=== PATIENT | female | born 1990 | race Caucasian/White ===

== ENCOUNTER 2016-10-05 17:23 | Emergency (ER) | payer SELFPAY ==
[2016-10-05 17:28] VITALS: BP 122/73
--- NOTE | 2016-10-05 17:43 | ER Document Report ---
ED Medical Screen (RME) - General Chief Complaint: Pelvic Pain Stated Complaint: ABDOMINAL PAIN TRAVEL OUTSIDE OF THE [place] IN LAST 30 DAYS: No - HPI Notes: 10/05/16 17:42 Lower pelvic pain pain with sex ongoing for 2 weeks - Related Data Allergies/Adverse Reactions: No Known Allergies Allergy (Verified 10/05/16 17:39) Past Medical History - Social History Chew tobacco use (# tins/day): No Frequency of alcohol use: None Drug Abuse: None - Past Medical History Cardiac Medical History: Denies: Hx Heart Attack, Hx Hypertension Pulmonary Medical History: Denies: Hx Asthma, Hx Bronchitis, Hx COPD, Hx Pneumonia Neurological Medical History: Denies: Hx Cerebrovascular Accident, Hx Seizures Renal/ Medical History: Reports: Hx Pelvic Inflammatory Disease. Denies: Hx Peritoneal Dialysis Musculoskeltal Medical History: Denies Hx Arthritis Skin Medical History: Reports Hx MRSA - back Psychiatric Medical History: Reports: Hx Anxiety, Hx Bipolar Disorder, Hx Depression Past Surgical History: Reports: Hx Oral Surgery, Hx Orthopedic Surgery - left ankle - Immunizations Immunizations up to date: Yes Hx Diphtheria, Pertussis, Tetanus Vaccination: Yes Review of Systems - Review of Systems Gastrointestinal: Other - Pelvic pain Physical Exam - Vital signs Vitals: Temp Pulse Resp BP Pulse Ox 98.5 F 98 15 122/73 100 10/05/16 17:25 10/05/16 17:25 10/05/16 17:25 10/05/16 17:25 10/05/16 17:25 - Cardiovascular Rhythm: Regular Heart sounds: Normal auscultation Course - Re-evaluation Re-evalutation: 10/05/16 17:43 I have greeted and performed a rapid initial assessment of this patient. A comprehensive ED assessment and evaluation of the patient, analysis of test results and completion of the medical decision making process will be conducted by additional ED providers. - Vital Signs Vital signs: Temp Pulse Resp BP Pulse Ox 98.5 F 98 15 122/73 100 10/05/16 17:25 10/05/16 17:25 10/05/16 17:25 10/05/16 17:25 10/05/16 17:25
--- NOTE | 2016-10-05 18:08 | ER Document Report ---
ED GI/ - General Chief Complaint: Pelvic Pain Stated Complaint: ABDOMINAL PAIN Time Seen by Provider: 10/05/16 18:02 Mode of Arrival: Ambulatory Information source: Patient Notes: Patient presents complaining of lower pelvic pain with intercourse for the past 2 weeks. Patient denies any fever, nausea, vomiting, or diarrhea. Patient denies any urinary symptoms or vaginal bleeding. TRAVEL OUTSIDE OF THE [place] IN LAST 30 DAYS: No - HPI Patient complains to provider of: Pelvic pain, Vaginal pain. No: Vaginal bleeding, Vaginal discharge, Vomiting Onset: Other - 2 weeks with intercourse Timing/Duration: Waxing and waning Quality of pain: Sharp Pain Level: 4 Location: Pelvis Vaginal bleeding (Compared to normal period): None Sexual history: Active Associated symptoms: denies: Diarrhea, Dysuria, Fever, Loss of appetite, Nausea , Urinary hesitancy, Urinary frequency, Urinary retention, Urinary urgency, Vaginal discharge, Vomiting Exacerbated by: Other - Sexual intercourse Relieved by: Denies Similar symptoms previously: No Recently seen / treated by doctor: No - Related Data Allergies/Adverse Reactions: No Known Allergies Allergy (Verified 10/05/16 17:39) Past Medical History - General Information source: Patient Last Menstrual Period: 09/14/2016 - Social History Smoking Status: Current Every Day Smoker Chew tobacco use (# tins/day): No Frequency of alcohol use: None Drug Abuse: None Occupation: none Lives with: Spouse/Significant other Family History: Reviewed & Not Pertinent, Other - she does not know - Past Medical History Cardiac Medical History: Denies: Hx Heart Attack, Hx Hypertension Pulmonary Medical History: Denies: Hx Asthma, Hx Bronchitis, Hx COPD, Hx Pneumonia Neurological Medical History: Denies: Hx Cerebrovascular Accident, Hx Seizures Renal/ Medical History: Reports: Hx Pelvic Inflammatory Disease. Denies: Hx Peritoneal Dialysis Musculoskeltal Medical History: Denies Hx Arthritis Skin Medical History: Reports Hx MRSA - back Psychiatric Medical History: Reports: Hx Anxiety, Hx Bipolar Disorder, Hx Depression Past Surgical History: Reports: Hx Oral Surgery, Hx Orthopedic Surgery - left ankle - Immunizations Immunizations up to date: Yes Hx Diphtheria, Pertussis, Tetanus Vaccination: Yes Review of Systems - Review of Systems Constitutional: No symptoms reported. denies: Fever, Recent illness EENT: No symptoms reported Cardiovascular: No symptoms reported Respiratory: No symptoms reported. denies: Cough, Short of breath Gastrointestinal: Abdominal pain - Lower pelvic pain. denies: Diarrhea, Nausea , Vomiting, Poor appetite Genitourinary: No symptoms reported. denies: Dysuria, Flank pain Female Genitourinary: Painful intercourse. denies: , Heavy/abnormal periods, Vaginal discharge, Vaginal bleeding Musculoskeletal: No symptoms reported. denies: Back pain Skin: No symptoms reported Hematologic/Lymphatic: No symptoms reported Neurological/Psychological: No symptoms reported Physical Exam - Vital signs Vitals: Temp Pulse Resp BP Pulse Ox 98.5 F 98 15 122/73 100 10/05/16 17:25 10/05/16 17:25 10/05/16 17:25 10/05/16 17:25 10/05/16 17:25 - General General appearance: Appears well, Alert In distress: None - HEENT Head: Normocephalic, Atraumatic Eyes: Normal Nasal: Normal Mouth/Lips: Normal Mucous membranes: Normal Neck: Normal, Supple. No: Lymphadenopathy - Respiratory Respiratory status: No respiratory distress Chest status: Nontender Breath sounds: Normal. No: Rhonchi, Stridor, Wheezing Chest palpation: Normal - Cardiovascular Rhythm: Regular Heart sounds: S1 appreciated, S2 appreciated Murmur: No - Abdominal Inspection: Normal Distension: No distension Bowel sounds: Normal Tenderness: Tender, Guarding - Lower pelvic tenderness Organomegaly: No organomegaly - Genitourinary External exam: Normal Speculum exam: Cervix closed, Vaginal discharge Bimanuel exam: Cervical motion tender. No: Adnexal mass - Back Back: Normal, Nontender. No: CVA tenderness - Extremities General upper extremity: Normal inspection, Normal ROM General lower extremity: Normal inspection, Normal ROM - Neurological Neuro grossly intact: Yes Cognition: Normal Henning Coma Scale Eye Opening: Spontaneous Krystle Coma Scale Verbal: Oriented Henning Coma Scale Motor: Obeys Commands Henning Coma Scale Total: 15 - Psychological Associated symptoms: Normal affect, Normal mood - Skin Skin Temperature: Warm Skin Moisture: Dry Skin Color: Normal Course - Re-evaluation Re-evalutation: 10/05/16 Patient continues with suprapubic tenderness with repeat abdominal examination. Abdomen soft, no guarding. No McBurney tenderness. Patient nontoxic in appearance.Patient presents with abdominal pain without signs of peritonitis or other life-threatening or serious etiology. Patient appears stable for discharge and has been instructed to return immediately if the symptoms worsen in any way for repeat evaluation. - Vital Signs Vital signs: Temp Pulse Resp BP Pulse Ox 98.5 F 98 15 122/73 100 10/05/16 17:25 10/05/16 17:25 10/05/16 17:25 10/05/16 17:25 10/05/16 17:25 - Laboratory Result Diagrams: 10/05/16 17:52 10/05/16 17:52 Laboratory results interpreted by me: 10/05/16 10/05/16 10/05/16 17:52 17:52 17:52 WBC 12.4 H Carbon Dioxide 31 H Urine Blood SMALL H Urine Urobilinogen 2.0 H Ur Leukocyte Esterase MODERATE H Urine Ascorbic Acid 40 H Chlamydia DNA (PCR) 10/05/16 18:30 WBC Carbon Dioxide Urine Blood Urine Urobilinogen Ur Leukocyte Esterase Urine Ascorbic Acid Chlamydia DNA (PCR) DETECTED H Labs- Entire Visit 10/05/16 10/05/16 10/05/16 17:52 17:52 17:52 WBC 12.4 H RBC 4.03 Hgb 12.7 Hct 37.4 MCV 93 MCH 31.4 MCHC 33.9 RDW 12.6 Plt Count 428 Seg Neutrophils % 56.6 Lymphocytes % 33.0 Monocytes % 8.1 Eosinophils % 1.8 Basophils % 0.5 Absolute Neutrophils 7.0 Absolute Lymphocytes 4.1 Absolute Monocytes 1.0 Absolute Eosinophils 0.2 Absolute Basophils 0.1 Sodium 140.9 Potassium 4.3 Chloride 99 Carbon Dioxide 31 H Anion Gap 11 BUN 12 Creatinine 0.84 Est GFR ( Amer) > 60 Est GFR (Non-Af Amer) > 60 Glucose 83 Calcium 9.8 Total Bilirubin 0.4 Direct Bilirubin 0.4 Indirect Bilirubin Not Reportable Neonat Total Bilirubin Not Reportable AST 20 ALT 24 Alkaline Phosphatase 80 Total Protein 8.1 Albumin 4.4 Lipase 82.0 Serum HCG, Qual Urine Color YELLOW Urine Appearance CLOUDY Urine pH 6.0 Ur Specific H[place] 1.026 Urine Protein NEGATIVE Urine Glucose (UA) NEGATIVE Urine Ketones NEGATIVE Urine Blood SMALL H Urine Nitrite NEGATIVE Urine Bilirubin NEGATIVE Urine Urobilinogen 2.0 H Ur Leukocyte Esterase MODERATE H Urine WBC (Auto) 83 Urine RBC (Auto) 26 Urine Bacteria (Auto) TRACE Squamous Epi Cells Auto 23 Urine Mucus (Auto) OCC Urine Ascorbic Acid 40 H Epi Cells (Wet Prep) Bacteria (Wet Prep) Trichomonas (Wet Prep) Vaginal WBC Vaginal RBC Vaginal Yeast 10/05/16 10/05/16 17:52 18:30 WBC RBC Hgb Hct MCV MCH MCHC RDW Plt Count Seg Neutrophils % Lymphocytes % Monocytes % Eosinophils % Basophils % Absolute Neutrophils Absolute Lymphocytes Absolute Monocytes Absolute Eosinophils Absolute Basophils Sodium Potassium Chloride Carbon Dioxide Anion Gap BUN Creatinine Est GFR ( Amer) Est GFR (Non-Af Amer) Glucose Calcium Total Bilirubin Direct Bilirubin Indirect Bilirubin Neonat Total Bilirubin AST ALT Alkaline Phosphatase Total Protein Albumin Lipase Serum HCG, Qual NEGATIVE Urine Color Urine Appearance Urine pH Ur Specific H[place] Urine Protein Urine Glucose (UA) Urine Ketones Urine Blood Urine Nitrite Urine Bilirubin Urine Urobilinogen Ur Leukocyte Esterase Urine WBC (Auto) Urine RBC (Auto) Urine Bacteria (Auto) Squamous Epi Cells Auto Urine Mucus (Auto) Urine Ascorbic Acid Epi Cells (Wet Prep) 3+ EPITHELIALS SEEN Bacteria (Wet Prep) 4+ BACTERIA SEEN Trichomonas (Wet Prep) NO TRICHOMONAS SEEN Vaginal WBC 3+ WBCS SEEN Vaginal RBC RARE RBCS SEEN Vaginal Yeast NO YEAST SEEN 10/05/16 20:58 Discharge - Discharge Clinical Impression: PID (acute pelvic inflammatory disease) UTI (urinary tract infection) Qualifiers: Urinary tract infection type: site unspecified Hematuria presence: with hematuria Qualified Code(s): N39.0 - Urinary tract infection, site not specified Condition: Stable Disposition: HOME, SELF-CARE Instructions: Urinary Anesthetic Agent ([facility]), Urinary Tract Infection ([facility]), Doxycycline ([facility]), Pelvic Inflammatory Disease ([facility]), Pelvic Pain ([facility]), Rocephin ([facility]) Additional Instructions: Return immediately for any new or worsening symptoms Followup with your primary care provider, call tomorrow to make a followup appointment Cultures are pending, we will call if you need any different treatment Prescriptions: Doxycycline Hyclate 100 mg PO BID #28 capsule Metronidazole [Flagyl 500 mg Tablet] 500 mg PO BID #28 tablet Naproxen [Naprosyn 250 Nmg Tablet] 1 tab PO BID #14 tablet Phenazopyridine HCl [Pyridium 200 mg Tablet] 200 mg PO TID #15 tablet Referrals: [facility] [Provider Group] - Follow up as needed [facility] [Provider Group] - Follow up tomorrow
[2016-10-05 18:41] LABS: ABSOLUTE BASOPHILS # (AUTO) 0.1 10^3/uL (0.0-0.2); ABSOLUTE EOSINOPHILS # (AUTO) 0.2 10^3/uL (0.0-0.6); ABSOLUTE LYMPHOCYTES (AUTO) 4.1 10^3/uL (0.5-4.7); BASOPHILS % (AUTO) 0.5 % (0-2); EOSINOPHILS % (AUTO) 1.8 % (0-6); HEMATOCRIT 37.4 % (36.0-47.0); HEMOGLOBIN 12.7 g/dL (12.0-15.5); HGB HCT DIFFERENCE 0.7; MEAN CORPUSCULAR HEMOGLOBIN 31.4 pg (27.0-33.4); MEAN CORPUSCULAR HGB CONC 33.9 g/dL (32.0-36.0); MEAN CORPUSCULAR VOLUME 93 fl (80-97); MONOCYTES % (AUTO) 8.1 % (3-13); RED BLOOD COUNT 4.03 10^6/uL (3.72-5.28); RED CELL DISTRIBUTION WIDTH 12.6 % (11.5-14.0); SEGMENTED NEUTROPHILS % (AUTO) 56.6 % (42-78); WHITE BLOOD COUNT 12.4 10^3/uL (4.0-10.5)
[2016-10-05 18:42] LABS: APPEARANCE,URINE CLOUDY; BILIRUBIN,URINE NEGATIVE (NEGATIVE); GLUCOSE, URINE NEGATIVE (NEGATIVE); KETONES,URINE NEGATIVE (NEGATIVE); LEUKOCYTE ESTERASE,URINE MODERATE (NEGATIVE); NITRITE,URINE NEGATIVE (NEGATIVE); PROTEIN,URINE NEGATIVE (NEGATIVE); URINE SPECIFIC GRAVITY 1.026
[2016-10-05] MEDS ORDERED: HYDROCODONE/ACETAMINOPHEN 5-325 MG TABLET PO ONE (18:55)
[2016-10-05 18:58] LABS: ALANINE AMINOTRANSFERASE 24 U/L (9-52); ALBUMIN 4.4 g/dL (3.5-5.0); ALKALINE PHOSPHATASE 80 U/L (38-126); ANION GAP 11 (5-19); ASPARTATE AMINO TRANSFERASE 20 U/L (14-36); BILIRUBIN,DIRECT 0.4 mg/dL (0.0-0.4); BILIRUBIN,TOTAL 0.4 mg/dL (0.2-1.3); BLOOD UREA NITROGEN 12 mg/dL (7-20); CALCIUM 9.8 mg/dL (8.4-10.2); CARBON DIOXIDE 31 mmol/L (22-30); CHLORIDE 99 mmol/L (98-107); CREATININE RESULT 0.84 mg/dL (0.52-1.25); GLUCOSE 83 mg/dL (75-110); POTASSIUM 4.3 mmol/L (3.6-5.0); SODIUM 140.9 mmol/L (137-145); TOTAL PROTEIN 8.1 g/dL (6.3-8.2)
[2016-10-05] MEDS ORDERED: CEFTRIAXONE INJ 1000 MG VIAL IM ONE (19:12)
[2016-10-05] MEDS ORDERED: LIDOCAINE 1% INJ-PF (10 MG/ML) 30 ML SDV INJ ONE (19:12)
[2016-10-05] MEDS ORDERED: DOXYCYCLINE HYCLATE 100 MG TABLET PO ONE (19:28)
[2016-10-05] MEDS ORDERED: METRONIDAZOLE 500 MG TABLET PO ONE (19:29)
[2016-10-05] MEDS ORDERED: HYDROCODONE/ACETAMINOPHEN 5-325 MG 6 TAB/DSPK PO PRN (19:35)
[2016-10-05 20:49] LABS: CHLAM PCR DETECTED (NOT DETECT)
== END 2016-10-05 20:23 | disposition home or self-care (01) ==
LOC: ER 17:23
DX: N73.9 Female pelvic inflammatory disease, unspecified (principal); F17.200 Nicotine dependence, unspecified, uncomplicated; Z86.14 Personal history of Methicillin resistant Staphylococcus aureus infection; N39.0 Urinary tract infection, site not specified; R31.9 Hematuria, unspecified; N94.10 Unspecified dyspareunia; R10.2 Pelvic and perineal pain
CPT/HCPCS: 99284; 96372; 36415; 87086; 87210; 83690; 84703; 85025; 80053; 81001; 87491; 87591; J3490; J0696

== ENCOUNTER 2016-12-17 10:56 | Emergency (ER) | payer SELFPAY ==
[2016-12-17 11:00] VITALS: BP 112/72
--- NOTE | 2016-12-17 11:22 | ER Document Report ---
HPI - HPI Patient complains to provider of: dental pain Pain Level: 5 Context: 26 yo female c/o pain to left upper tooth x 1 day. Associated Symptoms: None Exacerbated by: Food Relieved by: Denies - ROS Systems Reviewed and Negative: Yes All other systems reviewed and negative - CARDIOVASCULAR Cardiovascular: DENIES: Chest pain - REPRODUCTIVE Reproductive: REPORTS: : - DERM Skin Color: Normal Past Medical History - General Information source: Patient - Social History Smoking Status: Current Every Day Smoker Chew tobacco use (# tins/day): No Frequency of alcohol use: None Drug Abuse: None Lives with: Family Family History: Reviewed & Not Pertinent, Other - she does not know - Medical History Medical History: Negative - Past Medical History Cardiac Medical History: Denies: Hx Heart Attack, Hx Hypertension Pulmonary Medical History: Denies: Hx Asthma, Hx Bronchitis, Hx COPD, Hx Pneumonia Neurological Medical History: Denies: Hx Cerebrovascular Accident, Hx Seizures Renal/ Medical History: Reports: Hx Pelvic Inflammatory Disease. Denies: Hx Peritoneal Dialysis Musculoskeltal Medical History: Denies Hx Arthritis Skin Medical History: Reports Hx MRSA - back Psychiatric Medical History: Reports: Hx Anxiety, Hx Bipolar Disorder, Hx Depression Past Surgical History: Reports: Hx Oral Surgery, Hx Orthopedic Surgery - left ankle - Immunizations Immunizations up to date: Yes Hx Diphtheria, Pertussis, Tetanus Vaccination: Yes Vertical Provider Document - CONSTITUTIONAL Agree With Documented VS: Yes Exam Limitations: No Limitations General Appearance: WD/WN, No Apparent Distress - INFECTION CONTROL TRAVEL OUTSIDE OF THE [place] IN LAST 30 DAYS: No - HEENT HEENT: Atraumatic, PERRLA Mouth Diagram: 1 - pain - NECK Neck: Normal Inspection, Supple - RESPIRATORY Respiratory: Breath Sounds Normal, No Respiratory Distress O2 Sat by Pulse Oximetry: 100 - CARDIOVASCULAR Cardiovascular: Regular Rate, Regular Rhythm - MUSCULOSKELETAL/EXTREMETIES Musculoskeletal/Extremeties: MAEW, FROM - NEURO Level of Consciousness: Awake, Alert - DERM Integumentary: Warm, Dry Course - Vital Signs Vital signs: Temp Pulse Resp BP Pulse Ox 97.9 F 95 20 112/72 100 12/17/16 10:59 12/17/16 10:59 12/17/16 10:59 12/17/16 10:59 12/17/16 10:59 Discharge - Discharge Clinical Impression: Pain, dental Condition: Stable Disposition: HOME, SELF-CARE Instructions: Penicillin V K ([facility]), Toothache ([facility]), [facility], Ultram ([facility]) Prescriptions: Penicillin V Potassium [Penicillin Vk 500 mg Tablet] 500 mg PO BID #20 tablet Tramadol HCl [Ultram 50 mg Tablet] 50 mg PO ASDIR PRN #20 tablet PRN Reason:
== END 2016-12-17 11:31 | disposition home or self-care (01) ==
LOC: ER 10:56
DX: O99.619 Diseases of the digestive system complicating pregnancy, unspecified trimester (principal); K08.89 Other specified disorders of teeth and supporting structures; O99.330 Smoking (tobacco) complicating pregnancy, unspecified trimester; Z3A.00 Weeks of gestation of pregnancy not specified
CPT/HCPCS: 99282

== ENCOUNTER 2019-04-26 09:49 | Inpatient (IN) | payer SELFPAY ==
[2019-04-26] MEDS ORDERED: NORMAL SALINE 1000 ML 1,000 ML IV ONE (10:27)
--- NOTE | 2019-04-26 10:30 | ER Document Report ---
ED Medical Screen (RME) - General Chief Complaint: Breathing Difficulty Stated Complaint: TROUBLE BREATHING Time Seen by Provider: 04/26/19 10:22 TRAVEL OUTSIDE OF THE [place] 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 Patient states that she is not currently withdrawing anymore. She has had a cough and sneeze that began 2 days ago she does have pain in her posterior bilateral lungs when she coughs and sneezes. Patient states that she does have some chest pain associated as well. Denies any prolonged immobilization, distance travel, recent surgery/trauma, personal cancer history, hormone use, or previous DVT/PE. Denies VOGT, fever, neck pain, URI, n/v/d, Abd pain, dysuria, back pain, or rash. I have treated and performed a rapid initial assessment of this patient. A comprehensive ED assessment and evaluation of the patient, analysis of test results and completion of medical decision making process will be conducted by additional ED providers. PHYSICAL EXAMINATION: GENERAL: Well-appearing, well-nourished and in no acute distress. A&Ox4. Answers questions appropriately. LUNGS: Breath sounds clear to auscultation bilaterally and equal. No wheezes rales or rhonchi. HEART: Regular rate and rhythm without murmurs, rubs, gallops. Tachycardic. Extremities: No cyanosis, clubbing, or edema b/l. Stephanie negative bilaterally. No lower extremity asymmetry. NEUROLOGICAL: Normal speech, normal gait. PSYCH: Normal mood, normal affect. - Related Data Allergies/Adverse Reactions: No Known Allergies Allergy (Verified 04/26/19 10:23) Past Medical History - Past Medical History Cardiac Medical History: Denies: Hx Heart Attack, Hx Hypertension Pulmonary Medical History: Denies: Hx Asthma, Hx Bronchitis, Hx COPD, Hx Pneumonia Neurological Medical History: Denies: Hx Cerebrovascular Accident, Hx Seizures Renal/ Medical History: Reports: Hx Pelvic Inflammatory Disease. Denies: Hx Peritoneal Dialysis Musculoskeltal Medical History: Denies Hx Arthritis Skin Medical History: Reports Hx MRSA - back Psychiatric Medical History: Reports: Hx Anxiety, Hx Bipolar Disorder, Hx Depression Past Surgical History: Reports: Hx Oral Surgery, Hx Orthopedic Surgery - left ankle - Immunizations Immunizations up to date: Yes Hx Diphtheria, Pertussis, Tetanus Vaccination: Yes Physical Exam - Vital signs Vitals: Temp Pulse Resp BP Pulse Ox 98.1 F 128 H 20 96/58 L 100 04/26/19 10:09 04/26/19 10:09 04/26/19 10:09 04/26/19 10:09 04/26/19 10:09 Course - Vital Signs Vital signs: Temp Pulse Resp BP Pulse Ox 98.1 F 128 H 20 96/58 L 100 04/26/19 10:09 04/26/19 10:09 04/26/19 10:09 04/26/19 10:09 04/26/19 10:09
[2019-04-26 11:22] LABS: ABSOLUTE LYMPHOCYTES (AUTO) 1.1 10^3/uL (0.5-4.7); ABSOLUTE MONOCYTES (AUTO) 0.3 10^3/uL (0.1-1.4); ABSOLUTE NEUT (AUTO) 7.5 10^3/uL (1.7-8.2); BASOPHILS % (AUTO) 0.4 % (0-2); EOSINOPHILS % (AUTO) 0.2 % (0-6); HEMATOCRIT 35.4 % (36.0-47.0); LYMPHOCYTES % (AUTO) 11.9 % (13-45); MEAN CORPUSCULAR HEMOGLOBIN 30.2 pg (27.0-33.4); MEAN CORPUSCULAR HGB CONC 33.8 g/dL (32.0-36.0); MEAN CORPUSCULAR VOLUME 89 fl (80-97); MONOCYTES % (AUTO) 3.4 % (3-13); PLATELET COUNT 218 10^3/uL (150-450); RED BLOOD COUNT 3.97 10^6/uL (3.72-5.28); RED CELL DISTRIBUTION WIDTH 13.5 % (11.5-14.0); SEGMENTED NEUTROPHILS % (AUTO) 84.1 % (42-78); TOTAL CELLS COUNTED % (AUTO) 100 %; WHITE BLOOD COUNT 8.9 10^3/uL (4.0-10.5)
[2019-04-26 11:23] LABS: APPEARANCE,URINE SLIGHTLY-CLOUDY; BILIRUBIN,URINE NEGATIVE (NEGATIVE); COLOR,URINE YELLOW; GLUCOSE, URINE NEGATIVE (NEGATIVE); KETONES,URINE NEGATIVE (NEGATIVE); PROTEIN,URINE 100 mg/dL (NEGATIVE)
[2019-04-26 11:35] LABS: ALBUMIN 3.6 g/dL (3.5-5.0); ALKALINE PHOSPHATASE 161 U/L (38-126); ANION GAP 13 (5-19); ASPARTATE AMINO TRANSFERASE 45 U/L (14-36); BILIRUBIN,DIRECT 0.2 mg/dL (0.0-0.4); BILIRUBIN,TOTAL 0.5 mg/dL (0.2-1.3); BLOOD UREA NITROGEN 13 mg/dL (7-20); CALCIUM 9.3 mg/dL (8.4-10.2); CARBON DIOXIDE 25 mmol/L (22-30); CHLORIDE 103 mmol/L (98-107); GLUCOSE 95 mg/dL (75-110); POTASSIUM 3.7 mmol/L (3.6-5.0); TOTAL PROTEIN 7.7 g/dL (6.3-8.2)
--- NOTE | 2019-04-26 12:27 | RADIOLOGY REPORT (SQ) ---
EXAM DESCRIPTION: CHEST 2 VIEWS COMPLETED DATE/TIME: 04/26/2019 12:08 pm REASON FOR STUDY: sob, cp COMPARISON: 01/09/2014 EXAM PARAMETERS: NUMBER OF VIEWS: two views TECHNIQUE: Digital Frontal and Lateral radiographic views of the chest acquired. RADIATION DOSE: NA LIMITATIONS: none FINDINGS: LUNGS AND PLEURA: There is patchy infiltrate in the right base consistent with pneumonia. Lung cain are otherwise clear. MEDIASTINUM AND HILAR STRUCTURES: No masses or contour abnormalities. HEART AND VASCULAR STRUCTURES: Heart normal size. No evidence for failure. BONES: No acute findings. HARDWARE: None in the chest. OTHER: No other significant finding. IMPRESSION: Patchy right basilar infiltrate consistent with pneumonia. Lung cain are otherwise cl ear. TECHNICAL DOCUMENTATION: JOB ID: [id number] [employer]- All Rights Reserved Reading location - IP/workstation name: [email or web address]
[2019-04-26] MEDS ORDERED: RINGERS SOLUTION,LACTATED 1,000 ML IV ONE ×2 (13:43→15:16)
[2019-04-26] MEDS ORDERED: LEVOFLOXACIN 750 MG/D5W RTU 750 MG/150 ML RTUPB IV ONE (13:44)
[2019-04-26] MEDS ORDERED: ACETAMINOPHEN 325 MG TABLET PO ONE (13:46)
--- NOTE | 2019-04-26 13:49 | ER Document Report ---
ED Respiratory Problem - General Chief Complaint: Abdominal Pain Stated Complaint: TROUBLE BREATHING Time Seen by Provider: 04/26/19 10:22 Notes: Patient is a 28-year-old female who presents the emergency department with a chief complaint of bilateral lower lung pain. Patient states that she is generally not felt well for the past 2 weeks. Patient has a history of heroin use and patient just got out of detox 5 days ago. Patient states about 2 weeks ago she took heroin and her boyfriend found her passed out at that time and she was possibly aspirating at that time. Patient took 1200 mg of ibuprofen this morning and did not have any relief of her pain. TRAVEL OUTSIDE OF THE [place] IN LAST 30 DAYS: No - Related Data Allergies/Adverse Reactions: toradol Allergy (Uncoded 04/26/19 10:34) Past Medical History - Social History Smoking Status: Never Smoker Chew tobacco use (# tins/day): No Frequency of alcohol use: Rare Drug Abuse: None Family History: Reviewed & Not Pertinent, Other - she does not know Patient has suicidal ideation: No Patient has homicidal ideation: No - Past Medical History Cardiac Medical History: Denies: Hx Heart Attack, Hx Hypertension Pulmonary Medical History: Denies: Hx Asthma, Hx Bronchitis, Hx COPD, Hx Pneumonia Neurological Medical History: Denies: Hx Cerebrovascular Accident, Hx Seizures Renal/ Medical History: Reports: Hx Pelvic Inflammatory Disease. Denies: Hx Peritoneal Dialysis Musculoskeletal Medical History: Denies Hx Arthritis Skin Medical History: Reports Hx MRSA - back Psychiatric Medical History: Reports: Hx Anxiety, Hx Bipolar Disorder, Hx Depression Past Surgical History: Reports: Hx Oral Surgery, Hx Orthopedic Surgery - left ankle - Immunizations Immunizations up to date: Yes Hx Diphtheria, Pertussis, Tetanus Vaccination: Yes Review of Systems - Review of Systems Notes: REVIEW OF SYSTEMS: CONSTITUTIONAL : Denies recent illness. Denies recent unintentional weight loss. Denies fever, chills, or sweats. EENT: Denies eye, ear, throat, or mouth pain, discharge, or symptoms. Denies nasal or sinus congestion. CARDIOVASCULAR: Denies chest pain. RESPIRATORY: See HPI. GASTROINTESTINAL: Denies nausea, vomiting, and diarrhea. Denies abdominal pain. Denies constipation. GENITOURINARY: Denies difficulty urinating, burning, blood in urine, urgency or frequency. MUSCULOSKELETAL: Denies neck and back pain. Denies joint pain or swelling. SKIN: Denies rash, itchiness, or lesions HEMATOLOGIC : Denies easy bruising or bleeding. LYMPHATIC: Denies swollen, painful, enlarged glands. NEUROLOGICAL: Denies no numbness or tingling denies weakness. Denies headache. Denies altered mental status. Denies alteration in speech. PSYCHIATRIC: Denies stress, anxiety, alteration in sleep patterns, or depression. All other systems reviewed and negative. Physical Exam - Vital signs Vitals: Temp Pulse Resp BP Pulse Ox 98.1 F 128 H 20 96/58 L 100 04/26/19 10:09 04/26/19 10:09 04/26/19 10:09 04/26/19 10:04/26/19 10:09 - Notes Notes: PHYSICAL EXAMINATION: GENERAL: Appears well, healthy, well-nourished, no acute distress. HEAD: Normocephalic, atraumatic. EYES: PERRL, conjunctiva normal, all extraocular movements intact, sclera nonicteric ENT: Moist mucous membranes. NECK: Supple, no noticeable swelling, redness, rash. Normal range of motion. LUNGS: Diminished breath sounds in the bases. CARDIOVASCULAR: S1-S2, regular rate, regular rhythm. Radial pulses 2+, normal. ABDOMEN: Normoactive bowel sounds. Soft, nontender, no guarding, no rebound tenderness, and no masses palpated. EXTREMITIES: Normal strength and range of motion, no pitting or edema. No cyanosis. NEUROLOGICAL: Moves all extremities upon command. Strength 5/5 in all extremities. PSYCH: Normal mood, normal affect. SKIN: Warm, dry. No rash, lesions, ulcerations noted. Normal skin turgor. Course - Re-evaluation Re-evalutation: 04/26/19 13:50 Patient hematology does not show a leukocytosis, but the patient's lactic acid is 2.5. Chemistries are unremarkable. Patient is still tachycardic and we will continue to fluid resuscitate her. Chest x-ray shows pneumonia. She be started on Levaquin. 04/26/19 16:19 Patient has received 3L of IV fluids and is still tachycardic. I spoke to Dr. Dick and he is not convinced based off of the chest x-ray that the patient has pneumonia. He states that he will assess the patient to determine whether or not the patient needs to be admitted to the hospital. Based off the patient's presentation and her breath sounds, I have strongly suggested the patient be admitted. Her history is indicative of possible aspiration pneumonia, as she took heroin about 2 weeks ago and according to her boyfriend she was "passed out and drooling." 04/26/19 17:47 Dr. Dick assessed the patient. He does not think the patient needs a CT of the chest. Patient will be admitted under observation to the telemetry floor. - Vital Signs Vital signs: Temp Pulse Resp BP Pulse Ox 98.1 F 99 25 H 100/62 96 04/27/19 08:00 04/27/19 08:00 04/27/19 08:00 04/27/19 08:00 04/27/19 08:00 - Laboratory Result Diagrams: 04/27/19 05:19 04/27/19 05:19 Laboratory results interpreted by me: 04/26/19 04/26/19 04/26/19 10:50 10:50 10:50 Hct 35.4 L Lymph % (Auto) 11.9 L Seg Neutrophils % 84.1 H Lactic Acid (Sepsis) AST 45 H Alkaline Phosphatase 161 H Urine Protein 100 H Urine Blood LARGE H Urine Urobilinogen 2.0 H Leukocyte Esterase Rfl SMALL H 04/26/19 13:59 Hct Lymph % (Auto) Seg Neutrophils % Lactic Acid (Sepsis) 2.5 H AST Alkaline Phosphatase Urine Protein Urine Blood Urine Urobilinogen Leukocyte Esterase Rfl - EKG Interpretation by Me Additional EKG results interpreted by me: 04/26/19 17:49 Sinus tachycardia. Rate 122. IN 132; QRS 90; QT 320; QTc 456. No ST elevations or depressions noted. Discharge - Discharge Clinical Impression: Pneumonia Qualifiers: Pneumonia type: due to unspecified organism Laterality: unspecified laterality Lung location: unspecified part of lung Qualified Code(s): J18.9 - Pneumonia, unspecified organism Condition: Stable Disposition: ADMITTED OBSERVATION Admitting Provider: Kapil (Hospitalist) Unit Admitted: Telemetry
--- NOTE | 2019-04-26 14:31 | EKG REPORT ---
SEVERITY:- OTHERWISE NORMAL ECG - SINUS TACHYCARDIA : Confirmed by: Mónica Corona MD 26-Apr-2019 14:30:58
--- NOTE | 2019-04-26 17:53 | PDOC H&P ---
History of Present Illness Patient complains of: Upper back pain and sweats History of Present Illness: ELVIN BALLESTEROS is a 28 year old female with a history of IV heroin abuse who presents to the hospital with complaints of upper back pain for the past 2 weeks. Patient states the pain is worse with inhalation and often makes her feel like she can take deep breaths. Denies any trauma to the area. Denies noticing any awkward sleeping positions at onset of pain. Has very mild cough occasionally without production of sputum. Denies fever and chills at home but endorses sweats. States that she has been self detoxing from prior when use for the past week. Denies palpitations. Denies using other illicit drugs such as cocaine or methamphetamines. ER requesting admission by hospitalist service for possible pneumonia and tachycardia. Past Medical History Cardiac Medical History: Denies: Myocardial Infarction, Hypertension Pulmonary Medical History: Denies: Asthma, Bronchitis, Chronic Obstructive Pulmonary Disease (COPD), Pneumonia Neurological Medical History: Denies: Seizures Musculoskeltal Medical History: Denies: Arthritis Past Surgical History Past Surgical History: Reports: Orthopedic Surgery - left ankle, Other - Incision and drainage of lower back abscess Social History Information Source: Patient Smoking Status: Never Smoker Electronic Cigarette use?: No Hx Recreational Drug Use: Yes Drugs: Heroin - Advance Directive Resuscitation Status: Full Code Family History Family History: None, Other - she does not know Parental Family History Reviewed: Yes Children Family History Reviewed: Yes Sibling(s) Family History Reviewed.: Yes Medication/Allergy Home Medications: Oxycodone HCl 1 tab PO Q4HP PRN 01/09/14 Ciprofloxacin HCl [Cipro 500 mg Tablet] 500 mg PO BID #10 tablet 09/20/14 Doxycycline Hyclate 100 mg PO BID #20 capsule 09/20/14 Hydrocodone/Acetaminophen [Vicodin 5-300 mg Tablet] 1 tab PO Q4HP PRN #15 tab 09/20/14 Penicillin V Potassium [Penicillin Vk 500 mg Tablet] 500 mg PO QID #28 tablet 10/31/14 Tramadol HCl [Ultram] 50 mg PO Q6HP PRN #14 tablet 10/31/14 Clindamycin HCl [Cleocin 150 Mg Capsule] 150 mg PO QID #28 capsule 05/08/15 Ibuprofen [Motrin 800 Mg Tablet] 800 mg PO TID PRN #30 tablet 05/08/15 Fluconazole [Diflucan] 150 mg PO ONCE PRN #1 tablet 12/02/15 Oxycodone HCl/Acetaminophen [Percocet 5-325 mg Tablet] 1 tab PO ASDIR PRN #15 tablet 12/02/15 Penicillin V Potassium [Penicillin Vk 500 mg Tablet] 500 mg PO BID #20 tablet 12/02/15 Oxycodone HCl/Acetaminophen [Percocet 5-325 mg Tablet] 1 - 2 tab PO ASDIR PRN #15 tablet 02/22/16 Sulfamethoxazole/Trimethoprim [Bactrim Ds Tablet] 1 each PO BID #20 tablet 02/22/16 Doxycycline Hyclate 100 mg PO BID #28 capsule 10/05/16 Metronidazole [Flagyl 500 mg Tablet] 500 mg PO BID #28 tablet 10/05/16 Naproxen [Naprosyn 250 Nmg Tablet] 1 tab PO BID #14 tablet 10/05/16 Phenazopyridine HCl [Pyridium 200 mg Tablet] 200 mg PO TID #15 tablet 10/05/16 Penicillin V Potassium [Penicillin Vk 500 mg Tablet] 500 mg PO BID #20 tablet 12/17/16 Tramadol HCl [Ultram 50 mg Tablet] 50 mg PO ASDIR PRN #20 tablet 12/17/16 Allergies/Adverse Reactions: toradol Allergy (Uncoded 04/26/19 10:34) Review of Systems Constitutional: PRESENT: night sweats. ABSENT: chills, fever(s) Eyes: ABSENT: visual disturbances Ears: ABSENT: hearing changes Nose, Mouth, and Throat: ABSENT: headache(s) Cardiovascular: ABSENT: chest pain, palpitations Respiratory: ABSENT: dyspnea Gastrointestinal: PRESENT: nausea. ABSENT: abdominal pain, diarrhea Genitourinary: ABSENT: dysuria Integumentary: PRESENT: diaphoresis Neurological: ABSENT: confusion, dizziness Psychiatric: PRESENT: anxiety Endocrine: ABSENT: polyuria Physical Exam Vital Signs: Temp Pulse Resp BP Pulse Ox 98.7 F 128 H 33 H 102/59 L 100 04/26/19 16:20 04/26/19 10:09 04/26/19 16:00 04/26/19 15:00 04/26/19 16:00 Intake & Output 04/25/19 04/26/19 04/27/19 06:59 06:59 06:59 Intake Total 1999 Balance 1999 Weight 56.1 kg General appearance: PRESENT: no acute distress, cooperative Eye exam: PRESENT: EOMI Neck exam: ABSENT: JVD Respiratory exam: PRESENT: chest wall tenderness - In left upper back bilateral ly, clear to auscultation chelo, symmetrical, unlabored. ABSENT: tachypnea, wheezes Cardiovascular exam: PRESENT: +S1, +S2, tachycardia. ABSENT: irregular rhythm, systolic murmur GI/Abdominal exam: PRESENT: normal bowel sounds, soft. ABSENT: distended, firm, guarding, rebound, rigid, tenderness Neurological exam: PRESENT: alert, awake, oriented to person, oriented to place, oriented to time, oriented to situation Skin exam: PRESENT: other - Sweaty clammy skin Results Laboratory Results: 04/26/19 10:50 04/26/19 10:50 04/26/19 04/26/19 04/26/19 10:50 10:50 10:50 WBC 8.9 RBC 3.97 Hgb 12.0 Hct 35.4 L MCV 89 MCH 30.2 MCHC 33.8 RDW 13.5 Plt Count 218 Seg Neutrophils % 84.1 H Sodium 141.2 Potassium 3.7 Chloride 103 Carbon Dioxide 25 Anion Gap 13 BUN 13 Creatinine 0.60 Est GFR ( Amer) > 60 Glucose 95 Calcium 9.3 Total Bilirubin 0.5 AST 45 H Alkaline Phosphatase 161 H Total Protein 7.7 Albumin 3.6 Urine Color YELLOW Urine Appearance SLIGHTLY-CLOUDY Urine pH 6.0 Ur Specific [place]le 1.020 Urine Protein 100 H Urine Glucose (UA) NEGATIVE Urine Ketones NEGATIVE Urine Blood LARGE H Urine RBC (Auto) 117 04/26/19 10:50 Troponin I < 0.012 Impressions: Chest X-Ray 04/26/19 10:26 IMPRESSION: Patchy right basilar infiltrate consistent with pneumonia. Lung cain are otherwise clear. Assessment and Plan - Diagnosis (1) Heroin withdrawal Is this a current diagnosis for this admission?: Yes Plan: -I believe most what patient is experiencing is secondary to heroin withdrawal. Though mild, it would explain her sweaty clammy skin, tachycardia and mild anxiety. -Ativan as needed severe anxiety -P.o. clonidine as needed -IV hydration -We will monitor (2) Abnormal chest x-ray Is this a current diagnosis for this admission?: Yes Plan: -Chest x-ray performed to evaluate upper back/pleuritic pain. -Chest x-ray read as patchy opacity in the right. ER concerned for pneumonia. However, upon reviewing the image myself I do not see any distinct right-sided pneumonia 2 days a mild haziness in the right lung. -Truly doubt his diagnosis of pneumonia as patient has no leukocytosis, endorses only very minimal occasional cough. Hold off on any further antibiotics pending CT. -I will f/u the CT chest without contrast to evaluate for any true pneumonia. (3) Upper back pain Is this a current diagnosis for this admission?: Yes Plan: Seems to be musculoskeletal rather than just simply somatic pain Lidocaine patch (4) Sinus tachycardia Is this a current diagnosis for this admission?: Yes Plan: Patient has been having significant tachycardia persisting in the 120s to 130s. Mild improvement after IV fluids. I believe this may be a component of having mild active heroin withdrawal and potentially partly from pain. I do not believe there is any clear source of infection at this time. Do not believe patient has sepsis. I will continue cardiac monitoring as of now in which response to therapy. (5) Lactic acidosis Is this a current diagnosis for this admission?: Yes Plan: Patient had mild lactic acidosis. Will repeat level status post 3 L of fluids. - Time Time Spent with patient: 35 or more minutes
[2019-04-26 17:59] LABS: URINE AMPHETAMINES SCREEN NEGATIVE; URINE BARBITURATES SCREEN NEGATIVE; URINE BENZODIAZEPINES SCREEN NEGATIVE; URINE METHADONE SCREEN NEGATIVE; URINE PHENCYCLIDINE SCREEN NEGATIVE
[2019-04-26 18:06] LABS: URINE COCAINE SCREEN UNCONFIRMED POSITIVE; URINE MARIJUANA (THC) SCREEN UNCONFIRMED POSITIVE
[2019-04-26] MEDS ORDERED: MAG HYDROX/AL HYDROX/SIMETH SUSP 30 ML UDCUP PO PRN (18:19)
[2019-04-26] MEDS ORDERED: ONDANSETRON HCL INJ/PF 4 MG/2 ML SDV IV PRN (18:19)
--- NOTE | 2019-04-26 19:00 | RADIOLOGY REPORT (SQ) ---
EXAM DESCRIPTION: CT CHEST WITHOUT COMPLETED DATE/TIME: 04/26/2019 6:36 pm REASON FOR STUDY: further eval pneumonia COMPARISON: Chest x-ray 04/26/2019 TECHNIQUE: CT scan performed of the chest without intravenous contrast. Images reviewed with lung, soft tissue and bone windows. Reconstructed coronal and sagittal MPR images reviewed. All images st ored on PACS. All CT scanners at this facility use dose modulation, iterative reconstruction, and/or weight based d osing when appropriate to reduce radiation dose to as low as reasonably achievable (ALARA). [facility]: Dose Right [facility]: CareDose [facility]: Dose Right [facility]: Teradose 4D [facility]: [employer] RADIATION DOSE: CT Rad equipment meets quality standard of care and radiation dose reduction techniq ues were employed. CTDIvol: 4.8 mGy. DLP: 168 mGy-cm. mGy. LIMITATIONS: No technical limitations. FINDINGS: LUNGS AND PLEURA: There are areas of opacification the right lower lobe and in the right m iddle lobe anteriorly. There is a small air ring-like area of opacification in the left lower lobe p osteriorly. A 2nd small area of opacification is seen in the left lower lobe adjacent to the fissure anteriorly on image 35. Small peripheral ring-like areas of opacification are seen in the right upp er lobe on image 27 and in the right upper lobe on image 15. Small peripheral opacification the righ t upper lobe on image 23 and small peripheral areas of opacification in the left upper lobe on images 24 and 26. HILAR AND MEDIASTINAL STRUCTURES: No identified masses or abnormal nodes. No obvious aneurysm. HEART AND VASCULAR STRUCTURES: No aneurysm. No pericardial effusion. UPPER ABDOMEN: No significant findings. Limited exam. THYROID AND OTHER SOFT TISSUES: No masses. No adenopathy. BONES: No significant finding. HARDWARE: None in the chest. OTHER: No other significant findings. IMPRESSION: Bilateral pulmonary lesions as described. Most prominent are in the right lower lobe. 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 Another possibility is septic emboli. TECHNICAL DOCUMENTATION: JOB ID: [id number] Quality ID # [id number]: Final reports with documentation of one or more dose reduction techniques (e.g., Au tomated exposure control, adjustment of the mA and/or kV according to patient size, use of iterative reconstruction technique) 2010 [employer]- All Rights Reserved Reading location - IP/workstation name: [email or web address]
[2019-04-26] MEDS: ACETAMINOPHEN 325 MG TABLET PO PRN (20:55)
[2019-04-26] MEDS: NORMAL SALINE 1000 ML 1,000 ML IV PRN (21:22)
[2019-04-26] MEDS ORDERED: INFLUENZA QUAD (6MOS+) 2019-20 VAC 0.5 ML SYR IM ONE (21:34)
[2019-04-26] MEDS: LORAZEPAM 1 MG TABLET PO PRN (21:36)
[2019-04-26] MEDS ORDERED: DILTIAZEM HCL 60 MG TABLET PO ONE (22:30)
[2019-04-27] MEDS: NORMAL SALINE 1000 ML 1,000 ML IV PRN ×3 (01:17→04:35)
[2019-04-27] MEDS: ACETAMINOPHEN 325 MG TABLET PO PRN ×4 (01:22→23:05)
[2019-04-27] MEDS: DILTIAZEM HCL 30 MG TABLET PO SCH ×3 (05:05→21:28)
[2019-04-27 05:42] LABS: HEMATOCRIT 26.2 % (36.0-47.0); MEAN CORPUSCULAR HEMOGLOBIN 30.8 pg (27.0-33.4); MEAN CORPUSCULAR VOLUME 88 fl (80-97); PLATELET COUNT 135 10^3/uL (150-450); RED BLOOD COUNT 2.98 10^6/uL (3.72-5.28); RED CELL DISTRIBUTION WIDTH 13.4 % (11.5-14.0); WHITE BLOOD COUNT 7.3 10^3/uL (4.0-10.5)
[2019-04-27 05:44] LABS: HEMOGLOBIN 9.2 g/dL (12.0-15.5)
[2019-04-27 05:57] LABS: ANION GAP 6 (5-19); BLOOD UREA NITROGEN 7 mg/dL (7-20); CALCIUM 7.9 mg/dL (8.4-10.2); CARBON DIOXIDE 23 mmol/L (22-30); CHLORIDE 111 mmol/L (98-107); GLUCOSE 106 mg/dL (75-110); POTASSIUM 3.2 mmol/L (3.6-5.0)
[2019-04-27] MEDS ORDERED: VANCOMYCIN HCL 0 MG in DEXTROSE 5%-WATER 250 ML IV NR (09:30)
[2019-04-27] MEDS: ENOXAPARIN SODIUM INJ 40 MG/0.4 ML DISP.SYRIN SUBCUT SCH (09:44)
[2019-04-27] MEDS ORDERED: VANCOMYCIN HCL INJ 1000 MG VIAL IV SCH (10:00)
[2019-04-27] MEDS: LIDOCAINE 5% (700 MG) TRANSDERMAL ADH..PATCH TP SCH (10:18)
--- NOTE | 2019-04-27 11:44 | EKG REPORT ---
SEVERITY:- BORDERLINE ECG - SINUS RHYTHM BORDERLINE T ABNORMALITIES, ANTERIOR LEADS : Confirmed by: Mónica Corona MD 27-Apr-2019 11:44:15
[2019-04-27] MEDS ORDERED: DEXTROSE 40% GEL 15 GM TUBE PO PRN ×2 (12:16)
[2019-04-27] MEDS ORDERED: GLUCAGON,HUMAN RECOMB 1 MG INJ SUBCUT PRN (12:16)
[2019-04-27] MEDS ORDERED: DEXTROSE 50%-WATER 25 GM/50 ML DISP.SYRIN IV PRN ×2 (12:16)
[2019-04-27] MEDS: VANCOMYCIN HCL 750 MG in DEXTROSE 5%-WATER 250 ML IV SCH ×2 (12:30→18:29)
--- NOTE | 2019-04-27 12:41 | PDOC PROGRESS REPORT ---
Subjective Progress Note for:: 04/27/19 Subjective:: Patient feels better today. Heart rate went into the 140s sinus tachycardia yesterday. He was given some fluids and diltiazem to help control heart rate. Today patient denies any palpitations and states to have upper back pain has improved significantly. Patient denies any fevers and says that she is with tenderness. Has some pain at the sole of feet. Denies any skin lesions or any erythema. Reason For Visit: PERSISTENT SEVERE SINUS TACHYCARDIA, ?PNA Physical Exam Vital Signs: Temp Pulse Resp BP Pulse Ox 98.1 F 99 25 H 100/62 96 04/27/19 08:00 04/27/19 08:00 04/27/19 08:00 04/27/19 08:00 04/27/19 08:00 Intake & Output 04/26/19 04/27/19 04/28/19 06:59 06:59 06:59 Intake Total 6016 Balance 6016 Weight 44.6 kg General appearance: PRESENT: no acute distress, cooperative Neck exam: ABSENT: JVD Respiratory exam: PRESENT: clear to auscultation chelo, unlabored. ABSENT: rhonchi, tachypnea, wheezes Cardiovascular exam: PRESENT: RRR, +S1, +S2. ABSENT: diastolic murmur, irregular rhythm, systolic murmur, tachycardia GI/Abdominal exam: PRESENT: normal bowel sounds, soft. ABSENT: rebound, rigid, tenderness Neurological exam: PRESENT: alert, awake, oriented to person, oriented to place, oriented to time, oriented to situation Skin exam: PRESENT: other - No Janeway lesions or Ostlund nodes in the palms or feet. ABSENT: petechiae, rash Results Laboratory Results: 04/27/19 05:19 04/27/19 05:19 04/26/19 04/27/19 04/27/19 18:05 05:19 05:19 WBC 7.3 RBC 2.98 L Hgb 9.2 L D Hct 26.2 L MCV 88 MCH 30.8 MCHC 35.0 RDW 13.4 Plt Count 135 L Sodium 139.5 Potassium 3.2 L Chloride 111 H Carbon Dioxide 23 Anion Gap 6 BUN 7 Creatinine 0.42 L Est GFR ( Amer) > 60 Glucose 106 Lactic Acid 2.2 H Calcium 7.9 L 04/26/19 10:50 Troponin I < 0.012 Impressions: Chest X-Ray 04/26/19 10:26 IMPRESSION: Patchy right basilar infiltrate consistent with pneumonia. Lung cain are otherwise clear. Chest CT 04/26/19 17:46 IMPRESSION: Bilateral pulmonary lesions as described. Most prominent are in the right lower lobe. 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 Another possibility is septic emboli. Assessment and Plan - Diagnosis (1) Staphylococcus aureus bacteremia Is this a current diagnosis for this admission?: Yes Plan: -One set of blood cultures growing staph aureus -Given patient's history of IV drug abuse with findings on CT scan that are con cerning for septic emboli and microabscesses, I have a high suspicion of infective endocarditis as I do not see any other clear source for the bacteremia. -Started on vancomycin and will de-escalate following full speciation of microbes and sensitivities -SYD scheduled for tomorrow -Repeat blood cultures tomorrow morning (2) Septic pulmonary embolism Qualifiers: Chronicity: acute Acute cor pulmonale presence: without acute cor pulmonale Qualified Code(s): I26.90 - Septic pulmonary embolism without acute cor pulmonale Is this a current diagnosis for this admission?: Yes Plan: -Given abnormal chest x-ray without clear evidence of pneumonia, I checked CT scan of the chest. -I have reviewed the CT scan of the chest image and it shows what appears to be bilateral patchy infiltrates concerning for septic emboli and some areas that appear to be microabscesses. -Antibiotics as detailed under problem #1. (3) Heroin withdrawal Is this a current diagnosis for this admission?: Yes Plan: -Patient appears better today with less sweats. -Continue IV hydration and Ativan as needed for severe anxiety. (4) Upper back pain Is this a current diagnosis for this admission?: Yes Plan: Improved with lidocaine patch possible. Explanation for this pain include musculoskeletal versus pleuritic chest pain from what may be septic emboli. (5) Sinus tachycardia Is this a current diagnosis for this admission?: Yes Plan: IV fluids. May be secondary to infection and partially from withdrawal. Started on diltiazem overnight. Will likely discontinue tomorrow based of heart rate. (6) Lactic acidosis Is this a current diagnosis for this admission?: Yes Plan: Repeat lactate - Time Time Spent with patient: 15-24 minutes
[2019-04-27] MEDS: POTASSIUM CHLORIDE 10 MEQ TABLET.ER PO SCH ×2 (18:23→23:03)
[2019-04-27] MEDS: LORAZEPAM 1 MG TABLET PO PRN (23:06)
[2019-04-28] MEDS: VANCOMYCIN HCL 750 MG in DEXTROSE 5%-WATER 250 ML IV SCH ×2 (01:30→09:14)
[2019-04-28] MEDS: NORMAL SALINE 1000 ML 1,000 ML IV PRN ×2 (01:30→22:12)
[2019-04-28] MEDS ORDERED: QUETIAPINE FUMARATE 25 MG TABLET PO ONE (02:00)
[2019-04-28] MEDS: DILTIAZEM HCL 30 MG TABLET PO SCH ×2 (05:06→17:25)
[2019-04-28 07:22] LABS: INTERNATIONAL RATION (INR) 0.99; PROTHROMBIN TIME 13.1 SEC (11.4-15.4)
[2019-04-28 07:23] LABS: PARTIAL THROMBOPLASTIN TIME 37.7 SEC (23.5-35.8)
[2019-04-28] MEDS ORDERED: ONDANSETRON HCL INJ/PF 4 MG/2 ML SDV ONE (07:31)
[2019-04-28] MEDS ORDERED: DIPHENHYDRAMINE HCL 50 MG/ML VIAL ONE (07:31)
[2019-04-28] MEDS ORDERED: LIDOCAINE 2% JELLY 5 ML TUBE ONE (07:31)
[2019-04-28] MEDS ORDERED: EPINEPHRINE INJ 1 MG/10 ML DISP.SYRIN ONE (07:32)
[2019-04-28] MEDS ORDERED: GLUCAGON,HUMAN RECOMB 1 MG INJ ONE (07:32)
[2019-04-28] MEDS ORDERED: FLUMAZENIL INJ 0.5 MG/5 ML VIAL ONE (07:32)
[2019-04-28] MEDS ORDERED: NALOXONE HCL INJ/PF 0.4 MG/1 ML SDV ONE (07:32)
[2019-04-28] MEDS ORDERED: FENTANYL CITRATE INJ/PF 100 MCG/2 ML AMPUL ONE (07:32)
[2019-04-28] MEDS: MIDAZOLAM 2 MG/2 ML INJ ONE ×2 (08:05→08:08)
--- NOTE | 2019-04-28 08:35 | XCELERA REPORT ---
Study ID: [id number] Transesophageal Echocardiogram Report Name: ELVIN BALLESTEROS Age: 28 yrs Gender: Female : 1990 Patient Status: Inpatient Patient Location: [address] [place], [place] [address] Study Date: 04/28/2019 08:22 AM History: Infective endocarditis Height: 63 in Weight: 98 lb BSA: 1.4 m2 Reason For Study: S. Aureus bacteremia. Unknown source. IVDA Ordering Physician: JANELL BOYLE Performed By: Judie Graham Interpretation Summary Left ventricular systolic function is normal. Ejection Fraction = >55%. The right ventricle is normal in size and function. There is trace mitral regurgitation. There is a large oblong vegetation (2.2 cm X 2.2 cm)on the tricuspid valve. There is mild to moderate tricuspid regurgitation. There is no pericardial effusion. Procedure A complete two-dimensional transesophageal echocardiogram was performed (2D, spectral and color flow Doppler). Informed consent for Transesophageal Echocardiogram, and use of a contrast agent as needed, was obtained prior to the procedure. An intravenous line was placed. A topical anesthetic agent was used for oropharangeal anesthesia. A bite block was inserted. The patient was brought to the Endoscopy in a fasting state. IV conscious sedation was administered using Midazolam 3 mg and Fentanyl 50 mcg IV. The patient's vital signs, including blood pressure, heart rate, pulse oximetry and cardiac rhythm were monitored thoughout the procedure. A multifrequency, mutliplane transesophageal echocardiographic endoscope was inserted and manipulated in the standard fashion to achieve multiplane views. The transesophageal probe was passed without difficulty. The usual views were obtained; basal, mid- esophageal, transgastric and aortic views. The patient tolerated the procedure well without evidence of orophangeal or esophageal trauma. Subsequent to all the images being obtained the probe was removed with out trauma. Left Ventricle The left ventricle is grossly normal size. There is no thrombus. There is normal left ventricular wall thickness. Left ventricular systolic function is normal. Ejection Fraction = >55%. The left ventricular wall motion is normal. Right Ventricle The right ventricle is normal in size and function. Atria The atrial septum is aneurysmal. There is no Doppler evidence for an atrial septal defect. The left atrial size is normal. No left atrial mass or thrombus visualized. Right atrial size is normal. Mitral Valve The mitral valve is normal in structure and function. There is no vegetation seen on the mitral valve. There is no mitral valve stenosis. There is trace mitral regurgitation. Tricuspid Valve The tricuspid valve is not well visualized. Large vegetation obscures visualization of the valve. There is a large vegetation or mass on the tricuspid valve. 2.2 cm x 2.2 cm. There is no tricuspid stenosis. There is mild to moderate tricuspid regurgitation. Aortic Valve The aortic valve is normal in structure and function. The aortic valve is trileaflet. The aortic valve opens well. No hemodynamically significant valvular aortic stenosis. No aortic regurgitation is present. Pulmonic Valve The pulmonic valve is not well visualized. Arteries The aortic root is normal size. Pericardium There is no pericardial effusion. : JANELL BOYLE Anil
--- NOTE | 2019-04-28 08:40 | PDOC CONSULTATION ---
Consultation Consult Date: 04/28/19 Provider Consulted: SAI THOMASON History of Present Illness Admission Date/PCP: 04/27/19 13:30 Patient complains of: Pain back right side of chest History of Present Illness: ELVIN BALLESTEROS is a 28 year old female With no significant prior medical history who has been abusing intravenous heroin. Her last use of this drug was approximately 3 weeks ago. She has been admitted to the hospital with symptoms suggestive of heroin withdrawal and also pain and discomfort in the right chest. Imaging studies including CT scan suggest septic emboli. She has been tachycardic. Transesophageal echocardiogram has been requested to exclude endocarditis. Past Medical History Cardiac Medical History: Denies: Myocardial Infarction, Hypertension Pulmonary Medical History: Denies: Asthma, Bronchitis, Chronic Obstructive Pulmonary Disease (COPD), Pneumonia Neurological Medical History: Denies: Seizures Musculoskeltal Medical History: Denies: Arthritis Psychiatric Medical History: Reports: Bipolar Disorder, Depression Past Surgical History Past Surgical History: Reports: Orthopedic Surgery - left ankle, Other - Incision and drainage of lower back abscess Social History Smoking Status: Never Smoker Electronic Cigarette use?: No Frequency of Alcohol Use: None Hx Recreational Drug Use: Yes Drugs: Heroin - Advance Directive Resuscitation Status: Full Code Family History Family History: Reviewed & Not Pertinent, Other - she does not know Parental Family History Reviewed: No Children Family History Reviewed: No Sibling(s) Family History Reviewed.: No Medication/Allergy Home Medications: No Home Medications 04/26/19 Allergies/Adverse Reactions: toradol Allergy (Uncoded 04/26/19 10:34) Review of Systems Eyes: PRESENT: as per HPI Nose, Mouth, and Throat: PRESENT: as per HPI Respiratory: PRESENT: as per HPI Gastrointestinal: PRESENT: as per HPI Physical Exam Vital Signs: Temp Pulse Resp BP Pulse Ox 99.6 F 127 H 27 H 101/88 H 98 04/28/19 00:15 04/28/19 08:30 04/28/19 08:30 04/28/19 08:30 04/28/19 08:30 Intake & Output 04/27/19 04/28/19 04/29/19 06:59 06:59 06:59 Intake Total 6016 3006 200 Balance 6016 3006 200 Weight 44.6 kg 46.6 kg General appearance: PRESENT: no acute distress, cooperative Head exam: PRESENT: atraumatic, normocephalic Eye exam: PRESENT: EOMI Mouth exam: PRESENT: moist Respiratory exam: PRESENT: unlabored Cardiovascular exam: PRESENT: tachycardia Musculoskeletal exam: PRESENT: normal inspection Neurological exam: PRESENT: alert, awake, oriented to person, oriented to place, oriented to time Results Laboratory Results: 04/27/19 05:19 04/27/19 05:19 04/28/19 06:52 Lactic Acid 1.0 04/26/19 17:13 Blood Blood Culture (PCR) - Final Staphylococcus Aureus 04/26/19 10:50 Troponin I < 0.012 Impressions: Chest X-Ray 04/26/19 10:26 IMPRESSION: Patchy right basilar infiltrate consistent with pneumonia. Lung cain are otherwise clear. Chest CT 04/26/19 17:46 IMPRESSION: Bilateral pulmonary lesions as described. Most prominent are in the right lower lobe. 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 Another possibility is septic emboli. Assessment & Plan - Diagnosis (1) Staphylococcus aureus bacteremia Is this a current diagnosis for this admission?: Yes Plan: IV drug abuse Staphylococcus aureus bacteremia Risks and benefits of transesophageal echocardiogram were discussed with the patient. Transesophageal echocardiogram was performed under moderate sedation. - Notes Notes: Transesophageal echocardiogram performed in the moderate sedation 1 normal LV systolic function Normal RV function Large vegetation involving the tricuspid annulus. The vegetation is oblong and measures at least 2.2 x 2.2 cm. There is mild to moderate tricuspid regurgitation The mitral, and aortic valves appear to be free from vegetation. The pulmonic valve was not adequately visualized however. There is no pericardial effusion.
[2019-04-28] MEDS: LORAZEPAM 1 MG TABLET PO PRN ×3 (09:07→21:25)
[2019-04-28] MEDS: ACETAMINOPHEN 325 MG TABLET PO PRN (09:07)
[2019-04-28] MEDS: ENOXAPARIN SODIUM INJ 40 MG/0.4 ML DISP.SYRIN SUBCUT SCH (09:14)
[2019-04-28] MEDS: LIDOCAINE 5% (700 MG) TRANSDERMAL ADH..PATCH TP SCH (09:22)
[2019-04-28 10:51] LABS: HEMATOCRIT 29.5 % (36.0-47.0); HEMOGLOBIN 10.1 g/dL (12.0-15.5); MEAN CORPUSCULAR HEMOGLOBIN 30.1 pg (27.0-33.4); MEAN CORPUSCULAR HGB CONC 34.1 g/dL (32.0-36.0); MEAN CORPUSCULAR VOLUME 88 fl (80-97); PLATELET COUNT 156 10^3/uL (150-450); RED BLOOD COUNT 3.34 10^6/uL (3.72-5.28); RED CELL DISTRIBUTION WIDTH 13.9 % (11.5-14.0); WHITE BLOOD COUNT 12.2 10^3/uL (4.0-10.5)
[2019-04-28 11:16] LABS: ANION GAP 8 (5-19); BLOOD UREA NITROGEN 10 mg/dL (7-20); CALCIUM 8.1 mg/dL (8.4-10.2); CARBON DIOXIDE 22 mmol/L (22-30); CHLORIDE 107 mmol/L (98-107); GLUCOSE 111 mg/dL (75-110); POTASSIUM 4.8 mmol/L (3.6-5.0)
[2019-04-28 11:17] LABS: VANCOMYCIN,TROUGH 12.2 ug/mL (5.0-20.0)
[2019-04-28] MEDS ORDERED: IBUPROFEN 600 MG TABLET PO PRN (11:31)
[2019-04-28] MEDS ORDERED: NORMAL SALINE 500 ML IV PRN (12:31)
[2019-04-28] MEDS ORDERED: ONDANSETRON HCL INJ/PF 4 MG/2 ML SDV IV PRN (13:30)
--- NOTE | 2019-04-28 16:41 | RADIOLOGY REPORT (SQ) ---
EXAM DESCRIPTION: PICC INSERTION; FLUORO/CV PLACEMENT; U/S GUIDE FOR VASCULAR ACCESS COMPLETED DATE/TIME: 04/28/2019 4:26 pm REASON FOR STUDY: Needs vascular access; PICC LINE IV ABX; PICC LINE- IV ABX COMPARISON: Two-view chest 04/26/2019 FLUOROSCOPY TIME: 43 seconds 1 fluoroscopic C-arm and 1 ultrasound images saved to PACS. TECHNIQUE: Fluoroscopic and ultrasound guided PICC placement. LIMITATIONS: None. PROCEDURE: After written consent and assessment were obtained, the patient was brought into the fluo roscopy room and placed supine on the table. Ultrasound evaluation of potential access sites were per formed. After successfully identifying a patent left basilic vein, the left arm was prepped and drape d in a sterile fashion along with the ultrasound probe. The entry site was anesthetized with 1% lidoc andres. A 21 gauge 7 cm needle was advanced through the skin and into the basilic vein under live ultra sound guidance. An ultrasound image was saved to PACS confirming access site. A .018 guide wire was then inserted through the needle and into the venous system. The needle was then removed and an 11 b lade scalpel was used to make a 1cm skin incision. A 5 fr peel-away sheath was advanced over the wir e and into the venous system. A measurement was then made using the existing wire and live fluoroscop ic guidance. The wire was then removed and trimmed. The PICC was advanced through the peel-away sheat h and into the venous system. The peel-away sheath was removed and the catheter was adhered to the pa tients arm with a stat lock. The catheter was then aspirated and flushed and a sterile bandage was pl aced over the access site. A fluoroscopic spot image was saved to PACS confirming the catheter tip w ithin the superior vena cava. IMPRESSION: SUCCESSFUL PLACEMENT OF A 5 FR DUAL LUMEN 34 CM PICC IN THE LEFT BASILIC VEIN. COMMENT: Patient medication list reviewed: Yes- Quality ID# [id number]:Eligible professional attests to doc umenting in the medical record they obtained, updated, or reviewed the patient's current medications. . Quality ID 145: Final reports for procedures using fluoroscopy that document radiation exposure tarah stef, or exposure time and number of fluorographic images (if radiation exposure indices are not avail able) Quality ID #[id number]: The patient was prepped and draped using maximum sterile barrier technique including cap, mask, sterile gown, sterile gloves, a large sterile sheet, hand hygiene, and 2% Chlorhexidine fo r cutaneous antisepsis. When ultrasound is used, sterile ultrasound techniques are followed requiring sterile gel and sterile probes. TECHNICAL DOCUMENTATION: JOB ID: [id number] [employer]- All Rights Reserved rev-10/09 Reading location - IP/workstation name: [email or web address]
[2019-04-28] MEDS ORDERED: NORMAL SALINE 10 ML SDV (AFTER EACH USE) IV PRN (17:00)
[2019-04-28] MEDS ORDERED: KETOROLAC TROMETHAMINE INJ/PF 30 MG/1 ML SDV IV PRN (17:19)
[2019-04-28] MEDS ORDERED: NORMAL SALINE 1000 ML 1,000 ML IV ONE (17:20)
--- NOTE | 2019-04-28 17:40 | PDOC PROGRESS REPORT ---
Subjective Progress Note for:: 04/28/19 Subjective:: Patient still complains of back pain and pleuritic pain. Apparently patient had made comments earlier today while downstairs getting a procedure that if she does not get something for pain, she will asked somebody to bring in something for her. Patient has pain medication orders to be used as needed but may be looking for something stronger like narcotics. Reason For Visit: + BLOOD CULTURES Physical Exam Vital Signs: Temp Pulse Resp BP Pulse Ox 97.5 F 114 H 17 100/52 L 100 04/28/19 12:00 04/28/19 12:00 04/28/19 12:00 04/28/19 12:00 04/28/19 12:00 Intake & Output 04/27/19 04/28/19 04/29/19 06:59 06:59 06:59 Intake Total 6016 3006 1396 Balance 6016 3006 1396 Weight 44.6 kg 46.6 kg General appearance: PRESENT: no acute distress, cooperative Neck exam: ABSENT: JVD Respiratory exam: PRESENT: clear to auscultation chelo, symmetrical, unlabored. ABSENT: tachypnea, wheezes Cardiovascular exam: PRESENT: +S1, +S2, tachycardia. ABSENT: irregular rhythm GI/Abdominal exam: PRESENT: normal bowel sounds, soft. ABSENT: rebound, rigid, tenderness Neurological exam: PRESENT: alert, awake, oriented to person, oriented to place, oriented to time, oriented to situation Results Laboratory Results: 04/28/19 09:50 04/28/19 09:50 04/28/19 04/28/19 04/28/19 06:52 09:50 09:50 WBC 12.2 H RBC 3.34 L Hgb 10.1 L Hct 29.5 L MCV 88 MCH 30.1 MCHC 34.1 RDW 13.9 Plt Count 156 Sodium Potassium Chloride Carbon Dioxide Anion Gap BUN Creatinine Cancelled Est GFR ( Amer) Cancelled Est GFR (Non-Af Amer) Cancelled Glucose Lactic Acid 1.0 Calcium 04/28/19 09:50 WBC RBC Hgb Hct MCV MCH MCHC RDW Plt Count Sodium 136.6 L Potassium 4.8 Chloride 107 Carbon Dioxide 22 Anion Gap 8 BUN 10 Creatinine 0.44 L Est GFR ( Amer) > 60 Est GFR (Non-Af Amer) Glucose 111 H Lactic Acid Calcium 8.1 L 04/26/19 18:05 Sputum Gram Stain - Final 04/26/19 18:05 Sputum Sputum Culture - Final Group C Beta Streptococcus Normal Laura 04/26/19 17:13 Blood Blood Culture (PCR) - Final Staphylococcus Aureus 04/26/19 13:59 Blood Blood Culture (PCR) - Final Staphylococcus Aureus 04/26/19 10:50 Troponin I < 0.012 Impressions: Chest X-Ray 04/26/19 10:26 IMPRESSION: Patchy right basilar infiltrate consistent with pneumonia. Lung cain are otherwise clear. Chest CT 04/26/19 17:46 IMPRESSION: Bilateral pulmonary lesions as described. Most prominent are in the right lower lobe. 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 Another possibility is septic emboli. Guidance Fluoroscopy 04/28/19 00:00 IMPRESSION: SUCCESSFUL PLACEMENT OF A 5 FR DUAL LUMEN 34 CM PICC IN THE LEFT BASILIC VEIN. Interventional Vascular Procedure 04/28/19 00:00 IMPRESSION: SUCCESSFUL PLACEMENT OF A 5 FR DUAL LUMEN 34 CM PICC IN THE LEFT BASILIC VEIN. PICC Line Insertion 04/28/19 00:00 IMPRESSION: SUCCESSFUL PLACEMENT OF A 5 FR DUAL LUMEN 34 CM PICC IN THE LEFT BASILIC VEIN. Assessment and Plan - Diagnosis (1) Acute infective endocarditis Qualifiers: Infective endocarditis organism: bacterial Qualified Code(s): I33.0 - Acute and subacute infective endocarditis Is this a current diagnosis for this admission?: Yes Plan: SYD 04/28/2019 shows large 2.2 cm vegetation on tricuspid valve with mild to moderate tricuspid regurgitation. Normal LV systolic function. Given this in combination with staph aureus bacteremia, IVDA and septic emboli w/ microabscesses, it is clear the patient has infective endocarditis I will change antibiotics from vancomycin to nafcillin given lack of MSSA Follow-up repeat blood cultures PICC line placed as patient does not have good vascular access peripherally secondary to heroine use Pain control with Tylenol and Motrin with tramadol for breakthrough pain Maintain on telemetry I will discuss with CT surgery at [facility] tomorrow given that vegetation is over 2 cm large. (2) Staphylococcus aureus bacteremia Is this a current diagnosis for this admission?: Yes Plan: Plan as per problem #1 Nafcillin IV Follow-up repeat blood cultures (3) Septic pulmonary embolism Qualifiers: Chronicity: acute Acute cor pulmonale presence: without acute cor pulmonale Qualified Code(s): I26.90 - Septic pulmonary embolism without acute cor pulmonale Is this a current diagnosis for this admission?: Yes Plan: -I have reviewed the CT scan of the chest image and it shows what appears to be bilateral patchy infiltrates concerning for septic emboli and some areas that appear to be microabscesses. -Antibiotics as detailed under problem #1 and pain control (4) Heroin withdrawal Is this a current diagnosis for this admission?: Yes Plan: -Mild -Continue IV hydration and Ativan as needed for severe anxiety. (5) Upper back pain Is this a current diagnosis for this admission?: Yes Plan: Improved with lidocaine patch possible. Explanation for this pain include musculoskeletal versus pleuritic chest pain from septic emboli. (6) Sinus tachycardia Is this a current diagnosis for this admission?: Yes Plan: Secondary to endocarditis. Aggressive IV fluid hydration. Continue on diltiazem for now but will discontinue if improvement in heart rate. (7) Lactic acidosis Is this a current diagnosis for this admission?: Yes Plan: Resolved - Time Time Spent with patient: 15-24 minutes
[2019-04-28] MEDS ORDERED: NAFCILLIN SODIUM INJ 2 GM VIAL IV SCH (18:00)
[2019-04-28] MEDS ORDERED: VANCOMYCIN HCL 1,000 MG in DEXTROSE 5%-WATER 250 ML IV SCH (18:00)
[2019-04-28] MEDS: TRAMADOL HCL 50 MG TABLET PO PRN (18:25)
[2019-04-28] MEDS: NAFCILLIN SODIUM 2 GM in DEXTROSE 5%-WATER 100 ML IV SCH (21:18)
[2019-04-28] MEDS: NORMAL SALINE 10 ML SDV (SCHEDULED) IV SCH (21:18)
[2019-04-28] MEDS: QUETIAPINE FUMARATE 25 MG TABLET PO SCH (21:18)
[2019-04-28] MEDS: PHARMACY COMMUNICATION ORDER MC SCH (21:19)
[2019-04-28] MEDS: IBUPROFEN 800 MG TABLET PO PRN (21:25)
[2019-04-29] MEDS: NAFCILLIN SODIUM 2 GM in DEXTROSE 5%-WATER 100 ML IV SCH ×6 (01:15→21:39)
[2019-04-29] MEDS: DILTIAZEM HCL 30 MG TABLET PO SCH ×2 (01:17→10:15)
[2019-04-29] MEDS: TRAMADOL HCL 50 MG TABLET PO PRN ×2 (02:25→16:03)
[2019-04-29] MEDS: IBUPROFEN 800 MG TABLET PO PRN ×2 (05:53→20:13)
[2019-04-29 06:47] LABS: ABSOLUTE LYMPHOCYTES (AUTO) 1.9 10^3/uL (0.5-4.7); ABSOLUTE MONOCYTES (AUTO) 0.9 10^3/uL (0.1-1.4); ABSOLUTE NEUT (AUTO) 7.3 10^3/uL (1.7-8.2); BASOPHILS % (AUTO) 0.3 % (0-2); EOSINOPHILS % (AUTO) 0.2 % (0-6); HEMATOCRIT 26.7 % (36.0-47.0); MEAN CORPUSCULAR HEMOGLOBIN 30.1 pg (27.0-33.4); MEAN CORPUSCULAR HGB CONC 33.9 g/dL (32.0-36.0); MEAN CORPUSCULAR VOLUME 89 fl (80-97); MONOCYTES % (AUTO) 8.5 % (3-13); PLATELET COUNT 134 10^3/uL (150-450); RED CELL DISTRIBUTION WIDTH 13.8 % (11.5-14.0); TOTAL CELLS COUNTED % (AUTO) 100 %; WHITE BLOOD COUNT 10.2 10^3/uL (4.0-10.5)
[2019-04-29 07:17] LABS: ANION GAP 8 (5-19); BLOOD UREA NITROGEN 10 mg/dL (7-20); CALCIUM 8.4 mg/dL (8.4-10.2); CARBON DIOXIDE 26 mmol/L (22-30); CHLORIDE 105 mmol/L (98-107); GLUCOSE 102 mg/dL (75-110); POTASSIUM 4.1 mmol/L (3.6-5.0)
[2019-04-29] MEDS ORDERED: NORMAL SALINE 1000 ML 1,000 ML IV ONE ×3 (08:30→18:30)
[2019-04-29] MEDS: LIDOCAINE 5% (700 MG) TRANSDERMAL ADH..PATCH TP SCH (10:16)
[2019-04-29] MEDS: ENOXAPARIN SODIUM INJ 40 MG/0.4 ML DISP.SYRIN SUBCUT SCH (10:16)
[2019-04-29] MEDS: NORMAL SALINE 10 ML SDV (SCHEDULED) IV SCH ×2 (10:17→21:41)
[2019-04-29] MEDS: NORMAL SALINE 1000 ML 1,000 ML IV PRN ×3 (12:30→23:30)
--- NOTE | 2019-04-29 14:34 | PDOC TRANSFER SUMMARY ---
General Admission Date/PCP: 04/27/19 13:30 Admission Date: 04/26/19 Transfer Date: 04/29/19 Accepting Facility: [facility] Accepting Physician: Dr. Fozia Falcon Resuscitation Status: Full Code - Transfer Diagnosis (1) Acute infective endocarditis Is this a current diagnosis for this admission?: Yes (2) Staphylococcus aureus bacteremia Is this a current diagnosis for this admission?: Yes (3) Septic pulmonary embolism Is this a current diagnosis for this admission?: Yes (4) Heroin withdrawal Is this a current diagnosis for this admission?: Yes (5) Upper back pain Is this a current diagnosis for this admission?: Yes (6) Sinus tachycardia Is this a current diagnosis for this admission?: Yes (7) Lactic acidosis Is this a current diagnosis for this admission?: Yes - Transfer Medications Home Medications: No Home Medications 04/26/19 Transfer Medications: Current Medications Acetaminophen (Tylenol 325 Mg Tablet) 975 mg PO Q4HP PRN PRN Reason: FOR PAIN Stop: 05/26/19 18:18 Last Admin: 04/28/19 09:07 Dose: 975 mg Documented by: Al Hydrox/Mg Hydrox/Simethicone (Maalox Plus Susp 30 Udcup) 15 ml PO Q6HP PRN PRN Reason: HEARTBURN Stop: 05/26/19 18:18 Dextrose (Dextrose Inj 50% Syringe (25 Gm/50 Ml)) 12.5 gm IV PRN PRN; Protocol PRN Reason: FOR BG 50-69 IN ALERT PATIENT Stop: 05/27/19 12:15 Dextrose (Dextrose Inj 50% Syringe (25 Gm/50 Ml)) 25 gm IV PRN PRN; Protocol PRN Reason: See Label Comments Stop: 05/27/19 12:15 Enoxaparin Sodium (Lovenox Inj 40 Mg/0.4 Ml Disp.Syrin) 40 mg SUBCUT DAILY PATRICIA Stop: 05/27/19 09:59 Last Admin: 04/29/19 10:16 Dose: 40 mg Documented by: Glucagon (Glucagen Inj 1 Mg Vial) 1 mg SUBCUT PRN PRN; Protocol PRN Reason: Evaluate for BG < 70 Stop: 05/27/19 12:15 Glucose (Glutose 40% Gel 15 Gm Tube) 15 gm PO PRN PRN; Protocol PRN Reason: For BG 50-69 in Alert Patient Stop: 05/27/19 12:15 Glucose (Glutose 40% Gel 15 Gm Tube) 30 gm PO PRN PRN; Protocol PRN Reason: FOR BG < 50 IN ALERT PATIENT Stop: 05/27/19 12:15 Heparin Sodium (Porcine) (Heparin Flush 10 Unit/Ml 5 Ml Disp.Syrg) 30 unit IV Q12 PATRICIA Stop: 05/28/19 21:59 Last Admin: 04/29/19 10:15 Dose: 30 unit Documented by: Heparin Sodium (Porcine) (Heparin Flush 10 Unit/Ml 5 Ml Disp.Syrg) 30 unit IV .AFTER EACH USE PRN Stop: 05/28/19 16:59 Sodium Chloride (Nacl 0.9% 1000 Ml Iv Soln) 1,000 mls @ 120 mls/hr IV CONTINUOUS PRN PRN Reason: THIS MED IS NOT "PRN" Stop: 05/26/19 18:18 Last Admin: 04/29/19 12:30 Dose: 120 mls/hr Documented by: Sodium Chloride (Nacl 0.9% 500 Ml Iv Soln) 500 mls @ 0 mls/hr IV CONTINUOUS PRN PRN Reason: THIS MED IS NOT "PRN" Nafcillin Sodium 2 gm/ (Dextrose) 100 mls @ 200 mls/hr IV Q4 PATRICIA Stop: 05/05/19 21:59 Last Admin: 04/29/19 12:29 Dose: 200 mls/hr Documented by: Ibuprofen (Motrin 800 Mg Tablet) 800 mg PO Q6HP PRN PRN Reason: FOR PAIN Stop: 05/28/19 17:50 Last Admin: 04/29/19 05:53 Dose: 800 mg Documented by: Lidocaine (Lidoderm 5% (700 Mg) Transdermal Patch) 2 patch TP DAILY [facility] Stop: 05/27/19 09:59 Last Admin: 04/29/19 10:16 Dose: 2 patch Documented by: Lorazepam (Ativan 1 Mg Tablet) 1 mg PO Q6HP PRN PRN Reason: ANXIETY/AGITATION Stop: 05/03/19 18:25 Last Admin: 04/28/19 21:25 Dose: 1 mg Documented by: Ondansetron HCl (Zofran Inj/Pf 4 Mg/2 Ml Sdv) 4 mg IV Q8HP PRN PRN Reason: FOR NAUSEA/VOMITING Stop: 01/02/20 18:18 Pantoprazole Sodium (Protonix [address] Tablet) 40 mg PO Q6AM [facility] Stop: 05/30/19 05:59 Pharmacy Profile Note (Medication Communication Order) 1 each MC QHS [facility] Stop: 05/28/19 21:59 Last Admin: 04/28/19 21:19 Dose: Not Given Documented by: Quetiapine Fumarate (Seroquel 25 Mg Tablet) 25 mg PO QHS [facility] Stop: 05/28/19 21:59 Last Admin: 04/28/19 21:18 Dose: 25 mg Documented by: Sodium Chloride (Saline Flush 2.5 Ml Monoject Prefil Syrin) 2.5 ml IV Q8 [facility] Stop: 05/26/19 21:59 Last Admin: 04/29/19 05:50 Dose: Not Given Documented by: Sodium Chloride (Nacl 0.9% Inj/Pf 10 Ml Sdv) 10 ml IV Q12 [facility] Stop: 05/28/19 21:59 Last Admin: 04/29/19 10:17 Dose: 10 ml Documented by: Sodium Chloride (Nacl 0.9% Inj/Pf 10 Ml Sdv) 10 ml IV .AFTER EACH USE PRN Stop: 05/28/19 16:59 Tramadol HCl (Ultram 50 Mg Tablet) 50 mg PO Q8HP PRN PRN Reason: FOR BREAKTHROUGH PAIN Stop: 05/05/19 17:52 Last Admin: 04/29/19 02:25 Dose: 50 mg Documented by: - Allergies Allergies/Adverse Reactions: ketorolac Allergy (Unknown, Verified 04/28/19 12:59) - Diet/Activity Discharge Diet: Regular Discharge Activity: Activity As Tolerated Hospital Course Hospital Course: History of Present Illness on admission Patient complains of: Upper back pain and sweats History of Present Illness: ELVIN BALLESTEROS is a 28 year old female with a history of IV heroin abuse who presents to the hospital with complaints of upper back pain for the past 2 weeks. Patient states the pain is worse with inhalation and often makes her feel like she can take deep breaths. Denies any trauma to the area. Denies noticing any awkward sleeping positions at onset of pain. Has very mild cough occasionally without production of sputum. Denies fever and chills at home but endorses significant sweats. States that she has been self detoxing from prior heroin use and had not used for the past week. Denies palpitations. Denies using other illicit drugs such as cocaine or methamphetamines. ER requesting admission by hospitalist service for possible pneumonia and tachycardia. Hospital Course Decision to admit was made based on the fact that patient had profound sinus tachycardia in the 140s to 150s and diaphoresis. Patient had no leukocytosis. Chest x-ray showed a very small patchy infiltrate in the right lung. She was given antibiotics and blood cultures were obtained. 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 I reviewed CT scan which showed what appears to be microabscesses one in the left and one in the right lung as well as some other evidence of septic emboli. Blood cultures resulted immediately with staph aureus in all 4 bottles. Patient was continued on vancomycin while receiving IV fluids to help control her sinus tachycardia. Lactic acid normalized. Patient was seen by superintendent container terminal for SYD and underwent a SYD which showed a 2.2cm X 2.2cm vegetation on her tricuspid valve with mild to moderate tricuspid regurgitation. No other valve involvement was seen. Blood culture sensitivities revealed MSSA and patient was transitioned from vancomycin to nafcillin. Repeat blood cultures were obtained. Given the size of patient's lesion, decision was made to transfer patient where patient can be evaluated by cardiothoracic surgery as well. Physical Exam Vital Signs: Temp Pulse Resp BP Pulse Ox 97.9 F 121 H 14 117/69 100 04/29/19 11:51 04/29/19 11:51 04/29/19 11:51 04/29/19 11:51 04/29/19 11:51 Intake & Output 04/28/19 04/29/19 04/30/19 06:59 06:59 06:59 Intake Total 3006 5216 275 Balance 3006 5216 275 Weight 46.6 kg 46.6 kg General appearance: PRESENT: no acute distress, cooperative Neck exam: ABSENT: JVD Respiratory exam: PRESENT: chest wall tenderness - -Tenderness and upper back bilaterally, clear to auscultation chelo, symmetrical, unlabored. ABSENT: tachypnea, wheezes Cardiovascular exam: PRESENT: +S1, +S2, tachycardia. ABSENT: diastolic murmur, irregular rhythm, systolic murmur GI/Abdominal exam: PRESENT: normal bowel sounds, soft. ABSENT: firm, guarding, rebound, rigid, tenderness Extremities exam: ABSENT: calf tenderness, pedal edema Musculoskeletal exam: PRESENT: ambulatory Neurological exam: PRESENT: alert, awake, oriented to person, oriented to place, oriented to time, oriented to situation Skin exam: PRESENT: other - No lesions in palm or plantar surfaces Results Laboratory Results: 04/29/19 06:15 04/29/19 06:15 04/29/19 04/29/19 06:15 06:15 WBC 10.2 RBC 3.00 L Hgb 9.0 L Hct 26.7 L MCV 89 MCH 30.1 MCHC 33.9 RDW 13.8 Plt Count 134 L Seg Neutrophils % 72.0 Sodium 139.3 Potassium 4.1 Chloride 105 Carbon Dioxide 26 Anion Gap 8 BUN 10 Creatinine 0.58 Est GFR ( Amer) > 60 Glucose 102 Calcium 8.4 04/28/19 06:26 Blood Blood Culture (PCR) - Final Staphylococcus Aureus 04/28/19 06:52 Blood Blood Culture (PCR) - Final Staphylococcus Aureus 04/26/19 17:13 Blood Blood Culture (PCR) - Final Staphylococcus Aureus 04/26/19 17:13 Blood Blood Culture - Final Staphylococcus Aureus 04/26/19 13:59 Blood Blood Culture (PCR) - Final Staphylococcus Aureus 04/26/19 13:59 Blood Blood Culture - Final Staphylococcus Aureus 04/26/19 18:05 Sputum Gram Stain - Final 04/26/19 18:05 Sputum Sputum Culture - Final Group C Beta Streptococcus Normal Laura 04/26/19 10:50 Troponin I < 0.012 Impressions: Chest X-Ray 04/26/19 10:26 IMPRESSION: Patchy right basilar infiltrate consistent with pneumonia. Lung cain are otherwise clear. Chest CT 04/26/19 17:46 IMPRESSION: Bilateral pulmonary lesions as described. Most prominent are in the right lower lobe. 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 Another possibility is septic emboli. Guidance Fluoroscopy 04/28/19 00:00 IMPRESSION: SUCCESSFUL PLACEMENT OF A 5 FR DUAL LUMEN 34 CM PICC IN THE LEFT BASILIC VEIN. Interventional Vascular Procedure 04/28/19 00:00 IMPRESSION: SUCCESSFUL PLACEMENT OF A 5 FR DUAL LUMEN 34 CM PICC IN THE LEFT BASILIC VEIN. PICC Line Insertion 04/28/19 00:00 IMPRESSION: SUCCESSFUL PLACEMENT OF A 5 FR DUAL LUMEN 34 CM PICC IN THE LEFT BASILIC VEIN. Plan Discharge Plan: (1) Acute infective endocarditis Qualifiers: Infective endocarditis organism: bacterial Qualified Code(s): I33.0 - Acute and subacute infective endocarditis Is this a current diagnosis for this admission?: Yes Plan: SYD showed large 2.2 cm vegetation on tricuspid valve with mild to moderate tricuspid regurgitation. Normal LV systolic function. Given this in combination with staph aureus bacteremia, IVDA and septic emboli w/microabscesses, it is clear the patient has infective endocarditis. Continue nafcillin 2 g every 4 hours given MSSA. She will ultimately need 6 weeks of IV antibiotics from the point when blood cultures become negative. Repeat blood cultures resulted to be positive in both sets today for MSSA PICC line placed as patient does not have good vascular access secondary to heroine use --> unfortunately repeat blood culture later became positive and as such, PICC line will need to be removed at some point and new access placed. Pain control with Tylenol and Motrin with tramadol for breakthrough pain. Started on prophylactic Protonix. Maintain on telemetry Will need evaluation by CT surgery, cardiology and infectious disease and repeat chest imaging at some to evaluate for worsening/ongoing septic embolism. (2) Staphylococcus aureus bacteremia Is this a current diagnosis for this admission?: Yes Plan: Plan as per problem #1 Nafcillin IV (3) Septic pulmonary embolism Qualifiers: Chronicity: acute Acute cor pulmonale presence: without acute cor pulmonale Qualified Code(s): I26.90 - Septic pulmonary embolism without acute cor pulmonale Is this a current diagnosis for this admission?: Yes Plan: -I have reviewed the CT chest scan myself and I can clearly visualize what appears to be bilateral patchy infiltrates concerning for septic emboli and some areas that appear to be microabscesses. -Antibiotics as detailed under problem #1 and pain control (4) Heroin withdrawal Is this a current diagnosis for this admission?: Yes Plan: -Quite mild at this point -Continue IV hydration and Ativan as needed for severe anxiety. (5) Upper back pain Is this a current diagnosis for this admission?: Yes Plan: Improved with lidocaine patch. Possible explanation for this pain include musculoskeletal cause versus pleuritic chest pain from septic emboli. (6) Sinus tachycardia Is this a current diagnosis for this admission?: Yes Plan: Patient's heart rate has been persisting in the 110s to 120 but always sinus tachycardia. Occasionally shoots up into 140s to 150s but responds to IV fluid boluses back into 110s-120s. Often times, patient does not notice palpitations. Likely more secondary to infective endocarditis with large tricuspid vegetation and septic pulmonary emboli Aggressive IV fluid hydration. (7) Lactic acidosis Is this a current diagnosis for this admission?: Yes Plan: Resolved Time Spent: Greater than 30 Minutes
[2019-04-29] MEDS: ACETAMINOPHEN 325 MG TABLET PO PRN (18:56)
[2019-04-29] MEDS: LORAZEPAM 1 MG TABLET PO PRN (18:58)
[2019-04-29] MEDS: METOPROLOL TARTRATE PF/INJ 5 MG/5 ML SDV IV PRN (20:13)
[2019-04-29] MEDS: QUETIAPINE FUMARATE 25 MG TABLET PO SCH (21:40)
[2019-04-29] MEDS: PHARMACY COMMUNICATION ORDER MC SCH (21:40)
[2019-04-30] MEDS: LORAZEPAM 1 MG TABLET PO PRN ×2 (01:48→07:42)
[2019-04-30] MEDS: NAFCILLIN SODIUM 2 GM in DEXTROSE 5%-WATER 100 ML IV SCH ×3 (01:48→09:15)
[2019-04-30] MEDS ORDERED: PANTOPRAZOLE SODIUM 40 MG TABLET.DR PO SCH (06:00)
[2019-04-30] MEDS ORDERED: PANTOPRAZOLE SODIUM 20 MG TABLET.DR PO SCH (06:00)
[2019-04-30 06:33] LABS: ABSOLUTE EOSINOPHILS # (AUTO) 0.2 10^3/uL (0.0-0.6); ABSOLUTE LYMPHOCYTES (AUTO) 2.8 10^3/uL (0.5-4.7); ABSOLUTE MONOCYTES (AUTO) 0.9 10^3/uL (0.1-1.4); ABSOLUTE NEUT (AUTO) 6.5 10^3/uL (1.7-8.2); BASOPHILS % (AUTO) 0.4 % (0-2); EOSINOPHILS % (AUTO) 1.5 % (0-6); HEMATOCRIT 24.6 % (36.0-47.0); HEMOGLOBIN 8.4 g/dL (12.0-15.5); LYMPHOCYTES % (AUTO) 26.9 % (13-45); MEAN CORPUSCULAR HGB CONC 33.9 g/dL (32.0-36.0); MEAN CORPUSCULAR VOLUME 88 fl (80-97); PLATELET COUNT 136 10^3/uL (150-450); RED BLOOD COUNT 2.79 10^6/uL (3.72-5.28); RED CELL DISTRIBUTION WIDTH 13.5 % (11.5-14.0); SEGMENTED NEUTROPHILS % (AUTO) 62.2 % (42-78); TOTAL CELLS COUNTED % (AUTO) 100 %; WHITE BLOOD COUNT 10.4 10^3/uL (4.0-10.5)
[2019-04-30 06:54] LABS: ANION GAP 6 (5-19); BLOOD UREA NITROGEN 9 mg/dL (7-20); CARBON DIOXIDE 28 mmol/L (22-30); CHLORIDE 104 mmol/L (98-107); GLUCOSE 103 mg/dL (75-110); POTASSIUM 3.9 mmol/L (3.6-5.0)
[2019-04-30] MEDS: METOPROLOL TARTRATE PF/INJ 5 MG/5 ML SDV IV PRN (07:17)
[2019-04-30] MEDS: TRAMADOL HCL 50 MG TABLET PO PRN (07:20)
[2019-04-30] MEDS: ACETAMINOPHEN 325 MG TABLET PO PRN (07:21)
[2019-04-30] MEDS ORDERED: NORMAL SALINE 1000 ML 1,000 ML IV PRN (08:29)
[2019-04-30] MEDS ORDERED: ACETAMINOPHEN 1,000 MG/100 ML RTUPB IV ONE (08:30)
[2019-04-30 08:47] VITALS: BP 125/46
--- NOTE | 2019-04-30 08:58 | Progress Note ---
Provider Note Provider Note: On the morning of 04/30/2019, rapid response was called as patient had attempted to sit up and passed out while in bed. Patient fell back in her bed and as such no significant head impact was witnessed. On arrival at the scene, patient was back awake. Temperature was 105F and a heart rate had gone back into the 140s to 150 sinus tachycardia. We gave IV Tylenol and some Motrin, and placed ice packs. Temperature slowly went down but still elevated. At the time patient stated that she wanted to get up and urinate. Dewitt catheter was placed instead and patient diuresed about 600 cc immediately. With ice packs on patient started to feel a lot better but still remains tachycardic in the 130s. Of note on admission, patient's heart rate was in the 140s to 150s and responded to boluses went back into the 110s to 120s but has been spiking up back into the 140s throughout most of patient's stay in the hospital. Heart rate has been fluid responsive and has diuresed effectively throughout stay. Patient is feeling better at this time. However I have concern about recurrence of fever after being afebrile for the past 2 days and persistence of bacteremia based off yesterday's blood cultures results. In light of recurrent syncopal episode, I also have serious concern about worsening septic pulmonary embolism. Of note, patient has not needed oxygen supplementation throughout stay in the hospital but SPO2 was more in the high 90s on admission and now persisting in the mid 90s. A/P 1. Acute infective endocarditis 2. Probable worsening of septic pulmonary embolism 3. Syncope 4. High fever 5. Severe sepsis Maintain on IV nafcillin. Monitor I's and O's strictly. Antipyretics given. I have called [facility] and escalated patient's level of care to ICU. I have spoken to the CICU attending Dr. Brenda Ponce who has accepted the patient onto her service and states that there is a bed available. I requested the patient to be airlifted from [facility] to [facility]. >30 mins of Critical care time spent.
[2019-04-30] MEDS: ENOXAPARIN SODIUM INJ 40 MG/0.4 ML DISP.SYRIN SUBCUT SCH (09:15)
[2019-04-30] MEDS: LIDOCAINE 5% (700 MG) TRANSDERMAL ADH..PATCH TP SCH (09:15)
[2019-04-30] MEDS: NORMAL SALINE 1000 ML 1,000 ML IV PRN (09:15)
[2019-04-30] MEDS: NORMAL SALINE 10 ML SDV (SCHEDULED) IV SCH (09:22)
== END 2019-04-30 09:50 | disposition short-term general hospital (02) | DRG 288 ==
LOC: ER 09:49 → EH 17:54 → 4S 20:45 → OBSVTOIN 04-27 13:30
PROVIDERS: ADMIT Internal Medicine; ATTEND Internal Medicine
PROC: 02HV33Z Insertion of Infusion Device into Superior Vena Cava, Percutaneous Approach (ICD-10-PCS; 2019-04-28)
PROC: B24BZZ4 Ultrasonography of Heart with Aorta, Transesophageal (ICD-10-PCS; principal; 2019-04-28 07:30)
DX: I33.0 Acute and subacute infective endocarditis (principal); I26.90 Septic pulmonary embolism without acute cor pulmonale; E87.2 Acidosis; F19.930 Other psychoactive substance use, unspecified with withdrawal, uncomplicated; R91.8 Other nonspecific abnormal finding of lung field; M54.9 Dorsalgia, unspecified; R00.0 Tachycardia, unspecified; B95.61 Methicillin susceptible Staphylococcus aureus infection as the cause of diseases classified elsewhere; I36.1 Nonrheumatic tricuspid (valve) insufficiency; R55 Syncope and collapse; Z88.6 Allergy status to analgesic agent; Z86.14 Personal history of Methicillin resistant Staphylococcus aureus infection; F41.9 Anxiety disorder, unspecified; F31.9 Bipolar disorder, unspecified
CPT/HCPCS: 36415; 36569; 71046; 71250; 76937; 77001; 80048; 80053; 80202; 80307; 81001; 81025; 83605; 83880; 84484; 85025; 85027; 85610; 85730; 87040; 87070; 87077; 87150; 87186; 87205; 93005; 93010; 93312; 93325; 96361; 96365; 96366; 99285; G0378; J0131; J0171; J1200; J1610; J1642; J1650; J1956; J2250; J2310; J2405; J3010; J3370; J3490; J7030; J7060; J7120; S0032

== ENCOUNTER 2019-05-16 17:40 | Inpatient (IN) | payer SELFPAY ==
--- NOTE | 2019-05-16 18:28 | PDOC H&P ---
History of Present Illness Admission Date/PCP: 05/16/19 17:40 Patient complains of: SOB, completion of IV antibiotics History of Present Illness: ELVIN BALLESTEROS is a 28 year old female with a PMH of IV heroin use, history of cocaine and marijuana use and chronic smoker who was initially admitted earlier this month at [facility] due to increasing shortness of breath. 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 She was also diagnosed with septic pulmonary embolism. She was subsequently transferred to [facility] and for surgical intervention of her tricuspid endocarditis. Patient was transferred back to [facility] after appropriate management advised in. Discussed case with vitamin cardiology. Patient eventually underwent tricuspid valve repair and PFO closure. She was continued on continuous nafcillin infusion. She clinically improved well and returned to her baseline. She was weaned off supplemental oxygen. Upon encounter, patient appears comfortable. She denies any acute complaints. Denies chest pain, shortness of breath or back pain. Noted recommendations from [facility] team to complete Nafcillin infusion for 6 weeks with last day of infusion on 06/16/2020. Past Medical History Cardiac Medical History: Denies: Myocardial Infarction, Hypertension Pulmonary Medical History: Denies: Asthma, Bronchitis, Chronic Obstructive Pulmonary Disease (COPD), Pneumonia Neurological Medical History: Denies: Seizures Musculoskeltal Medical History: Denies: Arthritis Psychiatric Medical History: Reports: Bipolar Disorder, Depression Hematology: Reports: Anemia Past Surgical History Past Surgical History: Reports: Orthopedic Surgery - left ankle, Other - Incision and drainage of lower back abscess Social History Smoking Status: Former Smoker Frequency of Alcohol Use: None Hx Recreational Drug Use: Yes Drugs: Heroin Family History Family History: Reviewed & Not Pertinent, Other - she does not know Parental Family History Reviewed: Yes - no premature CAD Children Family History Reviewed: No Sibling(s) Family History Reviewed.: No Medication/Allergy Home Medications: No Home Medications 04/26/19 Allergies/Adverse Reactions: ketorolac Allergy (Unknown, Verified 04/28/19 12:59) Review of Systems All systems: reviewed and no additional remarkable complaints except as stated - as mentioned in HPI Physical Exam General appearance: PRESENT: no acute distress, well-developed, well-nourished Head exam: PRESENT: atraumatic, normocephalic Eye exam: PRESENT: conjunctiva pink, EOMI, PERRLA. ABSENT: scleral icterus Ear exam: PRESENT: normal external ear exam Mouth exam: PRESENT: moist, tongue midline Neck exam: ABSENT: carotid bruit, JVD, lymphadenopathy, thyromegaly Respiratory exam: PRESENT: clear to auscultation chelo. ABSENT: rales, rhonchi, wheezes Cardiovascular exam: ABSENT: rubs Pulses: PRESENT: normal dorsalis pedis pul GI/Abdominal exam: PRESENT: normal bowel sounds, soft. ABSENT: distended, guarding, mass, organolmegaly, rebound, tenderness Rectal exam: PRESENT: deferred Neurological exam: PRESENT: alert, awake, oriented to person, oriented to place, oriented to time, oriented to situation, CN II-XII grossly intact. ABSENT: motor sensory deficit Assessment and Plan - Diagnosis (1) Infective endocarditis Qualifiers: Infective endocarditis organism: bacterial Chronicity: acute Qualified Code(s): I33.0 - Acute and subacute infective endocarditis Is this a current diagnosis for this admission?: Yes Plan: S/P tricuspid valve repair and PFO closure. Continue Nafcillin, last day on 06/16/2020. (2) MSSA bacteremia Is this a current diagnosis for this admission?: Yes Plan: Blood cultures cleared at [facility]. (3) Septic pulmonary embolism Is this a current diagnosis for this admission?: Yes Plan: Secondary to tricuspid IE. Now on room air. (4) Polysubstance abuse Is this a current diagnosis for this admission?: Yes Plan: Counseled in length. - Time Time Spent with patient: 25-34 minutes
[2019-05-16 18:56] LABS: ALBUMIN 4.6 g/dL (3.5-5.0); ALKALINE PHOSPHATASE 97 U/L (38-126); ANION GAP 15 (5-19); ASPARTATE AMINO TRANSFERASE 21 U/L (14-36); BILIRUBIN,DIRECT 0.7 mg/dL (0.0-0.4); BILIRUBIN,TOTAL 0.8 mg/dL (0.2-1.3); BLOOD UREA NITROGEN 21 mg/dL (7-20); CALCIUM 10.3 mg/dL (8.4-10.2); CARBON DIOXIDE 29 mmol/L (22-30); CHLORIDE 98 mmol/L (98-107); GLUCOSE 75 mg/dL (75-110); POTASSIUM 4.4 mmol/L (3.6-5.0); TOTAL PROTEIN 8.9 g/dL (6.3-8.2)
[2019-05-16 19:20] LABS: ABSOLUTE BASOPHILS # (AUTO) 0.1 10^3/uL (0.0-0.2); ABSOLUTE EOSINOPHILS # (AUTO) 0.2 10^3/uL (0.0-0.6); ABSOLUTE LYMPHOCYTES (AUTO) 3.9 10^3/uL (0.5-4.7); ABSOLUTE NEUT (AUTO) 8.9 10^3/uL (1.7-8.2); BASOPHILS % (AUTO) 0.6 % (0-2); EOSINOPHILS % (AUTO) 1.1 % (0-6); HEMATOCRIT 30.4 % (36.0-47.0); HEMOGLOBIN 10.1 g/dL (12.0-15.5); LYMPHOCYTES % (AUTO) 27.5 % (13-45); MEAN CORPUSCULAR HEMOGLOBIN 30.4 pg (27.0-33.4); MEAN CORPUSCULAR HGB CONC 33.1 g/dL (32.0-36.0); MONOCYTES % (AUTO) 7.2 % (3-13); RED BLOOD COUNT 3.31 10^6/uL (3.72-5.28); RED CELL DISTRIBUTION WIDTH 15.9 % (11.5-14.0); SEGMENTED NEUTROPHILS % (AUTO) 63.6 % (42-78); TOTAL CELLS COUNTED % (AUTO) 100 %
[2019-05-16 19:41] LABS: MEAN CORPUSCULAR VOLUME 92 fl (80-97)
[2019-05-16] MEDS: NAFCILLIN SODIUM IV SCH ×2 (20:16)
[2019-05-16] MEDS: WATER IV SCH ×2 (20:16)
[2019-05-16] MEDS: DEXTROSE 5% IV SCH ×2 (20:16)
[2019-05-16] MEDS: ACETAMINOPHEN 325 MG TABLET PO PRN (21:45)
[2019-05-16] MEDS: QUETIAPINE FUMARATE 25 MG TABLET PO SCH (21:46)
[2019-05-16] MEDS: HEPARIN SOD (PORCINE) 5,000 UNIT/ML 1 ML VIAL SUBCUT SCH (21:46)
[2019-05-17] MEDS: HEPARIN SOD (PORCINE) 5,000 UNIT/ML 1 ML VIAL SUBCUT SCH ×3 (05:47→21:17)
[2019-05-17] MEDS: ACETAMINOPHEN 325 MG TABLET PO PRN (05:47)
[2019-05-17] MEDS: GABAPENTIN 300 MG CAPSULE PO SCH ×3 (10:01→17:05)
[2019-05-17] MEDS: FERROUS SULFATE 325 MG TABLET PO SCH ×2 (10:01→17:05)
[2019-05-17] MEDS: OXYCODONE HCL IR 5 MG TABLET PO PRN (10:01)
--- NOTE | 2019-05-17 10:54 | PDOC PROGRESS REPORT ---
Subjective Progress Note for:: 05/17/19 Subjective:: ELVIN BALLESTEROS is a 28 year old female with a PMH of IV heroin use, history of cocaine and marijuana use and chronic smoker who was initially admitted earlier this month at [facility] due to increasing shortness of breath. 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 She was also diagnosed with septic pulmonary embolism. She was subsequently transferred to [facility] and for surgical intervention of her tricuspid endocarditis. Patient was transferred back to [facility] after appropriate management advised in. Discussed case with vitamin cardiology. Patient eventually underwent tricuspid valve repair and PFO closure. She was continued on continuous nafcillin infusion. She clinically improved well and returned to her baseline. She was weaned off supplemental oxygen. Upon encounter, patient appears comfortable. She denies any acute complaints. Denies chest pain, shortness of breath or back pain. Noted recommendations from [facility] team to complete Nafcillin infusion for 6 weeks with last day of infusion on 06/16/2020. 05/17/2019. No acute events overnight. Patient comfortably sitting in bed in no apparent distress, complaining of mild anxiety, otherwise denies any fever, chills, nausea, vomiting, diarrhea, constipation or any urinary symptoms. Reason For Visit: TRICUSPID INFECTIVE ENDOCARDITIS Physical Exam Vital Signs: Temp Pulse Resp BP Pulse Ox 97.5 F 122 H 16 127/75 H 100 05/17/19 07:32 05/17/19 07:32 05/17/19 07:32 05/17/19 07:32 05/17/19 07:32 Intake & Output 05/16/19 05/17/19 05/18/19 06:59 06:59 06:59 Weight 51.6 kg General appearance: PRESENT: no acute distress, well-developed, well-nourished Head exam: PRESENT: atraumatic, normocephalic Respiratory exam: PRESENT: clear to auscultation chelo. ABSENT: rales, rhonchi, wheezes Cardiovascular exam: PRESENT: RRR, other - Post tricuspid valve repair surgical wound. Wound is clean, mildly tender. No erythema or discharge.. ABSENT: diastolic murmur, rubs, systolic murmur GI/Abdominal exam: PRESENT: normal bowel sounds, soft. ABSENT: distended, guarding, mass, organolmegaly, rebound, tenderness Neurological exam: PRESENT: alert, awake, oriented to person, oriented to place, oriented to time, oriented to situation, CN II-XII grossly intact. ABSENT: motor sensory deficit Results Laboratory Results: 05/16/19 18:27 05/16/19 18:27 05/16/19 05/16/19 18:27 18:27 WBC 14.0 H RBC 3.31 L Hgb 10.1 L Hct 30.4 L MCV 92 D MCH 30.4 MCHC 33.1 RDW 15.9 H Plt Count 1057 H* Seg Neutrophils % 63.6 Sodium 142.1 Potassium 4.4 Chloride 98 Carbon Dioxide 29 Anion Gap 15 BUN 21 H Creatinine 0.74 Est GFR ( Amer) > 60 Glucose 75 Calcium 10.3 H Total Bilirubin 0.8 AST 21 Alkaline Phosphatase 97 Total Protein 8.9 H Albumin 4.6 Assessment and Plan - Diagnosis (1) Infective endocarditis Qualifiers: Infective endocarditis organism: bacterial Chronicity: acute Qualified Co de(s): I33.0 - Acute and subacute infective endocarditis Is this a current diagnosis for this admission?: Yes Plan: S/P tricuspid valve repair and PFO closure. Continue Nafcillin, last day on 06/16/2020. (2) MSSA bacteremia Is this a current diagnosis for this admission?: Yes Plan: Blood cultures cleared at [facility]. 05/16/2019. Repeat blood cultures. No growth so far. (3) Polysubstance abuse Is this a current diagnosis for this admission?: Yes Plan: Counseled on abstinence. Monitor for withdrawals. (4) Septic pulmonary embolism Is this a current diagnosis for this admission?: Yes Plan: Secondary to tricuspid IE. Now on room air.
[2019-05-17] MEDS: NAFCILLIN SODIUM IV SCH ×2 (20:51)
[2019-05-17] MEDS: DEXTROSE 5% IV SCH ×2 (20:51)
[2019-05-17] MEDS: WATER IV SCH ×2 (20:51)
[2019-05-17] MEDS: QUETIAPINE FUMARATE 25 MG TABLET PO SCH (21:17)
[2019-05-18] MEDS: OXYCODONE HCL IR 5 MG TABLET PO PRN ×2 (03:38→17:09)
[2019-05-18] MEDS: HEPARIN SOD (PORCINE) 5,000 UNIT/ML 1 ML VIAL SUBCUT SCH ×3 (05:36→22:22)
[2019-05-18 06:59] LABS: ABSOLUTE BASOPHILS # (AUTO) 0.1 10^3/uL (0.0-0.2); ABSOLUTE EOSINOPHILS # (AUTO) 0.2 10^3/uL (0.0-0.6); ABSOLUTE LYMPHOCYTES (AUTO) 2.9 10^3/uL (0.5-4.7); ABSOLUTE MONOCYTES (AUTO) 0.8 10^3/uL (0.1-1.4); ABSOLUTE NEUT (AUTO) 6.9 10^3/uL (1.7-8.2); BASOPHILS % (AUTO) 0.9 % (0-2); EOSINOPHILS % (AUTO) 1.4 % (0-6); HEMATOCRIT 27.4 % (36.0-47.0); LYMPHOCYTES % (AUTO) 26.6 % (13-45); MEAN CORPUSCULAR HEMOGLOBIN 30.4 pg (27.0-33.4); MEAN CORPUSCULAR HGB CONC 32.9 g/dL (32.0-36.0); MEAN CORPUSCULAR VOLUME 93 fl (80-97); MONOCYTES % (AUTO) 7.5 % (3-13); PLATELET COUNT 791 10^3/uL (150-450); RED BLOOD COUNT 2.96 10^6/uL (3.72-5.28); RED CELL DISTRIBUTION WIDTH 17.3 % (11.5-14.0); SEGMENTED NEUTROPHILS % (AUTO) 63.6 % (42-78); TOTAL CELLS COUNTED % (AUTO) 100 %; WHITE BLOOD COUNT 10.9 10^3/uL (4.0-10.5)
[2019-05-18 07:15] LABS: ANION GAP 9 (5-19); BLOOD UREA NITROGEN 16 mg/dL (7-20); CALCIUM 9.6 mg/dL (8.4-10.2); CARBON DIOXIDE 28 mmol/L (22-30); CHLORIDE 105 mmol/L (98-107); GLUCOSE 90 mg/dL (75-110); POTASSIUM 4.6 mmol/L (3.6-5.0)
[2019-05-18] MEDS ORDERED: HYDRALAZINE HCL INJ/PF 20 MG/1 ML SDV IV PRN (08:00)
[2019-05-18] MEDS: ASCORBIC ACID 500 MG TABLET PO SCH (08:45)
[2019-05-18] MEDS: FERROUS SULFATE 325 MG TABLET PO SCH ×2 (09:13→17:09)
[2019-05-18] MEDS: GABAPENTIN 300 MG CAPSULE PO SCH ×3 (09:13→17:09)
[2019-05-18 10:20] LABS: PLATELET COUNT 1057 10^3/uL (150-450)
--- NOTE | 2019-05-18 10:57 | PDOC PROGRESS REPORT ---
Subjective Progress Note for:: 05/18/19 Subjective:: ELVIN BALLESTEROS is a 28 year old female with a PMH of IV heroin use, history of cocaine and marijuana use and chronic smoker who was initially admitted earlier this month at [facility] due to increasing shortness of breath. 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 She was also diagnosed with septic pulmonary embolism. She was subsequently transferred to [facility] and for surgical intervention of her tricuspid endocarditis. Patient was transferred back to [facility] after appropriate management advised in. Discussed case with vitamin cardiology. Patient eventually underwent tricuspid valve repair and PFO closure. She was continued on continuous nafcillin infusion. She clinically improved well and returned to her baseline. She was weaned off supplemental oxygen. Upon encounter, patient appears comfortable. She denies any acute complaints. Denies chest pain, shortness of breath or back pain. Noted recommendations from [facility] team to complete Nafcillin infusion for 6 weeks with last day of infusion on 06/16/2020. 05/17/2019. No acute events overnight. Patient comfortably sitting in bed in no apparent distress, complaining of mild anxiety, otherwise denies any fever, chills, nausea, vomiting, diarrhea, constipation or any urinary symptoms. 05/18/2019. No acute events overnight. Comfortably resting in bed. Denies any fever, chills, nausea, vomiting, diarrhea, constipation or any urinary symptoms. Ambulatory, p.o. tolerant, having normal bowel and bladder movements. Reason For Visit: TRICUSPID INFECTIVE ENDOCARDITIS Physical Exam Vital Signs: Temp Pulse Resp BP Pulse Ox 98.2 F 102 H 20 101/65 100 05/18/19 07:45 05/18/19 07:45 05/18/19 07:45 05/18/19 07:45 05/18/19 07:45 Intake & Output 05/17/19 05/18/19 05/19/19 06:59 06:59 06:59 Intake Total 1820 Output Total 1450 Balance 370 Weight 51.6 kg 50.9 kg General appearance: PRESENT: no acute distress, well-developed, well-nourished Head exam: PRESENT: atraumatic, normocephalic Respiratory exam: PRESENT: clear to auscultation chelo. ABSENT: rales, rhonchi, wheezes Cardiovascular exam: PRESENT: RRR. ABSENT: diastolic murmur, rubs, systolic murmur GI/Abdominal exam: PRESENT: normal bowel sounds, soft. ABSENT: distended, guarding, mass, organolmegaly, rebound, tenderness Neurological exam: PRESENT: alert, awake, oriented to person, oriented to place, oriented to time, oriented to situation, CN II-XII grossly intact. ABSENT: motor sensory deficit Results Laboratory Results: 05/18/19 06:30 05/18/19 06:30 05/16/19 05/18/19 05/18/19 18:27 06:30 06:30 WBC 10.9 H RBC 2.96 L Hgb 9.0 L Hct 27.4 L MCV 93 MCH 30.4 MCHC 32.9 RDW 17.3 H Plt Count 1057 H* 791 H Seg Neutrophils % 63.6 Sodium 142.0 Potassium 4.6 Chloride 105 Carbon Dioxide 28 Anion Gap 9 BUN 16 Creatinine 0.49 L Est GFR ( Amer) > 60 Glucose 90 Calcium 9.6 Assessment and Plan - Diagnosis (1) Infective endocarditis Qualifiers: Infective endocarditis organism: bacterial Chronicity: acute Qualified Code(s): I33.0 - Acute and subacute infective endocarditis Is this a current diagnosis for this admission?: Yes Plan: S/P tricuspid valve repair and PFO closure. Continue Nafcillin, last day on 06/16/2020. (2) MSSA bacteremia Is this a current diagnosis for this admission?: Yes Plan: Blood cultures cleared at [facility]. 05/16/2019. Repeat blood cultures. No growth so far. (3) Polysubstance abuse Is this a current diagnosis for this admission?: Yes Plan: Counseled on abstinence. Monitor for withdrawals. (4) Septic pulmonary embolism Qualifiers: Chronicity: unspecified Is this a current diagnosis for this admission?: Yes Plan: Secondary to tricuspid IE. Now on room air.
[2019-05-18] MEDS: WATER IV SCH ×2 (17:09)
[2019-05-18] MEDS: NAFCILLIN SODIUM IV SCH ×2 (17:09)
[2019-05-18] MEDS: DEXTROSE 5% IV SCH ×2 (17:09)
[2019-05-18] MEDS: DOCUSATE SODIUM 100 MG CAPSULE PO PRN (17:11)
[2019-05-18] MEDS: METOPROLOL TARTRATE PF/INJ 5 MG/5 ML SDV IV PRN (20:52)
[2019-05-18] MEDS: QUETIAPINE FUMARATE 25 MG TABLET PO SCH (22:21)
[2019-05-19] MEDS: HEPARIN SOD (PORCINE) 5,000 UNIT/ML 1 ML VIAL SUBCUT SCH ×3 (06:40→21:08)
[2019-05-19] MEDS: OXYCODONE HCL IR 5 MG TABLET PO PRN (07:57)
[2019-05-19] MEDS: ASCORBIC ACID 500 MG TABLET PO SCH (07:58)
--- NOTE | 2019-05-19 09:13 | PDOC PROGRESS REPORT ---
Subjective Progress Note for:: 05/19/19 Subjective:: ELVIN BALLESTEROS is a 28 year old female with a PMH of IV heroin use, history of cocaine and marijuana use and chronic smoker who was initially admitted earlier this month at [facility] due to increasing shortness of breath. 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 She was also diagnosed with septic pulmonary embolism. She was subsequently transferred to [facility] and for surgical intervention of her tricuspid endocarditis. Patient was transferred back to [facility] after appropriate management advised in. Discussed case with vitamin cardiology. Patient eventually underwent tricuspid valve repair and PFO closure. She was continued on continuous nafcillin infusion. She clinically improved well and returned to her baseline. She was weaned off supplemental oxygen. Upon encounter, patient appears comfortable. She denies any acute complaints. Denies chest pain, shortness of breath or back pain. Noted recommendations from [facility] team to complete Nafcillin infusion for 6 weeks with last day of infusion on 06/16/2020. 05/17/2019. No acute events overnight. Patient comfortably sitting in bed in no apparent distress, complaining of mild anxiety, otherwise denies any fever, chills, nausea, vomiting, diarrhea, constipation or any urinary symptoms. 05/18/2019. No acute events overnight. Comfortably resting in bed. Denies any fever, chills, nausea, vomiting, diarrhea, constipation or any urinary symptoms. Ambulatory, p.o. tolerant, having normal bowel and bladder movements. 05/19/2019. No acute events overnight. Patient comfortably resting in bed in apparent distress. Complaining of mild anxiety otherwise denies any fever, chills, nausea, vomiting, diarrhea, constipation or any urinary symptoms. P.o. tolerant, ambulatory, having normal bowel and bladder movements. Reason For Visit: TRICUSPID INFECTIVE ENDOCARDITIS Physical Exam Vital Signs: Temp Pulse Resp BP Pulse Ox 98.2 F 116 H 16 107/62 99 05/19/19 07:42 05/19/19 07:42 05/19/19 07:42 05/19/19 07:42 05/19/19 07:42 Intake & Output 05/18/19 05/19/19 05/20/19 06:59 06:59 06:59 Intake Total 1820 1679 Output Total 1450 600 Balance 370 1079 Weight 50.9 kg 50.5 kg General appearance: PRESENT: no acute distress, well-developed, well-nourished Respiratory exam: PRESENT: clear to auscultation chelo. ABSENT: rales, rhonchi, wheezes Cardiovascular exam: PRESENT: RRR, other - Surgical scar over the sternum. Wound looks clean. No tenderness erythema or discharge.. ABSENT: diastolic murmur, rubs, systolic murmur GI/Abdominal exam: PRESENT: normal bowel sounds, soft. ABSENT: distended, guarding, mass, organolmegaly, rebound, tenderness Neurological exam: PRESENT: alert, awake, oriented to person, oriented to place, oriented to time, oriented to situation, CN II-XII grossly intact. ABSENT: motor sensory deficit Results Laboratory Results: 05/18/19 06:30 05/18/19 06:30 05/16/19 18:27 Plt Count 1057 H* Assessment and Plan - Diagnosis (1) Infective endocarditis Qualifiers: Infective endocarditis organism: bacterial Chronicity: acute Qualified Code(s): I33.0 - Acute and subacute infective endocarditis Is this a current diagnosis for this admission?: Yes Plan: S/P tricuspid valve repair and PFO closure. Continue Nafcillin, last day on 06/16/2020. (2) MSSA bacteremia Is this a current diagnosis for this admission?: Yes Plan: Blood cultures cleared at [facility]. 05/16/2019. Repeat blood cultures. No growth so far. (3) Polysubstance abuse Is this a current diagnosis for this admission?: Yes Plan: Counseled on abstinence. Monitor for withdrawals. (4) Septic pulmonary embolism Qualifiers: Chronicity: unspecified Is this a current diagnosis for this admission?: Yes Plan: Secondary to tricuspid IE. Now on room air.
[2019-05-19] MEDS: FERROUS SULFATE 325 MG TABLET PO SCH ×2 (09:37→17:53)
[2019-05-19] MEDS: METOPROLOL TARTRATE 25 MG TABLET PO SCH ×2 (09:37→21:10)
[2019-05-19] MEDS: GABAPENTIN 300 MG CAPSULE PO SCH ×3 (09:38→17:53)
[2019-05-19 11:14] LABS: PATH REVIEW PATHOLOGIST REVIEWED
[2019-05-19] MEDS: WATER IV SCH ×2 (17:53)
[2019-05-19] MEDS: NAFCILLIN SODIUM IV SCH ×2 (17:53)
[2019-05-19] MEDS: DEXTROSE 5% IV SCH ×2 (17:53)
[2019-05-19] MEDS: QUETIAPINE FUMARATE 25 MG TABLET PO SCH (21:08)
[2019-05-20] MEDS: HEPARIN SOD (PORCINE) 5,000 UNIT/ML 1 ML VIAL SUBCUT SCH ×3 (06:51→21:48)
[2019-05-20] MEDS: OXYCODONE HCL IR 5 MG TABLET PO PRN (06:51)
--- NOTE | 2019-05-20 10:12 | PDOC PROGRESS REPORT ---
Subjective Progress Note for:: 05/20/19 Subjective:: ELVIN BALLESTEROS is a 28 year old female with a PMH of IV heroin use, history of cocaine and marijuana use and chronic smoker who was initially admitted earlier this month at [facility] due to increasing shortness of breath. 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 She was also diagnosed with septic pulmonary embolism. She was subsequently transferred to [facility] and for surgical intervention of her tricuspid endocarditis. Patient was transferred back to [facility] after appropriate management advised in. Discussed case with vitamin cardiology. Patient eventually underwent tricuspid valve repair and PFO closure. She was continued on continuous nafcillin infusion. She clinically improved well and returned to her baseline. She was weaned off supplemental oxygen. Upon encounter, patient appears comfortable. She denies any acute complaints. Denies chest pain, shortness of breath or back pain. Noted recommendations from [facility] team to complete Nafcillin infusion for 6 weeks with last day of infusion on 06/16/2020. 05/17/2019. No acute events overnight. Patient comfortably sitting in bed in no apparent distress, complaining of mild anxiety, otherwise denies any fever, chills, nausea, vomiting, diarrhea, constipation or any urinary symptoms. 05/18/2019. No acute events overnight. Comfortably resting in bed. Denies any fever, chills, nausea, vomiting, diarrhea, constipation or any urinary symptoms. Ambulatory, p.o. tolerant, having normal bowel and bladder movements. 05/19/2019. No acute events overnight. Patient comfortably resting in bed in apparent distress. Complaining of mild anxiety otherwise denies any fever, chills, nausea, vomiting, diarrhea, constipation or any urinary symptoms. P.o. tolerant, ambulatory, having normal bowel and bladder movements. 05/20/2019. No acute events overnight. Patient sleeping easily arousable, stating that she could not get a good night sleep last night otherwise denies any fever, chills, nausea, vomiting, diarrhea, constipation or any urinary symptoms. Patient is ambulatory. P.o. tolerant. Having normal bowel and bladder movements. Reason For Visit: TRICUSPID INFECTIVE ENDOCARDITIS Physical Exam Vital Signs: Temp Pulse Resp BP Pulse Ox 99.1 F 108 H 16 104/65 100 05/20/19 08:35 05/20/19 08:35 05/20/19 08:35 05/20/19 08:35 05/20/19 08:35 Intake & Output 05/19/19 05/20/19 05/21/19 06:59 06:59 06:59 Intake Total 1679 3283 Output Total 600 2250 Balance 1079 1033 Weight 50.5 kg 50.2 kg General appearance: PRESENT: no acute distress, well-developed, well-nourished Head exam: PRESENT: atraumatic, normocephalic Eye exam: PRESENT: conjunctiva pink, EOMI, PERRLA. ABSENT: scleral icterus Ear exam: PRESENT: normal external ear exam Mouth exam: PRESENT: moist, tongue midline Neck exam: ABSENT: carotid bruit, JVD, lymphadenopathy, thyromegaly Respiratory exam: PRESENT: clear to auscultation chelo. ABSENT: rales, rhonchi, wheezes Cardiovascular exam: PRESENT: RRR. ABSENT: diastolic murmur, rubs, systolic murmur Pulses: PRESENT: normal dorsalis pedis pul Vascular exam: PRESENT: normal capillary refill GI/Abdominal exam: PRESENT: normal bowel sounds, soft. ABSENT: distended, guarding, mass, organolmegaly, rebound, tenderness Rectal exam: PRESENT: deferred Extremities exam: PRESENT: full ROM. ABSENT: calf tenderness, clubbing, pedal edema Neurological exam: PRESENT: alert, awake, oriented to person, oriented to place, oriented to time, oriented to situation, CN II-XII grossly intact. ABSENT: motor sensory deficit Psychiatric exam: PRESENT: appropriate affect, normal mood. ABSENT: homicidal ideation, suicidal ideation Skin exam: PRESENT: dry, intact, warm. ABSENT: cyanosis, rash Results Laboratory Results: 05/18/19 06:30 05/18/19 06:30 Assessment and Plan - Diagnosis (1) Infective endocarditis Qualifiers: Infective endocarditis organism: bacterial Chronicity: acute Qualified Code(s): I33.0 - Acute and subacute infective endocarditis Is this a current diagnosis for this admission?: Yes Plan: S/P tricuspid valve repair and PFO closure. Continue Nafcillin, last day on 06/16/2020. (2) MSSA bacteremia Is this a current diagnosis for this admission?: Yes Plan: Blood cultures cleared at [facility]. 05/16/2019. Repeat blood cultures. No growth so far. (3) Polysubstance abuse Is this a current diagnosis for this admission?: Yes Plan: Counseled on abstinence. Monitor for withdrawals. (4) Septic pulmonary embolism Qualifiers: Chronicity: unspecified Is this a current diagnosis for this admission?: Yes Plan: Secondary to tricuspid IE. Now on room air.
[2019-05-20] MEDS: ASCORBIC ACID 500 MG TABLET PO SCH (11:29)
[2019-05-20] MEDS: GABAPENTIN 300 MG CAPSULE PO SCH ×3 (11:29→17:43)
[2019-05-20] MEDS: METOPROLOL TARTRATE 25 MG TABLET PO SCH ×2 (11:31→21:48)
[2019-05-20] MEDS: FERROUS SULFATE 325 MG TABLET PO SCH ×2 (11:32→17:43)
[2019-05-20] MEDS: NAFCILLIN SODIUM IV SCH ×2 (17:43)
[2019-05-20] MEDS: WATER IV SCH ×2 (17:43)
[2019-05-20] MEDS: DEXTROSE 5% IV SCH ×2 (17:43)
[2019-05-20] MEDS: QUETIAPINE FUMARATE 25 MG TABLET PO SCH (21:48)
[2019-05-21] MEDS: OXYCODONE HCL IR 5 MG TABLET PO PRN (03:48)
[2019-05-21] MEDS: HEPARIN SOD (PORCINE) 5,000 UNIT/ML 1 ML VIAL SUBCUT SCH ×3 (06:05→22:08)
[2019-05-21 06:17] LABS: ABSOLUTE BASOPHILS # (AUTO) 0.1 10^3/uL (0.0-0.2); ABSOLUTE EOSINOPHILS # (AUTO) 0.1 10^3/uL (0.0-0.6); ABSOLUTE LYMPHOCYTES (AUTO) 2.6 10^3/uL (0.5-4.7); ABSOLUTE MONOCYTES (AUTO) 0.8 10^3/uL (0.1-1.4); ABSOLUTE NEUT (AUTO) 7.1 10^3/uL (1.7-8.2); BASOPHILS % (AUTO) 1.2 % (0-2); EOSINOPHILS % (AUTO) 1.1 % (0-6); HEMATOCRIT 26.6 % (36.0-47.0); LYMPHOCYTES % (AUTO) 24.3 % (13-45); MEAN CORPUSCULAR HEMOGLOBIN 31.2 pg (27.0-33.4); MEAN CORPUSCULAR HGB CONC 33.8 g/dL (32.0-36.0); MEAN CORPUSCULAR VOLUME 92 fl (80-97); MONOCYTES % (AUTO) 7.1 % (3-13); PLATELET COUNT 624 10^3/uL (150-450); RED BLOOD COUNT 2.89 10^6/uL (3.72-5.28); RED CELL DISTRIBUTION WIDTH 17.5 % (11.5-14.0); SEGMENTED NEUTROPHILS % (AUTO) 66.3 % (42-78); TOTAL CELLS COUNTED % (AUTO) 100 %; WHITE BLOOD COUNT 10.7 10^3/uL (4.0-10.5)
[2019-05-21 06:44] LABS: ANION GAP 13 (5-19); BLOOD UREA NITROGEN 17 mg/dL (7-20); CALCIUM 9.6 mg/dL (8.4-10.2); CARBON DIOXIDE 28 mmol/L (22-30); CHLORIDE 100 mmol/L (98-107); GLUCOSE 88 mg/dL (75-110); POTASSIUM 4.1 mmol/L (3.6-5.0)
--- NOTE | 2019-05-21 10:44 | PDOC PROGRESS REPORT ---
Subjective Progress Note for:: 05/21/19 Subjective:: ELVIN BALLESTEROS is a 28 year old female with a PMH of IV heroin use, history of cocaine and marijuana use and chronic smoker who was initially admitted earlier this month at [facility] due to increasing shortness of breath. 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 She was also diagnosed with septic pulmonary embolism. She was subsequently transferred to [facility] and for surgical intervention of her tricuspid endocarditis. Patient was transferred back to [facility] after appropriate management advised in. Discussed case with vitamin cardiology. Patient eventually underwent tricuspid valve repair and PFO closure. She was continued on continuous nafcillin infusion. She clinically improved well and returned to her baseline. She was weaned off supplemental oxygen. Upon encounter, patient appears comfortable. She denies any acute complaints. Denies chest pain, shortness of breath or back pain. Noted recommendations from [facility] team to complete Nafcillin infusion for 6 weeks with last day of infusion on 06/16/2020. 05/17/2019. No acute events overnight. Patient comfortably sitting in bed in no apparent distress, complaining of mild anxiety, otherwise denies any fever, chills, nausea, vomiting, diarrhea, constipation or any urinary symptoms. 05/18/2019. No acute events overnight. Comfortably resting in bed. Denies any fever, chills, nausea, vomiting, diarrhea, constipation or any urinary symptoms. Ambulatory, p.o. tolerant, having normal bowel and bladder movements. 05/19/2019. No acute events overnight. Patient comfortably resting in bed in apparent distress. Complaining of mild anxiety otherwise denies any fever, chills, nausea, vomiting, diarrhea, constipation or any urinary symptoms. P.o. tolerant, ambulatory, having normal bowel and bladder movements. 05/20/2019. No acute events overnight. Patient sleeping easily arousable, stating that she could not get a good night sleep last night otherwise denies any fever, chills, nausea, vomiting, diarrhea, constipation or any urinary symptoms. Patient is ambulatory. P.o. tolerant. Having normal bowel and bladder movements. 05/21/2019. No acute events overnight. Complaining of being anxious. Stating that she has history of anxiety and used to take Klonopin but she does not want to anymore. Denies any fever, chills, nausea, vomiting, diarrhea, constipation or any urinary symptoms. Ambulatory. P.o. tolerant. Normal bowel and bladder movements. Reason For Visit: TRICUSPID INFECTIVE ENDOCARDITIS Physical Exam Vital Signs: Temp Pulse Resp BP Pulse Ox 98.0 F 110 H 16 115/65 100 05/21/19 07:49 05/21/19 07:49 05/21/19 07:49 05/21/19 07:49 05/21/19 07:49 Intake & Output 05/20/19 05/21/19 05/22/19 06:59 06:59 06:59 Intake Total 3283 974 Output Total 2250 1750 Balance 1033 -776 Weight 50.2 kg 52.5 kg General appearance: PRESENT: no acute distress, well-developed, well-nourished Head exam: PRESENT: atraumatic, normocephalic Eye exam: PRESENT: conjunctiva pink, EOMI, PERRLA. ABSENT: scleral icterus Ear exam: PRESENT: normal external ear exam Mouth exam: PRESENT: moist, tongue midline Neck exam: ABSENT: carotid bruit, JVD, lymphadenopathy, thyromegaly Respiratory exam: PRESENT: clear to auscultation chelo. ABSENT: rales, rhonchi, wheezes Cardiovascular exam: PRESENT: RRR. ABSENT: diastolic murmur, rubs, systolic murmur Pulses: PRESENT: normal dorsalis pedis pul Vascular exam: PRESENT: normal capillary refill GI/Abdominal exam: PRESENT: normal bowel sounds, soft. ABSENT: distended, guarding, mass, organolmegaly, rebound, tenderness Rectal exam: PRESENT: deferred Extremities exam: PRESENT: full ROM. ABSENT: calf tenderness, clubbing, pedal edema Neurological exam: PRESENT: alert, awake, oriented to person, oriented to place, oriented to time, oriented to situation, CN II-XII grossly intact. ABSENT: motor sensory deficit Psychiatric exam: PRESENT: appropriate affect, normal mood. ABSENT: homicidal ideation, suicidal ideation Skin exam: PRESENT: dry, intact, warm. ABSENT: cyanosis, rash Results Laboratory Results: 05/21/19 05:45 05/21/19 05:45 05/21/19 05/21/19 05:45 05:45 WBC 10.7 H RBC 2.89 L Hgb 9.0 L Hct 26.6 L MCV 92 MCH 31.2 MCHC 33.8 RDW 17.5 H Plt Count 624 H Seg Neutrophils % 66.3 Sodium 140.8 Potassium 4.1 Chloride 100 Carbon Dioxide 28 Anion Gap 13 BUN 17 Creatinine 0.55 Est GFR ( Amer) > 60 Glucose 88 Calcium 9.6 Assessment and Plan - Diagnosis (1) Infective endocarditis Qualifiers: Infective endocarditis organism: bacterial Chronicity: acute Qualified Code(s): I33.0 - Acute and subacute infective endocarditis Is this a current diagnosis for this admission?: Yes Plan: S/P tricuspid valve repair and PFO closure. Continue Nafcillin, last day on 06/16/2020. (2) MSSA bacteremia Is this a current diagnosis for this admission?: Yes Plan: Blood cultures cleared at [facility]. 05/16/2019. Repeat blood cultures. No growth so far. (3) Polysubstance abuse Is this a current diagnosis for this admission?: Yes Plan: Counseled on abstinence. Monitor for withdrawals. (4) Septic pulmonary embolism Qualifiers: Chronicity: unspecified Is this a current diagnosis for this admission?: Yes Plan: Secondary to tricuspid IE. Now on room air. (5) Generalized anxiety disorder Is this a current diagnosis for this admission?: Yes Plan: Used to take Klonopin. Does not want to resume. Will start on BuSpar.
[2019-05-21] MEDS: METOPROLOL TARTRATE 25 MG TABLET PO SCH ×2 (10:46→22:10)
[2019-05-21] MEDS: FERROUS SULFATE 325 MG TABLET PO SCH ×2 (10:47→17:28)
[2019-05-21] MEDS: ASCORBIC ACID 500 MG TABLET PO SCH (10:47)
[2019-05-21] MEDS: BUSPIRONE HCL 10 MG TABLET PO SCH ×2 (10:47→22:09)
[2019-05-21] MEDS: GABAPENTIN 300 MG CAPSULE PO SCH ×3 (10:47→17:28)
[2019-05-21] MEDS: DEXTROSE 5% IV SCH ×2 (17:28)
[2019-05-21] MEDS: WATER IV SCH ×2 (17:28)
[2019-05-21] MEDS: NAFCILLIN SODIUM IV SCH ×2 (17:28)
[2019-05-21] MEDS: METOPROLOL TARTRATE PF/INJ 5 MG/5 ML SDV IV PRN (17:49)
[2019-05-21] MEDS: QUETIAPINE FUMARATE 25 MG TABLET PO SCH (22:09)
[2019-05-22] MEDS: HEPARIN SOD (PORCINE) 5,000 UNIT/ML 1 ML VIAL SUBCUT SCH ×3 (06:55→22:05)
[2019-05-22] MEDS: ASCORBIC ACID 500 MG TABLET PO SCH (08:07)
[2019-05-22] MEDS: GABAPENTIN 300 MG CAPSULE PO SCH ×3 (09:53→17:25)
[2019-05-22] MEDS: METOPROLOL SUCCINATE 25 MG TAB.SR.24H PO SCH (09:53)
[2019-05-22] MEDS: BUSPIRONE HCL 10 MG TABLET PO SCH ×2 (09:53→22:05)
[2019-05-22] MEDS: FERROUS SULFATE 325 MG TABLET PO SCH ×2 (09:53→17:25)
[2019-05-22] MEDS: OXYCODONE HCL IR 5 MG TABLET PO PRN ×2 (09:54→22:05)
--- NOTE | 2019-05-22 14:42 | PDOC PROGRESS REPORT ---
Subjective Progress Note for:: 05/22/19 Subjective:: ELVIN BALLESTEROS is a 28 year old female with a PMH of IV heroin use, history of cocaine and marijuana use and chronic smoker who was initially admitted earlier this month at [facility] due to increasing shortness of breath. 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 She was also diagnosed with septic pulmonary embolism. She was subsequently transferred to [facility] and for surgical intervention of her tricuspid endocarditis. Patient was transferred back to [facility] after appropriate management advised in. Discussed case with vitamin cardiology. Patient eventually underwent tricuspid valve repair and PFO closure. She was continued on continuous nafcillin infusion. She clinically improved well and returned to her baseline. She was weaned off supplemental oxygen. Upon encounter, patient appears comfortable. She denies any acute complaints. Denies chest pain, shortness of breath or back pain. Noted recommendations from [facility] team to complete Nafcillin infusion for 6 weeks with last day of infusion on 06/16/2020. 05/17/2019. No acute events overnight. Patient comfortably sitting in bed in no apparent distress, complaining of mild anxiety, otherwise denies any fever, chills, nausea, vomiting, diarrhea, constipation or any urinary symptoms. 05/18/2019. No acute events overnight. Comfortably resting in bed. Denies any fever, chills, nausea, vomiting, diarrhea, constipation or any urinary symptoms. Ambulatory, p.o. tolerant, having normal bowel and bladder movements. 05/19/2019. No acute events overnight. Patient comfortably resting in bed in apparent distress. Complaining of mild anxiety otherwise denies any fever, chills, nausea, vomiting, diarrhea, constipation or any urinary symptoms. P.o. tolerant, ambulatory, having normal bowel and bladder movements. 05/20/2019. No acute events overnight. Patient sleeping easily arousable, stating that she could not get a good night sleep last night otherwise denies any fever, chills, nausea, vomiting, diarrhea, constipation or any urinary symptoms. Patient is ambulatory. P.o. tolerant. Having normal bowel and bladder movements. 05/21/2019. No acute events overnight. Complaining of being anxious. Stating that she has history of anxiety and used to take Klonopin but she does not want to anymore. Denies any fever, chills, nausea, vomiting, diarrhea, constipation or any urinary symptoms. Ambulatory. P.o. tolerant. Normal bowel and bladder movements. 05/21/2019. No acute events overnight. Denies any fever, chills, nausea, vomiting, diarrhea, constipation or any urinary symptoms. Ambulatory. P.o. tolerant. Normal bowel and bladder movements. Reason For Visit: TRICUSPID INFECTIVE ENDOCARDITIS Physical Exam Vital Signs: Temp Pulse Resp BP Pulse Ox 98.1 F 110 H 15 104/64 100 05/22/19 11:26 05/22/19 11:26 05/22/19 11:26 05/22/19 11:26 05/22/19 11:26 Intake & Output 05/21/19 05/22/19 05/23/19 06:59 06:59 06:59 Intake Total 974 1615 760 Output Total 1750 1900 250 Balance -776 -285 510 Weight 52.5 kg 52.3 kg General appearance: PRESENT: no acute distress, well-developed, well-nourished Respiratory exam: PRESENT: clear to auscultation chelo. ABSENT: rales, rhonchi, wheezes Cardiovascular exam: PRESENT: RRR, tachycardia. ABSENT: diastolic murmur, rubs, systolic murmur Vascular exam: PRESENT: normal capillary refill GI/Abdominal exam: PRESENT: normal bowel sounds, soft. ABSENT: distended, guarding, mass, organolmegaly, rebound, tenderness Neurological exam: PRESENT: alert, awake, oriented to person, oriented to place, oriented to time, oriented to situation, CN II-XII grossly intact. ABSENT: motor sensory deficit Skin exam: PRESENT: dry, intact, warm. ABSENT: cyanosis, rash Results Laboratory Results: 05/21/19 05:45 05/21/19 05:45 05/16/19 18:27 Blood Blood Culture - Final NO GROWTH IN 5 DAYS 05/16/19 18:06 Blood Blood Culture - Final NO GROWTH IN 5 DAYS Assessment and Plan - Diagnosis (1) Infective endocarditis Qualifiers: Infective endocarditis organism: bacterial Chronicity: acute Qualified Code(s): I33.0 - Acute and subacute infective endocarditis Is this a current diagnosis for this admission?: Yes Plan: S/P tricuspid valve repair and PFO closure. Continue Nafcillin, last day on 06/16/2020. (2) MSSA bacteremia Is this a current diagnosis for this admission?: Yes Plan: Blood cultures cleared at [facility]. 05/16/2019. Repeat blood cultures. No growth so far. (3) Polysubstance abuse Is this a current diagnosis for this admission?: Yes Plan: Counseled on abstinence. Monitor for withdrawals. (4) Septic pulmonary embolism Qualifiers: Chronicity: unspecified Is this a current diagnosis for this admission?: Yes Plan: Secondary to tricuspid IE. Now on room air. (5) Generalized anxiety disorder Is this a current diagnosis for this admission?: Yes Plan: Used to take Klonopin. Does not want to resume. Will start on BuSpar.
[2019-05-22] MEDS: QUETIAPINE FUMARATE 25 MG TABLET PO SCH (22:06)
[2019-05-22] MEDS: DEXTROSE 5% IV SCH ×2 (22:06)
[2019-05-22] MEDS: NAFCILLIN SODIUM IV SCH ×2 (22:06)
[2019-05-22] MEDS: WATER IV SCH ×2 (22:06)
[2019-05-23] MEDS: HEPARIN SOD (PORCINE) 5,000 UNIT/ML 1 ML VIAL SUBCUT SCH ×3 (05:33→22:20)
[2019-05-23] MEDS: METOPROLOL SUCCINATE 25 MG TAB.SR.24H PO SCH (11:14)
[2019-05-23] MEDS: GABAPENTIN 300 MG CAPSULE PO SCH ×3 (11:14→18:41)
[2019-05-23] MEDS: FERROUS SULFATE 325 MG TABLET PO SCH ×2 (11:15→18:41)
[2019-05-23] MEDS: BUSPIRONE HCL 10 MG TABLET PO SCH ×2 (11:15→22:21)
[2019-05-23] MEDS: ASCORBIC ACID 500 MG TABLET PO SCH (11:15)
--- NOTE | 2019-05-23 12:59 | PDOC PROGRESS REPORT ---
Subjective Progress Note for:: 05/23/19 Subjective:: ELVIN BALLESTEROS is a 28 year old female with a PMH of IV heroin use, history of cocaine and marijuana use and chronic smoker who was initially admitted earlier this month at [facility] due to increasing shortness of breath. 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 She was also diagnosed with septic pulmonary embolism. She was subsequently transferred to [facility] and for surgical intervention of her tricuspid endocarditis. Patient was transferred back to [facility] after appropriate management advised in. Discussed case with vitamin cardiology. Patient eventually underwent tricuspid valve repair and PFO closure. She was continued on continuous nafcillin infusion. She clinically improved well and returned to her baseline. She was weaned off supplemental oxygen. Upon encounter, patient appears comfortable. She denies any acute complaints. Denies chest pain, shortness of breath or back pain. Noted recommendations from [facility] team to complete Nafcillin infusion for 6 weeks with last day of infusion on 06/16/2020. 05/17/2019. No acute events overnight. Patient comfortably sitting in bed in no apparent distress, complaining of mild anxiety, otherwise denies any fever, chills, nausea, vomiting, diarrhea, constipation or any urinary symptoms. 05/18/2019. No acute events overnight. Comfortably resting in bed. Denies any fever, chills, nausea, vomiting, diarrhea, constipation or any urinary symptoms. Ambulatory, p.o. tolerant, having normal bowel and bladder movements. 05/19/2019. No acute events overnight. Patient comfortably resting in bed in apparent distress. Complaining of mild anxiety otherwise denies any fever, chills, nausea, vomiting, diarrhea, constipation or any urinary symptoms. P.o. tolerant, ambulatory, having normal bowel and bladder movements. 05/20/2019. No acute events overnight. Patient sleeping easily arousable, stating that she could not get a good night sleep last night otherwise denies any fever, chills, nausea, vomiting, diarrhea, constipation or any urinary symptoms. Patient is ambulatory. P.o. tolerant. Having normal bowel and bladder movements. 05/21/2019. No acute events overnight. Complaining of being anxious. Stating that she has history of anxiety and used to take Klonopin but she does not want to anymore. Denies any fever, chills, nausea, vomiting, diarrhea, constipation or any urinary symptoms. Ambulatory. P.o. tolerant. Normal bowel and bladder movements. 05/22/2019. No acute events overnight. Denies any fever, chills, nausea, vomiting, diarrhea, constipation or any urinary symptoms. Ambulatory. P.o. tolerant. Normal bowel and bladder movements. 05/23/2019. No acute events overnight. Patient ambulatory, p.o. tolerant having normal bowel bladder movement. Denies any fever, chills, nausea, vomiting, diarrhea, constipation or any urinary symptoms. Reason For Visit: TRICUSPID INFECTIVE ENDOCARDITIS Physical Exam Vital Signs: Temp Pulse Resp BP Pulse Ox 99.6 F 115 H 18 108/64 100 05/23/19 11:48 05/23/19 11:48 05/23/19 11:48 05/23/19 11:48 05/23/19 11:48 Intake & Output 05/22/19 05/23/19 05/24/19 06:59 06:59 06:59 Intake Total 1615 1840 536 Output Total 1900 1000 450 Balance -285 840 86 Weight 52.3 kg 52.4 kg General appearance: PRESENT: no acute distress, well-developed, well-nourished Respiratory exam: PRESENT: clear to auscultation chelo. ABSENT: rales, rhonchi, wheezes Cardiovascular exam: PRESENT: RRR, tachycardia. ABSENT: diastolic murmur, rubs, systolic murmur GI/Abdominal exam: PRESENT: normal bowel sounds, soft. ABSENT: distended, guarding, mass, organolmegaly, rebound, tenderness Neurological exam: PRESENT: alert, awake, oriented to person, oriented to place, oriented to time, oriented to situation, CN II-XII grossly intact. ABSENT: motor sensory deficit Results Laboratory Results: 05/21/19 05:45 05/21/19 05:45 Assessment and Plan - Diagnosis (1) Infective endocarditis Qualifiers: Infective endocarditis organism: bacterial Chronicity: acute Qualified Code(s): I33.0 - Acute and subacute infective endocarditis Is this a current diagnosis for this admission?: Yes Plan: S/P tricuspid valve repair and PFO closure. Continue Nafcillin, last day on 06/16/2020. (2) MSSA bacteremia Is this a current diagnosis for this admission?: Yes Plan: Blood cultures cleared at [facility]. 05/16/2019. Repeat blood cultures. No growth so far. (3) Polysubstance abuse Is this a current diagnosis for this admission?: Yes Plan: Counseled on abstinence. Monitor for withdrawals. (4) Septic pulmonary embolism Qualifiers: Chronicity: unspecified Is this a current diagnosis for this admission?: Yes Plan: Secondary to tricuspid IE. Now on room air. (5) Generalized anxiety disorder Is this a current diagnosis for this admission?: Yes Plan: Used to take Klonopin. Does not want to resume. Continue BuSpar twice daily.
[2019-05-23] MEDS: METOPROLOL TARTRATE PF/INJ 5 MG/5 ML SDV IV PRN (16:01)
[2019-05-23] MEDS: OXYCODONE HCL IR 5 MG TABLET PO PRN (16:01)
[2019-05-23] MEDS: DEXTROSE 5% IV SCH ×2 (20:36)
[2019-05-23] MEDS: NAFCILLIN SODIUM IV SCH ×2 (20:36)
[2019-05-23] MEDS: WATER IV SCH ×2 (20:36)
[2019-05-23] MEDS: QUETIAPINE FUMARATE 25 MG TABLET PO SCH (22:20)
[2019-05-24] MEDS: HEPARIN SOD (PORCINE) 5,000 UNIT/ML 1 ML VIAL SUBCUT SCH ×3 (05:36→22:15)
[2019-05-24] MEDS: METOPROLOL SUCCINATE 25 MG TAB.SR.24H PO SCH (10:18)
[2019-05-24] MEDS: ASCORBIC ACID 500 MG TABLET PO SCH (10:18)
[2019-05-24] MEDS: FERROUS SULFATE 325 MG TABLET PO SCH ×2 (10:18→17:07)
[2019-05-24] MEDS: BUSPIRONE HCL 10 MG TABLET PO SCH ×2 (10:19→22:15)
[2019-05-24] MEDS: GABAPENTIN 300 MG CAPSULE PO SCH ×3 (10:19→17:07)
[2019-05-24 10:44] LABS: ABSOLUTE BASOPHILS # (AUTO) 0.1 10^3/uL (0.0-0.2); ABSOLUTE EOSINOPHILS # (AUTO) 0.1 10^3/uL (0.0-0.6); ABSOLUTE LYMPHOCYTES (AUTO) 2.3 10^3/uL (0.5-4.7); ABSOLUTE MONOCYTES (AUTO) 0.5 10^3/uL (0.1-1.4); ABSOLUTE NEUT (AUTO) 5.9 10^3/uL (1.7-8.2); BASOPHILS % (AUTO) 1.1 % (0-2); EOSINOPHILS % (AUTO) 1.2 % (0-6); HEMOGLOBIN 9.4 g/dL (12.0-15.5); MEAN CORPUSCULAR HEMOGLOBIN 31.6 pg (27.0-33.4); MEAN CORPUSCULAR HGB CONC 33.7 g/dL (32.0-36.0); MEAN CORPUSCULAR VOLUME 94 fl (80-97); MONOCYTES % (AUTO) 5.9 % (3-13); PLATELET COUNT 504 10^3/uL (150-450); RED BLOOD COUNT 2.99 10^6/uL (3.72-5.28); RED CELL DISTRIBUTION WIDTH 17.9 % (11.5-14.0); SEGMENTED NEUTROPHILS % (AUTO) 65.8 % (42-78); TOTAL CELLS COUNTED % (AUTO) 100 %; WHITE BLOOD COUNT 8.9 10^3/uL (4.0-10.5)
[2019-05-24] MEDS: OXYCODONE HCL IR 5 MG TABLET PO PRN (22:14)
[2019-05-24] MEDS: DOCUSATE SODIUM 100 MG CAPSULE PO PRN (22:15)
[2019-05-24] MEDS: QUETIAPINE FUMARATE 25 MG TABLET PO SCH (22:22)
[2019-05-25] MEDS ORDERED: NAFCILLIN SODIUM INJ 2 GM VIAL ONE ×2 (01:08→02:29)
[2019-05-25] MEDS ORDERED: NAFCILLIN SODIUM INJ 2 GM VIAL IV PRN (01:27)
[2019-05-25] MEDS ORDERED: NAFCILLIN SODIUM 2 GM in DEXTROSE 5%-WATER 100 ML IV SCH (02:00)
[2019-05-25] MEDS ORDERED: NORMAL SALINE IV ONE (02:00)
[2019-05-25] MEDS ORDERED: NAFCILLIN SODIUM IV ONE (02:00)
[2019-05-25] MEDS: WATER IV SCH ×2 (02:28)
[2019-05-25] MEDS: DEXTROSE 5% IV SCH ×2 (02:28)
[2019-05-25] MEDS: NAFCILLIN SODIUM IV SCH ×2 (02:28)
[2019-05-25] MEDS: HEPARIN SOD (PORCINE) 5,000 UNIT/ML 1 ML VIAL SUBCUT SCH ×3 (05:05→22:09)
[2019-05-25] MEDS: NAFCILLIN SODIUM 2 GM in DEXTROSE 5%-WATER 100 ML IV SCH ×5 (05:05→22:09)
[2019-05-25] MEDS: ASCORBIC ACID 500 MG TABLET PO SCH (07:56)
[2019-05-25] MEDS: METOPROLOL SUCCINATE 25 MG TAB.SR.24H PO SCH (10:49)
[2019-05-25] MEDS: GABAPENTIN 300 MG CAPSULE PO SCH ×3 (10:49→17:45)
[2019-05-25] MEDS: BUSPIRONE HCL 10 MG TABLET PO SCH ×2 (10:49→22:08)
[2019-05-25] MEDS: FERROUS SULFATE 325 MG TABLET PO SCH ×2 (10:49→17:45)
--- NOTE | 2019-05-25 11:19 | PDOC PROGRESS REPORT ---
Subjective Progress Note for:: 05/25/19 Subjective:: ELVIN BALLESTEROS is a 28 year old female with a PMH of IV heroin use, history of cocaine and marijuana use and chronic smoker who was initially admitted earlier this month at [facility] due to increasing shortness of breath. 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 She was also diagnosed with septic pulmonary embolism. She was subsequently transferred to [facility] and for surgical intervention of her tricuspid endocarditis. Patient was transferred back to [facility] after appropriate management advised in. Discussed case with vitamin cardiology. Patient eventually underwent tricuspid valve repair and PFO closure. She was continued on continuous nafcillin infusion. She clinically improved well and returned to her baseline. She was weaned off supplemental oxygen. Upon encounter, patient appears comfortable. She denies any acute complaints. Denies chest pain, shortness of breath or back pain. Noted recommendations from [facility] team to complete Nafcillin infusion for 6 weeks with last day of infusion on 06/16/2020. 05/17/2019. No acute events overnight. Patient comfortably sitting in bed in no apparent distress, complaining of mild anxiety, otherwise denies any fever, chills, nausea, vomiting, diarrhea, constipation or any urinary symptoms. 05/18/2019. No acute events overnight. Comfortably resting in bed. Denies any fever, chills, nausea, vomiting, diarrhea, constipation or any urinary symptoms. Ambulatory, p.o. tolerant, having normal bowel and bladder movements. 05/19/2019. No acute events overnight. Patient comfortably resting in bed in apparent distress. Complaining of mild anxiety otherwise denies any fever, chills, nausea, vomiting, diarrhea, constipation or any urinary symptoms. P.o. tolerant, ambulatory, having normal bowel and bladder movements. 05/20/2019. No acute events overnight. Patient sleeping easily arousable, stating that she could not get a good night sleep last night otherwise denies any fever, chills, nausea, vomiting, diarrhea, constipation or any urinary symptoms. Patient is ambulatory. P.o. tolerant. Having normal bowel and bladder movements. 05/21/2019. No acute events overnight. Complaining of being anxious. Stating that she has history of anxiety and used to take Klonopin but she does not want to anymore. Denies any fever, chills, nausea, vomiting, diarrhea, constipation or any urinary symptoms. Ambulatory. P.o. tolerant. Normal bowel and bladder movements. 05/22/2019. No acute events overnight. Denies any fever, chills, nausea, vomiting, diarrhea, constipation or any urinary symptoms. Ambulatory. P.o. tolerant. Normal bowel and bladder movements. 05/23/2019. No acute events overnight. Patient ambulatory, p.o. tolerant having normal bowel bladder movement. Denies any fever, chills, nausea, vomiting, diarrhea, constipation or any urinary symptoms. 05/24/2019. No acute events overnight. Denies any fever, chills, nausea, vomiting, diarrhea, constipation or any urinary symptoms. 05/25/2018. No acute events overnight. Denies any fever, chills, nausea, vomiting, diarrhea, constipation or any urinary symptoms. Reason For Visit: TRICUSPID INFECTIVE ENDOCARDITIS Physical Exam Vital Signs: Temp Pulse Resp BP Pulse Ox 98.0 F 92 14 102/56 L 100 05/25/19 08:00 05/25/19 08:00 05/25/19 08:00 05/25/19 08:00 05/25/19 08:00 Intake & Output 05/24/19 05/25/19 05/26/19 06:59 06:59 06:59 Intake Total 2235 480 Output Total 450 350 Balance 1785 130 Weight 52.4 kg 53 kg General appearance: PRESENT: no acute distress, well-developed, well-nourished Head exam: PRESENT: atraumatic, normocephalic Respiratory exam: PRESENT: clear to auscultation chelo. ABSENT: rales, rhonchi, wheezes Cardiovascular exam: PRESENT: RRR. ABSENT: diastolic murmur, rubs, systolic murmur GI/Abdominal exam: PRESENT: normal bowel sounds, soft. ABSENT: distended, guarding, mass, organolmegaly, rebound, tenderness Neurological exam: PRESENT: alert, awake, oriented to person, oriented to place, oriented to time, oriented to situation, CN II-XII grossly intact. ABSENT: motor sensory deficit Results Laboratory Results: 05/24/19 10:27 05/21/19 05:45 05/24/19 05/24/19 10:27 10:27 TSH 0.69 Free T4 0.99 Assessment and Plan - Diagnosis (1) Infective endocarditis Qualifiers: Infective endocarditis organism: bacterial Chronicity: acute Qualified Code(s): I33.0 - Acute and subacute infective endocarditis Is this a current diagnosis for this admission?: Yes Plan: S/P tricuspid valve repair and PFO closure. Continue Nafcillin, last day on 06/16/2020. (2) MSSA bacteremia Is this a current diagnosis for this admission?: Yes Plan: Blood cultures cleared at [facility]. 05/16/2019. Repeat blood cultures. No growth so far. (3) Polysubstance abuse Is this a current diagnosis for this admission?: Yes Plan: Counseled on abstinence. Monitor for withdrawals. (4) Septic pulmonary embolism Qualifiers: Chronicity: unspecified Is this a current diagnosis for this admission?: Yes Plan: Secondary to tricuspid IE. Now on room air. (5) Generalized anxiety disorder Is this a current diagnosis for this admission?: Yes Plan: Used to take Klonopin. Does not want to resume. Continue BuSpar twice daily.
[2019-05-25] MEDS ORDERED: ALTEPLASE INJ 2 MG VIAL (CATH CLEARANCE) IV ONE (14:30)
[2019-05-25] MEDS: QUETIAPINE FUMARATE 25 MG TABLET PO SCH (22:08)
[2019-05-26] MEDS: NAFCILLIN SODIUM 2 GM in DEXTROSE 5%-WATER 100 ML IV SCH ×6 (01:52→22:11)
[2019-05-26] MEDS: HEPARIN SOD (PORCINE) 5,000 UNIT/ML 1 ML VIAL SUBCUT SCH ×3 (05:40→22:11)
[2019-05-26] MEDS: ASCORBIC ACID 500 MG TABLET PO SCH (08:45)
[2019-05-26] MEDS: GABAPENTIN 300 MG CAPSULE PO SCH ×3 (09:42→17:16)
[2019-05-26] MEDS: FERROUS SULFATE 325 MG TABLET PO SCH ×2 (09:42→17:16)
[2019-05-26] MEDS: BUSPIRONE HCL 10 MG TABLET PO SCH ×2 (09:42→22:09)
[2019-05-26] MEDS: METOPROLOL SUCCINATE 25 MG TAB.SR.24H PO SCH (09:43)
[2019-05-26] MEDS: QUETIAPINE FUMARATE 25 MG TABLET PO SCH (22:09)
[2019-05-27] MEDS: NAFCILLIN SODIUM 2 GM in DEXTROSE 5%-WATER 100 ML IV SCH ×6 (02:19→21:13)
[2019-05-27] MEDS: HEPARIN SOD (PORCINE) 5,000 UNIT/ML 1 ML VIAL SUBCUT SCH ×3 (05:20→21:14)
[2019-05-27] MEDS: ASCORBIC ACID 500 MG TABLET PO SCH (07:20)
[2019-05-27] MEDS: FAMOTIDINE 20 MG TABLET PO SCH ×2 (09:12→17:28)
[2019-05-27] MEDS: FOLIC ACID 1 MG TABLET PO SCH (09:12)
[2019-05-27] MEDS: FERROUS SULFATE 325 MG TABLET PO SCH ×2 (09:12→17:28)
[2019-05-27] MEDS: BUSPIRONE HCL 10 MG TABLET PO SCH ×2 (09:12→21:14)
[2019-05-27] MEDS: MULTIVITAMIN TABLET PO SCH (09:12)
[2019-05-27] MEDS: GABAPENTIN 300 MG CAPSULE PO SCH ×3 (09:12→17:28)
[2019-05-27] MEDS: METOPROLOL SUCCINATE 25 MG TAB.SR.24H PO SCH (09:13)
[2019-05-27] MEDS ORDERED: FOLIC PO SCH (10:00)
[2019-05-27] MEDS ORDERED: IRON PO SCH (10:00)
[2019-05-27] MEDS ORDERED: MULTIVIT CALC MINS PO SCH (10:00)
--- NOTE | 2019-05-27 11:19 | PDOC PROGRESS REPORT ---
Subjective Progress Note for:: 05/27/19 Subjective:: 28 year old female with a PMH of IV heroin use, history of cocaine and marijuana use and chronic smoker who was initially admitted earlier this month at [facility] due to increasing shortness of breath. 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 She was also diagnosed with septic pulmonary embolism. She was subsequently transferred to [facility] and for surgical intervention of her tricuspid endocarditis. Patient was transferred back to [facility] after appropriate management advised in. Discussed case with vitamin cardiology. Patient eventually underwent tricuspid valve repair and PFO closure. She was continued on continuous nafcillin infusion. She clinically improved well and returned to her baseline. She was weaned off supplemental oxygen. Upon encounter, patient appears comfortable. She denies any acute complaints. Denies chest pain, shortness of breath or back pain. Noted recommendations from [facility] team to complete Nafcillin infusion for 6 weeks with last day of infusion on 06/16/2020. 05/17/2019. No acute events overnight. Patient comfortably sitting in bed in no apparent distress, complaining of mild anxiety, otherwise denies any fever, chills, nausea, vomiting, diarrhea, constipation or any urinary symptoms. 05/18/2019. No acute events overnight. Comfortably resting in bed. Denies any fever, chills, nausea, vomiting, diarrhea, constipation or any urinary symptoms. Ambulatory, p.o. tolerant, having normal bowel and bladder movements. 05/19/2019. No acute events overnight. Patient comfortably resting in bed in apparent distress. Complaining of mild anxiety otherwise denies any fever, chills, nausea, vomiting, diarrhea, constipation or any urinary symptoms. P.o. tolerant, ambulatory, having normal bowel and bladder movements. 05/20/2019. No acute events overnight. Patient sleeping easily arousable, stating that she could not get a good night sleep last night otherwise denies any fever, chills, nausea, vomiting, diarrhea, constipation or any urinary symptoms. Patient is ambulatory. P.o. tolerant. Having normal bowel and bladder movements. 05/21/2019. No acute events overnight. Complaining of being anxious. Stating that she has history of anxiety and used to take Klonopin but she does not want to anymore. Denies any fever, chills, nausea, vomiting, diarrhea, constipation or any urinary symptoms. Ambulatory. P.o. tolerant. Normal bowel and bladder movements. 05/22/2019. No acute events overnight. Denies any fever, chills, nausea, vomiting, diarrhea, constipation or any urinary symptoms. Ambulatory. P.o. tolerant. Normal bowel and bladder movements. 05/23/2019. No acute events overnight. Patient ambulatory, p.o. tolerant having normal bowel bladder movement. Denies any fever, chills, nausea, vomiting, diarrhea, constipation or any urinary symptoms. 05/24/2019. No acute events overnight. Denies any fever, chills, nausea, vomiting, diarrhea, constipation or any urinary symptoms. 05/25/2018. No acute events overnight. Denies any fever, chills, nausea, vomiting, diarrhea, constipation or any urinary symptoms. 05/27/2019 28-year-old female admitted for tricuspid valve endocarditis and septic pulmonary emboli. Patient was transferred to [place] and came back here for completion of the antibiotic therapy. communicating well. Expressing desire to go home. Reason For Visit: TRICUSPID INFECTIVE ENDOCARDITIS Physical Exam Vital Signs: Temp Pulse Resp BP Pulse Ox 97.8 F 111 H 16 97/61 L 98 05/27/19 00:00 05/27/19 07:47 05/27/19 07:47 05/27/19 07:47 05/27/19 07:47 Intake & Output 05/26/19 05/27/19 05/28/19 06:59 06:59 06:59 Intake Total 1730 3266 Balance 1730 3266 Weight 53.2 kg 53.1 kg General appearance: PRESENT: no acute distress, thin Head exam: PRESENT: atraumatic Eye exam: PRESENT: PERRLA Mouth exam: PRESENT: moist Neck exam: ABSENT: carotid bruit, JVD, lymphadenopathy, thyromegaly Respiratory exam: PRESENT: clear to auscultation chelo. ABSENT: rales, rhonchi, wheezes Cardiovascular exam: PRESENT: systolic murmur, tachycardia Pulses: PRESENT: normal dorsalis pedis pul GI/Abdominal exam: PRESENT: normal bowel sounds, soft. ABSENT: distended, guarding, mass, organolmegaly, rebound, tenderness Rectal exam: PRESENT: deferred Extremities exam: PRESENT: full ROM. ABSENT: calf tenderness, clubbing, pedal edema Psychiatric exam: PRESENT: appropriate affect, normal mood. ABSENT: homicidal ideation, suicidal ideation Skin exam: PRESENT: dry, intact, warm. ABSENT: cyanosis, rash Results Laboratory Results: 05/24/19 10:27 05/21/19 05:45 Assessment and Plan - Diagnosis (1) Infective endocarditis Qualifiers: Infective endocarditis organism: bacterial Chronicity: acute Qualified Code(s): I33.0 - Acute and subacute infective endocarditis Is this a current diagnosis for this admission?: Yes Plan: S/P tricuspid valve repair and PFO closure. Continue Nafcillin, last day on 06/16/2019. 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 Presently on nafcillin. Last day of antibiotic therapy is 06/16/2019. (2) MSSA bacteremia Is this a current diagnosis for this admission?: Yes Plan: Blood cultures cleared at [facility]. 05/16/2019. Repeat blood cultures. No growth so far. 05/27/2019 follow-up blood cultures are negative so far. No growth present. (3) Polysubstance abuse Is this a current diagnosis for this admission?: Yes Plan: Counseled on abstinence. Monitor for withdrawals. 05/27/2019 patient has history of polysubstance abuse again counseling was provided today. (4) Septic pulmonary embolism Qualifiers: Chronicity: unspecified Is this a current diagnosis for this admission?: Yes Plan: Secondary to tricuspid IE. Now on room air. 05/27/2019 patient developed septic pulmonary embolism secondary to tricuspid valve endocarditis. Presently on heparin 5000 units subcu every 8 hours. Not on anticoagulation. (5) Generalized anxiety disorder Is this a current diagnosis for this admission?: Yes Plan: Used to take Klonopin. Does not want to resume. Continue BuSpar twice daily.
[2019-05-27] MEDS: QUETIAPINE FUMARATE 25 MG TABLET PO SCH (21:15)
[2019-05-27] MEDS: METOPROLOL TARTRATE PF/INJ 5 MG/5 ML SDV IV PRN (23:38)
[2019-05-28] MEDS: NAFCILLIN SODIUM 2 GM in DEXTROSE 5%-WATER 100 ML IV SCH ×6 (01:11→22:14)
[2019-05-28] MEDS: ACETAMINOPHEN 325 MG TABLET PO PRN (01:14)
[2019-05-28] MEDS: HEPARIN SOD (PORCINE) 5,000 UNIT/ML 1 ML VIAL SUBCUT SCH ×3 (05:43→22:14)
[2019-05-28 06:13] LABS: ABSOLUTE BASOPHILS # (AUTO) 0.1 10^3/uL (0.0-0.2); ABSOLUTE EOSINOPHILS # (AUTO) 0.1 10^3/uL (0.0-0.6); ABSOLUTE LYMPHOCYTES (AUTO) 2.5 10^3/uL (0.5-4.7); ABSOLUTE MONOCYTES (AUTO) 0.5 10^3/uL (0.1-1.4); ABSOLUTE NEUT (AUTO) 5.4 10^3/uL (1.7-8.2); EOSINOPHILS % (AUTO) 1.1 % (0-6); HEMATOCRIT 32.1 % (36.0-47.0); HEMOGLOBIN 10.9 g/dL (12.0-15.5); LYMPHOCYTES % (AUTO) 29.1 % (13-45); MEAN CORPUSCULAR HEMOGLOBIN 31.8 pg (27.0-33.4); MEAN CORPUSCULAR HGB CONC 33.9 g/dL (32.0-36.0); MEAN CORPUSCULAR VOLUME 94 fl (80-97); MONOCYTES % (AUTO) 5.8 % (3-13); PLATELET COUNT 496 10^3/uL (150-450); RED BLOOD COUNT 3.43 10^6/uL (3.72-5.28); RED CELL DISTRIBUTION WIDTH 18.5 % (11.5-14.0); TOTAL CELLS COUNTED % (AUTO) 100 %; WHITE BLOOD COUNT 8.5 10^3/uL (4.0-10.5)
[2019-05-28 06:34] LABS: ALBUMIN 4.2 g/dL (3.5-5.0); ALKALINE PHOSPHATASE 79 U/L (38-126); ANION GAP 12 (5-19); ASPARTATE AMINO TRANSFERASE 14 U/L (14-36); BILIRUBIN,DIRECT 0.7 mg/dL (0.0-0.4); BILIRUBIN,TOTAL 0.8 mg/dL (0.2-1.3); BLOOD UREA NITROGEN 18 mg/dL (7-20); CALCIUM 9.7 mg/dL (8.4-10.2); CARBON DIOXIDE 26 mmol/L (22-30); CHLORIDE 102 mmol/L (98-107); GLUCOSE 122 mg/dL (75-110); POTASSIUM 4.2 mmol/L (3.6-5.0); TOTAL PROTEIN 7.8 g/dL (6.3-8.2)
[2019-05-28] MEDS: METOPROLOL SUCCINATE 25 MG TAB.SR.24H PO SCH ×2 (10:00→10:41)
[2019-05-28] MEDS: GABAPENTIN 300 MG CAPSULE PO SCH ×3 (10:08→19:07)
[2019-05-28] MEDS: FERROUS SULFATE 325 MG TABLET PO SCH ×2 (10:08→19:06)
[2019-05-28] MEDS: BUSPIRONE HCL 10 MG TABLET PO SCH ×2 (10:08→22:15)
[2019-05-28] MEDS: ASCORBIC ACID 500 MG TABLET PO SCH (10:08)
[2019-05-28] MEDS: DOCUSATE SODIUM 100 MG CAPSULE PO PRN (10:12)
[2019-05-28] MEDS: FAMOTIDINE 20 MG TABLET PO SCH ×2 (10:12→19:06)
--- NOTE | 2019-05-28 10:12 | PDOC PROGRESS REPORT ---
Subjective Progress Note for:: 05/28/19 Subjective:: 28 year old female with a PMH of IV heroin use, history of cocaine and marijuana use and chronic smoker who was initially admitted earlier this month at [facility] due to increasing shortness of breath. 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 She was also diagnosed with septic pulmonary embolism. She was subsequently transferred to [facility] and for surgical intervention of her tricuspid endocarditis. Patient was transferred back to [facility] after appropriate management advised in. Discussed case with vitamin cardiology. Patient eventually underwent tricuspid valve repair and PFO closure. She was continued on continuous nafcillin infusion. She clinically improved well and returned to her baseline. She was weaned off supplemental oxygen. Upon encounter, patient appears comfortable. She denies any acute complaints. Denies chest pain, shortness of breath or back pain. Noted recommendations from [facility] team to complete Nafcillin infusion for 6 weeks with last day of infusion on 06/16/2020. 05/17/2019. No acute events overnight. Patient comfortably sitting in bed in no apparent distress, complaining of mild anxiety, otherwise denies any fever, chills, nausea, vomiting, diarrhea, constipation or any urinary symptoms. 05/18/2019. No acute events overnight. Comfortably resting in bed. Denies any fever, chills, nausea, vomiting, diarrhea, constipation or any urinary symptoms. Ambulatory, p.o. tolerant, having normal bowel and bladder movements. 05/19/2019. No acute events overnight. Patient comfortably resting in bed in apparent distress. Complaining of mild anxiety otherwise denies any fever, chills, nausea, vomiting, diarrhea, constipation or any urinary symptoms. P.o. tolerant, ambulatory, having normal bowel and bladder movements. 05/20/2019. No acute events overnight. Patient sleeping easily arousable, stating that she could not get a good night sleep last night otherwise denies any fever, chills, nausea, vomiting, diarrhea, constipation or any urinary symptoms. Patient is ambulatory. P.o. tolerant. Having normal bowel and bladder movements. 05/21/2019. No acute events overnight. Complaining of being anxious. Stating that she has history of anxiety and used to take Klonopin but she does not want to anymore. Denies any fever, chills, nausea, vomiting, diarrhea, constipation or any urinary symptoms. Ambulatory. P.o. tolerant. Normal bowel and bladder movements. 05/22/2019. No acute events overnight. Denies any fever, chills, nausea, vomiting, diarrhea, constipation or any urinary symptoms. Ambulatory. P.o. tolerant. Normal bowel and bladder movements. 05/23/2019. No acute events overnight. Patient ambulatory, p.o. tolerant having normal bowel bladder movement. Denies any fever, chills, nausea, vomiting, diarrhea, constipation or any urinary symptoms. 05/24/2019. No acute events overnight. Denies any fever, chills, nausea, vomiting, diarrhea, constipation or any urinary symptoms. 05/25/2018. No acute events overnight. Denies any fever, chills, nausea, vomiting, diarrhea, constipation or any urinary symptoms. 05/28/2019-acute events in the last 24 hours. Afebrile. Plan is to continue IV antibiotic therapy for infective endocarditis. 05/27/2019 28-year-old female admitted for tricuspid valve endocarditis and septic pulmonary emboli. Patient was transferred to [place] and came back here for completion of the antibiotic therapy. communicating well. Expressing desire to go home. Reason For Visit: TRICUSPID INFECTIVE ENDOCARDITIS Physical Exam Vital Signs: Temp Pulse Resp BP Pulse Ox 98.0 F 114 H 20 104/69 98 05/28/19 07:41 05/28/19 07:41 05/28/19 07:41 05/28/19 07:41 05/28/19 07:41 Intake & Output 05/27/19 05/28/19 05/29/19 06:59 06:59 06:59 Intake Total 3266 1520 Balance 3266 1520 Weight 53.1 kg 53.5 kg General appearance: PRESENT: no acute distress, thin Head exam: PRESENT: atraumatic Eye exam: PRESENT: PERRLA Mouth exam: PRESENT: moist, tongue midline Neck exam: ABSENT: carotid bruit, JVD, lymphadenopathy, thyromegaly Respiratory exam: PRESENT: clear to auscultation chelo. ABSENT: rales, rhonchi, wheezes Cardiovascular exam: PRESENT: systolic murmur, tachycardia GI/Abdominal exam: PRESENT: normal bowel sounds, soft. ABSENT: distended, gua rding, mass, organolmegaly, rebound, tenderness Rectal exam: PRESENT: deferred Extremities exam: PRESENT: full ROM. ABSENT: calf tenderness, clubbing, pedal edema Neurological exam: PRESENT: alert, awake, oriented to person, oriented to place, oriented to time, oriented to situation, CN II-XII grossly intact. ABSENT: tabatha r sensory deficit Psychiatric exam: PRESENT: appropriate affect, normal mood. ABSENT: homicidal ideation, suicidal ideation Results Laboratory Results: 05/28/19 05:50 05/28/19 05:50 05/28/19 05/28/19 05:50 05:50 WBC 8.5 RBC 3.43 L Hgb 10.9 L Hct 32.1 L MCV 94 MCH 31.8 MCHC 33.9 RDW 18.5 H Plt Count 496 H Seg Neutrophils % 63.0 Sodium 139.7 Potassium 4.2 Chloride 102 Carbon Dioxide 26 Anion Gap 12 BUN 18 Creatinine 0.59 Est GFR ( Amer) > 60 Glucose 122 H Calcium 9.7 Magnesium 2.1 Total Bilirubin 0.8 AST 14 Alkaline Phosphatase 79 Total Protein 7.8 Albumin 4.2 Assessment and Plan - Diagnosis (1) Infective endocarditis Qualifiers: Infective endocarditis organism: bacterial Chronicity: acute Qualified Code(s): I33.0 - Acute and subacute infective endocarditis Is this a current diagnosis for this admission?: Yes Plan: S/P tricuspid valve repair and PFO closure. Continue Nafcillin, last day on 06/16/2019. 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 Presently on nafcillin. Last day of antibiotic therapy is 06/16/2019. 05/28/2019 patient is receiving nafcillin for infective endocarditis. Patient had surgery for infected tricuspid valve repair and a PFO closure. Last dose of antibiotic therapy will be on June 16. (2) MSSA bacteremia Is this a current diagnosis for this admission?: Yes Plan: Blood cultures cleared at [facility]. 05/16/2019. Repeat blood cultures. No growth so far. 05/27/2019 follow-up blood cultures are negative so far. No growth present. (3) Polysubstance abuse Is this a current diagnosis for this admission?: Yes (4) Septic pulmonary embolism Qualifiers: Chronicity: unspecified Is this a current diagnosis for this admission?: Yes Plan: Secondary to tricuspid IE. Now on room air. 05/27/2019 patient developed septic pulmonary embolism secondary to tricuspid valve endocarditis. Presently on heparin 5000 units subcu every 8 hours. Not on anticoagulation. 05/28/2019 patient pulse ox today is 99% on room air. Developed septic pulmonary embolus secondary to infected tricuspid valve. Not on anticoagulation at this time. Receiving heparin 5000 units subcu every 8 hours. (5) Generalized anxiety disorder Is this a current diagnosis for this admission?: Yes Plan: Used to take Klonopin. Does not want to resume. Continue BuSpar twice daily. 05/28/2019 comfortably in the bed sleeping woke up on calling denies any anxiety issues. Plan is to continue BuSpar at this time.
[2019-05-28] MEDS: FOLIC ACID 1 MG TABLET PO SCH (10:13)
[2019-05-28] MEDS: MULTIVITAMIN TABLET PO SCH (10:41)
[2019-05-28] MEDS: QUETIAPINE FUMARATE 25 MG TABLET PO SCH (22:14)
[2019-05-29] MEDS: NAFCILLIN SODIUM 2 GM in DEXTROSE 5%-WATER 100 ML IV SCH ×6 (02:06→21:23)
[2019-05-29] MEDS: HEPARIN SOD (PORCINE) 5,000 UNIT/ML 1 ML VIAL SUBCUT SCH ×3 (05:32→21:22)
--- NOTE | 2019-05-29 10:35 | PDOC PROGRESS REPORT ---
Subjective Progress Note for:: 05/29/19 Subjective:: 28 year old female with a PMH of IV heroin use, history of cocaine and marijuana use and chronic smoker who was initially admitted earlier this month at [facility] due to increasing shortness of breath. 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 She was also diagnosed with septic pulmonary embolism. She was subsequently transferred to [facility] and for surgical intervention of her tricuspid endocarditis. Patient was transferred back to [facility] after appropriate management advised in. Discussed case with vitamin cardiology. Patient eventually underwent tricuspid valve repair and PFO closure. She was continued on continuous nafcillin infusion. She clinically improved well and returned to her baseline. She was weaned off supplemental oxygen. Upon encounter, patient appears comfortable. She denies any acute complaints. Denies chest pain, shortness of breath or back pain. Noted recommendations from [facility] team to complete Nafcillin infusion for 6 weeks with last day of infusion on 06/16/2020. 05/17/2019. No acute events overnight. Patient comfortably sitting in bed in no apparent distress, complaining of mild anxiety, otherwise denies any fever, chills, nausea, vomiting, diarrhea, constipation or any urinary symptoms. 05/18/2019. No acute events overnight. Comfortably resting in bed. Denies any fever, chills, nausea, vomiting, diarrhea, constipation or any urinary symptoms. Ambulatory, p.o. tolerant, having normal bowel and bladder movements. 05/19/2019. No acute events overnight. Patient comfortably resting in bed in apparent distress. Complaining of mild anxiety otherwise denies any fever, chills, nausea, vomiting, diarrhea, constipation or any urinary symptoms. P.o. tolerant, ambulatory, having normal bowel and bladder movements. 05/20/2019. No acute events overnight. Patient sleeping easily arousable, stating that she could not get a good night sleep last night otherwise denies any fever, chills, nausea, vomiting, diarrhea, constipation or any urinary symptoms. Patient is ambulatory. P.o. tolerant. Having normal bowel and bladder movements. 05/21/2019. No acute events overnight. Complaining of being anxious. Stating that she has history of anxiety and used to take Klonopin but she does not want to anymore. Denies any fever, chills, nausea, vomiting, diarrhea, constipation or any urinary symptoms. Ambulatory. P.o. tolerant. Normal bowel and bladder movements. 05/22/2019. No acute events overnight. Denies any fever, chills, nausea, vomiting, diarrhea, constipation or any urinary symptoms. Ambulatory. P.o. tolerant. Normal bowel and bladder movements. 05/23/2019. No acute events overnight. Patient ambulatory, p.o. tolerant having normal bowel bladder movement. Denies any fever, chills, nausea, vomiting, diarrhea, constipation or any urinary symptoms. 05/24/2019. No acute events overnight. Denies any fever, chills, nausea, vomiting, diarrhea, constipation or any urinary symptoms. 05/25/2018. No acute events overnight. Denies any fever, chills, nausea, vomiting, diarrhea, constipation or any urinary symptoms. 05/28/2019-acute events in the last 24 hours. Afebrile. Plan is to continue IV antibiotic therapy for infective endocarditis. 05/27/2019 28-year-old female admitted for tricuspid valve endocarditis and septic pulmonary emboli. Patient was transferred to [place] and came back here for completion of the antibiotic therapy. communicating well. Expressing desire to go home. 05/29/19 28-year-old female receiving IV antibiotic therapy for endocarditis last day of antibiotic therapy will be on June 16. No acute events in the last 24 hours. Comfortable in the bed. Reason For Visit: TRICUSPID INFECTIVE ENDOCARDITIS Physical Exam Vital Signs: Temp Pulse Resp BP Pulse Ox 98.5 F 97 16 97/56 L 99 05/29/19 07:48 05/29/19 07:48 05/29/19 07:48 05/29/19 07:48 05/29/19 07:48 Intake & Output 05/28/19 05/29/19 05/30/19 06:59 06:59 06:59 Intake Total 1520 1858 Output Total 320 Balance 1520 1538 Weight 53.5 kg 53.2 kg General appearance: PRESENT: no acute distress Head exam: PRESENT: atraumatic Eye exam: PRESENT: PERRLA Mouth exam: PRESENT: dry mucosa Neck exam: ABSENT: carotid bruit, JVD, lymphadenopathy, thyromegaly Respiratory exam: PRESENT: clear to auscultation chelo. ABSENT: rales, rhonchi, wheezes Cardiovascular exam: PRESENT: RRR. ABSENT: diastolic murmur, rubs, systolic murmur GI/Abdominal exam: PRESENT: normal bowel sounds, soft. ABSENT: distended, guarding, mass, organolmegaly, rebound, tenderness Rectal exam: PRESENT: deferred Extremities exam: PRESENT: full ROM. ABSENT: calf tenderness, clubbing, pedal edema Neurological exam: PRESENT: alert, awake, oriented to person, oriented to place, oriented to time, oriented to situation, CN II-XII grossly intact. ABSENT: motor sensory deficit Psychiatric exam: PRESENT: appropriate affect, normal mood. ABSENT: homicidal ideation, suicidal ideation Results Laboratory Results: 05/28/19 05:50 05/28/19 05:50 Assessment and Plan - Diagnosis (1) Infective endocarditis Qualifiers: Infective endocarditis organism: bacterial Chronicity: acute Qualified Code(s): I33.0 - Acute and subacute infective endocarditis Is this a current diagnosis for this admission?: Yes Plan: S/P tricuspid valve repair and PFO closure. Continue Nafcillin, last day on 06/16/2019. 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 Presently on nafcillin. Last day of antibiotic therapy is 06/16/2019. 05/28/2019 patient is receiving nafcillin for infective endocarditis. Patient had surgery for infected tricuspid valve repair and a PFO closure. Last dose of antibiotic therapy will be on June 16. 05/29/19-patient is receiving nafcillin for endocarditis. Patient has tricuspid valve repair and Pfo closure. Last day of antibiotic therapy will be June 16. (2) MSSA bacteremia Is this a current diagnosis for this admission?: Yes Plan: Blood cultures cleared at [facility]. 05/16/2019. Repeat blood cultures. No growth so far. 05/27/2019 follow-up blood cultures are negative so far. No growth present. 05/29/2019-latest blood cultures are showing no growth. Plan is to continue nafcillin until June 16. (3) Polysubstance abuse Is this a current diagnosis for this admission?: Yes (4) Septic pulmonary embolism Qualifiers: Chronicity: unspecified Is this a current diagnosis for this admission?: Yes (5) Generalized anxiety disorder Is this a current diagnosis for this admission?: Yes
[2019-05-29] MEDS: FOLIC ACID 1 MG TABLET PO SCH (11:00)
[2019-05-29] MEDS: ASCORBIC ACID 500 MG TABLET PO SCH (11:00)
[2019-05-29] MEDS: FERROUS SULFATE 325 MG TABLET PO SCH ×2 (11:00→18:32)
[2019-05-29] MEDS: GABAPENTIN 300 MG CAPSULE PO SCH ×3 (11:00→18:32)
[2019-05-29] MEDS: BUSPIRONE HCL 10 MG TABLET PO SCH ×2 (11:00→21:21)
[2019-05-29] MEDS: METOPROLOL SUCCINATE 25 MG TAB.SR.24H PO SCH (11:00)
[2019-05-29] MEDS: MULTIVITAMIN TABLET PO SCH (11:01)
[2019-05-29] MEDS: FAMOTIDINE 20 MG TABLET PO SCH ×2 (11:01→18:32)
[2019-05-29] MEDS: QUETIAPINE FUMARATE 25 MG TABLET PO SCH (21:26)
[2019-05-29] MEDS: ACETAMINOPHEN 325 MG TABLET PO PRN (21:37)
[2019-05-30] MEDS: NAFCILLIN SODIUM 2 GM in DEXTROSE 5%-WATER 100 ML IV SCH ×6 (02:37→22:00)
[2019-05-30] MEDS: HEPARIN SOD (PORCINE) 5,000 UNIT/ML 1 ML VIAL SUBCUT SCH ×3 (06:56→22:01)
--- NOTE | 2019-05-30 10:31 | PDOC PROGRESS REPORT ---
Subjective Progress Note for:: 05/30/19 Subjective:: 28 year old female with a PMH of IV heroin use, history of cocaine and marijuana use and chronic smoker who was initially admitted earlier this month at [facility] due to increasing shortness of breath. 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 She was also diagnosed with septic pulmonary embolism. She was subsequently transferred to [facility] and for surgical intervention of her tricuspid endocarditis. Patient was transferred back to [facility] after appropriate management advised in. Discussed case with vitamin cardiology. Patient eventually underwent tricuspid valve repair and PFO closure. She was continued on continuous nafcillin infusion. She clinically improved well and returned to her baseline. She was weaned off supplemental oxygen. Upon encounter, patient appears comfortable. She denies any acute complaints. Denies chest pain, shortness of breath or back pain. Noted recommendations from [facility] team to complete Nafcillin infusion for 6 weeks with last day of infusion on 06/16/2020. 05/17/2019. No acute events overnight. Patient comfortably sitting in bed in no apparent distress, complaining of mild anxiety, otherwise denies any fever, chills, nausea, vomiting, diarrhea, constipation or any urinary symptoms. 05/18/2019. No acute events overnight. Comfortably resting in bed. Denies any fever, chills, nausea, vomiting, diarrhea, constipation or any urinary symptoms. Ambulatory, p.o. tolerant, having normal bowel and bladder movements. 05/19/2019. No acute events overnight. Patient comfortably resting in bed in apparent distress. Complaining of mild anxiety otherwise denies any fever, chills, nausea, vomiting, diarrhea, constipation or any urinary symptoms. P.o. tolerant, ambulatory, having normal bowel and bladder movements. 05/20/2019. No acute events overnight. Patient sleeping easily arousable, stating that she could not get a good night sleep last night otherwise denies any fever, chills, nausea, vomiting, diarrhea, constipation or any urinary symptoms. Patient is ambulatory. P.o. tolerant. Having normal bowel and bladder movements. 05/21/2019. No acute events overnight. Complaining of being anxious. Stating that she has history of anxiety and used to take Klonopin but she does not want to anymore. Denies any fever, chills, nausea, vomiting, diarrhea, constipation or any urinary symptoms. Ambulatory. P.o. tolerant. Normal bowel and bladder movements. 05/22/2019. No acute events overnight. Denies any fever, chills, nausea, vomiting, diarrhea, constipation or any urinary symptoms. Ambulatory. P.o. tolerant. Normal bowel and bladder movements. 05/23/2019. No acute events overnight. Patient ambulatory, p.o. tolerant having normal bowel bladder movement. Denies any fever, chills, nausea, vomiting, diarrhea, constipation or any urinary symptoms. 05/24/2019. No acute events overnight. Denies any fever, chills, nausea, vomiting, diarrhea, constipation or any urinary symptoms. 05/25/2018. No acute events overnight. Denies any fever, chills, nausea, vomiting, diarrhea, constipation or any urinary symptoms. 05/28/2019-acute events in the last 24 hours. Afebrile. Plan is to continue IV antibiotic therapy for infective endocarditis. 05/29/2019 28-year-old female admitted for tricuspid valve endocarditis and septic pulmonary emboli. Patient was transferred to [place] and came back here for completion of the antibiotic therapy. communicating well. Expressing desire to go home. 05/29/19 28-year-old female receiving IV antibiotic therapy for endocarditis last day of antibiotic therapy will be on June 16. No acute events in the last 24 hours. Comfortable in the bed. 05/30/1979-84-lbzu-old female receiving IV antibiotic therapy for endocarditis. Last day of antibiotic therapy will be on June 16. Reason For Visit: TRICUSPID INFECTIVE ENDOCARDITIS Physical Exam Vital Signs: Temp Pulse Resp BP Pulse Ox 98.4 F 92 16 81/45 L 96 05/30/19 08:00 05/30/19 08:00 05/30/19 08:00 05/30/19 08:00 05/30/19 08:00 Intake & Output 05/29/19 05/30/19 05/31/19 06:59 06:59 06:59 Intake Total 1858 1050 Output Total 320 Balance 1538 1050 Weight 53.2 kg 53.6 kg General appearance: PRESENT: no acute distress, thin Head exam: PRESENT: atraumatic Eye exam: PRESENT: PERRLA Mouth exam: PRESENT: moist, tongue midline Teeth exam: PRESENT: poor dentation Neck exam: ABSENT: carotid bruit, JVD, lymphadenopathy, thyromegaly Respiratory exam: PRESENT: clear to auscultation chelo. ABSENT: rales, rhonchi, wheezes Cardiovascular exam: PRESENT: RRR. ABSENT: diastolic murmur, rubs, systolic murmur Pulses: PRESENT: normal dorsalis pedis pul GI/Abdominal exam: PRESENT: normal bowel sounds, soft. ABSENT: distended, guarding, mass, organolmegaly, rebound, tenderness Rectal exam: PRESENT: deferred Extremities exam: PRESENT: full ROM. ABSENT: calf tenderness, clubbing, pedal edema Neurological exam: PRESENT: alert, awake, oriented to person, oriented to place, oriented to time, oriented to situation, CN II-XII grossly intact. ABSENT: motor sensory deficit Psychiatric exam: PRESENT: appropriate affect, normal mood. ABSENT: homicidal ideation, suicidal ideation Results Laboratory Results: 05/28/19 05:50 05/28/19 05:50 Assessment and Plan - Diagnosis (1) Infective endocarditis Qualifiers: Infective endocarditis organism: bacterial Chronicity: acute Qualified Code(s): I33.0 - Acute and subacute infective endocarditis Is this a current diagnosis for this admission?: Yes Plan: S/P tricuspid valve repair and PFO closure. Continue Nafcillin, last day on 06/16/2019. 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 Presently on nafcillin. Last day of antibiotic therapy is 06/16/2019. 05/28/2019 patient is receiving nafcillin for infective endocarditis. Patient had surgery for infected tricuspid valve repair and a PFO closure. Last dose of antibiotic therapy will be on June 16. 05/29/19-patient is receiving nafcillin for endocarditis. Patient has tricuspid v alve repair and Pfo closure. Last day of antibiotic therapy will be June 16. 05/30/19-patient is receiving nafcillin for endocarditis. Last of antibiotic therapy will be June 16. (2) MSSA bacteremia Is this a current diagnosis for this admission?: Yes Plan: Blood cultures cleared at [facility]. 05/16/2019. Repeat blood cultures. No growth so far. 05/27/2019 follow-up blood cultures are negative so far. No growth present. 05/29/2019-latest blood cultures are showing no growth. Plan is to continue nafcillin until June 16. 05/30/19-latest blood cultures no growth. Plan is to continue the antibiotic therapy nafcillin until June 16 for infective endocarditis. (3) Polysubstance abuse Is this a current diagnosis for this admission?: Yes Plan: Counseled on abstinence. Monitor for withdrawals. 05/27/2019 patient has history of polysubstance abuse again counseling was provided today. (4) Septic pulmonary embolism Qualifiers: Chronicity: unspecified Is this a current diagnosis for this admission?: Yes Plan: Secondary to tricuspid IE. Now on room air. 05/27/2019 patient developed septic pulmonary embolism secondary to tricuspid valve endocarditis. Presently on heparin 5000 units subcu every 8 hours. Not on anticoagulation. 05/28/2019 patient pulse ox today is 99% on room air. Developed septic pulmonary embolus secondary to infected tricuspid valve. Not on anticoagulation at this time. Receiving heparin 5000 units subcu every 8 hours. (5) Generalized anxiety disorder Is this a current diagnosis for this admission?: Yes Plan: Used to take Klonopin. Does not want to resume. Continue BuSpar twice daily. 05/28/2019 comfortably in the bed sleeping woke up on calling denies any anxiety issues. Plan is to continue BuSpar at this time.
[2019-05-30] MEDS: METOPROLOL SUCCINATE 25 MG TAB.SR.24H PO SCH (12:11)
[2019-05-30] MEDS: FOLIC ACID 1 MG TABLET PO SCH (12:11)
[2019-05-30] MEDS: FAMOTIDINE 20 MG TABLET PO SCH ×2 (12:11→19:21)
[2019-05-30] MEDS: GABAPENTIN 300 MG CAPSULE PO SCH ×3 (12:12→19:21)
[2019-05-30] MEDS: BUSPIRONE HCL 10 MG TABLET PO SCH ×2 (12:12→22:01)
[2019-05-30] MEDS: MULTIVITAMIN TABLET PO SCH (12:12)
[2019-05-30] MEDS: FERROUS SULFATE 325 MG TABLET PO SCH ×2 (12:12→19:21)
[2019-05-30 14:07] LABS: URINE AMPHETAMINES SCREEN NEGATIVE; URINE BARBITURATES SCREEN NEGATIVE; URINE BENZODIAZEPINES SCREEN NEGATIVE; URINE COCAINE SCREEN NEGATIVE; URINE MARIJUANA (THC) SCREEN NEGATIVE; URINE METHADONE SCREEN NEGATIVE; URINE PHENCYCLIDINE SCREEN NEGATIVE
[2019-05-30] MEDS: ASCORBIC ACID 500 MG TABLET PO SCH (19:21)
[2019-05-30] MEDS: QUETIAPINE FUMARATE 25 MG TABLET PO SCH (22:01)
[2019-05-31] MEDS: NAFCILLIN SODIUM 2 GM in DEXTROSE 5%-WATER 100 ML IV SCH ×6 (02:35→22:28)
[2019-05-31] MEDS: HEPARIN SOD (PORCINE) 5,000 UNIT/ML 1 ML VIAL SUBCUT SCH ×3 (05:05→22:26)
[2019-05-31 07:31] LABS: ABSOLUTE BASOPHILS # (AUTO) 0.1 10^3/uL (0.0-0.2); ABSOLUTE EOSINOPHILS # (AUTO) 0.2 10^3/uL (0.0-0.6); ABSOLUTE LYMPHOCYTES (AUTO) 2.7 10^3/uL (0.5-4.7); ABSOLUTE MONOCYTES (AUTO) 0.7 10^3/uL (0.1-1.4); ABSOLUTE NEUT (AUTO) 4.2 10^3/uL (1.7-8.2); BASOPHILS % (AUTO) 0.9 % (0-2); EOSINOPHILS % (AUTO) 2.1 % (0-6); HEMATOCRIT 30.4 % (36.0-47.0); HEMOGLOBIN 10.1 g/dL (12.0-15.5); LYMPHOCYTES % (AUTO) 34.2 % (13-45); MEAN CORPUSCULAR HEMOGLOBIN 31.5 pg (27.0-33.4); MEAN CORPUSCULAR HGB CONC 33.3 g/dL (32.0-36.0); MEAN CORPUSCULAR VOLUME 95 fl (80-97); MONOCYTES % (AUTO) 8.5 % (3-13); PLATELET COUNT 393 10^3/uL (150-450); RED BLOOD COUNT 3.21 10^6/uL (3.72-5.28); RED CELL DISTRIBUTION WIDTH 18.7 % (11.5-14.0); SEGMENTED NEUTROPHILS % (AUTO) 54.3 % (42-78); TOTAL CELLS COUNTED % (AUTO) 100 %; WHITE BLOOD COUNT 7.8 10^3/uL (4.0-10.5)
[2019-05-31 07:51] LABS: ALBUMIN 3.7 g/dL (3.5-5.0); ALKALINE PHOSPHATASE 60 U/L (38-126); ANION GAP 10 (5-19); ASPARTATE AMINO TRANSFERASE 14 U/L (14-36); BILIRUBIN,DIRECT 0.7 mg/dL (0.0-0.4); BILIRUBIN,TOTAL 0.8 mg/dL (0.2-1.3); BLOOD UREA NITROGEN 20 mg/dL (7-20); CALCIUM 9.4 mg/dL (8.4-10.2); CARBON DIOXIDE 25 mmol/L (22-30); CHLORIDE 104 mmol/L (98-107); GLUCOSE 81 mg/dL (75-110); POTASSIUM 4.3 mmol/L (3.6-5.0); TOTAL PROTEIN 6.9 g/dL (6.3-8.2)
[2019-05-31] MEDS: FAMOTIDINE 20 MG TABLET PO SCH ×2 (11:02→18:44)
[2019-05-31] MEDS: FOLIC ACID 1 MG TABLET PO SCH (11:02)
[2019-05-31] MEDS: MULTIVITAMIN TABLET PO SCH (11:03)
[2019-05-31] MEDS: ASCORBIC ACID 500 MG TABLET PO SCH (11:03)
[2019-05-31] MEDS: FERROUS SULFATE 325 MG TABLET PO SCH ×2 (11:04→18:44)
[2019-05-31] MEDS: BUSPIRONE HCL 10 MG TABLET PO SCH ×2 (11:05→22:26)
[2019-05-31] MEDS: GABAPENTIN 300 MG CAPSULE PO SCH ×3 (11:05→18:44)
[2019-05-31] MEDS: METOPROLOL SUCCINATE 25 MG TAB.SR.24H PO SCH (11:17)
--- NOTE | 2019-05-31 20:01 | PDOC PROGRESS REPORT ---
Subjective Progress Note for:: 05/31/19 Reason For Visit: TRICUSPID INFECTIVE ENDOCARDITIS Physical Exam Vital Signs: Temp Pulse Resp BP Pulse Ox 97.8 F 120 H 16 125/69 100 05/31/19 16:00 05/31/19 16:00 05/31/19 16:00 05/31/19 16:00 05/31/19 16:00 Intake & Output 05/30/19 05/31/19 06/01/19 06:59 06:59 06:59 Intake Total 1050 240 954 Balance 1050 240 954 Weight 53.6 kg 53.6 kg General appearance: PRESENT: no acute distress, well-developed, well-nourished Head exam: PRESENT: atraumatic, normocephalic Eye exam: PRESENT: conjunctiva pink Respiratory exam: PRESENT: clear to auscultation chelo. ABSENT: rales, rhonchi, wheezes Cardiovascular exam: PRESENT: clicks - mechanical valve, RRR, +S1, +S2 GI/Abdominal exam: PRESENT: normal bowel sounds, soft. ABSENT: distended, guarding, mass, organolmegaly, rebound, tenderness Neurological exam: PRESENT: alert, awake, oriented to person, oriented to place, oriented to time, oriented to situation, motor sensory deficit Psychiatric exam: PRESENT: appropriate affect, normal mood Results Laboratory Results: 05/31/19 06:45 05/31/19 06:45 05/31/19 05/31/19 06:45 06:45 WBC 7.8 RBC 3.21 L Hgb 10.1 L Hct 30.4 L MCV 95 MCH 31.5 MCHC 33.3 RDW 18.7 H Plt Count 393 Seg Neutrophils % 54.3 Sodium 139.2 Potassium 4.3 Chloride 104 Carbon Dioxide 25 Anion Gap 10 BUN 20 Creatinine 0.60 Est GFR ( Amer) > 60 Glucose 81 Calcium 9.4 Magnesium 2.0 Total Bilirubin 0.8 AST 14 Alkaline Phosphatase 60 Total Protein 6.9 Albumin 3.7 Assessment and Plan - Diagnosis (1) Infective endocarditis Qualifiers: Infective endocarditis organism: bacterial Chronicity: acute Qualified Code(s): I33.0 - Acute and subacute infective endocarditis Is this a current diagnosis for this admission?: Yes Plan: S/P tricuspid valve repair and PFO closure. Continue Nafcillin, last day on 06/16/2019. 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 Presently on nafcillin. Last day of antibiotic therapy is 06/16/2019. 05/28/2019 patient is receiving nafcillin for infective endocarditis. Patient had surgery for infected tricuspid valve repair and a PFO closure. Last dose of antibiotic therapy will be on June 16. 05/29/19-patient is receiving nafcillin for endocarditis. Patient has tricuspid valve repair and Pfo closure. Last day of antibiotic therapy will be June 16. 05/30/19-patient is receiving nafcillin for endocarditis. Last of antibiotic therapy will be June 16. 05/31: Continue antibiotics, I have signed a new order for this as they were about to follow-up. (2) MSSA bacteremia Is this a current diagnosis for this admission?: Yes Plan: Blood cultures cleared at [facility]. 05/16/2019. Repeat blood cultures. No growth so far. 05/27/2019 follow-up blood cultures are negative so far. No growth present. 05/29/2019-latest blood cultures are showing no growth. Plan is to continue nafcillin until June 16. 05/30/19-latest blood cultures no growth. Plan is to continue the antibiotic therapy nafcillin until June 16 for infective endocarditis. 05/31: Antibiotics as above. Most recent blood cultures have no growth. (3) Polysubstance abuse Is this a current diagnosis for this admission?: Yes Plan: Counseled on abstinence. Monitor for withdrawals. 05/27/2019 patient has history of polysubstance abuse again counseling was provided today. 05/31: States her low back is sometimes in pain. Recommended that she get out of bed more often and stretch a bit more. We will hold off on giving any pain medication stronger than Tylenol. (4) Septic pulmonary embolism Qualifiers: Chronicity: unspecified Is this a current diagnosis for this admission?: Yes Plan: Secondary to tricuspid IE. Now on room air. 05/27/2019 patient developed septic pulmonary embolism secondary to tricuspid valve endocarditis. Presently on heparin 5000 units subcu every 8 hours. Not on anticoagulation. 05/28/2019 patient pulse ox today is 99% on room air. Developed septic pulmonary embolus secondary to infected tricuspid valve. Not on anticoagulation at this time. Receiving heparin 5000 units subcu every 8 hours. 1/7: Respiratory status is stable today. (5) Acute infective endocarditis Qualifiers: Infective endocarditis organism: bacterial Qualified Code(s): I33.0 - Acute and subacute infective endocarditis Is this a current diagnosis for this admission?: Yes Plan: As above (6) Heroin withdrawal Is this a current diagnosis for this admission?: Yes Plan: Avoid narcotics - Time Time Spent with patient: 15-24 minutes - Inpatient Certification Medical Necessity: Need for IV Antibiotics
[2019-05-31] MEDS: QUETIAPINE FUMARATE 25 MG TABLET PO SCH (22:26)
[2019-06-01] MEDS: NAFCILLIN SODIUM 2 GM in DEXTROSE 5%-WATER 100 ML IV SCH ×6 (02:52→22:04)
[2019-06-01] MEDS: HEPARIN SOD (PORCINE) 5,000 UNIT/ML 1 ML VIAL SUBCUT SCH ×3 (06:59→22:06)
[2019-06-01] MEDS: ASCORBIC ACID 500 MG TABLET PO SCH (09:01)
[2019-06-01] MEDS: MULTIVITAMIN TABLET PO SCH (10:57)
[2019-06-01] MEDS: FOLIC ACID 1 MG TABLET PO SCH (10:57)
[2019-06-01] MEDS: GABAPENTIN 300 MG CAPSULE PO SCH ×3 (10:57→17:01)
[2019-06-01] MEDS: BUSPIRONE HCL 10 MG TABLET PO SCH ×2 (10:57→22:04)
[2019-06-01] MEDS: FERROUS SULFATE 325 MG TABLET PO SCH ×2 (10:57→17:01)
[2019-06-01] MEDS: METOPROLOL SUCCINATE 25 MG TAB.SR.24H PO SCH (10:57)
[2019-06-01] MEDS: FAMOTIDINE 20 MG TABLET PO SCH ×2 (10:57→17:01)
--- NOTE | 2019-06-01 16:04 | PDOC PROGRESS REPORT ---
Subjective Progress Note for:: 06/01/19 Subjective:: 06/01: No new complaints, no acute changes. Patient denies any pain/discomfort, states she is doing stairstepping exercises in the windowsill. Reason For Visit: TRICUSPID INFECTIVE ENDOCARDITIS Physical Exam Vital Signs: Temp Pulse Resp BP Pulse Ox 98.3 F 111 H 16 95/49 L 98 06/01/19 07:25 06/01/19 14:00 06/01/19 07:25 06/01/19 07:25 06/01/19 07:25 Intake & Output 05/31/19 06/01/19 06/02/19 06:59 06:59 06:59 Intake Total 240 1524 960 Balance 240 1524 960 Weight 53.6 kg 53.2 kg Respiratory exam: ABSENT: accessory muscle use, crackles, rales, rhonchi Cardiovascular exam: PRESENT: clicks, RRR. ABSENT: diastolic murmur, rubs, systolic murmur GI/Abdominal exam: PRESENT: normal bowel sounds, soft. ABSENT: distended, guarding, mass, organolmegaly, rebound, tenderness Extremities exam: ABSENT: pedal edema Neurological exam: PRESENT: alert, awake Psychiatric exam: PRESENT: appropriate affect, normal mood Skin exam: PRESENT: dry, intact, warm Results Laboratory Results: 05/31/19 06:45 05/31/19 06:45 Assessment and Plan - Diagnosis (1) Infective endocarditis Qualifiers: Infective endocarditis organism: bacterial Chronicity: acute Qualified Code(s): I33.0 - Acute and subacute infective endocarditis Is this a current diagnosis for this admission?: Yes Plan: S/P tricuspid valve repair and PFO closure. Continue Nafcillin, last day on 06/16/2019. 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 Presently on nafcillin. Last day of antibiotic therapy is 06/16/2019. 05/28/2019 patient is receiving nafcillin for infective endocarditis. Patient had surgery for infected tricuspid valve repair and a PFO closure. Last dose of antibiotic therapy will be on June 16. 05/29/19-patient is receiving nafcillin for endocarditis. Patient has tricuspid valve repair and Pfo closure. Last day of antibiotic therapy will be June 16. 05/30/19-patient is receiving nafcillin for endocarditis. Last of antibiotic therapy will be June 16. 05/31: Continue antibiotics, I have signed a new order for this as they were about to follow-up. Nafcillin IV to continue until 06/16, unable to discharge patient due to history of IV drug abuse and the necessity for IV antibiotics (2) MSSA bacteremia Is this a current diagnosis for this admission?: Yes (3) Polysubstance abuse Is this a current diagnosis for this admission?: Yes (4) Septic pulmonary embolism Qualifiers: Chronicity: unspecified Is this a current diagnosis for this admission?: Yes (5) Acute infective endocarditis Qualifiers: Infective endocarditis organism: bacterial Qualified Code(s): I33.0 - Acute and subacute infective endocarditis Is this a current diagnosis for this admission?: Yes (6) Heroin withdrawal Is this a current diagnosis for this admission?: Yes - Time Time Spent with patient: 15-24 minutes Within: Other - 06/16 - Inpatient Certification Medical Necessity: Need for IV Antibiotics
[2019-06-01] MEDS: QUETIAPINE FUMARATE 25 MG TABLET PO SCH (22:04)
[2019-06-02] MEDS: NAFCILLIN SODIUM 2 GM in DEXTROSE 5%-WATER 100 ML IV SCH ×6 (02:42→21:42)
[2019-06-02] MEDS: METOPROLOL TARTRATE PF/INJ 5 MG/5 ML SDV IV PRN ×2 (03:08→12:04)
[2019-06-02] MEDS: ACETAMINOPHEN 325 MG TABLET PO PRN (06:51)
[2019-06-02] MEDS: HEPARIN SOD (PORCINE) 5,000 UNIT/ML 1 ML VIAL SUBCUT SCH ×3 (06:54→21:40)
[2019-06-02] MEDS ORDERED: METOPROLOL TARTRATE PF/INJ 5 MG/5 ML SDV IV ONE (07:15)
[2019-06-02] MEDS: ASCORBIC ACID 500 MG TABLET PO SCH (08:22)
[2019-06-02] MEDS: FOLIC ACID 1 MG TABLET PO SCH (11:07)
[2019-06-02] MEDS: BUSPIRONE HCL 10 MG TABLET PO SCH ×2 (11:07→21:40)
[2019-06-02] MEDS: MULTIVITAMIN TABLET PO SCH (11:07)
[2019-06-02] MEDS: GABAPENTIN 300 MG CAPSULE PO SCH ×3 (11:07→18:19)
[2019-06-02] MEDS: FERROUS SULFATE 325 MG TABLET PO SCH ×2 (11:07→18:19)
[2019-06-02] MEDS: FAMOTIDINE 20 MG TABLET PO SCH ×2 (11:07→18:19)
[2019-06-02] MEDS: METOPROLOL SUCCINATE 25 MG TAB.SR.24H PO SCH (11:07)
--- NOTE | 2019-06-02 17:19 | PDOC PROGRESS REPORT ---
Subjective Progress Note for:: 06/02/19 Subjective:: 06/01: No new complaints, no acute changes. Patient denies any pain/discomfort, states she is doing stairstepping exercises in the windowsill. 06/02: no new complaints; d/w RN pt is getting more anxious intermittently due to her grandmother passing away recently, HR going up to 130's when she is on the phone with family. Pt already on multiple psych meds. No new complaints per pt. Male guest sleeping in the bed today. Reason For Visit: TRICUSPID INFECTIVE ENDOCARDITIS Physical Exam Vital Signs: Temp Pulse Resp BP Pulse Ox 98.0 F 129 H 16 116/74 99 06/02/19 11:47 06/02/19 11:47 06/02/19 11:47 06/02/19 11:47 06/02/19 11:47 Intake & Output 06/01/19 06/02/19 06/03/19 06:59 06:59 06:59 Intake Total 1524 1640 Balance 1524 1640 Weight 53.2 kg 54.2 kg General appearance: PRESENT: no acute distress, well-developed, well-nourished Head exam: PRESENT: atraumatic, normocephalic Eye exam: PRESENT: conjunctiva pink Respiratory exam: PRESENT: clear to auscultation chelo. ABSENT: rales, rhonchi, wheezes Cardiovascular exam: PRESENT: RRR. ABSENT: diastolic murmur, rubs, systolic murmur GI/Abdominal exam: PRESENT: normal bowel sounds, soft. ABSENT: distended, guarding, mass, organolmegaly, rebound, tenderness Musculoskeletal exam: PRESENT: ambulatory Neurological exam: PRESENT: alert, awake, oriented to person, oriented to place, oriented to time, oriented to situation Psychiatric exam: PRESENT: appropriate affect, normal mood Skin exam: PRESENT: dry, intact, warm Results Laboratory Results: 05/31/19 06:45 05/31/19 06:45 Assessment and Plan - Diagnosis (1) Infective endocarditis Qualifiers: Infective endocarditis organism: bacterial Chronicity: acute Qualified Code(s): I33.0 - Acute and subacute infective endocarditis Is this a current diagnosis for this admission?: Yes Plan: S/P tricuspid valve repair and PFO closure. Continue Nafcillin, last day on 06/16/2019. 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 Presently on nafcillin. Last day of antibiotic therapy is 06/16/2019. 05/28/2019 patient is receiving nafcillin for infective endocarditis. Patient had surgery for infected tricuspid valve repair and a PFO closure. Last dose of antibiotic therapy will be on June 16. 05/29/19-patient is receiving nafcillin for endocarditis. Patient has tricuspid valve repair and Pfo closure. Last day of antibiotic therapy will be June 16. 05/30/19-patient is receiving nafcillin for endocarditis. Last of antibiotic therapy will be June 16. 05/31: Continue antibiotics, I have signed a new order for this as they were about to follow-up. Nafcillin IV to continue until 06/16, unable to discharge patient due to history of IV drug abuse and the necessity for IV antibiotics -abx continue to completion as above (2) MSSA bacteremia Is this a current diagnosis for this admission?: Yes (3) Polysubstance abuse Is this a current diagnosis for this admission?: Yes (4) Septic pulmonary embolism Qualifiers: Chronicity: unspecified Is this a current diagnosis for this admission?: Yes (5) Acute infective endocarditis Qualifiers: Infective endocarditis organism: bacterial Qualified Code(s): I33.0 - Acute and subacute infective endocarditis Is this a current diagnosis for this admission?: Yes (6) Heroin withdrawal Is this a current diagnosis for this admission?: Yes - Plan Summary Summary: Will hold off and adding a benzo for anxiety. BB is available and can help with anxiety with the added benefit of not being habit forming, especially important in pt who struggles with drug addiction. If all else fails, can add low dose oral ativan. - Time Time Spent with patient: 15-24 minutes Anticipated discharge: Home - Inpatient Certification Medical Necessity: Need for IV Antibiotics
[2019-06-02] MEDS: QUETIAPINE FUMARATE 25 MG TABLET PO SCH (21:40)
[2019-06-03] MEDS: NAFCILLIN SODIUM 2 GM in DEXTROSE 5%-WATER 100 ML IV SCH ×6 (01:55→21:42)
[2019-06-03] MEDS: METOPROLOL TARTRATE PF/INJ 5 MG/5 ML SDV IV PRN ×2 (01:58→18:51)
[2019-06-03] MEDS: HEPARIN SOD (PORCINE) 5,000 UNIT/ML 1 ML VIAL SUBCUT SCH ×3 (06:13→21:32)
[2019-06-03] MEDS: BUSPIRONE HCL 10 MG TABLET PO SCH ×2 (09:19→21:42)
[2019-06-03] MEDS: FERROUS SULFATE 325 MG TABLET PO SCH ×2 (09:19→17:22)
[2019-06-03] MEDS: GABAPENTIN 300 MG CAPSULE PO SCH ×3 (09:19→17:22)
[2019-06-03] MEDS: ASCORBIC ACID 500 MG TABLET PO SCH (09:19)
[2019-06-03] MEDS: FAMOTIDINE 20 MG TABLET PO SCH ×2 (09:20→17:22)
[2019-06-03] MEDS: FOLIC ACID 1 MG TABLET PO SCH (09:20)
[2019-06-03] MEDS: METOPROLOL SUCCINATE 25 MG TAB.SR.24H PO SCH (09:20)
[2019-06-03] MEDS: MULTIVITAMIN TABLET PO SCH (09:20)
[2019-06-03 15:27] LABS: HEMATOCRIT 36.3 % (36.0-47.0); HEMOGLOBIN 12.2 g/dL (12.0-15.5); RED BLOOD COUNT 3.82 10^6/uL (3.72-5.28); WHITE BLOOD COUNT 6.2 10^3/uL (4.0-10.5)
[2019-06-03 15:28] LABS: ABSOLUTE EOSINOPHILS # (AUTO) 0.1 10^3/uL (0.0-0.6); ABSOLUTE LYMPHOCYTES (AUTO) 1.1 10^3/uL (0.5-4.7); ABSOLUTE MONOCYTES (AUTO) 0.6 10^3/uL (0.1-1.4); ABSOLUTE NEUT (AUTO) 4.4 10^3/uL (1.7-8.2); BASOPHILS % (AUTO) 0.8 % (0-2); EOSINOPHILS % (AUTO) 0.9 % (0-6); LYMPHOCYTES % (AUTO) 17.9 % (13-45); MEAN CORPUSCULAR HEMOGLOBIN 31.9 pg (27.0-33.4); MEAN CORPUSCULAR HGB CONC 33.5 g/dL (32.0-36.0); MEAN CORPUSCULAR VOLUME 95 fl (80-97); MONOCYTES % (AUTO) 9.9 % (3-13); PLATELET COUNT 374 10^3/uL (150-450); RED CELL DISTRIBUTION WIDTH 19.2 % (11.5-14.0); SEGMENTED NEUTROPHILS % (AUTO) 70.5 % (42-78); TOTAL CELLS COUNTED % (AUTO) 100 %
--- NOTE | 2019-06-03 18:10 | PDOC PROGRESS REPORT ---
Subjective Progress Note for:: 06/03/19 Subjective:: 06/01: No new complaints, no acute changes. Patient denies any pain/discomfort, states she is doing stairstepping exercises in the windowsill. 06/02: no new complaints; d/w RN pt is getting more anxious intermittently due to her grandmother passing away recently, HR going up to 130's when she is on the phone with family. Pt already on multiple psych meds. No new complaints per pt. Male guest sleeping in the bed today. 06/03: Patient still complaining of some intermittent anxiety when she speaks her family on the phone otherwise no new complaints. She states that she has some family members who are abusing drugs and possibly neglecting her children and this is very stressful for her to hear about. Reason For Visit: TRICUSPID INFECTIVE ENDOCARDITIS Physical Exam Vital Signs: Temp Pulse Resp BP Pulse Ox 98.0 F 76 17 105/71 79 L 06/03/19 15:57 06/03/19 15:57 06/03/19 15:57 06/03/19 15:57 06/03/19 15:57 Intake & Output 06/02/19 06/03/19 06/04/19 06:59 06:59 06:59 Intake Total 1640 1320 Balance 1640 1320 Weight 54.2 kg 54.3 kg General appearance: PRESENT: no acute distress, well-developed, well-nourished Eye exam: PRESENT: conjunctiva pink Respiratory exam: PRESENT: clear to auscultation chelo. ABSENT: rales, rhonchi, wheezes Cardiovascular exam: PRESENT: RRR. ABSENT: diastolic murmur, rubs, systolic murmur GI/Abdominal exam: PRESENT: normal bowel sounds, soft. ABSENT: distended, guarding, mass, organolmegaly, rebound, tenderness Musculoskeletal exam: PRESENT: ambulatory Neurological exam: PRESENT: alert, awake Psychiatric exam: PRESENT: anxious, normal mood Skin exam: PRESENT: dry, intact, warm Results Laboratory Results: 06/03/19 14:44 05/31/19 06:45 06/03/19 14:44 WBC 6.2 RBC 3.82 Hgb 12.2 Hct 36.3 MCV 95 MCH 31.9 MCHC 33.5 RDW 19.2 H Plt Count 374 Seg Neutrophils % 70.5 Assessment and Plan - Diagnosis (1) Infective endocarditis Qualifiers: Infective endocarditis organism: bacterial Chronicity: acute Qualified Code(s): I33.0 - Acute and subacute infective endocarditis Is this a current diagnosis for this admission?: Yes Plan: S/P tricuspid valve repair and PFO closure. Continue Nafcillin, last day on . 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 Presently on nafcillin. Last day of antibiotic therapy is 06/16/2019. 05/28/2019 patient is receiving nafcillin for infective endocarditis. Patient had surgery for infected tricuspid valve repair and a PFO closure. Last dose of antibiotic therapy will be on June 16. 05/29/19-patient is receiving nafcillin for endocarditis. Patient has tricuspid valve repair and Pfo closure. Last day of antibiotic therapy will be June 16. 05/30/19-patient is receiving nafcillin for endocarditis. Last of antibiotic therapy will be June 16. 05/31: Continue antibiotics, I have signed a new order for this as they were about to follow-up. Nafcillin IV to continue until 06/16, unable to discharge patient due to history of IV drug abuse and the necessity for IV antibiotics -abx continue to completion as above No reported side effects of antibiotics per patient (2) MSSA bacteremia Is this a current diagnosis for this admission?: Yes (3) Polysubstance abuse Is this a current diagnosis for this admission?: Yes (4) Septic pulmonary embolism Qualifiers: Chronicity: unspecified Is this a current diagnosis for this admission?: Yes (5) Acute infective endocarditis Qualifiers: Infective endocarditis organism: bacterial Qualified Code(s): I33.0 - Acute and subacute infective endocarditis Is this a current diagnosis for this admission?: Yes (6) Heroin withdrawal Is this a current diagnosis for this admission?: Yes - Plan Summary Summary: Will hold off and adding a benzo for anxiety. BB is available and can help with anxiety with the added benefit of not being habit forming, especially important in pt who struggles with drug addiction. If all else fails, can add low dose oral ativan. - Time Time Spent with patient: Less than 15 minutes
[2019-06-03] MEDS: QUETIAPINE FUMARATE 25 MG TABLET PO SCH (21:43)
[2019-06-04] MEDS: METOPROLOL TARTRATE PF/INJ 5 MG/5 ML SDV IV PRN ×2 (00:34→18:03)
[2019-06-04] MEDS: NAFCILLIN SODIUM 2 GM in DEXTROSE 5%-WATER 100 ML IV SCH ×6 (03:13→21:51)
[2019-06-04] MEDS: HEPARIN SOD (PORCINE) 5,000 UNIT/ML 1 ML VIAL SUBCUT SCH ×3 (06:44→21:51)
[2019-06-04] MEDS: ASCORBIC ACID 500 MG TABLET PO SCH (08:34)
[2019-06-04] MEDS: BUSPIRONE HCL 10 MG TABLET PO SCH ×2 (10:14→21:50)
[2019-06-04] MEDS: GABAPENTIN 300 MG CAPSULE PO SCH ×3 (10:14→18:03)
[2019-06-04] MEDS: FOLIC ACID 1 MG TABLET PO SCH (10:14)
[2019-06-04] MEDS: FAMOTIDINE 20 MG TABLET PO SCH ×2 (10:14→18:03)
[2019-06-04] MEDS: FERROUS SULFATE 325 MG TABLET PO SCH ×2 (10:14→18:03)
[2019-06-04] MEDS: MULTIVITAMIN TABLET PO SCH (10:14)
[2019-06-04] MEDS: METOPROLOL SUCCINATE 25 MG TAB.SR.24H PO SCH (11:30)
--- NOTE | 2019-06-04 14:03 | PDOC PROGRESS REPORT ---
Subjective Subjective:: 06/01: No new complaints, no acute changes. Patient denies any pain/discomfort, states she is doing stairstepping exercises in the windowsill. 06/02: no new complaints; d/w RN pt is getting more anxious intermittently due to her grandmother passing away recently, HR going up to 130's when she is on the phone with family. Pt already on multiple psych meds. No new complaints per pt. Male guest sleeping in the bed today. 06/03: Patient still complaining of some intermittent anxiety when she speaks her family on the phone otherwise no new complaints. She states that she has some family members who are abusing drugs and possibly neglecting her children and this is very stressful for her to hear about. 06/04: Upon entering room today, there was a preacher who had stopped by to pray with the patient. Patient was anxiously rocking back and forth in her underwear on the bed. She requested an increase in her anxiety medications as her family social issues seem to be intensifying and this is stressing her out. No new complaints other than this. Reason For Visit: TRICUSPID INFECTIVE ENDOCARDITIS Physical Exam Vital Signs: Temp Pulse Resp BP Pulse Ox 98.3 F 120 H 16 119/62 97 06/04/19 07:44 06/04/19 07:44 06/04/19 07:44 06/04/19 11:38 06/04/19 07:44 Intake & Output 06/03/19 06/04/19 06/05/19 06:59 06:59 06:59 Intake Total 1320 1110 Balance 1320 1110 Weight 54.3 kg 54.3 kg General appearance: PRESENT: no acute distress, well-developed, well-nourished Head exam: PRESENT: atraumatic, normocephalic Eye exam: PRESENT: conjunctiva pink Respiratory exam: PRESENT: clear to auscultation chelo. ABSENT: rales, rhonchi, wheezes Cardiovascular exam: PRESENT: RRR. ABSENT: diastolic murmur, rubs, systolic murmur GI/Abdominal exam: PRESENT: normal bowel sounds, soft. ABSENT: distended, guarding, mass, organolmegaly, rebound, tenderness Musculoskeletal exam: PRESENT: ambulatory Neurological exam: PRESENT: alert, awake Psychiatric exam: PRESENT: anxious Skin exam: PRESENT: dry, intact, warm Results Laboratory Results: 06/03/19 14:44 05/31/19 06:45 06/03/19 14:44 WBC 6.2 RBC 3.82 Hgb 12.2 Hct 36.3 MCV 95 MCH 31.9 MCHC 33.5 RDW 19.2 H Plt Count 374 Seg Neutrophils % 70.5 Assessment and Plan - Diagnosis (1) Infective endocarditis Qualifiers: Infective endocarditis organism: bacterial Chronicity: acute Qualified Code(s): I33.0 - Acute and subacute infective endocarditis Is this a current diagnosis for this admission?: Yes Plan: S/P tricuspid valve repair and PFO closure. Continue Nafcillin, last day on 06/16/2019. 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 Presently on nafcillin. Last day of antibiotic therapy is 06/16/2019. 05/28/2019 patient is receiving nafcillin for infective endocarditis. Patient had surgery for infected tricuspid valve repair and a PFO closure. Last dose of antibiotic therapy will be on June 16. 05/29/19-patient is receiving nafcillin for endocarditis. Patient has tricuspid valve repair and Pfo closure. Last day of antibiotic therapy will be June 16. 05/30/19-patient is receiving nafcillin for endocarditis. Last of antibiotic therapy will be June 1605/31: Continue antibiotics, I have signed a new order for this as they were about to follow-up. Nafcillin IV to continue until 06/16, unable to discharge patient due to history of IV drug abuse and the necessity for IV antibiotics -abx continue to completion as above No reported side effects of antibiotics per patient Tolerating antibiotics well (2) MSSA bacteremia Is this a current diagnosis for this admission?: Yes (3) Polysubstance abuse Is this a current diagnosis for this admission?: Yes (4) Septic pulmonary embolism Qualifiers: Chronicity: unspecified Is this a current diagnosis for this admission?: Yes (5) Acute infective endocarditis Qualifiers: Infective endocarditis organism: bacterial Qualified Code(s): I33.0 - Acute and subacute infective endocarditis Is this a current diagnosis for this admission?: Yes (6) Heroin withdrawal Is this a current diagnosis for this admission?: Yes (7) Generalized anxiety disorder Is this a current diagnosis for this admission?: Yes Plan: Used to take Klonopin. Does not want to resume. Continue BuSpar twice daily. 05/28/2019 comfortably in the bed sleeping woke up on calling denies any anxiety issues. Plan is to continue BuSpar at this time. Increased BuSpar and Seroquel doses per patient request due to intensifying anxiety - Plan Summary Summary: Will hold off and adding a benzo for anxiety. BB is available and can help with anxiety with the added benefit of not being habit forming, especially important in pt who struggles with drug addiction. If all else fails, can add low dose oral ativan. - Time Time Spent with patient: 15-24 minutes Medications reviewed and adjusted accordingly: Yes Anticipated discharge: Home
[2019-06-04] MEDS: QUETIAPINE FUMARATE 25 MG TABLET PO SCH ×2 (21:50→22:00)
[2019-06-05] MEDS: NAFCILLIN SODIUM 2 GM in DEXTROSE 5%-WATER 100 ML IV SCH ×6 (02:40→22:12)
[2019-06-05] MEDS: METOPROLOL TARTRATE PF/INJ 5 MG/5 ML SDV IV PRN ×2 (04:33→11:15)
[2019-06-05] MEDS: HEPARIN SOD (PORCINE) 5,000 UNIT/ML 1 ML VIAL SUBCUT SCH ×3 (06:18→22:13)
[2019-06-05] MEDS ORDERED: METOPROLOL SUCCINATE 25 MG TAB.SR.24H PO SCH (10:00)
[2019-06-05] MEDS: ASCORBIC ACID 500 MG TABLET PO SCH (10:26)
[2019-06-05] MEDS: FERROUS SULFATE 325 MG TABLET PO SCH ×2 (10:26→17:35)
[2019-06-05] MEDS: GABAPENTIN 300 MG CAPSULE PO SCH ×3 (10:26→17:35)
[2019-06-05] MEDS: MULTIVITAMIN TABLET PO SCH (10:27)
[2019-06-05] MEDS: BUSPIRONE HCL 10 MG TABLET PO SCH ×2 (10:27→22:13)
[2019-06-05] MEDS: FOLIC ACID 1 MG TABLET PO SCH (10:27)
[2019-06-05] MEDS: METOPROLOL SUCCINATE 50 MG TAB.SR.24H PO SCH (10:30)
[2019-06-05] MEDS: FAMOTIDINE 20 MG TABLET PO SCH ×2 (11:13→17:34)
[2019-06-05] MEDS ORDERED: GUAIFENESIN SYRP 200 MG/10 ML UDC PO PRN (11:55)
--- NOTE | 2019-06-05 12:04 | PDOC PROGRESS REPORT ---
Subjective Progress Note for:: 06/05/19 Subjective:: 06/01: No new complaints, no acute changes. Patient denies any pain/discomfort, states she is doing stairstepping exercises in the windowsill. 06/02: no new complaints; d/w RN pt is getting more anxious intermittently due to her grandmother passing away recently, HR going up to 130's when she is on the phone with family. Pt already on multiple psych meds. No new complaints per pt. Male guest sleeping in the bed today. 06/03: Patient still complaining of some intermittent anxiety when she speaks her family on the phone otherwise no new complaints. She states that she has some family members who are abusing drugs and possibly neglecting her children and this is very stressful for her to hear about. 06/04: Upon entering room today, there was a preacher who had stopped by to pray with the patient. Patient was anxiously rocking back and forth in her underwear on the bed. She requested an increase in her anxiety medications as her family social issues seem to be intensifying and this is stressing her out. No new complaints other than this. 06/05: Having a cough today and requested some Mucinex which I have ordered. No other new complaints. Anxiety seems better. Reason For Visit: TRICUSPID INFECTIVE ENDOCARDITIS Physical Exam Vital Signs: Temp Pulse Resp BP Pulse Ox 98.6 F 129 H 14 114/83 100 06/05/19 07:34 06/05/19 07:34 06/05/19 07:34 06/05/19 07:34 06/05/19 07:34 Intake & Output 06/04/19 06/05/19 06/06/19 06:59 06:59 06:59 Intake Total 1110 480 Balance 1110 480 Weight 54.3 kg 54.3 kg General appearance: PRESENT: no acute distress, well-developed, well-nourished Head exam: PRESENT: atraumatic, normocephalic Eye exam: PRESENT: conjunctiva pink Respiratory exam: PRESENT: clear to auscultation chelo. ABSENT: rales, rhonchi, wheezes Cardiovascular exam: PRESENT: RRR. ABSENT: diastolic murmur, rubs, systolic murmur GI/Abdominal exam: PRESENT: normal bowel sounds, soft. ABSENT: distended, guarding, mass, organolmegaly, rebound, tenderness Musculoskeletal exam: PRESENT: ambulatory Neurological exam: PRESENT: alert, awake Psychiatric exam: PRESENT: appropriate affect, normal mood Skin exam: PRESENT: dry, intact, warm Results Laboratory Results: 06/03/19 14:44 05/31/19 06:45 Assessment and Plan - Diagnosis (1) Infective endocarditis Qualifiers: Infective endocarditis organism: bacterial Chronicity: acute Qualified C ode(s): I33.0 - Acute and subacute infective endocarditis Is this a current diagnosis for this admission?: Yes Plan: S/P tricuspid valve repair and PFO closure. Continue Nafcillin, last day on 06/16/2019. 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 Presently on nafcillin. Last day of antibiotic therapy is 06/16/2019. 05/28/2019 patient is receiving nafcillin for infective endocarditis. Patient had surgery for infected tricuspid valve repair and a PFO closure. Last dose of antibiotic therapy will be on June 16. 05/29/19-patient is receiving nafcillin for endocarditis. Patient has tricuspid valve repair and Pfo closure. Last day of antibiotic therapy will be June 16. 05/30/19-patient is receiving nafcillin for endocarditis. Last of antibiotic therapy will be June 16. 05/31: Continue antibiotics, I have signed a new order for this as they were about to follow-up. Nafcillin IV to continue until 06/16, unable to discharge patient due to history of IV drug abuse and the necessity for IV antibiotics -abx continue to completion as above No reported side effects of antibiotics per patient Tolerating antibiotics well (2) MSSA bacteremia Is this a current diagnosis for this admission?: Yes (3) Polysubstance abuse Is this a current diagnosis for this admission?: Yes (4) Septic pulmonary embolism Qualifiers: Chronicity: unspecified Is this a current diagnosis for this admission?: Yes (5) Acute infective endocarditis Qualifiers: Infective endocarditis organism: bacterial Qualified Code(s): I33.0 - Acute and subacute infective endocarditis Is this a current diagnosis for this admission?: Yes (6) Heroin withdrawal Is this a current diagnosis for this admission?: Yes (7) Generalized anxiety disorder Is this a current diagnosis for this admission?: Yes (8) Nonproductive cough Is this a current diagnosis for this admission?: Yes Plan: mucinex - Plan Summary Summary: Will hold off and adding a benzo for anxiety. BB is available and can help with anxiety with the added benefit of not being habit forming, especially important in pt who struggles with drug addiction. If all else fails, can add low dose oral ativan. - Time Time Spent with patient: 15-24 minutes Medications reviewed and adjusted accordingly: Yes Anticipated discharge: Home
[2019-06-05] MEDS: ACETAMINOPHEN 325 MG TABLET PO PRN (14:24)
[2019-06-05] MEDS: QUETIAPINE FUMARATE 25 MG TABLET PO SCH ×2 (22:06→22:12)
[2019-06-05] MEDS: GUAIFENESIN 600 MG TABLET.SA PO SCH (22:13)
[2019-06-06] MEDS: NAFCILLIN SODIUM 2 GM in DEXTROSE 5%-WATER 100 ML IV SCH ×6 (02:13→22:06)
[2019-06-06 04:06] LABS: ABSOLUTE LYMPHOCYTES (AUTO) 1.7 10^3/uL (0.5-4.7); ABSOLUTE MONOCYTES (AUTO) 0.5 10^3/uL (0.1-1.4); ABSOLUTE NEUT (AUTO) 2.9 10^3/uL (1.7-8.2); BASOPHILS % (AUTO) 0.9 % (0-2); EOSINOPHILS % (AUTO) 0.3 % (0-6); HEMATOCRIT 33.9 % (36.0-47.0); HEMOGLOBIN 11.6 g/dL (12.0-15.5); LYMPHOCYTES % (AUTO) 32.8 % (13-45); MEAN CORPUSCULAR HEMOGLOBIN 32.5 pg (27.0-33.4); MEAN CORPUSCULAR HGB CONC 34.3 g/dL (32.0-36.0); MEAN CORPUSCULAR VOLUME 95 fl (80-97); MONOCYTES % (AUTO) 10.4 % (3-13); PLATELET COUNT 288 10^3/uL (150-450); RED BLOOD COUNT 3.59 10^6/uL (3.72-5.28); RED CELL DISTRIBUTION WIDTH 18.5 % (11.5-14.0); SEGMENTED NEUTROPHILS % (AUTO) 55.6 % (42-78); TOTAL CELLS COUNTED % (AUTO) 100 %; WHITE BLOOD COUNT 5.2 10^3/uL (4.0-10.5)
[2019-06-06] MEDS: HEPARIN SOD (PORCINE) 5,000 UNIT/ML 1 ML VIAL SUBCUT SCH ×3 (06:10→22:06)
[2019-06-06] MEDS: FERROUS SULFATE 325 MG TABLET PO SCH ×2 (09:41→17:29)
[2019-06-06] MEDS: BUSPIRONE HCL 10 MG TABLET PO SCH (09:41)
[2019-06-06] MEDS: DOCUSATE SODIUM 100 MG CAPSULE PO PRN (09:41)
[2019-06-06] MEDS: GUAIFENESIN 600 MG TABLET.SA PO SCH ×2 (09:41→22:06)
[2019-06-06] MEDS: MULTIVITAMIN TABLET PO SCH (09:41)
[2019-06-06] MEDS: FOLIC ACID 1 MG TABLET PO SCH (09:41)
[2019-06-06] MEDS: GABAPENTIN 300 MG CAPSULE PO SCH ×3 (09:41→17:29)
[2019-06-06] MEDS: ASCORBIC ACID 500 MG TABLET PO SCH (09:42)
[2019-06-06] MEDS: METOPROLOL SUCCINATE 50 MG TAB.SR.24H PO SCH (09:42)
[2019-06-06] MEDS: FAMOTIDINE 20 MG TABLET PO SCH ×2 (09:44→17:29)
--- NOTE | 2019-06-06 14:56 | PDOC PROGRESS REPORT ---
Subjective Progress Note for:: 06/06/19 Subjective:: Patient has no complaints today. Denies any shortness of breath or chest pain. Reason For Visit: TRICUSPID INFECTIVE ENDOCARDITIS Physical Exam Vital Signs: Temp Pulse Resp BP Pulse Ox 98.7 F 105 H 16 83/40 L 97 06/06/19 10:51 06/06/19 10:51 06/06/19 10:51 06/06/19 10:51 06/06/19 10:51 Intake & Output 06/05/19 06/06/19 06/07/19 06:59 06:59 06:59 Intake Total 480 740 Balance 480 740 Weight 54.3 kg General appearance: PRESENT: no acute distress, cooperative Neck exam: ABSENT: JVD Respiratory exam: PRESENT: clear to auscultation chelo Cardiovascular exam: PRESENT: RRR, +S1, +S2, tachycardia Neurological exam: PRESENT: alert, awake, oriented to person, oriented to place, oriented to time Results Laboratory Results: 06/06/19 03:30 05/31/19 06:45 06/06/19 03:30 WBC 5.2 RBC 3.59 L Hgb 11.6 L Hct 33.9 L MCV 95 MCH 32.5 MCHC 34.3 RDW 18.5 H Plt Count 288 Seg Neutrophils % 55.6 Assessment and Plan - Diagnosis (1) Infective endocarditis Qualifiers: Infective endocarditis organism: bacterial Chronicity: acute Qualified Code(s): I33.0 - Acute and subacute infective endocarditis Is this a current diagnosis for this admission?: Yes Plan: S/P tricuspid valve repair and PFO closure. Continue Nafcillin, last day on 06/16/2019. Continue nafcillin IV to continue until 06/16, unable to discharge patient due to history of IV drug abuse and the necessity for IV antibiotics -abx continue to completion as above (2) Polysubstance abuse Is this a current diagnosis for this admission?: Yes Plan: History of IV heroin use. No current signs of withdrawal. (3) Septic pulmonary embolism Qualifiers: Chronicity: unspecified Is this a current diagnosis for this admission?: Yes Plan: Secondary to infective endocarditis. Plan as per #1. (4) Anxiety Is this a current diagnosis for this admission?: Yes Plan: Was placed on Seroquel earlier during this admission. I will continue for now. - Time Time Spent with patient: Less than 15 minutes
[2019-06-06] MEDS: QUETIAPINE FUMARATE 25 MG TABLET PO SCH (22:06)
[2019-06-07] MEDS: NAFCILLIN SODIUM 2 GM in DEXTROSE 5%-WATER 100 ML IV SCH ×6 (01:50→21:36)
[2019-06-07] MEDS: HEPARIN SOD (PORCINE) 5,000 UNIT/ML 1 ML VIAL SUBCUT SCH ×3 (05:13→21:36)
[2019-06-07] MEDS: ASCORBIC ACID 500 MG TABLET PO SCH (10:28)
[2019-06-07] MEDS: FOLIC ACID 1 MG TABLET PO SCH (10:28)
[2019-06-07] MEDS: FAMOTIDINE 20 MG TABLET PO SCH ×2 (10:28→17:48)
[2019-06-07] MEDS: METOPROLOL SUCCINATE 50 MG TAB.SR.24H PO SCH (10:28)
[2019-06-07] MEDS: FERROUS SULFATE 325 MG TABLET PO SCH ×2 (10:28→17:48)
[2019-06-07] MEDS: GABAPENTIN 300 MG CAPSULE PO SCH ×3 (10:28→17:48)
[2019-06-07] MEDS: MULTIVITAMIN TABLET PO SCH (10:28)
[2019-06-07] MEDS: GUAIFENESIN 600 MG TABLET.SA PO SCH ×2 (10:28→21:36)
[2019-06-07] MEDS: ACETAMINOPHEN 325 MG TABLET PO PRN (10:49)
--- NOTE | 2019-06-07 11:06 | PDOC PROGRESS REPORT ---
Subjective Progress Note for:: 06/07/19 Subjective:: Patient has no complaints today. Denies any shortness of breath or chest pain. Reason For Visit: TRICUSPID INFECTIVE ENDOCARDITIS Physical Exam Vital Signs: Temp Pulse Resp BP Pulse Ox 98.5 F 87 19 106/55 L 95 06/07/19 00:00 06/07/19 07:00 06/07/19 00:00 06/07/19 00:00 06/07/19 00:00 Intake & Output 06/06/19 06/07/19 06/08/19 06:59 06:59 06:59 Intake Total 740 715 Balance 740 715 Weight 54 kg General appearance: PRESENT: no acute distress, cooperative Cardiovascular exam: PRESENT: +S1, +S2 GI/Abdominal exam: PRESENT: soft. ABSENT: tenderness Musculoskeletal exam: PRESENT: ambulatory Neurological exam: PRESENT: alert, awake, oriented to person, oriented to place, oriented to time, oriented to situation Results Laboratory Results: 06/06/19 03:30 05/31/19 06:45 Assessment and Plan - Diagnosis (1) Infective endocarditis Qualifiers: Infective endocarditis organism: bacterial Chronicity: acute Qualified Code(s): I33.0 - Acute and subacute infective endocarditis Is this a current diagnosis for this admission?: Yes Plan: S/P tricuspid valve repair and PFO closure. Continue Nafcillin, last day on 06/16/2019. Continue nafcillin IV to continue until 06/16, unable to discharge patient due to history of IV drug abuse and the necessity for IV antibiotics -abx continue to completion as above (2) Polysubstance abuse Is this a current diagnosis for this admission?: Yes Plan: History of IV heroin use. No current signs of withdrawal. (3) Septic pulmonary embolism Qualifiers: Chronicity: unspecified Is this a current diagnosis for this admission?: Yes Plan: Secondary to infective endocarditis. Plan as per #1. (4) Anxiety Is this a current diagnosis for this admission?: Yes - Time Time Spent with patient: Less than 15 minutes
[2019-06-07] MEDS: QUETIAPINE FUMARATE 25 MG TABLET PO SCH (21:36)
[2019-06-07] MEDS: BUSPIRONE HCL 10 MG TABLET PO SCH (22:09)
[2019-06-08] MEDS: NAFCILLIN SODIUM 2 GM in DEXTROSE 5%-WATER 100 ML IV SCH ×6 (01:44→21:12)
[2019-06-08] MEDS: HEPARIN SOD (PORCINE) 5,000 UNIT/ML 1 ML VIAL SUBCUT SCH ×3 (05:13→21:07)
--- NOTE | 2019-06-08 11:04 | PDOC PROGRESS REPORT ---
Subjective Progress Note for:: 06/08/19 Subjective:: Patient denies any shortness of breath, chest pain, palpitations fevers or chills. Reason For Visit: TRICUSPID INFECTIVE ENDOCARDITIS Physical Exam Vital Signs: Temp Pulse Resp BP Pulse Ox 97.7 F 89 14 111/69 99 06/08/19 07:56 06/08/19 07:56 06/08/19 07:56 06/08/19 07:56 06/08/19 07:56 Intake & Output 06/07/19 06/08/19 06/09/19 06:59 06:59 06:59 Intake Total 715 Balance 715 Weight 54 kg 121.5 kg Respiratory exam: PRESENT: clear to auscultation chelo. ABSENT: chest wall tenderness Cardiovascular exam: PRESENT: RRR, +S1, +S2. ABSENT: tachycardia GI/Abdominal exam: PRESENT: normal bowel sounds, soft. ABSENT: tenderness Neurological exam: PRESENT: alert, awake Results Laboratory Results: 06/06/19 03:30 05/31/19 06:45 Assessment and Plan - Diagnosis (1) Infective endocarditis Qualifiers: Infective endocarditis organism: bacterial Chronicity: acute Qualified Code(s): I33.0 - Acute and subacute infective endocarditis Is this a current diagnosis for this admission?: Yes Plan: S/P tricuspid valve repair and PFO closure. Continue Nafcillin, last day on 06/16/2019. Continue nafcillin IV to continue until 06/16, unable to discharge patient due to history of IV drug abuse and the necessity for IV antibiotics -abx continue to completion as above (2) Polysubstance abuse Is this a current diagnosis for this admission?: Yes Plan: History of IV heroin use. No current signs of withdrawal. (3) Septic pulmonary embolism Qualifiers: Chronicity: unspecified Is this a current diagnosis for this admission?: Yes Plan: Secondary to infective endocarditis. Plan as per #1. (4) Anxiety Is this a current diagnosis for this admission?: Yes Plan: Was placed on Seroquel earlier during this admission. I will continue for now. (5) Tachycardia Is this a current diagnosis for this admission?: Yes Plan: Continue metoprolol succinate - Time Time Spent with patient: Less than 15 minutes
[2019-06-08] MEDS: GUAIFENESIN 600 MG TABLET.SA PO SCH ×2 (11:31→21:12)
[2019-06-08] MEDS: MULTIVITAMIN TABLET PO SCH (11:31)
[2019-06-08] MEDS: FOLIC ACID 1 MG TABLET PO SCH (11:32)
[2019-06-08] MEDS: BUSPIRONE HCL 10 MG TABLET PO SCH ×2 (11:32→21:12)
[2019-06-08] MEDS: FERROUS SULFATE 325 MG TABLET PO SCH (11:32)
[2019-06-08] MEDS: GABAPENTIN 300 MG CAPSULE PO SCH ×3 (11:32→19:47)
[2019-06-08] MEDS: ASCORBIC ACID 500 MG TABLET PO SCH (11:32)
[2019-06-08] MEDS: METOPROLOL SUCCINATE 50 MG TAB.SR.24H PO SCH (11:33)
[2019-06-08] MEDS: FAMOTIDINE 20 MG TABLET PO SCH ×2 (11:50→19:46)
[2019-06-08] MEDS: QUETIAPINE FUMARATE 25 MG TABLET PO SCH (21:12)
[2019-06-09] MEDS: NAFCILLIN SODIUM 2 GM in DEXTROSE 5%-WATER 100 ML IV SCH ×6 (02:22→21:08)
[2019-06-09] MEDS: HEPARIN SOD (PORCINE) 5,000 UNIT/ML 1 ML VIAL SUBCUT SCH ×3 (05:06→21:00)
--- NOTE | 2019-06-09 08:50 | PDOC PROGRESS REPORT ---
Subjective Progress Note for:: 06/09/19 Subjective:: Patient has no complaints today. Denies any shortness of breath or palpitations. Denies chest pain. Reason For Visit: TRICUSPID INFECTIVE ENDOCARDITIS Physical Exam Vital Signs: Temp Pulse Resp BP Pulse Ox 98.6 F 112 H 16 109/73 99 06/09/19 00:00 06/09/19 02:00 06/09/19 00:00 06/09/19 00:00 06/09/19 00:00 Intake & Output 06/08/19 06/09/19 06/10/19 06:59 06:59 06:59 Intake Total 971 Balance 971 Weight 121.5 kg 54 kg General appearance: PRESENT: no acute distress, cooperative Cardiovascular exam: PRESENT: tachycardia Musculoskeletal exam: PRESENT: ambulatory Neurological exam: PRESENT: alert, awake, oriented to person, oriented to place, oriented to time Psychiatric exam: PRESENT: appropriate affect. ABSENT: agitated, anxious Focused psych exam: ABSENT: catatonic, flight of ideas Skin exam: ABSENT: jaundice Results Laboratory Results: 06/06/19 03:30 05/31/19 06:45 Assessment and Plan - Diagnosis (1) Infective endocarditis Qualifiers: Infective endocarditis organism: bacterial Chronicity: acute Qualified C ode(s): I33.0 - Acute and subacute infective endocarditis Is this a current diagnosis for this admission?: Yes Plan: S/P tricuspid valve repair and PFO closure. Continue Nafcillin, last day on 06/16/2019. Continue nafcillin IV to continue until 06/16, unable to discharge patient due to history of IV drug abuse and the necessity for IV antibiotics -abx continue to completion as above (2) Polysubstance abuse Is this a current diagnosis for this admission?: Yes Plan: History of IV heroin use. No current signs of withdrawal. (3) Septic pulmonary embolism Qualifiers: Chronicity: unspecified Is this a current diagnosis for this admission?: Yes Plan: Secondary to infective endocarditis. Plan as per #1. (4) Anxiety Is this a current diagnosis for this admission?: Yes Plan: Was placed on Seroquel earlier during this admission. I will continue for now. (5) Tachycardia Is this a current diagnosis for this admission?: Yes Plan: Toprol-XL dose increased to 75 mg daily - Time Time Spent with patient: Less than 15 minutes
[2019-06-09] MEDS: BUSPIRONE HCL 10 MG TABLET PO SCH ×2 (10:23→21:08)
[2019-06-09] MEDS: GABAPENTIN 300 MG CAPSULE PO SCH ×3 (10:23→17:27)
[2019-06-09] MEDS: MULTIVITAMIN TABLET PO SCH (10:23)
[2019-06-09] MEDS: FERROUS SULFATE 325 MG TABLET PO SCH (10:23)
[2019-06-09] MEDS: FOLIC ACID 1 MG TABLET PO SCH (10:24)
[2019-06-09] MEDS: ASCORBIC ACID 500 MG TABLET PO SCH (10:24)
[2019-06-09] MEDS: GUAIFENESIN 600 MG TABLET.SA PO SCH ×2 (10:24→21:09)
[2019-06-09] MEDS: METOPROLOL SUCCINATE 25 MG TAB.SR.24H PO SCH (10:24)
[2019-06-09] MEDS: FAMOTIDINE 20 MG TABLET PO SCH ×2 (10:55→17:28)
[2019-06-09] MEDS: QUETIAPINE FUMARATE 25 MG TABLET PO SCH (21:08)
[2019-06-10] MEDS: NAFCILLIN SODIUM 2 GM in DEXTROSE 5%-WATER 100 ML IV SCH ×6 (02:02→21:12)
[2019-06-10] MEDS: HEPARIN SOD (PORCINE) 5,000 UNIT/ML 1 ML VIAL SUBCUT SCH ×3 (05:48→21:09)
[2019-06-10] MEDS: ASCORBIC ACID 500 MG TABLET PO SCH (10:10)
[2019-06-10] MEDS: MULTIVITAMIN TABLET PO SCH (10:10)
[2019-06-10] MEDS: FERROUS SULFATE 325 MG TABLET PO SCH (10:10)
[2019-06-10] MEDS: FAMOTIDINE 20 MG TABLET PO SCH ×2 (10:10→17:28)
[2019-06-10] MEDS: GABAPENTIN 300 MG CAPSULE PO SCH ×3 (10:10→17:28)
[2019-06-10] MEDS: BUSPIRONE HCL 10 MG TABLET PO SCH ×2 (10:10→21:12)
[2019-06-10] MEDS: FOLIC ACID 1 MG TABLET PO SCH (10:10)
[2019-06-10] MEDS: METOPROLOL SUCCINATE 25 MG TAB.SR.24H PO SCH (10:11)
[2019-06-10] MEDS: GUAIFENESIN 600 MG TABLET.SA PO SCH (10:12)
--- NOTE | 2019-06-10 11:05 | Progress Note ---
Provider Note Provider Note: Patient has no complaints today. I encouraged patient to get up and walk around. Vitals signs wnl. A&OX3 Infective endocarditis - Continue nafcillin until 06/16/19. Encourage patient to get up and ambulate. Tachycardia better controlled.
[2019-06-10] MEDS: ACETAMINOPHEN 325 MG TABLET PO PRN (17:41)
[2019-06-10] MEDS: QUETIAPINE FUMARATE 25 MG TABLET PO SCH (21:12)
[2019-06-11] MEDS: NAFCILLIN SODIUM 2 GM in DEXTROSE 5%-WATER 100 ML IV SCH ×6 (03:19→22:55)
[2019-06-11] MEDS: HEPARIN SOD (PORCINE) 5,000 UNIT/ML 1 ML VIAL SUBCUT SCH ×3 (05:34→22:53)
[2019-06-11] MEDS: FERROUS SULFATE 325 MG TABLET PO SCH (09:24)
[2019-06-11] MEDS: FAMOTIDINE 20 MG TABLET PO SCH ×2 (09:24→17:15)
[2019-06-11] MEDS: METOPROLOL SUCCINATE 25 MG TAB.SR.24H PO SCH (09:24)
[2019-06-11] MEDS: GABAPENTIN 300 MG CAPSULE PO SCH ×3 (09:24→17:15)
[2019-06-11] MEDS: FOLIC ACID 1 MG TABLET PO SCH (09:24)
[2019-06-11] MEDS: MULTIVITAMIN TABLET PO SCH (09:24)
[2019-06-11] MEDS: BUSPIRONE HCL 10 MG TABLET PO SCH ×2 (09:24→23:00)
[2019-06-11] MEDS: ASCORBIC ACID 500 MG TABLET PO SCH (09:25)
--- NOTE | 2019-06-11 10:22 | Progress Note ---
Provider Note Provider Note: Patient's seen and assessed by me today. Patient complains of some leg pain when walking yesterday. Patient denies any other complaints but states she would like blood work done to make sure that infection is still gone. Patient appears no distress. Lungs are clear vital signs are within normal limits. I have reassured patient and encourage patient to get up and ambulate frequently and staying in bed much. Continue nafcillin for patient's infective endocarditis. Check CBC and BMP in the morning. Physical therapy.
[2019-06-11] MEDS: QUETIAPINE FUMARATE 25 MG TABLET PO SCH (22:59)
[2019-06-12] MEDS: NAFCILLIN SODIUM 2 GM in DEXTROSE 5%-WATER 100 ML IV SCH ×6 (03:00→23:31)
[2019-06-12] MEDS: HEPARIN SOD (PORCINE) 5,000 UNIT/ML 1 ML VIAL SUBCUT SCH ×4 (05:09→21:09)
[2019-06-12 06:19] LABS: ABSOLUTE EOSINOPHILS # (AUTO) 0.1 10^3/uL (0.0-0.6); ABSOLUTE LYMPHOCYTES (AUTO) 2.3 10^3/uL (0.5-4.7); ABSOLUTE MONOCYTES (AUTO) 0.4 10^3/uL (0.1-1.4); ABSOLUTE NEUT (AUTO) 2.6 10^3/uL (1.7-8.2); BASOPHILS % (AUTO) 0.3 % (0-2); EOSINOPHILS % (AUTO) 1.3 % (0-6); HEMATOCRIT 32.7 % (36.0-47.0); HEMOGLOBIN 11.3 g/dL (12.0-15.5); LYMPHOCYTES % (AUTO) 42.1 % (13-45); MEAN CORPUSCULAR HEMOGLOBIN 32.4 pg (27.0-33.4); MEAN CORPUSCULAR HGB CONC 34.5 g/dL (32.0-36.0); MEAN CORPUSCULAR VOLUME 94 fl (80-97); MONOCYTES % (AUTO) 8.2 % (3-13); PLATELET COUNT 299 10^3/uL (150-450); RED BLOOD COUNT 3.49 10^6/uL (3.72-5.28); RED CELL DISTRIBUTION WIDTH 17.6 % (11.5-14.0); SEGMENTED NEUTROPHILS % (AUTO) 48.1 % (42-78); TOTAL CELLS COUNTED % (AUTO) 100 %; WHITE BLOOD COUNT 5.5 10^3/uL (4.0-10.5)
[2019-06-12 06:38] LABS: ALBUMIN 4.1 g/dL (3.5-5.0); ALKALINE PHOSPHATASE 77 U/L (38-126); ANION GAP 13 (5-19); ASPARTATE AMINO TRANSFERASE 18 U/L (14-36); BLOOD UREA NITROGEN 20 mg/dL (7-20); CALCIUM 9.2 mg/dL (8.4-10.2); CARBON DIOXIDE 26 mmol/L (22-30); CHLORIDE 101 mmol/L (98-107); GLUCOSE 91 mg/dL (75-110); POTASSIUM 3.7 mmol/L (3.6-5.0); TOTAL PROTEIN 7.4 g/dL (6.3-8.2)
--- NOTE | 2019-06-12 10:53 | Progress Note ---
Provider Note Provider Note: Patient seen and evaluated by me. Patient states that she feels well. Ambulated much more yesterday and states that she feels better. Leg pain only mild at this time. Vital signs are stable. Lungs are clear to auscultation. Patient is in no distress. Labs show normal electrolytes and no leukocytosis. Infective endocarditis-continue nafcillin until 06 16 2019. Patient encouraged to get up and ambulate. Continue metoprolol for tachycardia which is now controlled. Continue buspirone for anxiety.
[2019-06-12] MEDS: METOPROLOL SUCCINATE 25 MG TAB.SR.24H PO SCH (12:29)
[2019-06-12] MEDS: BUSPIRONE HCL 10 MG TABLET PO SCH ×2 (12:30→21:08)
[2019-06-12] MEDS: GABAPENTIN 300 MG CAPSULE PO SCH ×3 (12:30→23:31)
[2019-06-12] MEDS: MULTIVITAMIN TABLET PO SCH (12:31)
[2019-06-12] MEDS: FOLIC ACID 1 MG TABLET PO SCH (12:31)
[2019-06-12] MEDS: FAMOTIDINE 20 MG TABLET PO SCH ×2 (12:31→17:54)
[2019-06-12] MEDS: FERROUS SULFATE 325 MG TABLET PO SCH (12:31)
[2019-06-12] MEDS: ASCORBIC ACID 500 MG TABLET PO SCH (12:32)
[2019-06-12] MEDS: QUETIAPINE FUMARATE 25 MG TABLET PO SCH (21:08)
[2019-06-13] MEDS: NAFCILLIN SODIUM 2 GM in DEXTROSE 5%-WATER 100 ML IV SCH ×6 (02:37→22:20)
[2019-06-13] MEDS: HEPARIN SOD (PORCINE) 5,000 UNIT/ML 1 ML VIAL SUBCUT SCH ×3 (05:20→22:17)
[2019-06-13] MEDS: ASCORBIC ACID 500 MG TABLET PO SCH (07:49)
[2019-06-13] MEDS: BUSPIRONE HCL 10 MG TABLET PO SCH ×2 (11:56→22:19)
[2019-06-13] MEDS: METOPROLOL SUCCINATE 25 MG TAB.SR.24H PO SCH (11:56)
[2019-06-13] MEDS: GABAPENTIN 300 MG CAPSULE PO SCH ×3 (11:56→17:30)
[2019-06-13] MEDS: FOLIC ACID 1 MG TABLET PO SCH (11:56)
[2019-06-13] MEDS: MULTIVITAMIN TABLET PO SCH (11:56)
[2019-06-13] MEDS: FAMOTIDINE 20 MG TABLET PO SCH ×2 (11:56→17:36)
[2019-06-13] MEDS: FERROUS SULFATE 325 MG TABLET PO SCH (11:57)
--- NOTE | 2019-06-13 13:33 | Progress Note ---
Provider Note Provider Note: Patient has no complaints today. Patient did not want to be seen just at that she is okay and has no needs. We will continue treatment for infective endocarditis with nafcillin, metoprolol for tachycardia and treatment of anxiety.
[2019-06-13] MEDS: QUETIAPINE FUMARATE 25 MG TABLET PO SCH (22:19)
[2019-06-14] MEDS: NAFCILLIN SODIUM 2 GM in DEXTROSE 5%-WATER 100 ML IV SCH ×6 (02:45→21:05)
[2019-06-14] MEDS: HEPARIN SOD (PORCINE) 5,000 UNIT/ML 1 ML VIAL SUBCUT SCH ×3 (05:27→21:05)
[2019-06-14] MEDS: ASCORBIC ACID 500 MG TABLET PO SCH (07:26)
[2019-06-14] MEDS: MULTIVITAMIN TABLET PO SCH (12:04)
[2019-06-14] MEDS: FOLIC ACID 1 MG TABLET PO SCH (12:04)
[2019-06-14] MEDS: GABAPENTIN 300 MG CAPSULE PO SCH ×3 (12:04→18:35)
[2019-06-14] MEDS: FAMOTIDINE 20 MG TABLET PO SCH ×2 (12:04→18:35)
[2019-06-14] MEDS: METOPROLOL SUCCINATE 25 MG TAB.SR.24H PO SCH (12:05)
[2019-06-14] MEDS: FERROUS SULFATE 325 MG TABLET PO SCH (12:05)
[2019-06-14] MEDS: BUSPIRONE HCL 10 MG TABLET PO SCH ×2 (12:05→21:05)
--- NOTE | 2019-06-14 13:44 | Progress Note ---
Provider Note Provider Note: Patient seen and evaluated. Patient states that she feels well but occasionally gets a little bit anxious that she is about to get discharged soon and the occasional worry of potentially relapsing. She otherwise feels calm and states that she will try her best to stay off heroin. Denies any withdrawal symptoms. I have discussed with her and tried to encourage and motivate her and she would like some brochures for substance abuse rehabilitation programs to follow-up with upon discharge in 2 days. Patient otherwise is feeling well and denies any shortness of breath, chest pain. Vital signs continue to remain normal. Continue nafcillin to 06/16/2019 for treatment of infective endocarditis, Toprol- XL for tachycardia and her antianxiety medications. I have asked discharge planning to give patient brochures for substance abuse rehabilitation programs to follow-up with.
[2019-06-14] MEDS: QUETIAPINE FUMARATE 25 MG TABLET PO SCH (21:05)
[2019-06-15] MEDS: NAFCILLIN SODIUM 2 GM in DEXTROSE 5%-WATER 100 ML IV SCH ×6 (02:33→21:53)
[2019-06-15] MEDS: HEPARIN SOD (PORCINE) 5,000 UNIT/ML 1 ML VIAL SUBCUT SCH ×2 (05:08→14:44)
[2019-06-15] MEDS: FERROUS SULFATE 325 MG TABLET PO SCH (10:02)
[2019-06-15] MEDS: ASCORBIC ACID 500 MG TABLET PO SCH (10:02)
[2019-06-15] MEDS: FOLIC ACID 1 MG TABLET PO SCH (10:02)
[2019-06-15] MEDS: METOPROLOL SUCCINATE 25 MG TAB.SR.24H PO SCH (10:02)
[2019-06-15] MEDS: BUSPIRONE HCL 10 MG TABLET PO SCH ×2 (10:02→21:52)
[2019-06-15] MEDS: MULTIVITAMIN TABLET PO SCH (10:03)
[2019-06-15] MEDS: GABAPENTIN 300 MG CAPSULE PO SCH ×3 (10:03→17:56)
[2019-06-15] MEDS: FAMOTIDINE 20 MG TABLET PO SCH ×2 (10:03→17:56)
--- NOTE | 2019-06-15 17:27 | PDOC PROGRESS REPORT ---
Subjective Progress Note for:: 06/15/19 Subjective:: 06/01: No new complaints, no acute changes. Patient denies any pain/discomfort, states she is doing stairstepping exercises in the windowsill. 06/02: no new complaints; d/w RN pt is getting more anxious intermittently due to her grandmother passing away recently, HR going up to 130's when she is on the phone with family. Pt already on multiple psych meds. No new complaints per pt. Male guest sleeping in the bed today. 06/03: Patient still complaining of some intermittent anxiety when she speaks her family on the phone otherwise no new complaints. She states that she has some family members who are abusing drugs and possibly neglecting her children and this is very stressful for her to hear about. 06/04: Upon entering room today, there was a preacher who had stopped by to pray with the patient. Patient was anxiously rocking back and forth in her underwear on the bed. She requested an increase in her anxiety medications as her family social issues seem to be intensifying and this is stressing her out. No new complaints other than this. 06/05: Having a cough today and requested some Mucinex which I have ordered. No other new complaints. Anxiety seems better. 06/15: Patient sleeping soundly in bed with her boyfriend. She states she has no complaints today. Planning for discharge tomorrow Reason For Visit: TRICUSPID INFECTIVE ENDOCARDITIS Physical Exam Vital Signs: Temp Pulse Resp BP Pulse Ox 98.1 F 106 H 16 124/77 99 06/14/19 23:24 06/15/19 02:00 06/14/19 23:24 06/14/19 23:24 06/14/19 23:24 Intake & Output 06/14/19 06/15/19 06/16/19 06:59 06:59 06:59 Intake Total 1104 1070 Balance 1104 1070 Weight 55.1 kg 55.2 kg 55.2 kg General appearance: PRESENT: no acute distress, well-developed, well-nourished Head exam: PRESENT: atraumatic, normocephalic Eye exam: PRESENT: conjunctiva pink Mouth exam: PRESENT: moist Respiratory exam: PRESENT: clear to auscultation chelo. ABSENT: rales, rhonchi, wheezes Cardiovascular exam: PRESENT: RRR. ABSENT: diastolic murmur, rubs, systolic murmur GI/Abdominal exam: PRESENT: normal bowel sounds, soft. ABSENT: distended, guarding, mass, organolmegaly, rebound, tenderness Neurological exam: PRESENT: alert, awake Psychiatric exam: PRESENT: appropriate affect, normal mood Skin exam: PRESENT: dry, intact, warm Results Laboratory Results: 06/12/19 05:38 06/12/19 05:38 Assessment and Plan - Diagnosis (1) Infective endocarditis Qualifiers: Infective endocarditis organism: bacterial Chronicity: acute Qualified Code(s): I33.0 - Acute and subacute infective endocarditis Is this a current diagnosis for this admission?: Yes Plan: S/P tricuspid valve repair and PFO closure. Continue Nafcillin, last day on 06/16/2019. Continue nafcillin IV to continue until 06/16, unable to discharge patient due to history of IV drug abuse and the necessity for IV antibiotics -abx continue to completion as above Antibiotics today and tomorrow. Plan to remove PICC line and discharge patient at that time. (2) MSSA bacteremia Is this a current diagnosis for this admission?: Yes (3) Polysubstance abuse Is this a current diagnosis for this admission?: Yes (4) Septic pulmonary embolism Qualifiers: Chronicity: unspecified Is this a current diagnosis for this admission?: Yes (5) Acute infective endocarditis Qualifiers: Infective endocarditis organism: bacterial Qualified Code(s): I33.0 - Acute and subacute infective endocarditis Is this a current diagnosis for this admission?: Yes (6) Heroin withdrawal Is this a current diagnosis for this admission?: Yes (7) Generalized anxiety disorder Is this a current diagnosis for this admission?: Yes (8) Nonproductive cough Is this a current diagnosis for this admission?: Yes - Time Time Spent with patient: 15-24 minutes Medications reviewed and adjusted accordingly: Yes Anticipated discharge: Home Within: within 24 hours - Inpatient Certification Based on my medical assessment, after consideration of the patient's comorbidities, presenting symptoms, or acuity I expect that the services needed warrant INPATIENT care.: Yes I certify that my determination is in accordance with my understanding of Medicare's requirements for reasonable and necessary INPATIENT services [42 CFR 412.3e].: Yes Medical Necessity: Need for IV Antibiotics
[2019-06-15] MEDS: QUETIAPINE FUMARATE 25 MG TABLET PO SCH (21:52)
[2019-06-16] MEDS: NAFCILLIN SODIUM 2 GM in DEXTROSE 5%-WATER 100 ML IV SCH ×4 (01:39→15:22)
[2019-06-16] MEDS: METOPROLOL SUCCINATE 25 MG TAB.SR.24H PO SCH (11:35)
[2019-06-16] MEDS: MULTIVITAMIN TABLET PO SCH (11:36)
[2019-06-16] MEDS: FAMOTIDINE 20 MG TABLET PO SCH ×2 (11:36→17:55)
[2019-06-16] MEDS: FOLIC ACID 1 MG TABLET PO SCH (11:37)
[2019-06-16] MEDS: FERROUS SULFATE 325 MG TABLET PO SCH (11:37)
[2019-06-16] MEDS: BUSPIRONE HCL 10 MG TABLET PO SCH (11:37)
[2019-06-16] MEDS: ASCORBIC ACID 500 MG TABLET PO SCH (11:37)
--- NOTE | 2019-06-16 15:58 | PDOC DISCHARGE SUMMARY ---
Impression - Admit/DC Date/PCP Admission Date/Primary Care Provider: 05/16/19 17:40 Discharge Date: 06/16/19 - Discharge Diagnosis (1) Infective endocarditis Is this a current diagnosis for this admission?: Yes (2) MSSA bacteremia Is this a current diagnosis for this admission?: Yes (3) Polysubstance abuse Is this a current diagnosis for this admission?: Yes (4) Septic pulmonary embolism Is this a current diagnosis for this admission?: Yes (5) Acute infective endocarditis Is this a current diagnosis for this admission?: Yes (6) Heroin withdrawal Is this a current diagnosis for this admission?: Yes (7) Generalized anxiety disorder Is this a current diagnosis for this admission?: Yes (8) Nonproductive cough Is this a current diagnosis for this admission?: Yes - Additional Information Resuscitation Status: Full Code Discharge Diet: Regular Discharge Activity: Activity As Tolerated Referrals: [facility] [Outside] Prescriptions: Buspirone HCl [Buspar 10 mg Tablet] 15 mg PO Q12 #30 tablet Famotidine [Pepcid 20 mg Tablet] 20 mg PO BID #60 tablet Quetiapine Fumarate [Seroquel 25 mg Tablet] 25 mg PO QHS #30 tablet Metoprolol Succinate [Toprol Xl 25 mg Tab.sr] 75 mg PO DAILY #30 tab.sr.24h Home Medications: Acetaminophen 650 mg PO Q4HP PRN 05/16/19 Ascorbic Acid [Vitamin C 500 mg Tablet] 500 mg PO QAM 05/16/19 Docusate Sodium [Colace 100 mg Capsule] 100 mg PO BIDP PRN 05/16/19 Ferrous Sulfate [Iron] 325 mg PO BID 05/16/19 Folic Acid 1 mg PO DAILY 05/16/19 Multivit,Calc,Mins/Iron/Folic [Thera M Plus Tablet] 1 each PO DAILY 05/16/19 Buspirone HCl [Buspar 10 mg Tablet] 15 mg PO Q12 #30 tablet 06/16/19 Famotidine [Pepcid 20 mg Tablet] 20 mg PO BID #60 tablet 06/16/19 Metoprolol Succinate [Toprol Xl 25 mg Tab.sr] 75 mg PO DAILY #30 tab.sr.24h 06/16/19 Quetiapine Fumarate [Seroquel 25 mg Tablet] 25 mg PO QHS #30 tablet 06/16/19 History of Present Illiness History of Present Illness: Per admitting physician: "ELVIN BALLESTEROS is a 28 year old female with a PMH of IV heroin use, history of cocaine and marijuana use and chronic smoker who was initially admitted earlier this month at [facility] due to increasing shortness of breath. 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 She was also diagnosed with septic pulmonary embolism. She was subsequently transferred to [facility] and for surgical intervention of her tricuspid endocarditis. Patient was transferred back to [facility] after appropriate management advised in. Discussed case with vitamin cardiology. Patient eventually underwent tricuspid valve repair and PFO closure. She was continued on continuous nafcillin infusion. She clinically improved well and returned to her baseline. She was weaned off supplemental oxygen. Upon encounter, patient appears comfortable. She denies any acute complaints. Denies chest pain, shortness of breath or back pain. Noted recommendations from [facility] team to complete Nafcillin infusion for 6 weeks with last day of infusion on 06/16/2020." Hospital Course Hospital Course: Diagnosis (1) Infective endocarditis Plan: S/P tricuspid valve repair and PFO closure. Continue Nafcillin, last day on 06/16/2019. Continued nafcillin IV to continue until 06/16, unable to discharge patient due to history of IV drug abuse and the necessity for IV antibiotics Antibiotics completed. Plan to remove PICC line and discharge patient. Extensively discussed with patient that she must never use IV drugs in the future where she will likely develop bloodstream infections again. (2) MSSA bacteremia Is this a current diagnosis for this admission?: Yes Resolved with antibiotic course (3) Polysubstance abuse Is this a current diagnosis for this admission?: Yes Counseled on cessation (4) Septic pulmonary embolism Qualifiers: Chronicity: unspecified Is this a current diagnosis for this admission?: Yes Stable (5) Acute infective endocarditis Qualifiers: Infective endocarditis organism: bacterial Qualified Code(s): I33.0 - Acute and subacute infective endocarditis Is this a current diagnosis for this admission?: Yes Resolved (6) Heroin withdrawal Is this a current diagnosis for this admission?: Yes Resolved (7) Generalized anxiety disorder Is this a current diagnosis for this admission?: Yes Psychiatric medications prescribed (8) Nonproductive cough Is this a current diagnosis for this admission?: Yes Resolved Physical Exam Vital Signs: Temp Pulse Resp BP Pulse Ox 97.9 F 84 16 102/66 96 06/16/19 11:23 06/16/19 11:23 06/16/19 11:23 06/16/19 11:23 06/16/19 11:23 Intake & Output 06/15/19 06/16/19 06/17/19 06:59 06:59 06:59 Intake Total 1070 912 0 Balance 1070 912 0 Weight 55.2 kg 55.3 kg General appearance: PRESENT: no acute distress, well-developed, well-nourished Head exam: PRESENT: atraumatic, normocephalic Eye exam: PRESENT: conjunctiva pink, EOMI, PERRLA. ABSENT: scleral icterus Mouth exam: PRESENT: moist Respiratory exam: PRESENT: clear to auscultation chelo. ABSENT: rales, rhonchi, wheezes Cardiovascular exam: PRESENT: RRR. ABSENT: diastolic murmur, rubs, systolic murmur GI/Abdominal exam: PRESENT: normal bowel sounds, soft. ABSENT: distended, guarding, mass, organolmegaly, rebound, tenderness Musculoskeletal exam: PRESENT: ambulatory Neurological exam: PRESENT: alert, awake, oriented to person, oriented to place, oriented to time, oriented to situation, CN II-XII grossly intact. ABSENT: motor sensory deficit Psychiatric exam: PRESENT: appropriate affect, normal mood Skin exam: PRESENT: dry, intact, warm Results Laboratory Results: WBC 5.5 10^3/uL (4.0-10.5) 06/12/19 05:38 RBC 3.49 10^6/uL (3.72-5.28) L 06/12/19 05:38 Hgb 11.3 g/dL (12.0-15.5) L 06/12/19 05:38 Hct 32.7 % (36.0-47.0) L 06/12/19 05:38 MCV 94 fl (80-97) 06/12/19 05:38 MCH 32.4 pg (27.0-33.4) 06/12/19 05:38 MCHC 34.5 g/dL (32.0-36.0) 06/12/19 05:38 RDW 17.6 % (11.5-14.0) H 06/12/19 05:38 Plt Count 299 10^3/uL (150-450) 06/12/19 05:38 Lymph % (Auto) 42.1 % (13-45) 06/12/19 05:38 Kay % (Auto) 8.2 % (3-13) 06/12/19 05:38 Eos % (Auto) 1.3 % (0-6) 06/12/19 05:38 Baso % (Auto) 0.3 % (0-2) 06/12/19 05:38 Absolute Neuts (auto) 2.6 10^3/uL (1.7-8.2) 06/12/19 05:38 Absolute Lymphs (auto) 2.3 10^3/uL (0.5-4.7) 06/12/19 05:38 Absolute Monos (auto) 0.4 10^3/uL (0.1-1.4) 06/12/19 05:38 Absolute Eos (auto) 0.1 10^3/uL (0.0-0.6) 06/12/19 05:38 Absolute Basos (auto) 0.0 10^3/uL (0.0-0.2) 06/12/19 05:38 Seg Neutrophils % 48.1 % (42-78) 06/12/19 05:38 Sodium 139.9 mmol/L (137-145) 06/12/19 05:38 Potassium 3.7 mmol/L (3.6-5.0) 06/12/19 05:38 Chloride 101 mmol/L (98-107) 06/12/19 05:38 Carbon Dioxide 26 mmol/L (22-30) 06/12/19 05:38 Anion Gap 13 (5-19) 06/12/19 05:38 BUN 20 mg/dL (7-20) 06/12/19 05:38 Creatinine 0.65 mg/dL (0.52-1.25) 06/12/19 05:38 Est GFR ( Amer) > 60 (>60) 06/12/19 05:38 Est GFR (MDRD) Non-Af > 60 (>60) 06/12/19 05:38 Glucose 91 mg/dL (75-110) 06/12/19 05:38 POC Glucose 101 mg/dL (70-110) 05/16/19 21:34 Calcium 9.2 mg/dL (8.4-10.2) 06/12/19 05:38 Magnesium 1.8 mg/dL (1.6-2.3) 06/12/19 05:38 Total Bilirubin 1.0 mg/dL (0.2-1.3) 06/12/19 05:38 Direct Bilirubin 1.0 mg/dL (0.0-0.4) H 06/12/19 05:38 Neonat Total Bilirubin Not Reportable 06/12/19 05:38 Neonat Direct Bilirubin Not Reportable 06/12/19 05:38 Neonat Indirect Bili Not Reportable 06/12/19 05:38 AST 18 U/L (14-36) 06/12/19 05:38 ALT 15 U/L (<35) 06/12/19 05:38 Alkaline Phosphatase 77 U/L (38-126) 06/12/19 05:38 Total Protein 7.4 g/dL (6.3-8.2) 06/12/19 05:38 Albumin 4.1 g/dL (3.5-5.0) 06/12/19 05:38 TSH 0.69 uIU/mL (0.47-4.68) 05/24/19 10:27 Free T4 0.99 ng/dL (0.78-2.19) 05/24/19 10:27 Urine HCG, Qual NEGATIVE (NEGATIVE) 05/17/19 12:00 Urine Opiates Screen NEGATIVE 05/30/19 13:40 Urine Methadone Screen NEGATIVE 05/30/19 13:40 Ur Barbiturates Screen NEGATIVE 05/30/19 13:40 Ur Phencyclidine Scrn NEGATIVE 05/30/19 13:40 Ur Amphetamines Screen NEGATIVE 05/30/19 13:40 U Benzodiazepines Scrn NEGATIVE 05/30/19 13:40 Urine Cocaine Screen NEGATIVE 05/30/19 13:40 U Marijuana (THC) Screen NEGATIVE 05/30/19 13:40 Slides for [address] Review PATHOLOGIST REVIEWED 05/16/19 18:27 Plan Time Spent: Greater than 30 Minutes Stroke Is this a Stroke Patient?: No Acute Heart Failure - Is this a Heart Failure Patient?: No
[2019-06-16 17:05] VITALS: BP 117/73
== END 2019-06-16 18:50 | disposition home or self-care (01) | DRG 288 ==
LOC: 4N 17:40
PROVIDERS: ADMIT Internal Medicine; ATTEND Internal Medicine
DX: I33.0 Acute and subacute infective endocarditis (principal); I26.90 Septic pulmonary embolism without acute cor pulmonale; F11.23 Opioid dependence with withdrawal; F19.10 Other psychoactive substance abuse, uncomplicated; F41.1 Generalized anxiety disorder; Z79.899 Other long term (current) drug therapy; F31.9 Bipolar disorder, unspecified; Z87.891 Personal history of nicotine dependence; Z88.8 Allergy status to other drugs, medicaments and biological substances
CPT/HCPCS: 36415; 80048; 80053; 80307; 81025; 82962; 83735; 84439; 84443; 85025; 87040; J1642; J1644; J2997; J3490; J7050; J7060; S0032

== ENCOUNTER 2019-09-11 19:55 | Emergency (ER) | payer SELFPAY ==
[2019-09-11] MEDS ORDERED: ACETAMINOPHEN 325 MG TABLET PO ONE (20:11)
[2019-09-11] MEDS ORDERED: NORMAL SALINE IV ONE (21:02)
[2019-09-11] MEDS ORDERED: FENTANYL CITRATE INJ/PF 100 MCG/2 ML AMPUL IV ONE (21:02)
[2019-09-11] MEDS ORDERED: VANCOMYCIN HCL INJ 1000 MG VIAL IV ONE (21:02)
[2019-09-11] MEDS ORDERED: PIPERACILLIN/TAZOBACTAM 3.375 GM VIAL IV ONE (21:03)
--- NOTE | 2019-09-11 21:08 | ER Document Report ---
ED Fever - General Chief Complaint: Other Stated Complaint: HURTS TO BREATH/ARM PAIN/DIZZY Time Seen by Provider: 09/11/19 20:30 Notes: Patient is a 29-year-old female with a history of IV drug abuse that comes emergency department for chief complaint of a fever for the past 3 days. She reports pain in her chest, especially with deep breaths, she reports also generalized body aches and joint pain especially in the left shoulder. She states that she had valvuloplasty, she believes on her tricuspid valve, and this was performed at [facility] within the past year. Patient denies any daily medications, she states she was off of IV drugs but she relapsed, last use was 2 days ago. Patient does admit that she does get heroin withdrawal. She denies vomiting but she does report frequent diarrhea and she states she was on long courses of antibiotics. She denies history of C. difficile. She denies . TRAVEL OUTSIDE OF THE [place] IN LAST 30 DAYS: No - Related Data Allergies/Adverse Reactions: ketorolac Allergy (Unknown, Verified 05/17/19 14:01) Past Medical History - General Information source: Patient - Social History Smoking Status: Current Every Day Smoker Frequency of alcohol use: Social Drug Abuse: Cocaine, Heroin Lives with: Friend Family History: Reviewed & Not Pertinent, Other - she does not know - Past Medical History Cardiac Medical History: Denies: Hx Heart Attack, Hx Hypertension Pulmonary Medical History: Denies: Hx Asthma, Hx Bronchitis, Hx COPD, Hx Pneumonia Neurological Medical History: Denies: Hx Cerebrovascular Accident, Hx Seizures Renal/ Medical History: Reports: Hx Pelvic Inflammatory Disease. Denies: Hx Peritoneal Dialysis Musculoskeletal Medical History: Denies Hx Arthritis Skin Medical History: Reports Hx MRSA - back Psychiatric Medical History: Reports: Hx Anxiety, Hx Bipolar Disorder, Hx Depression Past Surgical History: Reports: Hx Cardiac Surgery - Tricuspid valvuloplasty, Hx Oral Surgery, Hx Orthopedic Surgery - left ankle - Immunizations Immunizations up to date: Yes Hx Diphtheria, Pertussis, Tetanus Vaccination: Yes Review of Systems - Review of Systems Constitutional: See HPI EENT: No symptoms reported Cardiovascular: See HPI Respiratory: See HPI Gastrointestinal: No symptoms reported Genitourinary: No symptoms reported Female Genitourinary: No symptoms reported Musculoskeletal: See HPI Skin: No symptoms reported Hematologic/Lymphatic: No symptoms reported Neurological/Psychological: No symptoms reported Physical Exam - Vital signs Vitals: Temp Pulse Resp BP Pulse Ox 101.1 F H 134 H 18 116/64 99 09/11/19 20:11 09/11/19 20:11 09/11/19 20:11 09/11/19 20:11 09/11/19 20:11 - Notes Notes: GENERAL: Patient is flushed, disheveled, ill-appearing HEAD: Normocephalic, atraumatic. EYES: Pupils equal, round, and reactive to light. Extraocular movements intact. ENT: Oral mucosa moist, tongue midline. Oropharynx unremarkable. Airway patent. NECK: Full range of motion. Supple. Trachea midline. No lymphadenopathy. LUNGS: Clear to auscultation bilaterally, no wheezes, rales, or rhonchi. No respiratory distress. Non-tender chest wall. Mild tachypnea. Large midline surgical scar on the chest. HEART: Significant tachycardia, no overt murmur, normal rhythm ABDOMEN: Soft, non-tender. Non-distended. Bowel sounds present in all 4 quadrants. GENITOURINARY: Deferred EXTREMITIES: Moves all 4 extremities spontaneously. Tender over the left proximal humerus. Range of motion intact. No edema, normal radial and dorsalis pedis pulses bilaterally. No cyanosis. BACK: no cervical, thoracic, lumbar midline tenderness. No saddle anesthesia, normal distal neurovascular exam. Moves all extremities in full range of motion. NEUROLOGICAL: Alert and oriented x3. Normal speech. Cranial nerves II through XII grossly intact. Strength 5/5 in all extremities. PSYCH: Normal affect, normal mood. SKIN: Various scars and abrasions in various stages of healing scattered over the entire body. Healed injection do in the antecubital areas mainly without noted erythema, swelling, fluctuance, induration. Course - Re-evaluation Re-evalutation: Patient is febrile, tachycardic, ill-appearing. She is not hypotensive. I strongly suspect sepsis based on her reported history of IV drug abuse and rep orted history of endocarditis. We initially had difficulty placing IV access, I was able to place a left AC 20-gauge IV and then we obtained a left forearm 20- gauge IV. Infusing IV fluids and IV antibiotics. Patient receiving 30 cc/kg bolus for sepsis. CBC shows leukocytosis at 13.9 and left shift with 7% bands. Chemistry nonspecific, troponin negative, chest x-ray with possible mild opacities on the right. EKG shows sinus tachycardia, nonspecific. Urinalysis pending. Lactic acid is 2.3. Patient continues to have pleuritic chest pain, I have a high suspicion of septic pulmonary emboli, CTA will be performed. Urinalysis shows evidence of infection but I do not suspect this is the source based on her lack of abdominal or urinary symptoms. Culture was placed. Patient already received vancomycin and Zosyn. Blood pressure is acceptable, patient has been given fentanyl to reduce blood pressure impact but also counter symptoms from heroin withdrawal. CTA showing peripheral opacities, on the right there is a larger one with a lucency in the center. Per radiologist this could represent cavitation or necrosis. I still have a high suspicion of endocarditis with septic pulmonary emboli based on the overall clinical picture. I did discuss with Dr. Crawford. He recommends that patient most likely will need pulmonology management, I called the news wire photo operator and we do not have pulmonology on the foreseeable schedule, I spoke with Wilfrido Tobias NP on-call for the maintenance superintendent and they do not perform bronchoscopy with biopsy. Dr. Crawford recommends transfer to tertiary center, patient had to be transferred to [facility] last time for valvuloplasty. I did discuss with patient and she states understanding and agreement. Patient had slightly lower blood pressures in the 90s, however patient fell asleep and was resting on her side when these were performed, we rolled her back into a prone position and this was rechecked, this was greater than 100 systolic with map greater than 70. 09/12/19 03:[address] Ramos, she [facility]. 09/12/19 04:00 Patient had a large loose bowel movement, after this blood pressure dropped slightly, giving 500 cc bolus and she will be reevaluated. Map still 70 on my exam. 09/12/19 05:22 I have been at the bedside for an extended period at this point. Patient started having downtrending blood pressures into the 80s, then down to 75 systolic with maps trending down to 65 and slightly low. I do suspect patient is progressing to septic shock. Patient more pale and responding slower. Updated Dr. Crawford. Discussed with patient, patient does consent to central line, this was placed in the right IJ, patient will be started on Levophed and given additional IV fluids, I did call and speak with Dr. Ramos and updated her on the status change. Dr. Ramos will be the accepting for intensive care. 09/12/19 06:05 Chest x-ray unremarkable, central line is in appropriate position, patient has been reevaluated and her blood pressure is 100/85, heart rate is 102, res piratory rate is 23, patient is clinically significantly improved. Patient is alert and conversational. She is on 8 of Levophed, can start trending down. She has received her second dose of Zosyn. 09/12/19 06:40 Patient is arousable, blood pressure is 101 systolic on 6 of Levophed. Heart rate is 105. Oxygen saturations 100% on room air. She will be maintained with this rate. EMS to be here at about 8 AM. 09/12/19 07:51 Reevaluated patient at bedside, patient is arousable, oriented, blood pressure is 100/75, heart rate is 106, patient has no current complaints, transport team is almost here, patient is stable for transport. - Vital Signs Vital signs: Temp Pulse Resp BP Pulse Ox 97.7 F 134 H 25 H 97/77 L 100 09/12/19 07:17 09/11/19 20:11 09/12/19 07:20 09/12/19 07:20 09/12/19 07:20 - Laboratory Result Diagrams: 09/11/19 20:50 09/11/19 20:50 Laboratory results interpreted by me: 09/11/19 09/11/19 09/11/19 20:50 20:50 20:50 WBC 13.9 H Seg Neuts % (Manual) 83 H Band Neutrophils % 7 H Lymphocytes % (Manual) 5 L Abs Neuts (Manual) 12.5 H VBG pH 7.45 H Sodium 128.4 L Chloride 94 L Glucose 111 H Lactic Acid AST 44 H Urine Blood Leukocyte Esterase Rfl 09/11/19 09/12/19 20:50 00:37 WBC Seg Neuts % (Manual) Band Neutrophils % Lymphocytes % (Manual) Abs Neuts (Manual) VBG pH Sodium Chloride Glucose Lactic Acid 2.3 H AST Urine Blood LARGE H Leukocyte Esterase Rfl MODERATE H Procedures - Central Line Right IJ Consent obtained: Yes Central line pre-insertion: Sterile PPE donned, Chloraprep applied, Sterile drapes applied Central line lumen type: Triple Anesthetic type: 1% Lidocaine mL's of anesthesia: 3 Ultrasound guided: Yes Line secured with sutures: Yes Central line post-insertion: Blood return from lumens, Biopatch applied, Sutured, Sterile dressing applied, Position confirmed w/ CXR Complications: No Critical Care Note - Critical Care Note Total time excluding time spent on procedures (mins): 50 - Septic shock, septic pulmonary emboli, drug dependence Comments: Please allow 50 minutes of critical care time, excluding any time spent on procedures, for evaluation and management of this critically ill patient. Patient with septic pulmonary emboli, septic shock, heroin dependence. Interventions including IV fluid resuscitation, fever treatment, antibiotics, multiple re-evaluations, patient decompensation requiring treatment with vasopressors. Time spent performing multiple phone calls for patient disposition, time spent reviewing records, time spent transferring patient to tertiary center. Discharge - Discharge Clinical Impression: IV drug abuse, Pleuritic chest pain, Opacity of lung on imaging study, Bandemia, Tachycardia, Septic shock, Heroin dependence Fever Qualifiers: Fever type: unspecified Qualified Code(s): R50.9 - Fever, unspecified Condition: Stable Disposition: [facility]
[2019-09-11 21:09] LABS: VENOUS BLOOD BASE EXCESS 0.9 mmol/L; VENOUS BLOOD HCO3 24.5 mmol/L (20-32); VENOUS BLOOD PCO2 35.7 mmHg (35-63); VENOUS BLOOD PH 7.45 (7.30-7.42)
[2019-09-11 21:10] LABS: HEMATOCRIT 39.2 % (36.0-47.0); HEMOGLOBIN 13.6 g/dL (12.0-15.5); MEAN CORPUSCULAR HEMOGLOBIN 31.3 pg (27.0-33.4); MEAN CORPUSCULAR HGB CONC 34.6 g/dL (32.0-36.0); MEAN CORPUSCULAR VOLUME 90 fl (80-97); PLATELET COUNT 205 10^3/uL (150-450); RED BLOOD COUNT 4.34 10^6/uL (3.72-5.28); RED CELL DISTRIBUTION WIDTH 12.6 % (11.5-14.0); WHITE BLOOD COUNT 13.9 10^3/uL (4.0-10.5)
[2019-09-11 21:20] LABS: INTERNATIONAL RATION (INR) 1.21; PROTHROMBIN TIME 15.4 SEC (11.4-15.4)
[2019-09-11 21:23] LABS: ALKALINE PHOSPHATASE 94 U/L (38-126); ANION GAP 12 (5-19); ASPARTATE AMINO TRANSFERASE 44 U/L (14-36); BILIRUBIN,TOTAL 0.8 mg/dL (0.2-1.3); BLOOD UREA NITROGEN 12 mg/dL (7-20); CALCIUM 8.7 mg/dL (8.4-10.2); CARBON DIOXIDE 22 mmol/L (22-30); CHLORIDE 94 mmol/L (98-107); GLUCOSE 111 mg/dL (75-110); POTASSIUM 3.8 mmol/L (3.6-5.0); TOTAL PROTEIN 7.2 g/dL (6.3-8.2)
[2019-09-11 21:32] LABS: ABSOLUTE LYMPHOCYTES# (MANUAL) 0.7 10^3/uL (0.5-4.7); ABSOLUTE MONOCYTES # (MANUAL) 0.7 10^3/uL (0.1-1.4); BAND NEUTROPHILS % (MANUAL) 7 % (3-5); BASOPHILS % (MANUAL) 0 % (0-2); EOSINOPHILS % (MANUAL) 0 % (0-6); LYMPHOCYTES % (MANUAL) 5 % (13-45); MONOCYTES % (MANUAL) 5 % (3-13); PLATELET COMMENT ADEQUATE; RBC MORPHOLOGY COMMENT NORMO-CYTIC/CHROMIC; SEGMENTED NEUTROPHILS % (MAN) 83 % (42-78); TOTAL CELLS COUNTED 100
--- NOTE | 2019-09-11 21:55 | RADIOLOGY REPORT (SQ) ---
EXAM DESCRIPTION: X-RAY CHEST- One View CLINICAL HISTORY: Cough and shortness of breath. COMPARISON: April 26, 2019 TECHNIQUE: Single view of the chest. FINDINGS: There are multiple overlying EKG leads. Mild opacities overlie the right midlung zone. The pulmonary vascularity is normal. The cardiomediastinal silhouette is normal in size, with cardiothoracic postoperative changes including median sternotomy wires. Osseous structures are stable in appearance. IMPRESSION: Mild opacities overlie the right midlung zone. Findings are nonspecific and could represent atelectatic change. Possibility of an infectious process is not excluded. Consider attention on follow-up.
[2019-09-11] MEDS ORDERED: IBUPROFEN 400 MG TABLET PO ONE (22:05)
[2019-09-12 01:02] LABS: APPEARANCE,URINE SLIGHTLY-CLOUDY; BILIRUBIN,URINE NEGATIVE (NEGATIVE); COLOR,URINE YELLOW; GLUCOSE, URINE NEGATIVE (NEGATIVE); KETONES,URINE NEGATIVE (NEGATIVE); PROTEIN,URINE NEGATIVE (NEGATIVE); URINE SPECIFIC GRAVITY 1.005; UROBILINOGEN,URINE NEGATIVE mg/dL (<2.0)
[2019-09-12 01:26] LABS: URINE BARBITURATES SCREEN NEGATIVE; URINE BENZODIAZEPINES SCREEN NEGATIVE; URINE COCAINE SCREEN NEGATIVE; URINE MARIJUANA (THC) SCREEN NEGATIVE; URINE METHADONE SCREEN NEGATIVE; URINE PHENCYCLIDINE SCREEN NEGATIVE
[2019-09-12 01:28] LABS: URINE AMPHETAMINES SCREEN UNCONFIRMED POSITIVE
--- NOTE | 2019-09-12 01:39 | RADIOLOGY REPORT (SQ) ---
CT ANGIOGRAM CHEST WITH IV CONTRAST: 09/12/2019 12:34 AM CDT HISTORY: 29-year old patient with fever, chest pain. TECHNIQUE: Postcontrast CT through the chest was performed per protocol for CT angiography. 3D Multiplanar reformations were performed at the workstation. Reconstructed sagittal and coronal images were also obtained through the chest. This exam was performed according to our departmental dose-optimization program, which includes automated exposure control, adjustment of the mA and/or KV according to the patient's size and/or use of iterative reconstruction technique. COMPARISON: None available FINDINGS: The heart size is within normal limits of size. No significant mediastinal, supraclavicular, or axillary lymphadenopathy is seen. The thoracic aorta is within normal limits of size. The main pulmonary artery is within normal limits of size. No filling defects are seen within the pulmonary arteries to suggest a pulmonary artery embolism. The thyroid gland is unremarkable. The central tracheobronchial tree is patent. There is a round nodular airspace opacity with some central lucency which may reflect cavitation or necrosis. This measures at least 2.4 x 2.2 cm at the right lower lobe. There are developing airspace opacities seen at the left lower lobe on the same image slice. Additional peripheral airspace opacities are seen. These are predominantly groundglass. There is no evidence of pleural effusions or a pneumothorax. The bones demonstrate no suspicious lytic or blastic lesion. Midline sternotomy changes are seen. The visualized portions of the upper abdomen appear grossly unremarkable. IMPRESSION: There are peripheral airspace opacities seen concerning for infection. One of these appears to demonstrate some central lucency suggestive of cavitation or necrosis. This can also be seen with septic emboli, atypical infection, less likely an underlying malignancy. No filling defect is seen to suggest a pulmonary artery embolism.
[2019-09-12] MEDS ORDERED: ACETAMINOPHEN 325 MG TABLET PO ONE (03:01)
[2019-09-12 03:09] LABS: C DIFFICILE GDH NEGATIVE (NEGATIVE)
[2019-09-12] MEDS ORDERED: PIPERACILLIN/TAZOBACTAM 3.375 GM VIAL IV SCH (03:15)
[2019-09-12] MEDS ORDERED: NORMAL SALINE 500 ML IV ONE (03:42)
[2019-09-12] MEDS ORDERED: FENTANYL CITRATE INJ/PF 100 MCG/2 ML AMPUL IV ONE ×2 (04:52→05:46)
[2019-09-12] MEDS ORDERED: NORMAL SALINE 1000 ML 1,000 ML IV ONE (05:14)
[2019-09-12] MEDS ORDERED: DEXTROSE 5%-WATER 250 ML with NOREPINEPHRINE BITARTRATE 4 MG IV PRN ×2 (05:14)
[2019-09-12] MEDS ORDERED: NOREPINEPHRINE BITARTRATE INJ/PF 4 MG/4 ML SDV IV ONE (05:20)
--- NOTE | 2019-09-12 05:56 | RADIOLOGY REPORT (SQ) ---
AP Portable chest: 09/12/2019 4:54 AM CDT History: 29-year old patient with central line placement. Comparison: Chest radiograph performed 09/11/2019. Findings: The cardiomediastinal silhouette is normal in size. No pneumothorax is seen. No acute airspace opacities are seen. No discrete pleural effusion is apparent. A right internal jugular central line catheter tip projects near the proximal right atrium. Midline sternotomy changes are seen. Impression: No acute airspace opacities are seen.
--- NOTE | 2019-09-12 06:31 | EKG REPORT ---
SEVERITY:- BORDERLINE ECG - SINUS TACHYCARDIA PROBABLE LEFT ATRIAL ABNORMALITY : Confirmed by: Nolberto Gillespie MD 12-Sep-2019 06:30:47
[2019-09-12 07:26] VITALS: BP 97/77
== END 2019-09-12 08:19 | disposition short-term general hospital (02) ==
LOC: ER 19:55
DX: A41.9 Sepsis, unspecified organism (principal); R65.21 Severe sepsis with septic shock; F11.20 Opioid dependence, uncomplicated; F19.10 Other psychoactive substance abuse, uncomplicated; D72.825 Bandemia; R00.0 Tachycardia, unspecified; R07.81 Pleurodynia; Z20.828 Contact with and (suspected) exposure to other viral communicable diseases; M79.10 Myalgia, unspecified site; R06.00 Dyspnea, unspecified; R42 Dizziness and giddiness; R50.9 Fever, unspecified; F17.200 Nicotine dependence, unspecified, uncomplicated; Z95.2 Presence of prosthetic heart valve
CPT/HCPCS: 36556; 93005; 96376; 99291; 96375; 96365; 96366; 96368; 36415; 87040; 87045; 87086; 87205; 80307 ×2; 83605; 84703; 85025; 85610; 87635; 87077; 80053; 81001; 84484; 87186; 82803; 87324; 87449; 87150 ×26; 71045 ×2; 71275; 93010; J3010 ×2; J3490 ×2; J7060; J7030 ×2; J7040; J3370; J2543 ×2

== ENCOUNTER 2019-10-08 23:04 | Inpatient (IN) | payer SELFPAY ==
[2019-10-09] MEDS ORDERED: IBUPROFEN 400 MG TABLET PO PRN (01:25)
[2019-10-09] MEDS ORDERED: ACETAMINOPHEN 325 MG TABLET PO PRN (01:25)
[2019-10-09] MEDS ORDERED: DOCUSATE SODIUM 100 MG CAPSULE PO PRN (01:25)
--- NOTE | 2019-10-09 01:25 | PDOC H&P ---
History of Present Illness Admission Date/PCP: 10/08/19 23:04 No local PCP Patient complains of: MSSA bacteremia History of Present Illness: ELVIN BALLESTEROS is a 29 year old female who was received in transfer from [facility] for completion of her intravenous antibiotic therapy. 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 Over the course of her treatment she noticed resolution of her initial symptoms leading to presentation of fever, malaise and chest pain. At the present time she feels well and is looking forward to completion of her intravenous antibiotic therapy so that she may be discharged to home. She has a history of IV drug abuse but is looking forward to a clean and sober life. 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 Denies: Coronary Artery Disease, Myocardial Infarction, Hypertension Pulmonary Medical History: Denies: Asthma, Bronchitis, Chronic Obstructive Pulmonary Disease (COPD), Pneumonia EENT Medical History: Denies: Cataracts, Ears - Hearing aids Neurological Medical History: Denies: Migraine, Multiple Sclerosis, Seizures Endocrine Medical History: Denies: Diabetes Mellitus Type 1, Hyperthyroidism, Hypothyroidism Renal/ Medical History: Denies: Chronic Kidney Disease, Nephrolithiasis Malignancy Medical History: Reports: None GI Medical History: Denies: Cirrhosis, Gastroesophageal Reflux Disease, Hepatitis, Peptic Ulcer Disease Musculoskeltal Medical History: Denies: Arthritis, Fibromyalgia Skin Medical History: Denies: Eczema, Psoriasis Psychiatric Medical History: Reports: Bipolar Disorder, Depression, Substance Abuse, Tobacco Dependency Denies: Alcohol Dependency Traumatic Medical History: Reports: None Hematology: Reports: Anemia Denies: Bleeding Tendencies Infectious History Note: MSSA bacteremia Past Surgical History Past Surgical History: Reports: Orthopedic Surgery - left ankle, Other - Incision and drainage of lower back abscess, tricuspid valve repair Social History Information Source: Patient Lives with: Family Smoking Status: Current Every Day Smoker Electronic Cigarette use?: No Frequency of Alcohol Use: None Hx Recreational Drug Use: Yes Drugs: Cocaine, Heroin, Marijuana Hx Prescription Drug Abuse: No - Advance Directive Resuscitation Status: Full Code Surrogate healthcare decision maker:: Karena Aponte Family History Family History: denies: CAD, DM, Hypertension, Malignancy Parental Family History Reviewed: Yes Children Family History Reviewed: No Sibling(s) Family History Reviewed.: Yes Medication/Allergy Home Medications: Acetaminophen 650 mg PO Q4HP PRN 05/16/19 Ascorbic Acid [Vitamin C 500 mg Tablet] 500 mg PO QAM 05/16/19 Docusate Sodium [Colace 100 mg Capsule] 100 mg PO BIDP PRN 05/16/19 Multivit,Calc,Mins/Iron/Folic [Thera M Plus Tablet] 1 each PO DAILY 05/16/19 Buspirone HCl [Buspar 10 mg Tablet] 15 mg PO Q12 #30 tablet 06/16/19 Famotidine [Pepcid 20 mg Tablet] 20 mg PO BID #60 tablet 06/16/19 Quetiapine Fumarate [Seroquel 25 mg Tablet] 25 mg PO QHS #30 tablet 06/16/19 Aspirin [Aspirin 325 mg Tablet] 325 mg PO DAILY 10/09/19 Ibuprofen [Motrin 400 mg Tablet] 400 mg PO Q6 PRN 10/09/19 L. Acidophilus/L.bulgaricus [Lactobacillus Tablet] 1 cap PO DAILY 10/09/19 Nafcillin Sodium [Nafcil Inj 1 Gm Vial] 2 gm IVPB Q12 10/09/19 Rifampin [Rifadin] 300 mg PO TID 10/09/19 Allergies/Adverse Reactions: ketorolac Allergy (Unknown, Verified 05/17/19 14:01) Review of Systems Constitutional: ABSENT: chills, fever(s) Eyes: ABSENT: visual disturbances, other - Eye pain Ears: ABSENT: hearing changes, other - Ear pain Nose, Mouth, and Throat: ABSENT: headache(s), sore throat Cardiovascular: ABSENT: chest pain, dyspnea on exertion, orthropnea, palpitations Respiratory: ABSENT: cough, dyspnea Gastrointestinal: ABSENT: abdominal pain, constipation, diarrhea, nausea, vomiting Genitourinary: ABSENT: dysuria, hematuria Musculoskeletal: PRESENT: other - Chronic left ankle and left shoulder pain. ABSENT: back pain, joint swelling, muscle weakness Integumentary: ABSENT: diaphoresis, pruritus, rash Neurological: ABSENT: confusion, convulsions, focal weakness, memory loss, syncope Psychiatric: ABSENT: anxiety, depression Endocrine: ABSENT: cold intolerance, heat intolerance, menstrual abnormalities, polydipsia, polyphagia, polyuria Hematologic/Lymphatic: ABSENT: easy bleeding, easy bruising Allergic/Immunologic: ABSENT: seasonal rhinorrhea Physical Exam General appearance: PRESENT: no acute distress, cooperative, well-developed Head exam: PRESENT: atraumatic, normocephalic Eye exam: PRESENT: conjunctiva pink. ABSENT: conjunctival injection, scleral icterus Ear exam: PRESENT: normal external ear exam. ABSENT: bleeding, drainage Mouth exam: PRESENT: dry mucosa, neck supple Neck exam: ABSENT: JVD, thyromegaly, tracheal deviation Respiratory exam: PRESENT: clear to auscultation chelo, symmetrical, unlabored Cardiovascular exam: PRESENT: RRR. ABSENT: clicks, gallop, rubs Pulses: PRESENT: normal radial pulses, normal dorsalis pedis pul Vascular exam: PRESENT: normal capillary refill. ABSENT: pallor GI/Abdominal exam: PRESENT: normal bowel sounds, soft Rectal exam: PRESENT: deferred Extremities exam: ABSENT: joint swelling, pedal edema Musculoskeletal exam: PRESENT: ambulatory. ABSENT: deformity, dislocation Neurological exam: PRESENT: alert, oriented to person, oriented to place, oriented to time, oriented to situation, CN II-XII grossly intact. ABSENT: motor sensory deficit Psychiatric exam: PRESENT: appropriate affect, normal mood Skin exam: PRESENT: dry, intact, warm. ABSENT: jaundice, rash, urticaria Assessment and Plan - Diagnosis (1) MSSA bacteremia Is this a current diagnosis for this admission?: Yes (2) Status post tricuspid valve repair Is this a current diagnosis for this admission?: Yes (3) History of acute bacterial endocarditis Is this a current diagnosis for this admission?: Yes (4) Generalized anxiety disorder Is this a current diagnosis for this admission?: Yes (5) Polysubstance abuse Is this a current diagnosis for this admission?: Yes (6) Chronic left shoulder pain Is this a current diagnosis for this admission?: Yes (7) Chronic pain of left ankle Is this a current diagnosis for this admission?: Yes - Plan Summary Summary: Patient will be admitted to the medical floor where she will receive routine supportive and symptomatic cares. She will be continued on her antibiotic therapy with continuous infusion nafcillin and oral rifampin. She will be maintained on a regular diet. She will be continued on her recommended medication schedule per her discharge summary from [place]. I will counseled patient briefly at bedside regarding discontinuation of smoking and I have encouraged her to find a Narcotics Anonymous group to join when she is discharged. - Time Time Spent with patient: Less than 15 minutes Smoking Cessation Education: 3 to 10 minutes Medications reviewed and adjusted accordingly: Yes Anticipated discharge: Home - Inpatient Certification Based on my medical assessment, after consideration of the patient's comorbidities, presenting symptoms, or acuity I expect that the services needed warrant INPATIENT care.: Yes I certify that my determination is in accordance with my understanding of [facility]'s requirements for reasonable and necessary INPATIENT services [42 CFR 412.3e].: Yes Medical Necessity: Need for IV Antibiotics
[2019-10-09] MEDS ORDERED: NAFCILLIN SODIUM INJ 1 GM VIAL IV SCH (01:30)
[2019-10-09] MEDS ORDERED: ONDANSETRON HCL INJ/PF 4 MG/2 ML SDV IV PRN (01:42)
[2019-10-09] MEDS ORDERED: ONDANSETRON 4 MG TAB.RAPDIS PO PRN (01:42)
[2019-10-09] MEDS ORDERED: MAG HYDROX/AL HYDROX/SIMETH SUSP 30 ML UDCUP PO PRN (01:42)
[2019-10-09] MEDS ORDERED: MAGNESIUM HYDROXIDE SUSP 30 ML UDCUP PO PRN (01:42)
[2019-10-09 03:52] LABS: ABSOLUTE EOSINOPHILS # (AUTO) 0.3 10^3/uL (0.0-0.6); BASOPHILS % (AUTO) 0.6 % (0-2); EOSINOPHILS % (AUTO) 4.6 % (0-6); HEMATOCRIT 32.9 % (36.0-47.0); HEMOGLOBIN 11.3 g/dL (12.0-15.5); LYMPHOCYTES % (AUTO) 40.4 % (13-45); MEAN CORPUSCULAR HEMOGLOBIN 32.1 pg (27.0-33.4); MEAN CORPUSCULAR HGB CONC 34.4 g/dL (32.0-36.0); MEAN CORPUSCULAR VOLUME 93 fl (80-97); MONOCYTES % (AUTO) 13.7 % (3-13); PLATELET COUNT 324 10^3/uL (150-450); RED BLOOD COUNT 3.54 10^6/uL (3.72-5.28); RED CELL DISTRIBUTION WIDTH 17.7 % (11.5-14.0); SEGMENTED NEUTROPHILS % (AUTO) 40.7 % (42-78); TOTAL CELLS COUNTED % (AUTO) 100 %; WHITE BLOOD COUNT 7.3 10^3/uL (4.0-10.5)
[2019-10-09 04:03] LABS: ALBUMIN 3.9 g/dL (3.5-5.0); ALKALINE PHOSPHATASE 59 U/L (38-126); ANION GAP 9 (5-19); ASPARTATE AMINO TRANSFERASE 18 U/L (14-36); BILIRUBIN,DIRECT 0.5 mg/dL (0.0-0.4); BILIRUBIN,TOTAL 0.8 mg/dL (0.2-1.3); BLOOD UREA NITROGEN 18 mg/dL (7-20); CALCIUM 9.5 mg/dL (8.4-10.2); CARBON DIOXIDE 27 mmol/L (22-30); CHLORIDE 102 mmol/L (98-107); GLUCOSE 99 mg/dL (75-110); POTASSIUM 3.5 mmol/L (3.6-5.0); TOTAL PROTEIN 6.9 g/dL (6.3-8.2)
[2019-10-09] MEDS: RIFAMPIN 300 MG CAPSULE PO SCH ×3 (05:33→21:15)
[2019-10-09] MEDS: BUSPIRONE HCL 10 MG TABLET PO SCH ×2 (09:17→21:16)
[2019-10-09] MEDS: FAMOTIDINE 20 MG TABLET PO SCH ×2 (09:17→17:29)
[2019-10-09] MEDS: ASPIRIN 325 MG TABLET PO SCH (09:17)
[2019-10-09] MEDS: MULTIVITAMIN TABLET PO SCH (09:17)
[2019-10-09] MEDS: LACTOBACILLUS ACIDOPHILUS 250 MG TAB PO SCH ×2 (09:17→17:29)
[2019-10-09] MEDS: ASCORBIC ACID 500 MG TABLET PO SCH ×2 (09:17→17:29)
[2019-10-09] MEDS: NORMAL SALINE 10 ML SDV (SCHEDULED) IV SCH ×2 (09:18→21:16)
[2019-10-09] MEDS: ENOXAPARIN SODIUM INJ 40 MG/0.4 ML DISP.SYRIN SUBCUT SCH (09:18)
[2019-10-09] MEDS: NAFCILLIN SODIUM 2 GM in DEXTROSE 5%-WATER 100 ML IV SCH ×4 (10:28→21:15)
--- NOTE | 2019-10-09 12:04 | PDOC PROGRESS REPORT ---
Subjective Progress Note for:: 10/09/19 Subjective:: The patient transfers from [facility] after heart valve surgery. Reason For Visit: MSSA, BACTERMIA Physical Exam Vital Signs: Temp Pulse Resp BP Pulse Ox 98.1 F 75 16 95/54 L 93 10/09/19 07:22 10/09/19 07:22 10/09/19 07:22 10/09/19 07:22 10/09/19 07:22 Intake & Output 10/08/19 10/09/19 10/10/19 06:59 06:59 06:59 Weight 53.4 kg General appearance: PRESENT: no acute distress, cooperative, well-developed, well-nourished. ABSENT: disheveled Head exam: PRESENT: atraumatic, normocephalic Eye exam: PRESENT: conjunctiva pink, EOMI. ABSENT: scleral icterus Ear exam: PRESENT: normal external ear exam. ABSENT: bleeding, drainage Mouth exam: PRESENT: moist, tongue midline Neck exam: PRESENT: full ROM. ABSENT: carotid bruit, JVD, lymphadenopathy Respiratory exam: PRESENT: clear to auscultation chelo, symmetrical, unlabored. ABSENT: prolonged expiratory phas, rales, rhonchi, tachypnea, wheezes Cardiovascular exam: PRESENT: RRR, +S1, +S2, systolic murmur - 2/6. ABSENT: diastolic murmur, irregular rhythm GI/Abdominal exam: PRESENT: normal bowel sounds, soft. ABSENT: distended, guarding, mass, tenderness Rectal exam: PRESENT: deferred Gentrourinary exam: ABSENT: indwelling catheter Extremities exam: ABSENT: joint swelling, pedal edema Musculoskeletal exam: PRESENT: ambulatory, full ROM, normal inspection. ABSENT: deformity Neurological exam: PRESENT: alert, awake, oriented to person, oriented to place, oriented to time, oriented to situation, CN II-XII grossly intact. ABSENT: altered, motor sensory deficit Psychiatric exam: PRESENT: appropriate affect, normal mood. ABSENT: agitated, anxious Focused psych exam: ABSENT: delusional, paranoid, restlessness Skin exam: PRESENT: dry, normal color, warm. ABSENT: rash Results Laboratory Results: 10/09/19 03:30 10/09/19 03:30 10/09/19 10/09/19 03:30 03:30 WBC 7.3 RBC 3.54 L Hgb 11.3 L Hct 32.9 L MCV 93 MCH 32.1 MCHC 34.4 RDW 17.7 H Plt Count 324 Seg Neutrophils % 40.7 L Sodium 137.7 Potassium 3.5 L Chloride 102 Carbon Dioxide 27 Anion Gap 9 BUN 18 Creatinine 0.72 Est GFR ( Amer) > 60 Glucose 99 Calcium 9.5 Magnesium 1.9 Total Bilirubin 0.8 AST 18 Alkaline Phosphatase 59 Total Protein 6.9 Albumin 3.9 Assessment and Plan - Diagnosis (1) Endocarditis due to methicillin susceptible Staphylococcus aureus (MSSA) Is this a current diagnosis for this admission?: Yes Plan: 10/09/2019 Currently on IV nafcillin and rifampin through October 24 Due to the long-term antibiotic therapy weekly monitoring laboratory studies will be drawn. (2) Anxiety Is this a current diagnosis for this admission?: Yes Plan: 10/09/2019 Continue current medications (3) Polysubstance abuse Is this a current diagnosis for this admission?: Yes Plan: 10/09/2019 Naltrexone has been ordered. The patient should be able to resume dosing starting tomorrow through her anticipated discharge of October 24 or . - Plan Summary Summary: Patient will be admitted to the medical floor where she will receive routine supportive and symptomatic cares. She will be continued on her antibiotic therapy with continuous infusion nafcillin and oral rifampin. She will be maintained on a regular diet. She will be continued on her recommended medication schedule per her discharge summary from [place]. I will counseled patient briefly at bedside regarding discontinuation of smoking and I have encouraged her to find a Narcotics Anonymous group to join when she is discharged. - Time Time Spent with patient: Less than 15 minutes Medications reviewed and adjusted accordingly: Yes Anticipated discharge: Home Within: Other - October 26, 2019
[2019-10-09] MEDS: POTASSIUM CHLORIDE 10 MEQ TABLET.ER PO SCH (13:06)
[2019-10-09 13:58] LABS: AMORPHOUS SEDIMENT,URINE TRACE /HPF; APPEARANCE,URINE CLOUDY; BILIRUBIN,URINE NEGATIVE (NEGATIVE); COLOR,URINE AMBER; GLUCOSE, URINE NEGATIVE (NEGATIVE); KETONES,URINE NEGATIVE (NEGATIVE); PROTEIN,URINE NEGATIVE (NEGATIVE); URINE SPECIFIC GRAVITY 1.019; UROBILINOGEN,URINE NEGATIVE mg/dL (<2.0)
[2019-10-09] MEDS: QUETIAPINE FUMARATE 25 MG TABLET PO SCH (21:15)
[2019-10-10] MEDS: NAFCILLIN SODIUM 2 GM in DEXTROSE 5%-WATER 100 ML IV SCH ×6 (02:14→22:25)
[2019-10-10] MEDS: RIFAMPIN 300 MG CAPSULE PO SCH ×3 (05:33→22:24)
[2019-10-10 06:25] LABS: ABSOLUTE BASOPHILS # (AUTO) 0.1 10^3/uL (0.0-0.2); ABSOLUTE EOSINOPHILS # (AUTO) 0.3 10^3/uL (0.0-0.6); ABSOLUTE LYMPHOCYTES (AUTO) 3.3 10^3/uL (0.5-4.7); ABSOLUTE MONOCYTES (AUTO) 0.9 10^3/uL (0.1-1.4); ABSOLUTE NEUT (AUTO) 2.8 10^3/uL (1.7-8.2); EOSINOPHILS % (AUTO) 3.5 % (0-6); HEMOGLOBIN 11.8 g/dL (12.0-15.5); LYMPHOCYTES % (AUTO) 44.8 % (13-45); MEAN CORPUSCULAR HEMOGLOBIN 32.2 pg (27.0-33.4); MEAN CORPUSCULAR HGB CONC 34.6 g/dL (32.0-36.0); MEAN CORPUSCULAR VOLUME 93 fl (80-97); PLATELET COUNT 299 10^3/uL (150-450); RED BLOOD COUNT 3.65 10^6/uL (3.72-5.28); RED CELL DISTRIBUTION WIDTH 17.9 % (11.5-14.0); SEGMENTED NEUTROPHILS % (AUTO) 38.7 % (42-78); TOTAL CELLS COUNTED % (AUTO) 100 %; WHITE BLOOD COUNT 7.3 10^3/uL (4.0-10.5)
[2019-10-10 06:43] LABS: ALBUMIN 3.8 g/dL (3.5-5.0); ALKALINE PHOSPHATASE 53 U/L (38-126); ANION GAP 6 (5-19); ASPARTATE AMINO TRANSFERASE 16 U/L (14-36); BILIRUBIN,DIRECT 0.4 mg/dL (0.0-0.4); BILIRUBIN,TOTAL 0.8 mg/dL (0.2-1.3); BLOOD UREA NITROGEN 24 mg/dL (7-20); CALCIUM 8.8 mg/dL (8.4-10.2); CARBON DIOXIDE 26 mmol/L (22-30); CHLORIDE 104 mmol/L (98-107); GLUCOSE 93 mg/dL (75-110); POTASSIUM 4.6 mmol/L (3.6-5.0); TOTAL PROTEIN 6.8 g/dL (6.3-8.2)
[2019-10-10 06:54] LABS: C-REACTIVE PROTEIN < 5.0 mg/L (<10.0)
[2019-10-10 07:08] LABS: ERYTHROCYTE SEDIMENTATION RATE 17 mm/hr (0-20)
[2019-10-10] MEDS ORDERED: NALTREXONE 50 MG PO SCH ×2 (10:00→12:00)
[2019-10-10] MEDS: BUSPIRONE HCL 10 MG TABLET PO SCH ×2 (10:18→22:24)
[2019-10-10] MEDS: LACTOBACILLUS ACIDOPHILUS 250 MG TAB PO SCH ×2 (10:18→18:11)
[2019-10-10] MEDS: ASPIRIN 325 MG TABLET PO SCH (10:18)
[2019-10-10] MEDS: ASCORBIC ACID 500 MG TABLET PO SCH ×2 (10:19→18:11)
[2019-10-10] MEDS: FAMOTIDINE 20 MG TABLET PO SCH ×2 (10:19→18:11)
[2019-10-10] MEDS: POTASSIUM CHLORIDE 10 MEQ TABLET.ER PO SCH (10:19)
[2019-10-10] MEDS: MULTIVITAMIN TABLET PO SCH (10:19)
[2019-10-10] MEDS: ENOXAPARIN SODIUM INJ 40 MG/0.4 ML DISP.SYRIN SUBCUT SCH (10:20)
[2019-10-10] MEDS: NORMAL SALINE 10 ML SDV (SCHEDULED) IV SCH ×2 (10:38→22:25)
[2019-10-10] MEDS ORDERED: ONDANSETRON HCL INJ/PF 4 MG/2 ML SDV IV PRN (11:00)
[2019-10-10] MEDS ORDERED: ONDANSETRON 4 MG TAB.RAPDIS PO PRN (11:00)
[2019-10-10] MEDS: NALTREXONE HCL 50 MG TABLET PO SCH (12:07)
--- NOTE | 2019-10-10 15:09 | PDOC PROGRESS REPORT ---
Subjective Progress Note for:: 10/10/19 Subjective:: Patient is doing well. She is ambulatory. She is in no pain. Her naltrexone has been started. Reason For Visit: MSSA, BACTERMIA Physical Exam Vital Signs: Temp Pulse Resp BP Pulse Ox 98.3 F 115 H 16 95/66 L 99 10/10/19 11:06 10/10/19 11:06 10/10/19 11:06 10/10/19 11:06 10/10/19 11:06 Intake & Output 10/09/19 10/10/19 10/11/19 06:59 06:59 06:59 Intake Total 1860 120 Balance 1860 120 Weight 53.4 kg 53.4 kg General appearance: PRESENT: no acute distress, cooperative, well-developed, well-nourished Head exam: PRESENT: atraumatic, normocephalic Ear exam: PRESENT: normal external ear exam. ABSENT: bleeding, drainage Respiratory exam: PRESENT: clear to auscultation chelo, symmetrical, unlabored. ABSENT: rales, rhonchi, tachypnea, wheezes Cardiovascular exam: PRESENT: RRR, +S1, +S2, systolic murmur - 2/6. ABSENT: diastolic murmur, irregular rhythm, tachycardia GI/Abdominal exam: PRESENT: normal bowel sounds, soft. ABSENT: distended, guarding, tenderness Rectal exam: PRESENT: deferred Gentrourinary exam: ABSENT: indwelling catheter Extremities exam: PRESENT: full ROM. ABSENT: pedal edema Musculoskeletal exam: PRESENT: ambulatory, normal inspection. ABSENT: deformity Neurological exam: PRESENT: alert, awake, oriented to person, oriented to place, oriented to time, oriented to situation, CN II-XII grossly intact, motor sensory deficit. ABSENT: altered Psychiatric exam: PRESENT: appropriate affect, normal mood. ABSENT: agitated, anxious Focused psych exam: ABSENT: delusional, paranoid, restlessness Skin exam: PRESENT: dry, normal color, warm, other - PICC line right arm. ABSENT: rash Results Laboratory Results: 10/10/19 05:45 10/10/19 05:45 10/10/19 10/10/19 05:45 05:45 WBC 7.3 RBC 3.65 L Hgb 11.8 L Hct 34.0 L MCV 93 MCH 32.2 MCHC 34.6 RDW 17.9 H Plt Count 299 Seg Neutrophils % 38.7 L Sodium 136.0 L Potassium 4.6 Chloride 104 Carbon Dioxide 26 Anion Gap 6 BUN 24 H Creatinine 0.66 Est GFR ( Amer) > 60 Glucose 93 Calcium 8.8 Total Bilirubin 0.8 AST 16 Alkaline Phosphatase 53 C-Reactive Protein < 5.0 Total Protein 6.8 Albumin 3.8 Assessment and Plan - Diagnosis (1) Endocarditis due to methicillin susceptible Staphylococcus aureus (MSSA) Is this a current diagnosis for this admission?: Yes (2) Anxiety Is this a current diagnosis for this admission?: Yes (3) Polysubstance abuse Is this a current diagnosis for this admission?: Yes - Plan Summary Summary: Patient will be admitted to the medical floor where she will receive routine supportive and symptomatic cares. She will be continued on her antibiotic therapy with continuous infusion nafcillin and oral rifampin. She will be main tained on a regular diet. She will be continued on her recommended medication schedule per her discharge summary from [place]. I will counseled patient briefly at bedside regarding discontinuation of smoking and I have encouraged her to find a Narcotics Anonymous group to join when she is discharged. 10/10/2019 Continue current antibiotic regimen. PICC line functioning. End of treatment October 25, 2019. Monitoring labs to include prothrombin time, CBC, CMP on October 16 then October 23. CRP and sed rate have normalized therefore unnecessary to continue to repeat these tests - Time Time Spent with patient: Less than 15 minutes Medications reviewed and adjusted accordingly: Yes Anticipated discharge: Home Within: Other - October 24 or October 26, 2019
[2019-10-10] MEDS: QUETIAPINE FUMARATE 25 MG TABLET PO SCH (22:23)
[2019-10-11] MEDS: NAFCILLIN SODIUM 2 GM in DEXTROSE 5%-WATER 100 ML IV SCH ×6 (02:03→22:17)
[2019-10-11] MEDS: RIFAMPIN 300 MG CAPSULE PO SCH ×3 (06:23→22:16)
[2019-10-11] MEDS: FAMOTIDINE 20 MG TABLET PO SCH ×2 (10:30→18:18)
[2019-10-11] MEDS: NALTREXONE HCL 50 MG TABLET PO SCH (11:03)
[2019-10-11] MEDS: BUSPIRONE HCL 10 MG TABLET PO SCH ×2 (11:03→22:16)
[2019-10-11] MEDS: POTASSIUM CHLORIDE 10 MEQ TABLET.ER PO SCH (11:04)
[2019-10-11] MEDS: ASPIRIN 325 MG TABLET PO SCH (11:04)
[2019-10-11] MEDS: ASCORBIC ACID 500 MG TABLET PO SCH ×2 (11:04→18:18)
[2019-10-11] MEDS: LACTOBACILLUS ACIDOPHILUS 250 MG TAB PO SCH ×2 (11:04→18:17)
[2019-10-11] MEDS: MULTIVITAMIN TABLET PO SCH (11:04)
[2019-10-11] MEDS: ENOXAPARIN SODIUM INJ 40 MG/0.4 ML DISP.SYRIN SUBCUT SCH (11:05)
[2019-10-11] MEDS: NORMAL SALINE 10 ML SDV (SCHEDULED) IV SCH ×2 (11:06→22:17)
--- NOTE | 2019-10-11 15:06 | PDOC PROGRESS REPORT ---
Subjective Progress Note for:: 10/11/19 Subjective:: Patient is resting comfortably in the chair. She was walking in the hallway earlier. She has no new or acute complaints. Reason For Visit: MSSA, BACTERMIA Physical Exam Vital Signs: Temp Pulse Resp BP Pulse Ox 99.1 F 116 H 16 110/61 99 10/11/19 08:42 10/11/19 08:42 10/11/19 08:42 10/11/19 08:42 10/11/19 08:42 Intake & Output 10/10/19 10/11/19 10/12/19 06:59 06:59 06:59 Intake Total 1860 1497 Balance 1860 1497 Weight 53.4 kg 55.3 kg General appearance: PRESENT: no acute distress, cooperative, well-developed, well-nourished Head exam: PRESENT: atraumatic, normocephalic Eye exam: PRESENT: conjunctiva pink. ABSENT: scleral icterus Ear exam: PRESENT: normal external ear exam. ABSENT: bleeding, drainage Mouth exam: PRESENT: moist, neck supple, tongue midline Respiratory exam: PRESENT: clear to auscultation chelo, symmetrical, unlabored. ABSENT: rales, rhonchi, tachypnea, wheezes Cardiovascular exam: PRESENT: RRR, +S1, +S2, systolic murmur - 3 of 6. ABSENT: irregular rhythm GI/Abdominal exam: PRESENT: normal bowel sounds, soft. ABSENT: ascites, distended, tenderness Rectal exam: PRESENT: deferred Gentrourinary exam: ABSENT: indwelling catheter Extremities exam: ABSENT: pedal edema Musculoskeletal exam: PRESENT: ambulatory, full ROM, normal inspection. ABSENT: deformity Neurological exam: PRESENT: alert, awake, oriented to person, oriented to place, oriented to time, oriented to situation, CN II-XII grossly intact. ABSENT: altered, motor sensory deficit Psychiatric exam: PRESENT: appropriate affect, normal mood. ABSENT: agitated, anxious Focused psych exam: ABSENT: delusional, paranoid, restlessness Skin exam: PRESENT: dry, normal color, warm. ABSENT: rash Results Laboratory Results: 10/10/19 05:45 10/10/19 05:45 Assessment and Plan - Diagnosis (1) Endocarditis due to methicillin susceptible Staphylococcus aureus (MSSA) Is this a current diagnosis for this admission?: Yes Plan: 10/09/2019 Currently on IV nafcillin and rifampin through October 24 Due to the long-term antibiotic therapy weekly monitoring laboratory studies will be drawn. 10/11/2019 Continue IV Ancef and rifampin (2) Anxiety Is this a current diagnosis for this admission?: Yes (3) Polysubstance abuse Is this a current diagnosis for this admission?: Yes - Plan Summary Summary: Patient will be admitted to the medical floor where she will receive routine supportive and symptomatic cares. She will be continued on her antibiotic therapy with continuous infusion nafcillin and oral rifampin. She will be maintained on a regular diet. She will be continued on her recommended medication schedule per her discharge summary from [place]. I will counseled patient briefly at bedside regarding discontinuation of smoking and I have encouraged her to find a Narcotics Anonymous group to join when she is discharged. 10/10/2019 Continue current antibiotic regimen. PICC line functioning. End of treatment October 25, 2019. Monitoring labs to include prothrombin time, CBC, CMP on Thursday, October 16 then October 23. CRP and sed rate have normalized therefore unnecessary to continue to repeat these tests 10/11/2019 Patient is stable. She is active and out of bed. Continue Ancef. It has been changed to every 4 hours to get the patient windows when she is not attached to the IV pole. Continue rifampin. Monitoring labs as noted above. Patient is tolerating the antibiotics without difficulty Naltrexone is now available and she is receiving it daily. - Time Time Spent with patient: Less than 15 minutes Medications reviewed and adjusted accordingly: Yes Anticipated discharge: Home Within: Other - October 24
[2019-10-11] MEDS: QUETIAPINE FUMARATE 25 MG TABLET PO SCH (22:16)
[2019-10-12] MEDS: NAFCILLIN SODIUM 2 GM in DEXTROSE 5%-WATER 100 ML IV SCH ×6 (02:41→22:11)
[2019-10-12] MEDS: RIFAMPIN 300 MG CAPSULE PO SCH ×3 (06:36→22:10)
[2019-10-12] MEDS: ENOXAPARIN SODIUM INJ 40 MG/0.4 ML DISP.SYRIN SUBCUT SCH (10:09)
[2019-10-12] MEDS: NORMAL SALINE 10 ML SDV (SCHEDULED) IV SCH ×2 (10:09→22:10)
[2019-10-12] MEDS: NALTREXONE HCL 50 MG TABLET PO SCH (10:09)
[2019-10-12] MEDS: POTASSIUM CHLORIDE 10 MEQ TABLET.ER PO SCH (10:09)
[2019-10-12] MEDS: BUSPIRONE HCL 10 MG TABLET PO SCH ×2 (10:09→22:10)
[2019-10-12] MEDS: LACTOBACILLUS ACIDOPHILUS 250 MG TAB PO SCH ×2 (10:09→17:24)
[2019-10-12] MEDS: FAMOTIDINE 20 MG TABLET PO SCH ×2 (10:09→17:24)
[2019-10-12] MEDS: ASCORBIC ACID 500 MG TABLET PO SCH ×2 (10:09→17:24)
[2019-10-12] MEDS: MULTIVITAMIN TABLET PO SCH (10:09)
[2019-10-12] MEDS: ASPIRIN 325 MG TABLET PO SCH (10:10)
--- NOTE | 2019-10-12 10:59 | PDOC PROGRESS REPORT ---
Subjective Progress Note for:: 10/12/19 Subjective:: Stable with no new complaints Reason For Visit: MSSA, BACTERMIA Physical Exam Vital Signs: Temp Pulse Resp BP Pulse Ox 97.5 F 107 H 17 106/60 100 10/11/19 23:33 10/11/19 23:33 10/11/19 23:33 10/11/19 23:33 10/11/19 23:33 Intake & Output 10/11/19 10/12/19 10/13/19 06:59 06:59 06:59 Intake Total 1497 474 Balance 1497 474 Weight 55.3 kg 55.3 kg General appearance: PRESENT: no acute distress, cooperative Respiratory exam: PRESENT: clear to auscultation chelo, symmetrical, unlabored. ABSENT: rales, rhonchi, tachypnea, wheezes Cardiovascular exam: PRESENT: RRR, +S1, +S2, systolic murmur. ABSENT: diastolic murmur, irregular rhythm, tachycardia GI/Abdominal exam: PRESENT: normal bowel sounds, soft. ABSENT: distended, guarding, tenderness Extremities exam: ABSENT: pedal edema Neurological exam: PRESENT: alert, awake, oriented to person, oriented to place, oriented to time, oriented to situation, CN II-XII grossly intact. ABSENT: altered, motor sensory deficit Results Laboratory Results: 10/10/19 05:45 10/10/19 05:45 Assessment and Plan - Diagnosis (1) Endocarditis due to methicillin susceptible Staphylococcus aureus (MSSA) Is this a current diagnosis for this admission?: Yes (2) Anxiety Is this a current diagnosis for this admission?: Yes (3) Polysubstance abuse Is this a current diagnosis for this admission?: Yes - Plan Summary Summary: Patient will be admitted to the medical floor where she will receive routine supportive and symptomatic cares. She will be continued on her antibiotic therapy with continuous infusion nafcillin and oral rifampin. She will be maintained on a regular diet. She will be continued on her recommended medication schedule per her discharge summary from [place]. I will counseled patient briefly at bedside regarding discontinuation of smoking and I have encouraged her to find a Narcotics Anonymous group to join when she is discharged. 10/10/2019 Continue current antibiotic regimen. PICC line functioning. End of treatment October 25, 2019. Monitoring labs to include prothrombin time, CBC, CMP on October 16 then Thursday, October 23. CRP and sed rate have normalized therefore unnecessary to continue to repeat these tests 10/11/2019 Patient is stable. She is active and out of bed. Continue Ancef. It has been changed to every 4 hours to get the patient windows when she is not attached to the IV pole. Continue rifampin. Monitoring labs as noted above. Patient is tolerating the antibiotics without difficulty Naltrexone is now available and she is receiving it daily. 10/20/2019 No changes in the treatment plan at this time. Monitoring labs as above. Continue naltrexone. - Time Time Spent with patient: Less than 15 minutes Medications reviewed and adjusted accordingly: Yes Anticipated discharge: Home Within: Other - October 24 or
[2019-10-12] MEDS: QUETIAPINE FUMARATE 25 MG TABLET PO SCH (22:10)
[2019-10-13] MEDS: NAFCILLIN SODIUM 2 GM in DEXTROSE 5%-WATER 100 ML IV SCH ×6 (02:14→21:13)
[2019-10-13] MEDS: RIFAMPIN 300 MG CAPSULE PO SCH ×3 (05:48→21:13)
[2019-10-13] MEDS: ENOXAPARIN SODIUM INJ 40 MG/0.4 ML DISP.SYRIN SUBCUT SCH (09:32)
[2019-10-13] MEDS: NORMAL SALINE 10 ML SDV (SCHEDULED) IV SCH ×2 (09:32→21:14)
[2019-10-13] MEDS: ASCORBIC ACID 500 MG TABLET PO SCH ×2 (09:32→17:15)
[2019-10-13] MEDS: BUSPIRONE HCL 10 MG TABLET PO SCH ×2 (09:32→21:13)
[2019-10-13] MEDS: LACTOBACILLUS ACIDOPHILUS 250 MG TAB PO SCH ×2 (09:33→17:14)
[2019-10-13] MEDS: ASPIRIN 325 MG TABLET PO SCH (09:33)
[2019-10-13] MEDS: NALTREXONE HCL 50 MG TABLET PO SCH (09:33)
[2019-10-13] MEDS: POTASSIUM CHLORIDE 10 MEQ TABLET.ER PO SCH (09:33)
[2019-10-13] MEDS: FAMOTIDINE 20 MG TABLET PO SCH ×2 (09:33→17:15)
[2019-10-13] MEDS: MULTIVITAMIN TABLET PO SCH (09:33)
--- NOTE | 2019-10-13 18:19 | PDOC PROGRESS REPORT ---
Subjective Progress Note for:: 10/13/19 Subjective:: No adverse events overnight. No new complaints. Vital signs been stable. When I came into the room she had her headphones in and was staring straight down on her phone furiously texting. She could not hear me calling out to her and I basically had to get nearly right on top of her just to get her attention. She denies any complaints. Reason For Visit: MSSA, BACTERMIA Physical Exam Vital Signs: Temp Pulse Resp BP Pulse Ox 98.3 F 119 H 16 105/70 99 10/13/19 07:24 10/13/19 11:09 10/13/19 11:09 10/13/19 11:09 10/13/19 11:09 Intake & Output 10/12/19 10/13/19 10/14/19 06:59 06:59 06:59 Intake Total 474 1082 480 Balance 474 1082 480 Weight 55.3 kg 56.6 kg General appearance: PRESENT: no acute distress, cooperative, disheveled Respiratory exam: PRESENT: clear to auscultation chelo, symmetrical, unlabored. ABSENT: accessory muscle use, chest wall tenderness, crackles, prolonged expiratory phas, rhonchi, tachypnea, wheezes Cardiovascular exam: PRESENT: RRR, +S1, +S2 Pulses: PRESENT: normal carotid pulses Vascular exam: PRESENT: normal capillary refill GI/Abdominal exam: PRESENT: normal bowel sounds, soft. ABSENT: distended, guarding, rebound, tenderness Extremities exam: ABSENT: clubbing, pedal edema Musculoskeletal exam: PRESENT: normal inspection. ABSENT: deformity Neurological exam: PRESENT: alert, awake, oriented to person, oriented to place, oriented to situation Psychiatric exam: PRESENT: appropriate affect, normal mood Skin exam: PRESENT: dry, warm Results Laboratory Results: 10/10/19 05:45 10/10/19 05:45 Assessment and Plan - Diagnosis (1) Endocarditis due to methicillin susceptible Staphylococcus aureus (MSSA) Is this a current diagnosis for this admission?: Yes Plan: She is doing well, continue antibiotics until October 24 (2) MSSA bacteremia Is this a current diagnosis for this admission?: Yes (3) Polysubstance abuse Is this a current diagnosis for this admission?: Yes - Plan Summary Summary: Patient will be admitted to the medical floor where she will receive routine supportive and symptomatic cares. She will be continued on her antibiotic therapy with continuous infusion nafcillin and oral rifampin. She will be maintained on a regular diet. She will be continued on her recommended medication schedule per her discharge summary from [place]. I will counseled patient briefly at bedside regarding discontinuation of smoking and I have encouraged her to find a Narcotics Anonymous group to join when she is discharged. 10/10/2019 Continue current antibiotic regimen. PICC line functioning. End of treatment October 25, 2019. Monitoring labs to include prothrombin time, CBC, CMP on October 16 then October 23. CRP and sed rate have normalized therefore unnecessary to continue to repeat these tests 10/11/2019 Patient is stable. She is active and out of bed. Continue Ancef. It has been changed to every 4 hours to get the patient windows when she is not attached to the IV pole. Continue rifampin. Monitoring labs as noted above. Patient is tolerating the antibiotics without difficulty Naltrexone is now available and she is receiving it daily. 10/20/2019 No changes in the treatment plan at this time. Monitoring labs as above. Continue naltrexone. - Time Time Spent with patient: 15-24 minutes
[2019-10-13] MEDS: QUETIAPINE FUMARATE 25 MG TABLET PO SCH (21:13)
[2019-10-14] MEDS: NAFCILLIN SODIUM 2 GM in DEXTROSE 5%-WATER 100 ML IV SCH ×6 (03:55→22:36)
[2019-10-14] MEDS: RIFAMPIN 300 MG CAPSULE PO SCH ×3 (05:34→22:37)
[2019-10-14] MEDS: BUSPIRONE HCL 10 MG TABLET PO SCH ×2 (09:43→22:37)
[2019-10-14] MEDS: MULTIVITAMIN TABLET PO SCH (09:43)
[2019-10-14] MEDS: LACTOBACILLUS ACIDOPHILUS 250 MG TAB PO SCH ×2 (09:43→17:33)
[2019-10-14] MEDS: ASPIRIN 325 MG TABLET PO SCH (09:43)
[2019-10-14] MEDS: ASCORBIC ACID 500 MG TABLET PO SCH ×2 (09:43→17:33)
[2019-10-14] MEDS: FAMOTIDINE 20 MG TABLET PO SCH ×2 (09:44→17:32)
[2019-10-14] MEDS: ENOXAPARIN SODIUM INJ 40 MG/0.4 ML DISP.SYRIN SUBCUT SCH (09:44)
[2019-10-14] MEDS: POTASSIUM CHLORIDE 10 MEQ TABLET.ER PO SCH (09:44)
[2019-10-14] MEDS: NORMAL SALINE 10 ML SDV (SCHEDULED) IV SCH ×2 (09:49→22:38)
[2019-10-14] MEDS: NALTREXONE HCL 50 MG TABLET PO SCH (09:54)
--- NOTE | 2019-10-14 16:21 | PDOC PROGRESS REPORT ---
Subjective Progress Note for:: 10/14/19 Subjective:: No adverse events overnight. No new complaints. She remains a little bit intermittently tachycardic but she is asymptomatic. Vital signs overall been stable. No fevers. Reason For Visit: MSSA, BACTERMIA Physical Exam Vital Signs: Temp Pulse Resp BP Pulse Ox 98.0 F 120 H 16 108/67 100 10/14/19 12:50 10/14/19 12:50 10/14/19 12:50 10/14/19 12:50 10/14/19 12:50 Intake & Output 10/13/19 10/14/19 10/15/19 06:59 06:59 06:59 Intake Total 1082 980 Balance 1082 980 Weight 56.6 kg 56.6 kg General appearance: PRESENT: no acute distress, cooperative, disheveled Respiratory exam: PRESENT: clear to auscultation chelo, symmetrical, unlabored. ABSENT: accessory muscle use, chest wall tenderness, crackles, prolonged expiratory phas, rhonchi, tachypnea, wheezes Cardiovascular exam: PRESENT: RRR, +S1, +S2 Pulses: PRESENT: normal carotid pulses Vascular exam: PRESENT: normal capillary refill GI/Abdominal exam: PRESENT: normal bowel sounds, soft. ABSENT: distended, guarding, rebound, tenderness Extremities exam: ABSENT: clubbing, pedal edema Musculoskeletal exam: PRESENT: normal inspection. ABSENT: deformity Neurological exam: PRESENT: alert, awake, oriented to person, oriented to place, oriented to situation Psychiatric exam: PRESENT: appropriate affect, normal mood Skin exam: PRESENT: dry, warm Results Laboratory Results: 10/10/19 05:45 10/10/19 05:45 10/09/19 05:33 Blood Blood Culture - Final NO GROWTH IN 5 DAYS 10/09/19 03:30 Blood Blood Culture - Final NO GROWTH IN 5 DAYS Assessment and Plan - Diagnosis (1) Endocarditis due to methicillin susceptible Staphylococcus aureus (MSSA) Is this a current diagnosis for this admission?: Yes Plan: She is doing well, continue antibiotics until October 24 (2) MSSA bacteremia Is this a current diagnosis for this admission?: Yes (3) Polysubstance abuse Is this a current diagnosis for this admission?: Yes Plan: Naltrexone has been ordered. She is receiving it daily. - Plan Summary Summary: Patient will be admitted to the medical floor where she will receive routine s upportive and symptomatic cares. She will be continued on her antibiotic therapy with continuous infusion nafcillin and oral rifampin. She will be maintained on a regular diet. She will be continued on her recommended medication schedule per her discharge summary from [place]. I will counseled patient briefly at bedside regarding discontinuation of smoking and I have encouraged her to find a Narcotics Anonymous group to join when she is discharged. 10/10/2019 Continue current antibiotic regimen. PICC line functioning. End of treatment October 25, 2019. Monitoring labs to include prothrombin time, CBC, CMP on Thursday, October 16 then Thursday, October 23. CRP and sed rate have normalized therefore unnecessary to continue to repeat these tests 10/11/2019 Patient is stable. She is active and out of bed. Continue Ancef. It has been changed to every 4 hours to get the patient windows when she is not attached to the IV pole. Continue rifampin. Monitoring labs as noted above. Patient is tolerating the antibiotics without difficulty Naltrexone is now available and she is receiving it daily. 10/20/2019 No changes in the treatment plan at this time. Monitoring labs as above. Continue naltrexone. - Time Time Spent with patient: 15-24 minutes
[2019-10-14] MEDS: QUETIAPINE FUMARATE 25 MG TABLET PO SCH (22:36)
[2019-10-15] MEDS: NAFCILLIN SODIUM 2 GM in DEXTROSE 5%-WATER 100 ML IV SCH ×6 (02:57→21:09)
[2019-10-15] MEDS: RIFAMPIN 300 MG CAPSULE PO SCH ×3 (08:14→21:07)
[2019-10-15] MEDS: ASPIRIN 325 MG TABLET PO SCH (11:00)
[2019-10-15] MEDS: ASCORBIC ACID 500 MG TABLET PO SCH ×2 (11:00→19:21)
[2019-10-15] MEDS: NORMAL SALINE 10 ML SDV (SCHEDULED) IV SCH ×2 (11:00→21:09)
[2019-10-15] MEDS: ENOXAPARIN SODIUM INJ 40 MG/0.4 ML DISP.SYRIN SUBCUT SCH (11:00)
[2019-10-15] MEDS: BUSPIRONE HCL 10 MG TABLET PO SCH ×2 (11:01→21:07)
[2019-10-15] MEDS: POTASSIUM CHLORIDE 10 MEQ TABLET.ER PO SCH (11:01)
[2019-10-15] MEDS: LACTOBACILLUS ACIDOPHILUS 250 MG TAB PO SCH ×2 (11:01→19:21)
[2019-10-15] MEDS: MULTIVITAMIN TABLET PO SCH (11:01)
[2019-10-15] MEDS: FAMOTIDINE 20 MG TABLET PO SCH ×2 (11:01→19:20)
[2019-10-15] MEDS: NALTREXONE HCL 50 MG TABLET PO SCH (11:02)
--- NOTE | 2019-10-15 15:53 | PDOC PROGRESS REPORT ---
Subjective Progress Note for:: 10/15/19 Subjective:: No adverse events overnight. No new complaints. She remains a little bit intermittently tachycardic but she is asymptomatic. Vital signs overall been stable. No fevers. Reason For Visit: MSSA, BACTERMIA Physical Exam Vital Signs: Temp Pulse Resp BP Pulse Ox 98.8 F 100 16 107/65 98 10/15/19 11:40 10/15/19 11:40 10/15/19 11:40 10/15/19 11:40 10/15/19 11:40 Intake & Output 10/14/19 10/15/19 10/16/19 06:59 06:59 06:59 Intake Total 980 1251 459 Balance 980 1251 459 Weight 56.6 kg 56.6 kg General appearance: PRESENT: no acute distress, cooperative, disheveled Respiratory exam: PRESENT: clear to auscultation chelo, symmetrical, unlabored. ABSENT: accessory muscle use, chest wall tenderness, crackles, prolonged expiratory phas, rhonchi, tachypnea, wheezes Cardiovascular exam: PRESENT: RRR, +S1, +S2 Pulses: PRESENT: normal carotid pulses Vascular exam: PRESENT: normal capillary refill GI/Abdominal exam: PRESENT: normal bowel sounds, soft. ABSENT: distended, guarding, rebound, tenderness Extremities exam: ABSENT: clubbing, pedal edema Musculoskeletal exam: PRESENT: normal inspection. ABSENT: deformity Neurological exam: PRESENT: alert, awake, oriented to person, oriented to place, oriented to situation Psychiatric exam: PRESENT: appropriate affect, normal mood Skin exam: PRESENT: dry, warm Results Laboratory Results: 10/10/19 05:45 10/10/19 05:45 Assessment and Plan - Diagnosis (1) Endocarditis due to methicillin susceptible Staphylococcus aureus (MSSA) Is this a current diagnosis for this admission?: Yes Plan: She is doing well, continue antibiotics until October 24 (2) MSSA bacteremia Is this a current diagnosis for this admission?: Yes (3) Polysubstance abuse Is this a current diagnosis for this admission?: Yes Plan: Naltrexone has been ordered. She is receiving it daily. - Plan Summary Summary: Patient will be admitted to the medical floor where she will receive routine supportive and symptomatic cares. She will be continued on her antibiotic therapy with continuous infusion nafcillin and oral rifampin. She will be maintained on a regular diet. She will be continued on her recommended medication schedule per her discharge summary from [place]. I will counseled patient briefly at bedside regarding discontinuation of smoking and I have encouraged her to find a Narcotics Anonymous group to join when she is discharged. 10/10/2019 Continue current antibiotic regimen. PICC line functioning. End of treatment October 25, 2019. Monitoring labs to include prothrombin time, CBC, CMP on Thursday, October 16 then October 23. CRP and sed rate have normalized therefore unnecessary to continue to repeat these tests 10/11/2019 Patient is stable. She is active and out of bed. Continue Ancef. It has been changed to every 4 hours to get the patient windows when she is not attached to the IV pole. Continue rifampin. Monitoring labs as noted above. Patient is tolerating the antibiotics without difficulty Naltrexone is now available and she is receiving it daily. 10/20/2019 No changes in the treatment plan at this time. Monitoring labs as above. Continue naltrexone. - Time Time Spent with patient: 15-24 minutes
[2019-10-15] MEDS: QUETIAPINE FUMARATE 25 MG TABLET PO SCH (21:07)
[2019-10-16] MEDS: NAFCILLIN SODIUM 2 GM in DEXTROSE 5%-WATER 100 ML IV SCH ×6 (01:33→21:18)
[2019-10-16] MEDS: LACTOBACILLUS ACIDOPHILUS 250 MG TAB PO SCH ×2 (09:13→17:36)
[2019-10-16] MEDS: POTASSIUM CHLORIDE 10 MEQ TABLET.ER PO SCH (09:13)
[2019-10-16] MEDS: MULTIVITAMIN TABLET PO SCH (09:13)
[2019-10-16] MEDS: BUSPIRONE HCL 10 MG TABLET PO SCH ×2 (09:13→21:15)
[2019-10-16] MEDS: NALTREXONE HCL 50 MG TABLET PO SCH (09:14)
[2019-10-16] MEDS: ENOXAPARIN SODIUM INJ 40 MG/0.4 ML DISP.SYRIN SUBCUT SCH (09:14)
[2019-10-16] MEDS: ASPIRIN 325 MG TABLET PO SCH (09:14)
[2019-10-16] MEDS: FAMOTIDINE 20 MG TABLET PO SCH ×2 (09:14→17:36)
[2019-10-16] MEDS: ASCORBIC ACID 500 MG TABLET PO SCH ×2 (09:14→17:36)
[2019-10-16] MEDS: NORMAL SALINE 10 ML SDV (SCHEDULED) IV SCH ×2 (09:15→21:19)
--- NOTE | 2019-10-16 12:50 | PDOC PROGRESS REPORT ---
Subjective Progress Note for:: 10/16/19 Subjective:: No adverse events overnight. No new complaints. Vital signs overall been stable. No fevers. Reason For Visit: MSSA, BACTERMIA Physical Exam Vital Signs: Temp Pulse Resp BP Pulse Ox 97.9 F 101 H 16 104/63 100 10/16/19 11:22 10/16/19 11:22 10/16/19 11:22 10/16/19 11:22 10/16/19 11:22 Intake & Output 10/15/19 10/16/19 10/17/19 06:59 06:59 06:59 Intake Total 1251 1733 237 Balance 1251 1733 237 Weight 56.6 kg 60.1 kg General appearance: PRESENT: no acute distress, cooperative, disheveled Respiratory exam: PRESENT: clear to auscultation chelo, symmetrical, unlabored. ABSENT: accessory muscle use, chest wall tenderness, crackles, prolonged expiratory phas, rhonchi, tachypnea, wheezes Cardiovascular exam: PRESENT: RRR, +S1, +S2 Pulses: PRESENT: normal carotid pulses Vascular exam: PRESENT: normal capillary refill GI/Abdominal exam: PRESENT: normal bowel sounds, soft. ABSENT: distended, guarding, rebound, tenderness Extremities exam: ABSENT: clubbing, pedal edema Musculoskeletal exam: PRESENT: normal inspection. ABSENT: deformity Neurological exam: PRESENT: alert, awake, oriented to person, oriented to place, oriented to situation Psychiatric exam: PRESENT: appropriate affect, normal mood Skin exam: PRESENT: dry, warm Results Laboratory Results: 10/10/19 05:45 10/10/19 05:45 Assessment and Plan - Diagnosis (1) Endocarditis due to methicillin susceptible Staphylococcus aureus (MSSA) Is this a current diagnosis for this admission?: Yes Plan: She is doing well, continue antibiotics until October 24 (2) MSSA bacteremia Is this a current diagnosis for this admission?: Yes (3) Polysubstance abuse Is this a current diagnosis for this admission?: Yes Plan: Naltrexone has been ordered. She is receiving it daily. - Plan Summary Summary: Patient will be admitted to the medical floor where she will receive routine supportive and symptomatic cares. She will be continued on her antibiotic therapy with continuous infusion nafcillin and oral rifampin. She will be maintained on a regular diet. She will be continued on her recommended medication schedule per her discharge summary from [place]. I will counseled patient briefly at bedside regarding discontinuation of smoking and I have encouraged her to find a Narcotics Anonymous group to join when she is discharged. 10/10/2019 Continue current antibiotic regimen. PICC line functioning. End of treatment October 25, 2019. Monitoring labs to include prothrombin time, CBC, CMP on Thursday, October 16 then October 23. CRP and sed rate have normalized therefore unnecessary to continue to repeat these tests 10/11/2019 Patient is stable. She is active and out of bed. Continue Ancef. It has been changed to every 4 hours to get the patient windows when she is not attached to the IV pole. Continue rifampin. Monitoring labs as noted above. Patient is tolerating the antibiotics without difficulty Naltrexone is now available and she is receiving it daily. 10/20/2019 No changes in the treatment plan at this time. Monitoring labs as above. Continue naltrexone. - Time Time Spent with patient: 15-24 minutes
[2019-10-16] MEDS: QUETIAPINE FUMARATE 25 MG TABLET PO SCH (21:16)
[2019-10-17] MEDS: NAFCILLIN SODIUM 2 GM in DEXTROSE 5%-WATER 100 ML IV SCH ×6 (01:25→21:19)
[2019-10-17] MEDS: ASPIRIN 325 MG TABLET PO SCH (10:18)
[2019-10-17] MEDS: BUSPIRONE HCL 10 MG TABLET PO SCH ×2 (10:19→21:16)
[2019-10-17] MEDS: NALTREXONE HCL 50 MG TABLET PO SCH (10:19)
[2019-10-17] MEDS: FAMOTIDINE 20 MG TABLET PO SCH ×2 (10:19→17:36)
[2019-10-17] MEDS: LACTOBACILLUS ACIDOPHILUS 250 MG TAB PO SCH ×2 (10:19→17:36)
[2019-10-17] MEDS: POTASSIUM CHLORIDE 10 MEQ TABLET.ER PO SCH (10:19)
[2019-10-17] MEDS: MULTIVITAMIN TABLET PO SCH (10:19)
[2019-10-17] MEDS: ENOXAPARIN SODIUM INJ 40 MG/0.4 ML DISP.SYRIN SUBCUT SCH (10:20)
[2019-10-17] MEDS: ASCORBIC ACID 500 MG TABLET PO SCH ×2 (10:20→17:36)
[2019-10-17] MEDS: NORMAL SALINE 10 ML SDV (AFTER EACH USE) IV PRN ×2 (10:22→18:50)
[2019-10-17] MEDS: NORMAL SALINE 10 ML SDV (SCHEDULED) IV SCH ×2 (10:50→21:20)
--- NOTE | 2019-10-17 15:58 | PDOC PROGRESS REPORT ---
Subjective Progress Note for:: 10/17/19 Subjective:: No adverse events overnight. No new complaints. Vital signs overall been stable. No fevers. Reason For Visit: MSSA, BACTERMIA Physical Exam Vital Signs: Temp Pulse Resp BP Pulse Ox 98.0 F 105 H 20 101/70 100 10/17/19 11:46 10/17/19 11:46 10/17/19 11:46 10/17/19 11:46 10/17/19 11:46 Intake & Output 10/16/19 10/17/19 10/18/19 06:59 06:59 06:59 Intake Total 1733 474 357 Balance 1733 474 357 Weight 60.1 kg 56.2 kg General appearance: PRESENT: no acute distress, cooperative, disheveled Respiratory exam: PRESENT: clear to auscultation chelo, symmetrical, unlabored. ABSENT: accessory muscle use, chest wall tenderness, crackles, prolonged expiratory phas, rhonchi, tachypnea, wheezes Cardiovascular exam: PRESENT: RRR, +S1, +S2 Pulses: PRESENT: normal carotid pulses Vascular exam: PRESENT: normal capillary refill GI/Abdominal exam: PRESENT: normal bowel sounds, soft. ABSENT: distended, guarding, rebound, tenderness Extremities exam: ABSENT: clubbing, pedal edema Musculoskeletal exam: PRESENT: normal inspection. ABSENT: deformity Neurological exam: PRESENT: alert, awake, oriented to person, oriented to place, oriented to situation Psychiatric exam: PRESENT: appropriate affect, normal mood Skin exam: PRESENT: dry, warm Results Laboratory Results: 10/10/19 05:45 10/10/19 05:45 Assessment and Plan - Diagnosis (1) Endocarditis due to methicillin susceptible Staphylococcus aureus (MSSA) Is this a current diagnosis for this admission?: Yes Plan: She is doing well, continue antibiotics until October 24 (2) MSSA bacteremia Is this a current diagnosis for this admission?: Yes (3) Polysubstance abuse Is this a current diagnosis for this admission?: Yes Plan: Naltrexone has been ordered. She is receiving it daily. - Plan Summary Summary: Patient will be admitted to the medical floor where she will receive routine supportive and symptomatic cares. She will be continued on her antibiotic therapy with continuous infusion nafcillin and oral rifampin. She will be maintained on a regular diet. She will be continued on her recommended medication schedule per her discharge summary from [place]. I will counseled patient briefly at bedside regarding discontinuation of smoking and I have encouraged her to find a Narcotics Anonymous group to join when she is discharged. 10/10/2019 Continue current antibiotic regimen. PICC line functioning. End of treatment October 25, 2019. Monitoring labs to include prothrombin time, CBC, CMP on Thursday, October 16 then October 23. CRP and sed rate have normalized therefore unnecessary to continue to repeat these tests 10/11/2019 Patient is stable. She is active and out of bed. Continue Ancef. It has been changed to every 4 hours to get the patient windows when she is not attached to the IV pole. Continue rifampin. Monitoring labs as noted above. Patient is tolerating the antibiotics without difficulty Naltrexone is now available and she is receiving it daily. 10/20/2019 No changes in the treatment plan at this time. Monitoring labs as above. Continue naltrexone. - Time Time Spent with patient: 15-24 minutes
[2019-10-17 18:36] LABS: ABSOLUTE BASOPHILS # (AUTO) 0.1 10^3/uL (0.0-0.2); ABSOLUTE EOSINOPHILS # (AUTO) 0.1 10^3/uL (0.0-0.6); ABSOLUTE LYMPHOCYTES (AUTO) 2.4 10^3/uL (0.5-4.7); ABSOLUTE MONOCYTES (AUTO) 0.6 10^3/uL (0.1-1.4); BASOPHILS % (AUTO) 0.8 % (0-2); EOSINOPHILS % (AUTO) 0.8 % (0-6); HEMATOCRIT 34.4 % (36.0-47.0); HEMOGLOBIN 12.2 g/dL (12.0-15.5); LYMPHOCYTES % (AUTO) 29.7 % (13-45); MEAN CORPUSCULAR HGB CONC 35.3 g/dL (32.0-36.0); MEAN CORPUSCULAR VOLUME 93 fl (80-97); MONOCYTES % (AUTO) 7.3 % (3-13); PLATELET COUNT 294 10^3/uL (150-450); RED BLOOD COUNT 3.69 10^6/uL (3.72-5.28); RED CELL DISTRIBUTION WIDTH 19.3 % (11.5-14.0); SEGMENTED NEUTROPHILS % (AUTO) 61.4 % (42-78); TOTAL CELLS COUNTED % (AUTO) 100 %; WHITE BLOOD COUNT 8.2 10^3/uL (4.0-10.5)
[2019-10-17 18:44] LABS: ANION GAP 12 (5-19); BLOOD UREA NITROGEN 19 mg/dL (7-20); CALCIUM 9.3 mg/dL (8.4-10.2); CARBON DIOXIDE 25 mmol/L (22-30); CHLORIDE 101 mmol/L (98-107); GLUCOSE 102 mg/dL (75-110); POTASSIUM 4.3 mmol/L (3.6-5.0)
[2019-10-17] MEDS: QUETIAPINE FUMARATE 25 MG TABLET PO SCH (21:18)
[2019-10-18] MEDS: NAFCILLIN SODIUM 2 GM in DEXTROSE 5%-WATER 100 ML IV SCH ×5 (01:59→17:17)
[2019-10-18] MEDS: MULTIVITAMIN TABLET PO SCH (10:21)
[2019-10-18] MEDS: NALTREXONE HCL 50 MG TABLET PO SCH (10:21)
[2019-10-18] MEDS: FAMOTIDINE 20 MG TABLET PO SCH ×2 (10:21→17:17)
[2019-10-18] MEDS: POTASSIUM CHLORIDE 10 MEQ TABLET.ER PO SCH (10:21)
[2019-10-18] MEDS: LACTOBACILLUS ACIDOPHILUS 250 MG TAB PO SCH ×2 (10:21→17:17)
[2019-10-18] MEDS: ASPIRIN 325 MG TABLET PO SCH (10:21)
[2019-10-18] MEDS: BUSPIRONE HCL 10 MG TABLET PO SCH (10:21)
[2019-10-18] MEDS: ASCORBIC ACID 500 MG TABLET PO SCH ×2 (10:22→17:17)
[2019-10-18] MEDS: ENOXAPARIN SODIUM INJ 40 MG/0.4 ML DISP.SYRIN SUBCUT SCH (10:22)
[2019-10-18] MEDS: NORMAL SALINE 10 ML SDV (SCHEDULED) IV SCH (10:32)
--- NOTE | 2019-10-18 18:16 | PDOC PROGRESS REPORT ---
Subjective Progress Note for:: 10/18/19 Subjective:: No adverse events overnight. No new complaints. Vital signs overall been stable. No fevers. Reason For Visit: MSSA, BACTERMIA Physical Exam Vital Signs: Temp Pulse Resp BP Pulse Ox 98.1 F 112 H 16 107/72 100 10/18/19 15:01 10/18/19 15:01 10/18/19 15:01 10/18/19 15:01 10/18/19 15:01 Intake & Output 10/17/19 10/18/19 10/19/19 06:59 06:59 06:59 Intake Total 474 1047 980 Output Total 2 Balance 474 1045 980 Weight 56.2 kg 56.8 kg General appearance: PRESENT: no acute distress, cooperative, disheveled Respiratory exam: PRESENT: clear to auscultation chelo, symmetrical, unlabored. ABSENT: accessory muscle use, chest wall tenderness, crackles, prolonged expiratory phas, rhonchi, tachypnea, wheezes Cardiovascular exam: PRESENT: RRR, +S1, +S2 Pulses: PRESENT: normal carotid pulses Vascular exam: PRESENT: normal capillary refill GI/Abdominal exam: PRESENT: normal bowel sounds, soft. ABSENT: distended, guarding, rebound, tenderness Extremities exam: ABSENT: clubbing, pedal edema Musculoskeletal exam: PRESENT: normal inspection. ABSENT: deformity Neurological exam: PRESENT: alert, awake, oriented to person, oriented to place, oriented to situation Psychiatric exam: PRESENT: appropriate affect, normal mood Skin exam: PRESENT: dry, warm Results Laboratory Results: 10/17/19 17:55 10/17/19 17:55 10/17/19 10/17/19 17:55 17:55 WBC 8.2 RBC 3.69 L Hgb 12.2 Hct 34.4 L MCV 93 MCH 33.0 MCHC 35.3 RDW 19.3 H Plt Count 294 Seg Neutrophils % 61.4 Sodium 137.9 Potassium 4.3 Chloride 101 Carbon Dioxide 25 Anion Gap 12 BUN 19 Creatinine 0.66 Est GFR ( Amer) > 60 Glucose 102 Calcium 9.3 Assessment and Plan - Diagnosis (1) Endocarditis due to methicillin susceptible Staphylococcus aureus (MSSA) Is this a current diagnosis for this admission?: Yes Plan: She is doing well, continue antibiotics until October 24 (2) MSSA bacteremia Is this a current diagnosis for this admission?: Yes (3) Polysubstance abuse Is this a current diagnosis for this admission?: Yes Plan: Naltrexone has been ordered. She is receiving it daily. She said she is planning on leaving this area and going either to [place] with her father or to [place] with some other family. - Plan Summary Summary: Patient will be admitted to the medical floor where she will receive routine supportive and symptomatic cares. She will be continued on her antibiotic therapy with continuous infusion nafcillin and oral rifampin. She will be maintained on a regular diet. She will be continued on her recommended medication schedule per her discharge summary from [place]. I will counseled patient briefly at bedside regarding discontinuation of smoking and I have encouraged her to find a Narcotics Anonymous group to join when she is discharged. 10/10/2019 Continue current antibiotic regimen. PICC line functioning. End of treatment October 25, 2019. Monitoring labs to include prothrombin time, CBC, CMP on Thursday, October 16 then Thursday, October 23. CRP and sed rate have normalized therefore unnecessary to continue to repeat these tests 10/11/2019 Patient is stable. She is active and out of bed. Continue Ancef. It has been changed to every 4 hours to get the patient windows when she is not attached to the IV pole. Continue rifampin. Monitoring labs as noted above. Patient is tolerating the antibiotics without difficulty Naltrexone is now available and she is receiving it daily. 10/20/2019 No changes in the treatment plan at this time. Monitoring labs as above. Continue naltrexone. - Time Time Spent with patient: 15-24 minutes
[2019-10-18 20:43] VITALS: BP 106/68
--- NOTE | 2019-10-19 17:54 | Left Against Medical Advice ---
Against Medical Advice Admission Date/Time: 10/08/19 23:04 Primary Care Provider: Date of Patient Emigration: 10/18/19 - Diagnosis: (1) Endocarditis due to methicillin susceptible Staphylococcus aureus (MSSA) Is this a current diagnosis for this admission?: Yes (2) MSSA bacteremia Is this a current diagnosis for this admission?: Yes (3) Polysubstance abuse Is this a current diagnosis for this admission?: Yes - Summary: Summary: Please see Admission and Progress Notes as well. ELVIN BALLESTEROS is a 29 F, who LEFT AGAINST MEDICAL ADVICE. The Patient was admitted on 10/08/19 23:04. From the H&P: "ELVIN BALLESTEROS is a 29 year old female who was received in transfer from [facility] for completion of her intravenous antibiotic therapy. She admits having been admitted at the [facility] on September 12, 2019 during her time there she was treated with IV nafcillin per continuous infusion and intravenous rifampin 3 times daily as treatment of an MSSA bacteremia following endocarditis and a tricuspid valve repair in April 2019. Over the course of her treatment she noticed resolution of her initial symptoms leading to presentation of fever, malaise and chest pain. At the present time she feels well and is looking forward to completion of her intravenous antibiotic therapy so that she may be discharged to home. She has a history of IV drug abuse but is looking forward to a clean and sober life." She had been doing well and had 5 days of antibiotic therapy left when she dec ided to leave AGAINST MEDICAL ADVICE.
== END 2019-10-18 22:30 | disposition left against medical advice (07) | DRG 290 ==
LOC: 4N 23:04
PROVIDERS: ADMIT Emergency Medicine; ATTEND Family Medicine
DX: I33.0 Acute and subacute infective endocarditis (principal); B95.61 Methicillin susceptible Staphylococcus aureus infection as the cause of diseases classified elsewhere; F31.9 Bipolar disorder, unspecified; F17.210 Nicotine dependence, cigarettes, uncomplicated; D64.9 Anemia, unspecified; F14.10 Cocaine abuse, uncomplicated; F11.10 Opioid abuse, uncomplicated; F12.10 Cannabis abuse, uncomplicated; F41.1 Generalized anxiety disorder; G89.29 Other chronic pain; M25.512 Pain in left shoulder; M25.572 Pain in left ankle and joints of left foot; Z86.711 Personal history of pulmonary embolism; Z79.899 Other long term (current) drug therapy; Z79.82 Long term (current) use of aspirin; Z88.8 Allergy status to other drugs, medicaments and biological substances; Z95.9 Presence of cardiac and vascular implant and graft, unspecified
CPT/HCPCS: 36415; 80048; 80053; 81001; 83735; 85025; 85652; 86140; 87040; J1642; J1650; J3490; J7060; S0032

== ENCOUNTER 2019-10-28 11:00 | Inpatient (IN) | payer SELFPAY ==
[~2019-10-28 11:00] MED LIST: SUCCINYLCHOLINE CHLORIDE INJ 200 MG/10 ML VIAL ONE
[2019-10-28 11:35] LABS: VENOUS BLOOD BASE EXCESS 2.2 mmol/L; VENOUS BLOOD HCO3 24.6 mmol/L (20-32); VENOUS BLOOD PCO2 31.2 mmHg (35-63); VENOUS BLOOD PH 7.51 (7.30-7.42)
[2019-10-28] MEDS ORDERED: RINGERS LACTATED IV ONE (11:38)
[2019-10-28] MEDS ORDERED: NAFCILLIN SODIUM INJ 2 GM VIAL IV ONE (11:39)
[2019-10-28] MEDS ORDERED: RIFAMPIN INJ 600 MG VIAL IV ONE (11:39)
[2019-10-28 11:41] LABS: HEMATOCRIT 29.8 % (36.0-47.0); HEMOGLOBIN 10.7 g/dL (12.0-15.5); MEAN CORPUSCULAR HEMOGLOBIN 32.4 pg (27.0-33.4); MEAN CORPUSCULAR HGB CONC 35.7 g/dL (32.0-36.0); MEAN CORPUSCULAR VOLUME 91 fl (80-97); PLATELET COUNT 286 10^3/uL (150-450); RED BLOOD COUNT 3.29 10^6/uL (3.72-5.28); WHITE BLOOD COUNT 18.5 10^3/uL (4.0-10.5)
[2019-10-28] MEDS ORDERED: FENTANYL CITRATE INJ/PF 100 MCG/2 ML AMPUL IV ONE ×2 (11:52→21:15)
[2019-10-28 11:53] LABS: INTERNATIONAL RATION (INR) 1.53; PROTHROMBIN TIME 18.5 SEC (11.4-15.4)
[2019-10-28 11:54] LABS: ALBUMIN 3.4 g/dL (3.5-5.0); ALKALINE PHOSPHATASE 101 U/L (38-126); ANION GAP 13 (5-19); ASPARTATE AMINO TRANSFERASE 136 U/L (14-36); BILIRUBIN,DIRECT 0.8 mg/dL (0.0-0.4); BILIRUBIN,TOTAL 1.6 mg/dL (0.2-1.3); BLOOD UREA NITROGEN 12 mg/dL (7-20); CALCIUM 8.6 mg/dL (8.4-10.2); CARBON DIOXIDE 25 mmol/L (22-30); CHLORIDE 91 mmol/L (98-107); GLUCOSE 129 mg/dL (75-110); TOTAL PROTEIN 6.3 g/dL (6.3-8.2)
[2019-10-28 11:56] LABS: POTASSIUM 2.8 mmol/L (3.6-5.0)
--- NOTE | 2019-10-28 11:56 | ER Document Report ---
ED General - General Chief Complaint: Skin Problem Stated Complaint: WEAKNESS,DRUG USE Time Seen by Provider: 10/28/19 11:23 Information source: Patient Notes: Patient presents with erythema to bilateral upper extremities, wound infection to the right thumb, blackened tip to the left second finger, bilateral foot and ankle pain. Patient does have a developing infection to the plantar surface of the right foot. Patient states that she has been staying at a hotel injecting heroin. Patient last injected to her left forearm. Patient reports subjective fever. Patient was recently admitted in the hospital for 10 days but left AMA on 10/19/2019. Patient had been receiving IV antibiotics for bacteremia. Patient does have a history of previous endocarditis with a tricuspid valve repair in 2019. TRAVEL OUTSIDE OF THE [place] IN LAST 30 DAYS: No - HPI Onset: Other - 3 days Onset/Duration: Gradual, Worse Quality of pain: Achy, Sharp Pain Level: 5 Associated symptoms: Body/muscle aches, Fever. denies: Nonproductive cough, Productive cough, Nausea, Vomiting Exacerbated by: Movement, Walking Relieved by: Denies Similar symptoms previously: Yes Recently seen / treated by doctor: Yes - Related Data Allergies/Adverse Reactions: No Known Allergies Allergy (Unverified 10/09/19 03:08) Past Medical History - General Information source: Patient - Social History Smoking Status: Current Every Day Smoker Frequency of alcohol use: None Drug Abuse: Heroin, Marijuana Occupation: None Family History: denies: CAD, DM, Hypertension, Malignancy Patient has homicidal ideation: No - Past Medical History Cardiac Medical History: Reports: Hx Pulmonary Embolism - Septic pulmonary emboli secondary to endocarditis, Hx Heart Murmur Neurological Medical History: Denies: Hx Cerebrovascular Accident, Hx Migraine, Hx Seizures Endocrine Medical History: Denies: Hx Diabetes Mellitus Type 1, Hx Hyper thyroidism, Hx Hypothyroidism Renal/ Medical History: Reports: Hx Pelvic Inflammatory Disease. Denies: Hx Peritoneal Dialysis Musculoskeletal Medical History: Denies Hx Arthritis, Denies Hx Fibromyalgia Skin Medical History: Denies Hx Eczema, Reports Hx MRSA - back, Denies Hx Psoriasis Psychiatric Medical History: Reports: Hx Anxiety, Hx Bipolar Disorder, Hx Depression Infectious Medical History: Denies: Hx Hepatitis Past Surgical History: Reports: Hx Cardiac Surgery - Tricuspid valvuloplasty, Hx Oral Surgery, Hx Orthopedic Surgery - left ankle, Other - Incision and drainage of lower back abscess, tricuspid valve repair - Immunizations Immunizations up to date: Yes Hx Diphtheria, Pertussis, Tetanus Vaccination: Yes Review of Systems - Review of Systems Constitutional: Chills, Fever EENT: No symptoms reported Cardiovascular: No symptoms reported. denies: Chest pain Respiratory: No symptoms reported Gastrointestinal: No symptoms reported. denies: Vomiting Genitourinary: No symptoms reported. denies: Dysuria Female Genitourinary: No symptoms reported Musculoskeletal: Joint pain - Bilateral feet and ankles, right thumb, Muscle pain Skin: Change in color - Blackened area to right thumb, left second finger, redness to right hand, left forearm Hematologic/Lymphatic: No symptoms reported Neurological/Psychological: No symptoms reported Physical Exam - Vital signs Vitals: Resp Pulse Ox 25 H 99 10/28/19 11:10 10/28/19 11:10 - General General appearance: Alert In distress: Moderate - HEENT Head: Normocephalic, Atraumatic Eyes: Normal Conjunctiva: Normal Nasal: Normal Mouth/Lips: Normal Mucous membranes: Dry Neck: Normal, Supple. No: Lymphadenopathy - Respiratory Respiratory status: No respiratory distress Chest status: Nontender Breath sounds: Normal Chest palpation: Normal - Cardiovascular Rhythm: Regular, Tachycardia Heart sounds: S1 appreciated, S2 appreciated - Abdominal Inspection: Normal Distension: No distension Bowel sounds: Normal Tenderness: Nontender - Back Back: Normal, Nontender - Extremities General upper extremity: Tender - Tenderness to right thumb General lower extremity: Tender - Tenderness to left ankle and right foot Arm: Tender, Other - Erythema, tenderness, swelling to bilateral forearms and hands Hand: Tender, Swelling, Other - Patient with necrotic appearance with tenderness swelling and exudate to right thumb and the distal tip of the left second finger Foot: Tender - Tenderness to the bilateral feet, bolus skin lesion to plantar surface of the right distal fourth and fifth metatarsal, erythema noted to left great toe - Neurological Neuro grossly intact: Yes Krystle Coma Scale Eye Opening: Spontaneous Krystle Coma Scale Verbal: Oriented [place] Coma Scale Motor: Obeys Commands Krystle Coma Scale Total: 15 - Skin Skin Temperature: Warm Skin Moisture: Dry Skin Color: Erythema - Left forearm tender, indurated with area worrisome for developing abscess to middle third of left forearm, blackened necrotic wound encompassing the entire right thumb with swelling to the right hand, necrotic blackened area to the tip of the left second finger., Other - Erythematous bu llous lesion with some discoloration to the plantar surface of the right foot with surrounding erythema Course - Re-evaluation Re-evalutation: 10/28/19 11:[address] Putnam, to bedside for examination. Suspect likely transfer to another facility that has infectious disease on staff. 10/28/19 11:53 EJ placed to right side of neck, good blood return and line flushed without difficulty. 10/28/19 12:07 Call placed to hospitalist, spoke with Dr. Dick regarding patient presentation. States that patient could be admitted to their services depending on what the surgeon feels needs to be done about the wounds to her extremities. Recommends consultation with surgery at this time. Call placed for consultation with Dr. Marroquin. Dr. Marroquin has been paged. 10/28/19 12:[address] Marroquin who does agree to come and evaluate patient in the ER at this time. 10/28/19 12:43 Dr. Marroquin at bedside. Consulted with Dr. Dick to discuss Dr. Marroquin request that they evaluate patient as he is considering taking her to the OR. Dr. Dick advises calling Dr. Al as he will be the one to admit the patient. Consulted with Dr. Al who states that he will be down to see her shortly. 10/28/19 12:55 Dr. Al at bedside. Dr. Al advised that Dr. Marroquin requested consultation, Dr. Marroquin paged to Dr. bowen's phone. 10/28/19 13:25 Dr. Marroquin to take patient directly to the OR, OR transport crew here to take patient to the OR. Patient to be admitted to Dr. Al's services - Vital Signs Vital signs: Temp Pulse Resp BP Pulse Ox 97.8 F 122 H 20 121/71 99 10/28/19 16:13 10/28/19 19:00 10/28/19 16:13 10/28/19 16:13 10/28/19 16:13 - Laboratory Result Diagrams: 10/28/19 11:20 10/28/19 11:20 Laboratory results interpreted by me: 10/28/19 10/28/19 10/28/19 11:20 11:20 11:20 WBC 18.5 H RBC 3.29 L Hgb 10.7 L Hct 29.8 L RDW 19.0 H Seg Neuts % (Manual) 89 H Band Neutrophils % 1 L Lymphocytes % (Manual) 7 L Abs Neuts (Manual) 16.7 H PT 18.5 H APTT VBG pH VBG pCO2 Sodium 128.9 L Potassium 2.8 L* Chloride 91 L Creatinine 0.50 L Glucose 129 H POC Glucose Total Bilirubin 1.6 H Direct Bilirubin 0.8 H AST 136 H ALT 72 H Albumin 3.4 L Urine Protein Urine Ketones Urine Blood Urine Urobilinogen Leukocyte Esterase [facility] 10/28/19 10/28/19 10/28/19 11:20 11:20 11:42 WBC RBC Hgb Hct RDW Seg Neuts % (Manual) Band Neutrophils % Lymphocytes % (Manual) Abs Neuts (Manual) PT APTT 38.3 H VBG pH 7.51 H VBG pCO2 31.2 L Sodium Potassium Chloride Creatinine Glucose POC Glucose 145 H Total Bilirubin Direct Bilirubin AST ALT Albumin Urine Protein Urine Ketones Urine Blood Urine Urobilinogen Leukocyte Esterase [facility] 10/28/19 11:45 WBC RBC Hgb Hct RDW Seg Neuts % (Manual) Band Neutrophils % Lymphocytes % (Manual) Abs Neuts (Manual) PT APTT VBG pH VBG pCO2 Sodium Potassium Chloride Creatinine Glucose POC Glucose Total Bilirubin Direct Bilirubin AST ALT Albumin Urine Protein 100 H Urine Ketones 20 H Urine Blood MODERATE H Urine Urobilinogen 4.0 H Leukocyte Esterase Rfl TRACE H - Diagnostic Test Radiology reviewed: Reports reviewed Critical Care Note - Critical Care Note Comments: Please bill 40 minutes critical care time spent in direct contact evaluating, reevaluating patient, treating symptoms, reviewing labs, studies and speaking consultants, excluding any procedures. Discharge - Discharge Clinical Impression: Sinus tachycardia, MSSA bacteremia, Polysubstance abuse, History of acute bacterial endocarditis, Infection of thumb, Right foot infection Cellulitis Qualifiers: Site of cellulitis: extremity Site of cellulitis of extremity: upper extremity Laterality: left Qualified Code(s): L03.114 - Cellulitis of left upper limb Condition: Serious Disposition: ADMITTED INPATIENT Admitting Provider: Mikaela (Hospitalist) Unit Admitted: OR ED Sepsis - Sepsis Documentation Sepsis Patient: Yes - Vital Signs Interpretation: Tachycardic - Cardiovascular Peripheral Pulse Strength: Normal Rhythm: Tachycardia Heart Sounds: S1 appreciated, S2 appreciated - Respiratory Respiratory Status: No respiratory distress - Skin Skin Color: Erythema - Erythema to bilateral upper extremities
[2019-10-28] MEDS ORDERED: POTASSIUM CHLORIDE 10 MEQ TABLET.ER PO ONE (12:00)
[2019-10-28 12:02] LABS: APPEARANCE,URINE SLIGHTLY-CLOUDY; BILIRUBIN,URINE NEGATIVE (NEGATIVE); COLOR,URINE AMBER; GLUCOSE, URINE NEGATIVE (NEGATIVE); KETONES,URINE 20 mg/dL (NEGATIVE); PROTEIN,URINE 100 mg/dL (NEGATIVE); URINE SPECIFIC GRAVITY 1.015
[2019-10-28 12:03] LABS: ABSOLUTE LYMPHOCYTES# (MANUAL) 1.3 10^3/uL (0.5-4.7); ABSOLUTE MONOCYTES # (MANUAL) 0.6 10^3/uL (0.1-1.4); BAND NEUTROPHILS % (MANUAL) 1 % (3-5); BASOPHILS % (MANUAL) 0 % (0-2); EOSINOPHILS % (MANUAL) 0 % (0-6); LYMPHOCYTES % (MANUAL) 7 % (13-45); MONOCYTES % (MANUAL) 3 % (3-13); SEGMENTED NEUTROPHILS % (MAN) 89 % (42-78); TOTAL CELLS COUNTED 100
[2019-10-28 12:05] LABS: ANISOCYTOSIS 2+; PLATELET COMMENT ADEQUATE; PLATELET LARGE PRESENT; POLYCHROMASIA SLIGHT; TOXIC GRANULATION SLIGHT; TOXIC VACUOLATION PRESENT
--- NOTE | 2019-10-28 12:26 | RADIOLOGY REPORT (SQ) ---
EXAM DESCRIPTION: FINGER RIGHT IMAGES COMPLETED DATE/TIME: 10/28/2019 12:09 pm REASON FOR STUDY: r thumb swelling, pain COMPARISON: None. NUMBER OF VIEWS: Three views. TECHNIQUE: AP, lateral, and oblique images acquired of the right thumb. LIMITATIONS: None. FINDINGS: MINERALIZATION: Normal. BONES: No acute fracture or dislocation. No worrisome bone lesions. SOFT TISSUES: Soft tissue swelling. OTHER: No other significant finding. IMPRESSION: Soft tissue swelling. No osseous abnormality. COMMENT: SITE OF TRAUMA/COMPLAINT MARKED/STAMP COMPLETED: Yes TECHNICAL DOCUMENTATION: JOB ID: [id number] 2010 [employer]- All Rights Reserved Reading location - IP/workstation name: [email or web address]
--- NOTE | 2019-10-28 12:27 | RADIOLOGY REPORT (SQ) ---
EXAM DESCRIPTION: CHEST SINGLE VIEW IMAGES COMPLETED DATE/TIME: 10/28/2019 12:09 pm REASON FOR STUDY: fever, sepsis COMPARISON: AP view of the chest from 09/12/2019. EXAM PARAMETERS: NUMBER OF VIEWS: One view. TECHNIQUE: An AP view of the chest was obtained. RADIATION DOSE: NA LIMITATIONS: None. FINDINGS: LUNGS AND PLEURA: Peripheral linear opacities that are perpendicular to the pleural surfac e in the inferolateral aspect of the right hemithorax. There is no sizable pleural effusion, consoli dation or pneumothorax. MEDIASTINUM AND HILAR STRUCTURES: No mediastinal or hilar contour abnormality. HEART AND VASCULAR STRUCTURES: The cardiac silhouette is borderline enlarged. BONES: No acute findings. HARDWARE: Status post median sternotomy. OTHER: No other finding. IMPRESSION: Peripheral linear opacities that are perpendicular to the pleural surface in the inferol ateral aspect of the right hemithorax could represent Caleb B lines - clinical correlation for mild CHF / interstitial edema is recommended. TECHNICAL DOCUMENTATION: JOB ID: [id number] 2010 [employer]- All Rights Reserved Reading location - IP/workstation name: [email or web address]
[2019-10-28] MEDS: POTASSI CL 20 MEQ/50 ML RIDER 20 MEQ/50 ML RTUPB IV SCH ×2 (12:39→16:58)
--- NOTE | 2019-10-28 12:42 | EKG REPORT ---
SEVERITY:- OTHERWISE NORMAL ECG - SINUS TACHYCARDIA : Confirmed by: Madiha Hoover 28-Oct-2019 12:41:01
[2019-10-28] MEDS ORDERED: LIDOCAINE 1% INJ-PF (10 MG/ML) 30 ML SDV ONE (13:27)
[2019-10-28] MEDS ORDERED: GLUCAGON,HUMAN RECOMB 1 MG INJ SUBCUT PRN (13:28)
[2019-10-28] MEDS ORDERED: DEXTROSE 50%-WATER 25 GM/50 ML DISP.SYRIN IV PRN ×2 (13:28)
[2019-10-28] MEDS ORDERED: DEXTROSE 40% GEL 15 GM TUBE PO PRN ×2 (13:28)
[2019-10-28] MEDS ORDERED: VANCOMYCIN HCL 0 MG in DEXTROSE 5%-WATER 250 ML IV NR (13:30)
[2019-10-28] MEDS ORDERED: MIDAZOLAM 2 MG/2 ML INJ ONE (13:35)
[2019-10-28] MEDS ORDERED: FENTANYL CITRATE INJ/PF 100 MCG/2 ML AMPUL ONE (13:35)
[2019-10-28] MEDS ORDERED: DEXAMETHASONE SOD PHOSPHATE INJ 4 MG/1 ML VIAL ONE (13:35)
[2019-10-28] MEDS ORDERED: ONDANSETRON HCL INJ/PF 4 MG/2 ML SDV ONE (13:36)
[2019-10-28] MEDS ORDERED: PROPOFOL INJ 200 MG/20 ML VIAL IV ONE (13:36)
[2019-10-28] MEDS ORDERED: MORPHINE SULFATE 10 MG/ML INJ ONE ×2 (13:36→15:43)
[2019-10-28 14:05] LABS: URINE BARBITURATES SCREEN NEGATIVE; URINE BENZODIAZEPINES SCREEN NEGATIVE; URINE COCAINE SCREEN NEGATIVE; URINE METHADONE SCREEN NEGATIVE; URINE PHENCYCLIDINE SCREEN NEGATIVE
[2019-10-28 14:11] LABS: URINE MARIJUANA (THC) SCREEN UNCONFIRMED POSITIVE
--- NOTE | 2019-10-28 14:14 | PDOC H&P ---
History of Present Illness History of Present Illness: ELVIN BALLESTEROS is a 29 year old female with a longstanding history of IV drug abuse who presented to this hospital on April 28, 2019 was diagnosed with infective endocarditis, Staphylococcus aureus bacteremia, and septic shock. She was transferred to [facility] where she had tricuspid valve repair and PFO closure. She was transferred back here on May 16, 2019 to finish up treatment with IV nafcillin and I believe also rifampin, and she was discharged on June 16, 2019. She came back to this ER September 11, 2019 with a similar presentation and was transferred from the ER here to the ER at [facility]. She was sent here on October 09, 2019 to complete a course of IV nafcillin for a recurrent bout of endocarditis and MSSA bacteremia. When she had 6 days of treatment left, she signed out AGAINST MEDICAL ADVICE. That was approximately a week and a half ago. She presents today via EMS. She apparently was staying in a hotel and the patient's mother called EMS to come check her out. She was not febrile here, but her temperature was mildly elevated, and there is a report somewhere that the patient had been febrile recently. The patient was too encephalopathic to give me any sort of reliable history. She was tachycardic, fortunately with a stable blood pressure. She was hypokalemic. She had multiple skin and extremity anomalies. There was concern for an acute infectious process. Past Medical History Cardiac Medical History: Reports: Pulmonary Embolism - Septic pulmonary emboli secondary to endocarditis, Heart Murmur Denies: Coronary Artery Disease, Myocardial Infarction, Hypertension Pulmonary Medical History: Denies: Asthma, Bronchitis, Chronic Obstructive Pulmonary Disease (COPD), Pneumonia Neurological Medical History: Denies: Migraine, Seizures Endocrine Medical History: Denies: Diabetes Mellitus Type 1, Hyperthyroidism, Hypothyroidism GI Medical History: Denies: Cirrhosis, Gastroesophageal Reflux Disease, Hepatitis Musculoskeltal Medical History: Denies: Arthritis, Fibromyalgia Skin Medical History: Denies: Eczema, Psoriasis Psychiatric Medical History: Reports: Bipolar Disorder, Depression Hematology: Reports: Anemia Denies: Bleeding Tendencies Past Surgical History Past Surgical History: Reports: Orthopedic Surgery - left ankle, Other - Incision and drainage of lower back abscess, tricuspid valve repair Social History Smoking Status: Current Every Day Smoker Frequency of Alcohol Use: None Hx Recreational Drug Use: Yes Drugs: Cocaine, Heroin, Marijuana Hx Prescription Drug Abuse: No Family History Family History: denies: CAD, DM, Hypertension, Malignancy Parental Family History Reviewed: No - Unable to obtain Children Family History Reviewed: NA Sibling(s) Family History Reviewed.: No - Unable to obtain Medication/Allergy Home Medications: Acetaminophen 650 mg PO Q4HP PRN 05/16/19 Famotidine [Pepcid 20 mg Tablet] 20 mg PO BID #60 tablet 06/16/19 Quetiapine Fumarate [Seroquel 25 mg Tablet] 25 mg PO QHS #30 tablet 06/16/19 Aspirin [Aspirin 325 mg Tablet] 325 mg PO DAILY 10/09/19 Ibuprofen [Motrin 400 mg Tablet] 400 mg PO Q6 PRN 10/09/19 L. Acidophilus/L.bulgaricus [Lactobacillus Tablet] 1 cap PO DAILY 10/09/19 Naltrexone 50 mg PO DAILY 10/09/19 Rifampin [Rifadin 300 mg Capsule] 300 mg PO Q8 10/28/19 Allergies/Adverse Reactions: No Known Allergies Allergy (Unverified 10/09/19 03:08) Review of Systems ROS unobtainable: Due to mental status Physical Exam Vital Signs: Temp Pulse Resp BP Pulse Ox 99.4 F 22 H 114/68 100 10/28/19 11:20 10/28/19 13:15 10/28/19 13:15 10/28/19 13:15 Intake & Output 10/27/19 10/28/19 10/29/19 06:59 06:59 06:59 Intake Total 612 Balance 612 Weight 54.431 kg General appearance: PRESENT: cooperative, disheveled, severe distress Head exam: PRESENT: atraumatic, normocephalic Eye exam: PRESENT: EOMI, PERRLA. ABSENT: conjunctival injection, nystagmus, scleral icterus Ear exam: PRESENT: normal external ear exam Mouth exam: PRESENT: dry mucosa, neck supple Teeth exam: PRESENT: poor dentation Throat exam: ABSENT: post pharyngeal erythema Neck exam: PRESENT: full ROM. ABSENT: carotid bruit, JVD, lymphadenopathy, meningismus, tenderness, thyromegaly Respiratory exam: PRESENT: clear to auscultation chelo, symmetrical, tachypnea, unlabored. ABSENT: accessory muscle use, chest wall tenderness, crackles, prolonged expiratory phas, retraction, rhonchi, wheezes Cardiovascular exam: PRESENT: +S1, +S2, systolic murmur, tachycardia, other - Midline sternotomy scar Pulses: PRESENT: normal carotid pulses Vascular exam: PRESENT: normal capillary refill GI/Abdominal exam: PRESENT: hypoactive bowel sounds, soft. ABSENT: distended, guarding, rebound, tenderness Extremities exam: PRESENT: other - She had what appears to be a necrotic right thumb, with a ruptured blood blister at the tip. She had a dark blister at the tip of the middle finger of the left hand. She had a dark blister on the plantar surface and laterally of the fifth toe of the right foot Musculoskeletal exam: PRESENT: normal inspection. ABSENT: deformity Neurological exam: PRESENT: altered, oriented to person Psychiatric exam: PRESENT: anxious Skin exam: PRESENT: other - In addition to the previously described abnormalities, she had extensive erythema and swelling in both upper extremities, from the hands to proximal to the elbow in both cases. The ventral surface of the left forearm appeared the worse of the 2, with numerous track do and diffuse erythema and swelling. She also had erythema noted on the dorsal surfaces of both feet, and the fifth toe of the right foot was erythematous and swollen Results Laboratory Results: 10/28/19 11:20 10/28/19 11:20 10/28/19 10/28/19 10/28/19 11:20 11:20 11:20 WBC 18.5 H RBC 3.29 L Hgb 10.7 L Hct 29.8 L MCV 91 MCH 32.4 MCHC 35.7 RDW 19.0 H Plt Count 286 Seg Neutrophils % Not Reportable VBG pH 7.51 H VBG pCO2 31.2 L VBG HCO3 24.6 VBG Base Excess 2.2 Sodium 128.9 L Potassium 2.8 L* Chloride 91 L Carbon Dioxide 25 Anion Gap 13 BUN 12 Creatinine 0.50 L Est GFR ( Amer) > 60 Glucose 129 H Lactic Acid Calcium 8.6 Magnesium Total Bilirubin 1.6 H AST 136 H Alkaline Phosphatase 101 Total Protein 6.3 Albumin 3.4 L Serum HCG, Qual Urine Color Urine Appearance Urine pH Ur Specific [place] Urine Protein Urine Glucose (UA) Urine Ketones Urine Blood Urine RBC (Auto) 10/28/19 10/28/19 10/28/19 11:20 11:20 11:20 WBC RBC Hgb Hct MCV MCH MCHC RDW Plt Count Seg Neutrophils % VBG pH VBG pCO2 VBG HCO3 VBG Base Excess Sodium Potassium Chloride Carbon Dioxide Anion Gap BUN Creatinine Est GFR ( Amer) Glucose Lactic Acid 1.7 Calcium Magnesium 2.0 Total Bilirubin AST Alkaline Phosphatase Total Protein Albumin Serum HCG, Qual NEGATIVE Urine Color Urine Appearance Urine pH Ur Specific [place] Urine Protein Urine Glucose (UA) Urine Ketones Urine Blood Urine RBC (Auto) 10/28/19 11:45 WBC RBC Hgb Hct MCV MCH MCHC RDW Plt Count Seg Neutrophils % VBG pH VBG pCO2 VBG HCO3 VBG Base Excess Sodium Potassium Chloride Carbon Dioxide Anion Gap BUN Creatinine Est GFR ( Amer) Glucose Lactic Acid Calcium Magnesium Total Bilirubin AST Alkaline Phosphatase Total Protein Albumin Serum HCG, Qual Urine Color ADAN Urine Appearance SLIGHTLY-CLOUDY Urine pH 6.0 Ur Specific [place] 1.015 Urine Protein 100 H Urine Glucose (UA) NEGATIVE Urine Ketones 20 H Urine Blood MODERATE H Urine RBC (Auto) 4 Impressions: Chest X-Ray 10/28/19 11:38 IMPRESSION: Peripheral linear opacities that are perpendicular to the pleural surface in the inferolateral aspect of the right hemithorax could represent Caleb B lines - clinical correlation for mild CHF / interstitial edema is rec ommended. Finger X-Ray 10/28/19 11:52 IMPRESSION: Soft tissue swelling. No osseous abnormality. Assessment and Plan - Diagnosis (1) Septic arterial embolism Is this a current diagnosis for this admission?: Yes Plan: Broad-spectrum antibiotics have been started. Cultures obtained from blood. Dr. Marroquin was consulted and is planning on taking her to the OR because of her thumb. When she is more stable, a more thorough search can be undertaken. (2) Cellulitis of multiple sites Is this a current diagnosis for this admission?: Yes Plan: Broad-spectrum antibiotics for now, cultures pending (3) Severe sepsis Is this a current diagnosis for this admission?: Yes Plan: In addition to IV antibiotics and source control, hemodynamic support and monitoring of organ function will be done (4) Hypokalemia Is this a current diagnosis for this admission?: Yes Plan: Replacing intravenously (5) History of acute bacterial endocarditis Is this a current diagnosis for this admission?: Yes Plan: There is a high probability that her blood cultures returned positive again. If they turn positive for a likely organism, she will need another SYD. (6) Polysubstance abuse Is this a current diagnosis for this admission?: Yes Plan: She has a long relapsing history of IV substance abuse, particularly heroin. We have encouraged cessation and abstinence the past, and will do so again. (7) Abnormal chest x-ray Is this a current diagnosis for this admission?: Yes Plan: There was some concern for pulmonary edema, given her history my concern would be for recurrence of septic pulmonary emboli. As previously noted, when she gets out of surgery and is more stable, a more thorough search for emboli will be undertaken. (8) Acute liver failure Qualifiers: Hepatic coma status: without hepatic coma Qualified Code(s): K72.00 - Acute and subacute hepatic failure without coma Is this a current diagnosis for this admission?: Yes Plan: She is never had elevated coagulation studies before, and also her bilirubin and transaminases are elevated. We are providing hemodynamic support and supportive care. - Time Time Spent with patient: 35 or more minutes - Inpatient Certification Based on my medical assessment, after consideration of the patient's comorbidi ties, presenting symptoms, or acuity I expect that the services needed warrant INPATIENT care.: Yes I certify that my determination is in accordance with my understanding of Brandan bolanos's requirements for reasonable and necessary INPATIENT services [42 CFR 412.3e].: Yes Medical Necessity: Significant Comorbidiites Make Outpatient Treatment Too Risky, Need Close Monitoring Due to Risk of Patient Decompensation, Need For IV Fluids, Need For Continuous Telemetry Monitoring, Need for IV Antibiotics, Need for Surgery, Risk of Complication if Not Cared For in Hospital
[2019-10-28] MEDS ORDERED: SODIUM HYPOCHLORITE 0.25% SOLN 473 ML BOTTLE TP ONE (14:45)
--- NOTE | 2019-10-28 15:43 | PDOC CONSULTATION ---
Consultation Consult Date: 10/28/19 Attending physician:: RONAN RODGERS Provider Consulted: SETH SHEFFIELD Consult reason:: 1. Left thumb infection/gangrene. 2. Right forearm abscess. 3. Right index distal phalanx gangrene. 4. Right small toe ulceration History of Present Illness Admission Date/PCP: 10/28/19 13:28 Patient complains of: Patient with a long history of intravenous drug abuse. She was brought in by EMS complaining of pain in multiple extremities. History of Present Illness: ELVIN BALLESTEROS is a 29 year old female with a long history of intravenous drug abuse and endocarditis. She recently left [facility] AGAINST MEDICAL ADVICE without completing a complete course for recurrent endocarditis. She was brought in by EMS from a hotel. She was admitted to the hospitalist service in septic shock. Past Medical History Cardiac Medical History: Reports: Pulmonary Embolism - Septic pulmonary emboli secondary to endocarditis, Heart Murmur, Other - Endocarditis Denies: Coronary Artery Disease, Myocardial Infarction, Hypertension Pulmonary Medical History: Denies: Asthma, Bronchitis, Chronic Obstructive Pulmonary Disease (COPD), Pneumonia Neurological Medical History: Denies: Migraine, Seizures Endocrine Medical History: Denies: Diabetes Mellitus Type 1, Hyperthyroidism, Hypothyroidism GI Medical History: Denies: Cirrhosis, Gastroesophageal Reflux Disease, Hepatitis Musculoskeltal Medical History: Denies: Arthritis, Fibromyalgia Skin Medical History: Denies: Eczema, Psoriasis Psychiatric Medical History: Reports: Bipolar Disorder, Depression Hematology: Reports: Anemia Denies: Bleeding Tendencies Past Surgical History Past Surgical History: Reports: Orthopedic Surgery - left ankle, Other - Incision and drainage of lower back abscess, tricuspid valve repair Social History Smoking Status: Current Every Day Smoker Frequency of Alcohol Use: None Hx Recreational Drug Use: Yes Drugs: Cocaine, Heroin, Marijuana Hx Prescription Drug Abuse: No Family History Family History: denies: CAD, DM, Hypertension, Malignancy Parental Family History Reviewed: No Children Family History Reviewed: No Sibling(s) Family History Reviewed.: No Medication/Allergy Home Medications: Acetaminophen 650 mg PO Q4HP PRN 05/16/19 Famotidine [Pepcid 20 mg Tablet] 20 mg PO BID #60 tablet 06/16/19 Quetiapine Fumarate [Seroquel 25 mg Tablet] 25 mg PO QHS #30 tablet 06/16/19 Aspirin [Aspirin 325 mg Tablet] 325 mg PO DAILY 10/09/19 Ibuprofen [Motrin 400 mg Tablet] 400 mg PO Q6 PRN 10/09/19 L. Acidophilus/L.bulgaricus [Lactobacillus Tablet] 1 cap PO DAILY 10/09/19 Naltrexone 50 mg PO DAILY 10/09/19 Rifampin [Rifadin 300 mg Capsule] 300 mg PO Q8 10/28/19 Allergies/Adverse Reactions: No Known Allergies Allergy (Unverified 10/09/19 03:08) Review of Systems All systems: reviewed and no additional remarkable complaints except as stated - As per HPI Physical Exam Vital Signs: Temp Pulse Resp BP Pulse Ox 99.4 F 22 H 114/68 100 10/28/19 11:20 10/28/19 13:15 10/28/19 13:15 10/28/19 13:15 Intake & Output 10/27/19 10/28/19 10/29/19 06:59 06:59 06:59 Intake Total 612 Balance 612 Weight 54.431 kg General appearance: PRESENT: disheveled, severe distress Head exam: PRESENT: atraumatic Mouth exam: PRESENT: dry mucosa Respiratory exam: PRESENT: unlabored Cardiovascular exam: PRESENT: +S1, +S2, tachycardia Musculoskeletal exam: PRESENT: other - Examination of the right hand: There is gangrenous necrosis of the left thumb to the level of the proximal phalanx. There is desquamation and loss of skin to the dorsal thumb to the level of the metacarpal. There is swelling of the thenar space. Examination of the left arm: There is cellulitis and multiple track do along the left arm. There is a draining abscess of the left proximal forearm just distal to the antecubital fossa. There is a portion of gangrenous necrosis of the left index finger. Examination of the right foot: There is an early pressure ulceration on the lateral aspect of the small toe phalanx. There is no purulent drainage present. Results Laboratory Results: 10/28/19 11:20 10/28/19 11:20 10/28/19 10/28/19 10/28/19 11:20 11: 11:20 WBC 18.5 H RBC 3.29 L Hgb 10.7 L Hct 29.8 L MCV 91 MCH 32.4 MCHC 35.7 RDW 19.0 H Plt Count 286 Seg Neutrophils % Not Reportable VBG pH 7.51 H VBG pCO2 31.2 L VBG HCO3 24.6 VBG Base Excess 2.2 Sodium 128.9 L Potassium 2.8 L* Chloride 91 L Carbon Dioxide 25 Anion Gap 13 BUN 12 Creatinine 0.50 L Est GFR ( Amer) > 60 Glucose 129 H Lactic Acid Calcium 8.6 Magnesium Total Bilirubin 1.6 H AST 136 H Alkaline Phosphatase 101 Total Protein 6.3 Albumin 3.4 L Serum HCG, Qual Urine Color Urine Appearance Urine pH Ur Specific [place] Urine Protein Urine Glucose (UA) Urine Ketones Urine Blood Urine RBC (Auto) 10/28/19 10/28/19 10/28/19 11:20 11:20 11:20 WBC RBC Hgb Hct MCV MCH MCHC RDW Plt Count Seg Neutrophils % VBG pH VBG pCO2 VBG HCO3 VBG Base Excess Sodium Potassium Chloride Carbon Dioxide Anion Gap BUN Creatinine Est GFR ( Amer) Glucose Lactic Acid 1.7 Calcium Magnesium 2.0 Total Bilirubin AST Alkaline Phosphatase Total Protein Albumin Serum HCG, Qual NEGATIVE Urine Color Urine Appearance Urine pH Ur Specific [place] Urine Protein Urine Glucose (UA) Urine Ketones Urine Blood Urine RBC (Auto) 10/28/19 11:45 WBC RBC Hgb Hct MCV MCH MCHC RDW Plt Count Seg Neutrophils % VBG pH VBG pCO2 VBG HCO3 VBG Base Excess Sodium Potassium Chloride Carbon Dioxide Anion Gap BUN Creatinine Est GFR ( Amer) Glucose Lactic Acid Calcium Magnesium Total Bilirubin AST Alkaline Phosphatase Total Protein Albumin Serum HCG, Qual Urine Color ADAN Urine Appearance SLIGHTLY-CLOUDY Urine pH 6.0 Ur Specific [place] 1.015 Urine Protein 100 H Urine Glucose (UA) NEGATIVE Urine Ketones 20 H Urine Blood MODERATE H Urine RBC (Auto) 4 Impressions: Chest X-Ray 10/28/19 11:38 IMPRESSION: Peripheral linear opacities that are perpendicular to the pleural surface in the inferolateral aspect of the right hemithorax could represent Caleb B lines - clinical correlation for mild CHF / interstitial edema is recommended. Finger X-Ray 10/28/19 11:52 IMPRESSION: Soft tissue swelling. No osseous abnormality. Assessment & Plan - Time Time Spent: 30 to 50 Minutes - Plan Summary Plan Summary: The patient is a 29-year-old woman with a long history of intravenous drug abuse and endocarditis. She is brought in by EMS with multiple infections. I have recommended operative exploration with debridement of gangrenous necrosis and incision and drainage of abscesses. I have discussed with the patient the possible need for amputation of the thumb if it is not viable.
--- NOTE | 2019-10-28 15:52 | Operative Report ---
Operative Report DATE OF SURGERY: 10/28/19 PREOPERATIVE DIAGNOSIS: 1. Right thumb gangrene. 2. Left forearm abscess. 3. Left index gangrene POSTOPERATIVE DIAGNOSIS: Same OPERATION: 1. Amputation of gangrenous right thumb. 2. Incision and excisional debridement left forearm abscess. 3. Excisional debridement left index gangrene distal phalanx SURGEON: SETH SHEFFIELD ANESTHESIA: GA TISSUE REMOVED OR ALTERED: Amputation of gangrenous right thumb COMPLICATIONS: None ESTIMATED BLOOD LOSS: 20 cc PROCEDURE: Indications for procedure: The patient is a 29-year-old woman with a long history of intravenous drug abuse. She was brought in today by EMS in septic shock with multiple infections in her extremities. Description of procedure: Following the induction of general anesthesia, the patient was positioned supine on the operating room table. All bony prominences were padded. Both upper extremities were sterilely prepped with Betadine scrub and preparatory solution and draped in standard fashion. We first turned our attention to the right hand. The right hand was exsanguinated by gravity elevat ion and a tourniquet inflated to 250 mmHg. Exploration of the hand demonstrated gangrenous necrosis to the level of the mid proximal phalanx. There is desquamation and infection of all the dorsal skin to the level of the metacarpal. The distal and middle phalanx were incised and found to be necrotic and nonviable. It was decided to do an amputation to the level of the metacarpal to remove all contaminated tissue. The infected tissue was ellipsed. Bone amputation was taken at the level of the metacarpal neck. Both digital nerves were pulled distally and transected proximally. Both digital arteries were coagulated. The wound was explored and removal of these contaminated parts essentially eradicated the infection. The ends of the wound were tacked closed; however, the majority of the wound was left open for packing. The wound was then packed with full-strength Dakin solution. A sterile dressing was then applied and the tourniquet deflated. We next turned our attention to the left arm. There was an abscess cavity of the left proximal forearm just distal to the antecubital fossa. The skin had already opened and there was a draining sinus. A transverse incision was made o ashley this area in Ke's lines. Blunt dissection was used to open the skin and abscess cavity. Cultures were taken. This wound was then irrigated and packed with full-strength Dakin soaked gauze. Next turned our attention to the index finger. There was a gangrenous portion of the left index finger at the level of the distal phalanx. This gangrenous portion was sharply debrided and removed. There was no further purulence following removal of the gangrenous portion. This area was also dressed with Dakin soaked gauze. The patient was then awakened and brought to the recovery room in stable condition. She has been admitted to the hospitalist service for intravenous antibiotics and wound care.
[2019-10-28] MEDS: HEPARIN SOD (PORCINE) 5,000 UNIT/ML 1 ML VIAL SUBCUT SCH ×2 (16:57→21:04)
[2019-10-28] MEDS: PIPERACILLIN SODIUM/TAZOBACTAM 3.375 GM in NORMAL SALINE 100 ML IV SCH ×2 (17:34→21:03)
[2019-10-28] MEDS: VANCOMYCIN HCL 750 MG in DEXTROSE 5%-WATER 250 ML IV SCH (18:16)
[2019-10-28] MEDS: FENTANYL CITRATE INJ/PF 100 MCG/2 ML AMPUL IV PRN ×2 (20:06→23:52)
[2019-10-28] MEDS ORDERED: OLANZAPINE INJ/PF 10 MG SDV IM ONE ×2 (23:00→23:49)
[2019-10-29] MEDS: SODIUM HYPOCHLORITE 0.25% SOLN 473 ML BOTTLE TP PRN (00:01)
[2019-10-29] MEDS: VANCOMYCIN HCL 750 MG in DEXTROSE 5%-WATER 250 ML IV SCH ×3 (01:26→18:12)
[2019-10-29] MEDS: PIPERACILLIN SODIUM/TAZOBACTAM 3.375 GM in NORMAL SALINE 100 ML IV SCH ×4 (03:01→20:20)
[2019-10-29] MEDS: FENTANYL CITRATE INJ/PF 100 MCG/2 ML AMPUL IV PRN ×5 (04:15→21:04)
[2019-10-29] MEDS: RINGERS SOLUTION,LACTATED 1,000 ML IV PRN ×2 (04:22→19:49)
[2019-10-29] MEDS: HEPARIN SOD (PORCINE) 5,000 UNIT/ML 1 ML VIAL SUBCUT SCH ×3 (05:10→21:36)
--- NOTE | 2019-10-29 10:21 | PDOC PROGRESS REPORT ---
Subjective Progress Note for:: 10/29/19 Subjective:: The patient is sleeping. She is only arousable to painful stimuli while changing dressings. When not being actively stimulated, she immediately falls asleep. Reason For Visit: SEPSIS,SEPTIC EMBOI,LEFT HAND ABSCESS 1. Right thumb gangrene status post amputation 2. Left forearm abscess post debridement. 3. Left forearm cellulitis 4. Right foot pressure ulceration versus early gangrenous infection Physical Exam Vital Signs: Temp Pulse Resp BP Pulse Ox 98.9 F 108 H 29 H 169/141 H 96 10/28/19 23:07 10/29/19 07:00 10/28/19 23:07 10/28/19 23:07 10/28/19 23:07 Intake & Output 10/28/19 10/29/19 10/30/19 06:59 06:59 06:59 Intake Total 1722 Output Total 2700 Balance -978 Weight 53.3 kg General appearance: PRESENT: no acute distress Head exam: PRESENT: atraumatic Mouth exam: PRESENT: dry mucosa Respiratory exam: PRESENT: unlabored Musculoskeletal exam: PRESENT: other - Examination of the right hand: The amputation site of the right thumb is clean. There is no purulence. Emanation of the left arm: The abscess site is clean. There is no purulence. There is persistent erythema of the forearm. There is no overt additional abscesses present. Emanation of the right foot: There is a blister along the small toe. There is no evidence of acute infection or gangrene at the moment. Results Laboratory Results: 10/28/19 11:20 10/28/19 11:20 10/28/19 10/28/19 10/28/19 11:20 11:20 11:20 WBC 18.5 H RBC 3.29 L Hgb 10.7 L Hct 29.8 L MCV 91 MCH 32.4 MCHC 35.7 RDW 19.0 H Plt Count 286 Seg Neutrophils % Not Reportable VBG pH 7.51 H VBG pCO2 31.2 L VBG HCO3 24.6 VBG Base Excess 2.2 Sodium 128.9 L Potassium 2.8 L* Chloride 91 L Carbon Dioxide 25 Anion Gap 13 BUN 12 Creatinine 0.50 L Est GFR ( Amer) > 60 Glucose 129 H Lactic Acid Calcium 8.6 Magnesium Total Bilirubin 1.6 H AST 136 H Alkaline Phosphatase 101 Ammonia Total Protein 6.3 Albumin 3.4 L Serum HCG, Qual Urine Color Urine Appearance Urine pH Ur Specific [place] Urine Protein Urine Glucose (UA) Urine Ketones Urine Blood Urine RBC (Auto) 10/28/19 10/28/19 10/28/19 11:20 11:20 11:20 WBC RBC Hgb Hct MCV MCH MCHC RDW Plt Count Seg Neutrophils % VBG pH VBG pCO2 VBG HCO3 VBG Base Excess Sodium Potassium Chloride Carbon Dioxide Anion Gap BUN Creatinine Est GFR ( Amer) Glucose Lactic Acid 1.7 Calcium Magnesium 2.0 Total Bilirubin AST Alkaline Phosphatase Ammonia Total Protein Albumin Serum HCG, Qual NEGATIVE Urine Color Urine Appearance Urine pH Ur Specific [place] Urine Protein Urine Glucose (UA) Urine Ketones Urine Blood Urine RBC (Auto) 10/28/19 10/28/19 10/28/19 11:45 18:00 18:00 WBC RBC Hgb Hct MCV MCH MCHC RDW Plt Count Seg Neutrophils % VBG pH VBG pCO2 VBG HCO3 VBG Base Excess Sodium Potassium Chloride Carbon Dioxide Anion Gap BUN Creatinine Est GFR ( Amer) Glucose Lactic Acid 1.7 Calcium Magnesium Total Bilirubin AST Alkaline Phosphatase Ammonia 20.6 Total Protein Albumin Serum HCG, Qual Urine Color ADAN Urine Appearance SLIGHTLY-CLOUDY Urine pH 6.0 Ur Specific [place] 1.015 Urine Protein 100 H Urine Glucose (UA) NEGATIVE Urine Ketones 20 H Urine Blood MODERATE H Urine RBC (Auto) 4 10/28/19 12:51 Blood Blood Culture (PCR) - Final Strep Pyogenes (Grp A) 10/28/19 11:20 Blood Blood Culture (PCR) - Final Strep Pyogenes (Grp A) Impressions: Chest X-Ray 10/28/19 11:38 IMPRESSION: Peripheral linear opacities that are perpendicular to the pleural surface in the inferolateral aspect of the right hemithorax could represent Caleb B lines - clinical correlation for mild CHF / interstitial edema is recommended. Finger X-Ray 10/28/19 11:52 IMPRESSION: Soft tissue swelling. No osseous abnormality. Assessment & Plan - Time Time Spent: 30 to 50 Minutes - Plan Summary Plan Summary: Blood culture is positive for group A strep. The patient will continue on broad-spectrum antibiotics. Patient will continue with wet-to-dry dressing c hanges of wounds with Dakin solution. Continue to monitor for new abscess formation of the left forearm. At the moment the right foot is most consistent with a pressure ulceration. This may evolve into a necrotic infection requiring either debridement or amputation.
--- NOTE | 2019-10-29 16:05 | PDOC PROGRESS REPORT ---
Subjective Progress Note for:: 10/29/19 Subjective:: No adverse events overnight. Vital signs been stable. She apparently had some sort of outburst last night but has been somnolent this morning. No fevers. Reason For Visit: SEPSIS,SEPTIC EMBOI,LEFT HAND ABSCESS Physical Exam Vital Signs: Temp Pulse Resp BP Pulse Ox 98.9 F 104 H 29 H 169/141 H 96 10/28/19 23:07 10/29/19 14:00 10/28/19 23:07 10/28/19 23:07 10/28/19 23:07 Intake & Output 10/28/19 10/29/19 10/30/19 06:59 06:59 06:59 Intake Total 1722 350 Output Total 2700 Balance -978 350 Weight 53.3 kg General appearance: PRESENT: no acute distress, disheveled, other - Somnolent Respiratory exam: PRESENT: clear to auscultation chelo, symmetrical, unlabored. ABSENT: accessory muscle use, chest wall tenderness, crackles, prolonged expiratory phas, rhonchi, tachypnea, wheezes Cardiovascular exam: PRESENT: RRR, +S1, +S2 Pulses: PRESENT: normal carotid pulses Vascular exam: PRESENT: normal capillary refill GI/Abdominal exam: PRESENT: normal bowel sounds, soft. ABSENT: distended, guarding, rebound, tenderness Extremities exam: PRESENT: other - Right hand is wrapped in a heavy bandage, thumb surgically removed tip of the index finger of the left hand has been trimmed, improvement in the erythema in the fifth toe of the right foot. Left arm and hand remain swollen. ABSENT: clubbing, pedal edema Musculoskeletal exam: PRESENT: deformity - Right thumb surgically removed, tip of left index finger trimmed surgically Neurological exam: PRESENT: other - Did not want to wake up and talk to me Psychiatric exam: PRESENT: flat affect Skin exam: PRESENT: other - She still has some trace erythema of the dorsum of both feet she still has some erythema both forearms but this is improved somewhat. She has packing left arm from an abscess that was surgically drained Results Laboratory Results: 10/28/19 11:20 10/28/19 11:20 10/28/19 10/28/19 18:00 18:00 Lactic Acid 1.7 Ammonia 20.6 10/28/19 12:51 Blood Blood Culture (PCR) - Final Strep Pyogenes (Grp A) 10/28/19 11:20 Blood Blood Culture (PCR) - Final Strep Pyogenes (Grp A) Impressions: Chest X-Ray 10/28/19 11:38 IMPRESSION: Peripheral linear opacities that are perpendicular to the pleural surface in the inferolateral aspect of the right hemithorax could represent Caleb B lines - clinical correlation for mild CHF / interstitial edema is recommended. Finger X-Ray 10/28/19 11:52 IMPRESSION: Soft tissue swelling. No osseous abnormality. Assessment and Plan - Diagnosis (1) Septic arterial embolism Is this a current diagnosis for this admission?: Yes Plan: Broad-spectrum antibiotics have been started. Cultures obtained from blood and intraoperative cultures. When she is more stable, a more thorough search can be undertaken. Were not able to check her renal function at this time because were having a hard time getting a vein to draw blood so her renal function cannot be assessed for angiography. (2) Cellulitis of multiple sites Is this a current diagnosis for this admission?: Yes Plan: Broad-spectrum antibiotics for now, cultures pending (3) Severe sepsis Is this a current diagnosis for this admission?: Yes Plan: In addition to IV antibiotics and source control, hemodynamic support and monitoring of organ function will be done. Were having a hard time drawing blood to assess organ function at this time. She may need some sort of central line placed for lab draws in addition to anticipated longer-term antibiotics. (4) Hypokalemia Is this a current diagnosis for this admission?: Yes Plan: Replacing intravenously (5) History of acute bacterial endocarditis Is this a current diagnosis for this admission?: Yes (6) Polysubstance abuse Is this a current diagnosis for this admission?: Yes Plan: She has a long relapsing history of IV substance abuse, particularly heroin. We have encouraged cessation and abstinence the past, and will do so again. (7) Abnormal chest x-ray Is this a current diagnosis for this admission?: Yes Plan: There was some concern for pulmonary edema, given her history my concern would be for recurrence of septic pulmonary emboli. As previously noted, when she gets out of surgery and is more stable, a more thorough search for emboli will be undertaken. (8) Acute liver failure Qualifiers: Hepatic coma status: without hepatic coma Qualified Code(s): K72.00 - Acute and subacute hepatic failure without coma Is this a current diagnosis for this admission?: Yes Plan: She is never had elevated coagulation studies before, and also her bilirubin and transaminases are elevated. We are providing hemodynamic support and supportive care. (9) Abscess of left upper arm and forearm Is this a current diagnosis for this admission?: Yes Plan: Status post incision and drainage, on empiric antibiotics, cultures pending (10) Gangrene of finger of both hands Is this a current diagnosis for this admission?: Yes Plan: Left thumb was removed, gangrenous portion of the tip of the left index finger was removed (11) Bacteremia due to Streptococcus Is this a current diagnosis for this admission?: Yes Plan: Susceptibilities are pending. She will need another SYD. - Time Time Spent with patient: 25-34 minutes
[2019-10-29 17:38] LABS: VANCOMYCIN,TROUGH 7.3 ug/mL (5.0-20.0)
[2019-10-29 19:02] LABS: ALBUMIN 2.7 g/dL (3.5-5.0); ALKALINE PHOSPHATASE 84 U/L (38-126); ANION GAP 7 (5-19); ASPARTATE AMINO TRANSFERASE 60 U/L (14-36); BILIRUBIN,DIRECT 0.8 mg/dL (0.0-0.4); BILIRUBIN,TOTAL 1.4 mg/dL (0.2-1.3); BLOOD UREA NITROGEN 8 mg/dL (7-20); CALCIUM 7.8 mg/dL (8.4-10.2); CARBON DIOXIDE 26 mmol/L (22-30); CHLORIDE 101 mmol/L (98-107); GLUCOSE 110 mg/dL (75-110); TOTAL PROTEIN 5.4 g/dL (6.3-8.2)
[2019-10-29 19:06] LABS: POTASSIUM 2.6 mmol/L (3.6-5.0)
[2019-10-29] MEDS: POTASSIUM CHLORIDE 20 MEQ/50 ML RTU IV SCH ×3 (19:45→23:26)
[2019-10-29] MEDS ORDERED: OLANZAPINE INJ/PF 10 MG SDV IM ONE (20:57)
[2019-10-29] MEDS: OLANZAPINE INJ/PF 10 MG SDV IM SCH (21:14)
[2019-10-30] MEDS: FENTANYL CITRATE INJ/PF 100 MCG/2 ML AMPUL IV PRN ×5 (00:57→21:17)
[2019-10-30] MEDS: VANCOMYCIN HCL 750 MG in DEXTROSE 5%-WATER 250 ML IV SCH (01:19)
[2019-10-30] MEDS: RINGERS SOLUTION,LACTATED 1,000 ML IV PRN ×2 (01:25→16:59)
[2019-10-30] MEDS: PIPERACILLIN SODIUM/TAZOBACTAM 3.375 GM in NORMAL SALINE 100 ML IV SCH ×4 (03:41→21:18)
[2019-10-30] MEDS: HEPARIN SOD (PORCINE) 5,000 UNIT/ML 1 ML VIAL SUBCUT SCH ×3 (06:00→21:18)
[2019-10-30] MEDS: SODIUM HYPOCHLORITE 0.25% SOLN 473 ML BOTTLE TP PRN (06:27)
[2019-10-30 09:36] LABS: HEMATOCRIT 25.6 % (36.0-47.0); HEMOGLOBIN 8.8 g/dL (12.0-15.5); MEAN CORPUSCULAR HEMOGLOBIN 31.5 pg (27.0-33.4); MEAN CORPUSCULAR HGB CONC 34.4 g/dL (32.0-36.0); MEAN CORPUSCULAR VOLUME 92 fl (80-97); PLATELET COUNT 314 10^3/uL (150-450); RED CELL DISTRIBUTION WIDTH 20.2 % (11.5-14.0); WHITE BLOOD COUNT 16.1 10^3/uL (4.0-10.5)
[2019-10-30] MEDS: VANCOMYCIN HCL 1,250 MG in DEXTROSE 5%-WATER 250 ML IV SCH ×2 (09:36→17:08)
[2019-10-30 09:40] LABS: INTERNATIONAL RATION (INR) 1.28; PROTHROMBIN TIME 16.1 SEC (11.4-15.4)
[2019-10-30 09:54] LABS: ALBUMIN 2.6 g/dL (3.5-5.0); ALKALINE PHOSPHATASE 79 U/L (38-126); ANION GAP 7 (5-19); ASPARTATE AMINO TRANSFERASE 52 U/L (14-36); BILIRUBIN,DIRECT 0.4 mg/dL (0.0-0.4); BILIRUBIN,TOTAL 1.1 mg/dL (0.2-1.3); BLOOD UREA NITROGEN 9 mg/dL (7-20); CALCIUM 7.9 mg/dL (8.4-10.2); CARBON DIOXIDE 26 mmol/L (22-30); CHLORIDE 103 mmol/L (98-107); GLUCOSE 99 mg/dL (75-110); POTASSIUM 3.1 mmol/L (3.6-5.0); TOTAL PROTEIN 5.4 g/dL (6.3-8.2)
--- NOTE | 2019-10-30 11:29 | PDOC PROGRESS REPORT ---
Subjective Progress Note for:: 10/30/19 Subjective:: The patient is more alert this morning. She is able to answer questions. She complains of diffuse discomfort but appears comfortable. Reason For Visit: SEPSIS,SEPTIC EMBOI,LEFT HAND ABSCESS 1. Right thumb gangrene post amputation 2. Left forearm abscess post debridement 3. Left forearm cellulitis 4. Right foot pressure ulceration Physical Exam Vital Signs: Temp Pulse Resp BP Pulse Ox 99.4 F 110 H 16 111/55 L 98 10/30/19 08:11 10/30/19 08:11 10/30/19 08:11 10/30/19 08:11 10/30/19 08:11 Intake & Output 10/29/19 10/30/19 10/31/19 06:59 06:59 06:59 Intake Total 1722 3209 100 Output Total 2700 1700 Balance -978 1509 100 Weight 53.3 kg 54.1 kg General appearance: PRESENT: cooperative, disheveled Respiratory exam: PRESENT: unlabored Musculoskeletal exam: PRESENT: other - Examination of the right hand: The thumb amputation site is clean. There is no purulence. There is no erythema of the right hand or arm. Examination of the left upper extremity: There is moderate swelling and persistent but resolving erythema of the left forearm. There are no new abscesses of the arm at this point. The abscess cavity that was opened is clean without purulence. Examination of the right foot. There is a blister on the dorsal aspect of the small toe. Erythema of the toe and foot is resolving. Results Laboratory Results: 10/30/19 08:51 10/30/19 08:51 10/29/19 10/30/19 10/30/19 17:04 08:51 08:51 WBC 16.1 H RBC 2.80 L Hgb 8.8 L Hct 25.6 L MCV 92 MCH 31.5 MCHC 34.4 RDW 20.2 H Plt Count 314 Sodium 134.4 L 136.2 L Potassium 2.6 L* 3.1 L Chloride 101 103 Carbon Dioxide 26 26 Anion Gap 7 7 BUN 8 9 Creatinine 0.52 0.54 Est GFR ( Amer) > 60 > 60 Glucose 110 99 Calcium 7.8 L 7.9 L Total Bilirubin 1.4 H 1.1 AST 60 H 52 H Alkaline Phosphatase 84 79 Total Protein 5.4 L 5.4 L Albumin 2.7 L 2.6 L 10/28/19 15:14 Arm - Left Gram Stain - Final 10/28/19 12:51 Blood Blood Culture (PCR) - Final Strep Pyogenes (Grp A) 10/28/19 11:20 Blood Blood Culture (PCR) - Final Strep Pyogenes (Grp A) Impressions: Chest X-Ray 10/28/19 11:38 IMPRESSION: Peripheral linear opacities that are perpendicular to the pleural surface in the inferolateral aspect of the right hemithorax could represent Caleb B lines - clinical correlation for mild CHF / interstitial edema is recommended. Finger X-Ray 10/28/19 11:52 IMPRESSION: Soft tissue swelling. No osseous abnormality. Assessment & Plan - Diagnosis (1) Gangrene of finger of both hands Is this a current diagnosis for this admission?: Yes (2) Abscess of left upper arm and forearm Is this a current diagnosis for this admission?: Yes - Time Critical Time spent with patient: 25-34 minutes - Plan Summary Plan Summary: Blood and wound culture is positive for group A strep. The patient will continue on broad-spectrum antibiotics. Patient will continue with wet-to-dry dressing changes of wounds with Dakin solution. Continue to monitor for new abscess formation of the left forearm. At the moment the right foot is most consistent with a pressure ulceration. This may evolve into a necrotic infection requiring either debridement or amputation. The patient had not been tested upon admission for COVID-19. She is at extremely high risk for COVID infection given her living circumstances as well as fever and chills upon admission. I have discussed with the nursing eva nina that I believe she should be tested for COVID-19 to protect the nursing staff.
--- NOTE | 2019-10-30 15:50 | PDOC PROGRESS REPORT ---
Subjective Progress Note for:: 10/30/19 Subjective:: No adverse events overnight. No new complaints. No fevers. Appetite is still poor. Pain is well controlled. Reason For Visit: SEPSIS,SEPTIC EMBOI,LEFT HAND ABSCESS Physical Exam Vital Signs: Temp Pulse Resp BP Pulse Ox 98.2 F 107 H 17 115/57 L 98 10/30/19 12:00 10/30/19 12:00 10/30/19 12:00 10/30/19 12:00 10/30/19 12:00 Intake & Output 10/29/19 10/30/19 10/31/19 06:59 06:59 06:59 Intake Total 1722 3209 100 Output Total 2700 1700 250 Balance -978 1509 -150 Weight 53.3 kg 54.1 kg General appearance: PRESENT: no acute distress, disheveled, other - Somnolent Respiratory exam: PRESENT: clear to auscultation chelo, symmetrical, unlabored. ABSENT: accessory muscle use, chest wall tenderness, crackles, prolonged expiratory phas, rhonchi, tachypnea, wheezes Cardiovascular exam: PRESENT: RRR, +S1, +S2 Pulses: PRESENT: normal carotid pulses Vascular exam: PRESENT: normal capillary refill GI/Abdominal exam: PRESENT: normal bowel sounds, soft. ABSENT: distended, guarding, rebound, tenderness Extremities exam: PRESENT: Pedal edema, other - Right hand is wrapped in a heavy bandage, thumb surgically removed tip of the index finger of the left hand has been trimmed, improvement in the erythema in the fifth toe of the right foot. Left arm and hand remain swollen. ABSENT: clubbing Musculoskeletal exam: PRESENT: deformity - Right thumb surgically removed, tip of left index finger trimmed surgically Neurological exam: PRESENT: other - Did not want to wake up and talk to me Psychiatric exam: PRESENT: flat affect Skin exam: PRESENT: other - She still has some trace erythema of the dorsum of both feet she still has some erythema both forearms but this is improved somewhat. She has packing left arm from an abscess that was surgically drained Results Laboratory Results: 10/30/19 08:51 10/30/19 08:51 10/29/19 10/30/19 10/30/19 17:04 08:51 08:51 WBC 16.1 H RBC 2.80 L Hgb 8.8 L Hct 25.6 L MCV 92 MCH 31.5 MCHC 34.4 RDW 20.2 H Plt Count 314 Sodium 134.4 L 136.2 L Potassium 2.6 L* 3.1 L Chloride 101 103 Carbon Dioxide 26 26 Anion Gap 7 7 BUN 8 9 Creatinine 0.52 0.54 Est GFR ( Amer) > 60 > 60 Glucose 110 99 Calcium 7.8 L 7.9 L Total Bilirubin 1.4 H 1.1 AST 60 H 52 H Alkaline Phosphatase 84 79 Total Protein 5.4 L 5.4 L Albumin 2.7 L 2.6 L 10/28/19 11:45 Catheterized Urine Urine Culture - Final Escherichia Coli 10/28/19 15:14 Arm - Left Gram Stain - Final 10/28/19 12:51 Blood Blood Culture (PCR) - Final Strep Pyogenes (Grp A) 10/28/19 11:20 Blood Blood Culture (PCR) - Final Strep Pyogenes (Grp A) Impressions: Chest X-Ray 10/28/19 11:38 IMPRESSION: Peripheral linear opacities that are perpendicular to the pleural surface in the inferolateral aspect of the right hemithorax could represent Caleb B lines - clinical correlation for mild CHF / interstitial edema is recommended. Finger X-Ray 10/28/19 11:52 IMPRESSION: Soft tissue swelling. No osseous abnormality. Assessment and Plan - Diagnosis (1) Septic arterial embolism Is this a current diagnosis for this admission?: Yes Plan: Broad-spectrum antibiotics have been started. Cultures obtained from blood and intraoperative cultures. Her creatinine is stable, so if she remains tomorrow we will likely perform imaging to evaluate for emboli. (2) Cellulitis of multiple sites Is this a current diagnosis for this admission?: Yes Plan: Broad-spectrum antibiotics for now, cultures from blood showing group a streptococcus, wound cultures pending (3) Severe sepsis Is this a current diagnosis for this admission?: Yes Plan: In addition to IV antibiotics and source control, hemodynamic support and monitoring of organ function will be done. Kidney function is improved. Coagulation studies and liver enzymes have improved. (4) Hypokalemia Is this a current diagnosis for this admission?: Yes Plan: Replacing intravenously (5) History of acute bacterial endocarditis Is this a current diagnosis for this admission?: Yes Plan: She will need a repeat SYD (6) Polysubstance abuse Is this a current diagnosis for this admission?: Yes Plan: She has a long relapsing history of IV substance abuse, particularly heroin. We have encouraged cessation and abstinence the past, and will do so again. (7) Abnormal chest x-ray Is this a current diagnosis for this admission?: Yes Plan: There was some concern for pulmonary edema, given her history my concern would be for recurrence of septic pulmonary emboli. If her renal function is stable tomorrow, will perform some contrasted imaging tomorrow. (8) Acute liver failure Qualifiers: Hepatic coma status: without hepatic coma Qualified Code(s): K72.00 - Acute and subacute hepatic failure without coma Is this a current diagnosis for this admission?: Yes Plan: Resolved (9) Abscess of left upper arm and forearm Is this a current diagnosis for this admission?: Yes Plan: Status post incision and drainage, on empiric antibiotics, cultures showed group A Streptococcus (10) Gangrene of finger of both hands Is this a current diagnosis for this admission?: Yes Plan: Left thumb was removed, gangrenous portion of the tip of the left index finger was removed (11) Bacteremia due to Streptococcus Is this a current diagnosis for this admission?: Yes Plan: Susceptibilities are pending. She will need another SYD. - Time Time Spent with patient: 25-34 minutes
[2019-10-30] MEDS: OLANZAPINE INJ/PF 10 MG SDV IM SCH (21:17)
[2019-10-31] MEDS: VANCOMYCIN HCL 1,250 MG in DEXTROSE 5%-WATER 250 ML IV SCH ×2 (01:17→10:40)
[2019-10-31] MEDS: FENTANYL CITRATE INJ/PF 100 MCG/2 ML AMPUL IV PRN ×6 (01:17→22:38)
[2019-10-31] MEDS: PIPERACILLIN SODIUM/TAZOBACTAM 3.375 GM in NORMAL SALINE 100 ML IV SCH ×2 (03:47→08:15)
[2019-10-31] MEDS: HEPARIN SOD (PORCINE) 5,000 UNIT/ML 1 ML VIAL SUBCUT SCH ×3 (05:22→21:31)
[2019-10-31 10:45] LABS: HEMATOCRIT 23.5 % (36.0-47.0); HEMOGLOBIN 8.1 g/dL (12.0-15.5); MEAN CORPUSCULAR HEMOGLOBIN 31.8 pg (27.0-33.4); MEAN CORPUSCULAR HGB CONC 34.6 g/dL (32.0-36.0); MEAN CORPUSCULAR VOLUME 92 fl (80-97); PLATELET COUNT 430 10^3/uL (150-450); RED BLOOD COUNT 2.55 10^6/uL (3.72-5.28); WHITE BLOOD COUNT 19.3 10^3/uL (4.0-10.5)
[2019-10-31 10:57] LABS: INTERNATIONAL RATION (INR) 1.24; PROTHROMBIN TIME 15.7 SEC (11.4-15.4)
[2019-10-31 11:10] LABS: ALBUMIN 2.6 g/dL (3.5-5.0); ALKALINE PHOSPHATASE 65 U/L (38-126); ANION GAP 7 (5-19); ASPARTATE AMINO TRANSFERASE 51 U/L (14-36); BILIRUBIN,DIRECT 0.2 mg/dL (0.0-0.4); BLOOD UREA NITROGEN 11 mg/dL (7-20); CALCIUM 8.1 mg/dL (8.4-10.2); CARBON DIOXIDE 23 mmol/L (22-30); CHLORIDE 106 mmol/L (98-107); GLUCOSE 128 mg/dL (75-110); POTASSIUM 3.2 mmol/L (3.6-5.0); TOTAL PROTEIN 5.7 g/dL (6.3-8.2)
[2019-10-31 11:14] LABS: VANCOMYCIN,TROUGH 8.4 ug/mL (5.0-20.0)
[2019-10-31] MEDS: CEFAZOLIN SODIUM 2 GM in DEXTROSE 5%-WATER 100 ML IV SCH ×3 (14:03→23:25)
--- NOTE | 2019-10-31 15:23 | PDOC PROGRESS REPORT ---
Subjective Progress Note for:: 10/31/19 Subjective:: No adverse events overnight. No new complaints. Appetite is been poor. No fevers. She wants to sleep all the time. She refused her labs this morning but agreed to let us draw blood cultures later on. Reason For Visit: SEPSIS,SEPTIC EMBOI,LEFT HAND ABSCESS Physical Exam Vital Signs: Temp Pulse Resp BP Pulse Ox 98.8 F 101 H 20 103/56 L 96 10/31/19 11:30 10/31/19 11:30 10/31/19 11:30 10/31/19 11:30 10/31/19 11:30 Intake & Output 10/30/19 10/31/19 11/01/19 06:59 06:59 06:59 Intake Total 3209 3280 676 Output Total 1700 1650 650 Balance 1509 1630 26 Weight 54.1 kg 54.1 kg General appearance: PRESENT: no acute distress, disheveled, other - Somnolent Respiratory exam: PRESENT: clear to auscultation chelo, symmetrical, unlabored. ABSENT: accessory muscle use, chest wall tenderness, crackles, prolonged expiratory phas, rhonchi, tachypnea, wheezes Cardiovascular exam: PRESENT: RRR, +S1, +S2 Pulses: PRESENT: normal carotid pulses Vascular exam: PRESENT: normal capillary refill GI/Abdominal exam: PRESENT: normal bowel sounds, soft. ABSENT: distended, guarding, rebound, tenderness Extremities exam: PRESENT: Pedal edema, other - Right hand is wrapped in a heavy bandage, thumb surgically removed tip of the index finger of the left hand has been trimmed, improvement in the erythema in the fifth toe of the right foot. Left arm and hand remain swollen. ABSENT: clubbing Musculoskeletal exam: PRESENT: deformity - Right thumb surgically removed, tip of left index finger trimmed surgically Neurological exam: PRESENT: Awake, oriented to person, oriented to place, oriented to situation Psychiatric exam: PRESENT: flat affect Skin exam: PRESENT: other - She still has some trace erythema of the dorsum of both feet she still has some erythema both forearms but this is improved somewhat. She has packing left arm from an abscess that was surgically drained Results Laboratory Results: 10/31/19 10:10 10/31/19 10:26 10/31/19 10/31/19 10:10 10:26 WBC 19.3 H RBC 2.55 L Hgb 8.1 L Hct 23.5 L MCV 92 MCH 31.8 MCHC 34.6 RDW 20.0 H Plt Count 430 Sodium 136.3 L Potassium 3.2 L Chloride 106 Carbon Dioxide 23 Anion Gap 7 BUN 11 Creatinine 0.52 Est GFR ( Amer) > 60 Glucose 128 H Calcium 8.1 L Total Bilirubin 1.0 AST 51 H Alkaline Phosphatase 65 Total Protein 5.7 L Albumin 2.6 L 10/28/19 15:14 Arm - Left Gram Stain - Final 10/28/19 15:14 Arm - Left Wound Culture - Final Group A Beta Streptococcus Staphylococcus Aureus No Anaerobic Organisms 10/28/19 12:51 Blood Blood Culture (PCR) - Final Strep Pyogenes (Grp A) 10/28/19 12:51 Blood Blood Culture - Final Group A Beta Streptococcus 10/28/19 11:20 Blood Blood Culture (PCR) - Final Strep Pyogenes (Grp A) 10/28/19 11:20 Blood Blood Culture - Final Group A Beta Streptococcus 10/28/19 11:45 Catheterized Urine Urine Culture - Final Escherichia Coli Impressions: Chest X-Ray 10/28/19 11:38 IMPRESSION: Peripheral linear opacities that are perpendicular to the pleural surface in the inferolateral aspect of the right hemithorax could represent Caleb B lines - clinical correlation for mild CHF / interstitial edema is recommended. Finger X-Ray 10/28/19 11:52 IMPRESSION: Soft tissue swelling. No osseous abnormality. Assessment and Plan - Diagnosis (1) Septic arterial embolism Is this a current diagnosis for this admission?: Yes Plan: Broad-spectrum antibiotics have been started. Cultures obtained from blood and intraoperative cultures. She has had improvement in her liver and kidney functi on, and she is going to be on antibiotics for some time, so will defer further imaging at this time because it should not change our treatment. (2) Cellulitis of multiple sites Is this a current diagnosis for this admission?: Yes Plan: Broad-spectrum antibiotics initially, cultures from blood showing group a streptococcus, wound cultures showing Streptococcus and MSSA. After discussion with pharmacy we change it to Ancef to cover everything she has on right now. (3) Severe sepsis Is this a current diagnosis for this admission?: Yes Plan: In addition to IV antibiotics and source control, hemodynamic support and monitoring of organ function will be done. Kidney function is improved. Coagulation studies and liver enzymes have improved. (4) Hypokalemia Is this a current diagnosis for this admission?: Yes Plan: Replacing with an oral supplement (5) History of acute bacterial endocarditis Is this a current diagnosis for this admission?: Yes Plan: She will need a repeat SYD (6) Polysubstance abuse Is this a current diagnosis for this admission?: Yes Plan: She has a long relapsing history of IV substance abuse, particularly heroin. We have encouraged cessation and abstinence the past, and will do so again. (7) Abnormal chest x-ray Is this a current diagnosis for this admission?: Yes Plan: There was some concern for pulmonary edema, given her history my concern would b e for recurrence of septic pulmonary emboli. However, given her overall hemodynamic stability and improvement with the current treatment, will defer imaging for now, because it would not be likely to change our current treatment plan. (8) Acute liver failure Qualifiers: Hepatic coma status: without hepatic coma Qualified Code(s): K72.00 - Acute and subacute hepatic failure without coma Is this a current diagnosis for this admission?: Yes Plan: Resolved (9) Abscess of left upper arm and forearm Is this a current diagnosis for this admission?: Yes Plan: Status post incision and drainage, on empiric antibiotics, cultures showed group A Streptococcus and MSSA, on Ancef now as previously noted (10) Gangrene of finger of both hands Is this a current diagnosis for this admission?: Yes Plan: Left thumb was removed, gangrenous portion of the tip of the left index finger was removed (11) Bacteremia due to Streptococcus Is this a current diagnosis for this admission?: Yes Plan: She has been changed over to Ancef. She will need another SYD. Repeat blood cultures have been obtained to assess for clearance, so we can know whether or not it is safe to put in a PICC line. - Time Time Spent with patient: 25-34 minutes
[2019-10-31] MEDS: RINGERS SOLUTION,LACTATED 1,000 ML IV PRN (16:02)
[2019-10-31] MEDS: POTASSIUM CHLORIDE 10 MEQ TABLET.ER PO SCH ×2 (16:03→21:30)
--- NOTE | 2019-10-31 18:04 | Progress Note ---
Provider Note Provider Note: [facility] Telephone Advice Consultation Chart reviewed. Patient is a 29-year-old female with active IV drug use. 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 She completed 6 weeks of therapy with nafcillin and rifampin in May 2019. She continued injecting drugs and more recently was admitted at [facility] again with MSSA bacteremia to complete 6 weeks of nafcillin. Patient was transferred back to [facility] to complete therapy, but she left [facility] after only 6 days of therapy. She is now admitted after being found injecting heroin in a hotel. She was admitted and evaluated by surgery who took her to the OR on 10/27 due right thumb gangrene that required amputation, I&D of left forearm abscess and excisional debridement of the left index distal phalanx gangrene. She has been on broad spectrum antibiotics. Blood culture is positive for Streptococcus pyogenes. Wound culture positive for Streptococcus pyogenes and MSSA. Urine culture was positive for E coli. Antibiotic therapy was narrowed to cefazolin. ID consulted for recommendations. PMH: IVDU MSSA bacteremia TV encdocarditis Septic pulmonary emboli PSH: PFO repair 2019 TV repair 2019 Allergies: No Known Allergies Allergy (Unverified 10/09/19 03:08) Medications: Acetaminophen 650 mg PO Q4HP PRN 05/16/19 Aspirin [Aspirin 325 mg Tablet] 325 mg PO DAILY 10/09/19 Ibuprofen [Motrin 400 mg Tablet] 400 mg PO Q6 PRN 10/09/19 L. Acidophilus/L.bulgaricus [Lactobacillus Tablet] 1 cap PO DAILY 10/09/19 Naltrexone 50 mg PO DAILY 10/09/19 Rifampin [Rifadin 300 mg Capsule] 300 mg PO Q8 10/28/19 Vital Signs: Temp Pulse Resp BP Pulse Ox 98.8 F 101 H 20 103/56 L 96 10/31/19 11:30 10/31/19 11:30 10/31/19 11:30 10/31/19 11:30 10/31/19 11:30 Intake & Output 10/30/19 10/31/19 11/01/19 06:59 06:59 06:59 Intake Total 3209 3280 576 Output Total 1700 1650 650 Balance 1509 1630 -74 Weight 54.1 kg 54.1 kg Weight/Height Weight 54.1 kg Height 5 ft 1 in Laboratories: 10/31/19 10:10 10/31/19 10:26 MCV 92 fl (80-97) 10/31/19 10:10 MCH 31.8 pg (27.0-33.4) 10/31/19 10:10 MCHC 34.6 g/dL (32.0-36.0) 10/31/19 10:10 RDW 20.0 % (11.5-14.0) H 10/31/19 10:10 Seg Neutrophils % Not Reportable 10/28/19 11:20 VBG pH 7.51 (7.30-7.42) H 10/28/19 11:20 VBG pCO2 31.2 mmHg (35-63) L 10/28/19 11:20 VBG HCO3 24.6 mmol/L (20-32) 10/28/19 11:20 VBG Base Excess 2.2 mmol/L 10/28/19 11:20 Chloride 106 mmol/L (98-107) 10/31/19 10:26 Carbon Dioxide 23 mmol/L (22-30) 10/31/19 10:26 Anion Gap 7 (5-19) 10/31/19 10:26 Est GFR ( Amer) > 60 (>60) 10/31/19 10:26 Glucose 128 mg/dL (75-110) H 10/31/19 10:26 Lactic Acid 1.7 mmol/L (0.7-2.1) 10/28/19 18:00 Calcium 8.1 mg/dL (8.4-10.2) L 10/31/19 10:26 Magnesium 2.0 mg/dL (1.6-2.3) 10/28/19 11:20 Total Bilirubin 1.0 mg/dL (0.2-1.3) 10/31/19 10:26 AST 51 U/L (14-36) H 10/31/19 10:26 Alkaline Phosphatase 65 U/L (38-126) 10/31/19 10:26 Ammonia 20.6 umol/L (9-33) 10/28/19 18:00 Total Protein 5.7 g/dL (6.3-8.2) L 10/31/19 10:26 Albumin 2.6 g/dL (3.5-5.0) L 10/31/19 10:26 Serum HCG, Qual NEGATIVE (NEGATIVE) 10/28/19 11:20 Urine Color ADAN 10/28/19 11:45 Urine Appearance SLIGHTLY-CLOUDY 10/28/19 11:45 Urine pH 6.0 (5.0-9.0) 10/28/19 11:45 Ur Specific [place] 1.015 10/28/19 11:45 Urine Protein 100 mg/dL (NEGATIVE) H 10/28/19 11:45 Urine Glucose (UA) NEGATIVE mg/dL (NEGATIVE) 10/28/19 11:45 Urine Ketones 20 mg/dL (NEGATIVE) H 10/28/19 11:45 Urine Blood MODERATE (NEGATIVE) H 10/28/19 11:45 Urine RBC (Auto) 4 /HPF 10/28/19 11:45 10/28/19 15:14 Arm - Left Gram Stain - Final 10/28/19 15:14 Arm - Left Wound Culture - Final Group A Beta Streptococcus Staphylococcus Aureus No Anaerobic Organisms 10/28/19 12:51 Blood Blood Culture (PCR) - Final Strep Pyogenes (Grp A) 10/28/19 12:51 Blood Blood Culture - Final Group A Beta Streptococcus 10/28/19 11:20 Blood Blood Culture (PCR) - Final Strep Pyogenes (Grp A) 10/28/19 11:20 Blood Blood Culture - Final Group A Beta Streptococcus 10/28/19 11:45 Catheterized Urine Urine Culture - Final Escherichia Coli Radiology: Chest X-Ray 10/28/19 11:38 IMPRESSION: Peripheral linear opacities that are perpendicular to the pleural surface in the inferolateral aspect of the right hemithorax could represent Caleb B lines - clinical correlation for mild CHF / interstitial edema is recommended. Finger X-Ray 10/28/19 11:52 IMPRESSION: Soft tissue swelling. No osseous abnormality. Assessment and Recommendations: Patient with active intravenous drug use who was admitted with left forearm abscess, right thumb and index fingers gangrene. She has Streptococcus pyogenes bacteremia. Patient is s/p amputation of the necrotic fingers, I&D of forearm abscess. She has been on antibiotics but her leukocytosis has been worsening. She needs reassessment of source control, as she is at high risk for further abscess formation. There was significant necrosis and this increases the risk of further extension of the infection. She is on cefazolin now, which is adequate, but she might benefit from clindamycin as she might have some toxin mediated necrosis. Can consider this if condition worsens. She has been hemodynamically stable. Will recommend to consider adding clindamycin for toxin inhibition for 72 hrs. Duration of therapy will depend on the pathology report as if there is osteomyelitis she will need 6 weeks of therapy. Will also need a TTE to rule out endocarditis as this will also change the duration of therapy (6 weeks). If pathology and TTE are negative, she may have a shorter course of antibiotics. It is not clear if the gangrene was caused by GAS infection or embolic event due to injections or a combination of both. Duration of therapy will be from 2-6 weeks depending on the work up. New blood cultures are in process. PLease call if updates or questions. Nataly Hare MD [facility] [phone]
[2019-10-31] MEDS: OLANZAPINE INJ/PF 10 MG SDV IM SCH (21:31)
[2019-11-01] MEDS: SODIUM HYPOCHLORITE 0.25% SOLN 473 ML BOTTLE TP PRN (00:07)
[2019-11-01] MEDS: FENTANYL CITRATE INJ/PF 100 MCG/2 ML AMPUL IV PRN ×5 (01:56→20:26)
[2019-11-01 04:26] LABS: ALBUMIN 2.7 g/dL (3.5-5.0); ALKALINE PHOSPHATASE 52 U/L (38-126); ANION GAP 7 (5-19); ASPARTATE AMINO TRANSFERASE 87 U/L (14-36); BILIRUBIN,DIRECT 0.2 mg/dL (0.0-0.4); BILIRUBIN,TOTAL 0.8 mg/dL (0.2-1.3); BLOOD UREA NITROGEN 10 mg/dL (7-20); CALCIUM 8.5 mg/dL (8.4-10.2); CARBON DIOXIDE 22 mmol/L (22-30); CHLORIDE 109 mmol/L (98-107); GLUCOSE 108 mg/dL (75-110); TOTAL PROTEIN 5.8 g/dL (6.3-8.2)
[2019-11-01] MEDS: RINGERS SOLUTION,LACTATED 1,000 ML IV PRN ×2 (04:36→17:17)
[2019-11-01 05:10] LABS: POTASSIUM 4.6 mmol/L (3.6-5.0)
[2019-11-01] MEDS: CEFAZOLIN SODIUM 2 GM in DEXTROSE 5%-WATER 100 ML IV SCH ×3 (06:22→17:16)
[2019-11-01] MEDS: POTASSIUM CHLORIDE 10 MEQ TABLET.ER PO SCH ×4 (06:22→21:40)
[2019-11-01] MEDS: HEPARIN SOD (PORCINE) 5,000 UNIT/ML 1 ML VIAL SUBCUT SCH ×3 (06:23→21:40)
--- NOTE | 2019-11-01 16:49 | PDOC PROGRESS REPORT ---
Subjective Progress Note for:: 11/01/19 Subjective:: No adverse events overnight. No new complaints. Vital signs been stable. Eating and drinking without difficulty, appetite starting to improve. No new fevers. Reason For Visit: SEPSIS,SEPTIC EMBOI,LEFT HAND ABSCESS Physical Exam Vital Signs: Temp Pulse Resp BP Pulse Ox 98.5 F 99 16 115/63 100 11/01/19 16:00 11/01/19 16:00 11/01/19 16:00 11/01/19 16:00 11/01/19 16:00 Intake & Output 10/31/19 11/01/19 11/02/19 06:59 06:59 06:59 Intake Total 4280 2926 720 Output Total 1650 3000 Balance 2630 -74 720 Weight 54.1 kg 54.1 kg General appearance: PRESENT: no acute distress, disheveled, other - Somnolent Respiratory exam: PRESENT: clear to auscultation chelo, symmetrical, unlabored. ABSENT: accessory muscle use, chest wall tenderness, crackles, prolonged expiratory phas, rhonchi, tachypnea, wheezes Cardiovascular exam: PRESENT: RRR, +S1, +S2 Pulses: PRESENT: normal carotid pulses Vascular exam: PRESENT: normal capillary refill GI/Abdominal exam: PRESENT: normal bowel sounds, soft. ABSENT: distended, guarding, rebound, tenderness Extremities exam: PRESENT: Pedal edema, other - Right hand is wrapped in a heavy bandage, thumb surgically removed tip of the index finger of the left hand has been trimmed, improvement in the erythema in the fifth toe of the right foot. Left arm and hand remain swollen. ABSENT: clubbing Musculoskeletal exam: PRESENT: deformity - Right thumb surgically removed, tip of left index finger trimmed surgically Neurological exam: PRESENT: Awake, oriented to person, oriented to place, oriented to situation Psychiatric exam: PRESENT: flat affect Skin exam: PRESENT: other - She still has some trace erythema of the dorsum of both feet she still has some erythema both forearms but this is improved somewhat. She has packing left arm from an abscess that was surgically drained. There is an area of induration around a scab on her left forearm that we are watching for development of abscess. Results Laboratory Results: 10/31/19 10:10 11/01/19 03:49 11/01/19 03:49 Sodium 138.0 Potassium 4.6 D Chloride 109 H Carbon Dioxide 22 Anion Gap 7 BUN 10 Creatinine 0.45 L Est GFR ( Amer) > 60 Glucose 108 Calcium 8.5 Total Bilirubin 0.8 AST 87 H Alkaline Phosphatase 52 Total Protein 5.8 L Albumin 2.7 L Impressions: Chest X-Ray 10/28/19 11:38 IMPRESSION: Peripheral linear opacities that are perpendicular to the pleural surface in the inferolateral aspect of the right hemithorax could represent Caleb B lines - clinical correlation for mild CHF / interstitial edema is recommended. Finger X-Ray 10/28/19 11:52 IMPRESSION: Soft tissue swelling. No osseous abnormality. Assessment and Plan - Diagnosis (1) Septic arterial embolism Is this a current diagnosis for this admission?: Yes Plan: Broad-spectrum antibiotics have been started. Cultures obtained from blood and intraoperative cultures. She has had improvement in her liver and kidney function, and she is going to be on antibiotics for some time, so will defer fu rther imaging at this time because it should not change our treatment. (2) Cellulitis of multiple sites Is this a current diagnosis for this admission?: Yes Plan: Broad-spectrum antibiotics initially, cultures from blood showing group a streptococcus, wound cultures showing Streptococcus and MSSA. After discussion with pharmacy we change it to Ancef to cover everything she has on right now. (3) Severe sepsis Is this a current diagnosis for this admission?: Yes Plan: In addition to IV antibiotics and source control, hemodynamic support and monitoring of organ function will be done. Kidney function is improved. Coagulation studies and liver enzymes have improved. (4) Hypokalemia Is this a current diagnosis for this admission?: Yes Plan: Replacing with an oral supplement (5) History of acute bacterial endocarditis Is this a current diagnosis for this admission?: Yes Plan: She will need a repeat SYD (6) Polysubstance abuse Is this a current diagnosis for this admission?: Yes Plan: She has a long relapsing history of IV substance abuse, particularly heroin. We have encouraged cessation and abstinence the past, and will do so again. (7) Abnormal chest x-ray Is this a current diagnosis for this admission?: Yes Plan: There was some concern for pulmonary edema, given her history my concern would be for recurrence of septic pulmonary emboli. However, given her overall hemodynamic stability and improvement with the current treatment, will defer imaging for now, because it would not be likely to change our current treatment plan. (8) Acute liver failure Qualifiers: Hepatic coma status: without hepatic coma Qualified Code(s): K72.00 - Acute and subacute hepatic failure without coma Is this a current diagnosis for this admission?: Yes Plan: Resolved (9) Abscess of left upper arm and forearm Is this a current diagnosis for this admission?: Yes Plan: Status post incision and drainage, on empiric antibiotics, cultures showed group A Streptococcus and MSSA, on Ancef now as previously noted. There is another area on the left forearm shows induration surrounding a scab that will need to be watched closely for development of abscess. (10) Gangrene of finger of both hands Is this a current diagnosis for this admission?: Yes Plan: Left thumb was removed, gangrenous portion of the tip of the left index finger was removed (11) Bacteremia due to Streptococcus Is this a current diagnosis for this admission?: Yes Plan: She has been changed over to Ancef. She will need another SYD. Repeat blood cultures have been obtained to assess for clearance, so we can know whether or not it is safe to put in a PICC line. - Time Time Spent with patient: 25-34 minutes
[2019-11-01] MEDS: OLANZAPINE INJ/PF 10 MG SDV IM SCH (21:38)
[2019-11-02] MEDS: FENTANYL CITRATE INJ/PF 100 MCG/2 ML AMPUL IV PRN ×6 (00:04→20:23)
[2019-11-02] MEDS: SODIUM HYPOCHLORITE 0.25% SOLN 473 ML BOTTLE TP PRN ×3 (00:26→16:23)
[2019-11-02] MEDS: RINGERS SOLUTION,LACTATED 1,000 ML IV PRN ×2 (05:52→19:25)
[2019-11-02] MEDS: CEFAZOLIN SODIUM 2 GM in DEXTROSE 5%-WATER 100 ML IV SCH ×5 (05:53→17:03)
[2019-11-02] MEDS: HEPARIN SOD (PORCINE) 5,000 UNIT/ML 1 ML VIAL SUBCUT SCH ×3 (05:54→22:29)
[2019-11-02] MEDS: POTASSIUM CHLORIDE 10 MEQ TABLET.ER PO SCH ×3 (05:56→22:29)
[2019-11-02 09:40] LABS: HEMATOCRIT 27.5 % (36.0-47.0); HEMOGLOBIN 9.3 g/dL (12.0-15.5); MEAN CORPUSCULAR HEMOGLOBIN 31.9 pg (27.0-33.4); MEAN CORPUSCULAR HGB CONC 33.9 g/dL (32.0-36.0); MEAN CORPUSCULAR VOLUME 94 fl (80-97); PLATELET COUNT 496 10^3/uL (150-450); RED BLOOD COUNT 2.93 10^6/uL (3.72-5.28); RED CELL DISTRIBUTION WIDTH 20.6 % (11.5-14.0); WHITE BLOOD COUNT 14.2 10^3/uL (4.0-10.5)
[2019-11-02 10:11] LABS: ALBUMIN 3.2 g/dL (3.5-5.0); ALKALINE PHOSPHATASE 57 U/L (38-126); ANION GAP 10 (5-19); ASPARTATE AMINO TRANSFERASE 46 U/L (14-36); BILIRUBIN,DIRECT 0.2 mg/dL (0.0-0.4); BILIRUBIN,TOTAL 0.6 mg/dL (0.2-1.3); BLOOD UREA NITROGEN 11 mg/dL (7-20); CALCIUM 8.6 mg/dL (8.4-10.2); CARBON DIOXIDE 22 mmol/L (22-30); CHLORIDE 105 mmol/L (98-107); GLUCOSE 143 mg/dL (75-110); POTASSIUM 4.3 mmol/L (3.6-5.0); TOTAL PROTEIN 6.5 g/dL (6.3-8.2)
[2019-11-02] MEDS: NYSTATIN/DEXAMETH/DIPHEN SUSP 120 ML PO SCH ×2 (17:06→22:29)
--- NOTE | 2019-11-02 17:31 | PDOC PROGRESS REPORT ---
Subjective Progress Note for:: 11/02/19 Subjective:: No adverse events overnight. No new complaints. Vital signs been stable. She is complaining of some mouth sores and would like some Magic mouthwash. She also wants something to help her sleep. Reason For Visit: SEPSIS,SEPTIC EMBOI,LEFT HAND ABSCESS Physical Exam Vital Signs: Temp Pulse Resp BP Pulse Ox 98.0 F 106 H 15 130/73 H 97 11/02/19 08:00 11/02/19 14:00 11/02/19 08:00 11/02/19 08:00 11/02/19 08:00 Intake & Output 11/01/19 11/02/19 11/03/19 06:59 06:59 06:59 Intake Total 2926 3540 580 Output Total 3000 2900 1150 Balance -74 640 -570 Weight 54.1 kg 53.6 kg General appearance: PRESENT: no acute distress, disheveled, other - Somnolent Respiratory exam: PRESENT: clear to auscultation chelo, symmetrical, unlabored. ABSENT: accessory muscle use, chest wall tenderness, crackles, prolonged expiratory phas, rhonchi, tachypnea, wheezes Cardiovascular exam: PRESENT: RRR, +S1, +S2 Pulses: PRESENT: normal carotid pulses Vascular exam: PRESENT: normal capillary refill GI/Abdominal exam: PRESENT: normal bowel sounds, soft. ABSENT: distended, guarding, rebound, tenderness Extremities exam: PRESENT: Pedal edema, other - Right hand is wrapped in a heavy bandage, thumb surgically removed tip of the index finger of the left hand has been trimmed, improvement in the erythema in the fifth toe of the right foot. Left arm and hand remain swollen. ABSENT: clubbing Musculoskeletal exam: PRESENT: deformity - Right thumb surgically removed, tip of left index finger trimmed surgically Neurological exam: PRESENT: Awake, oriented to person, oriented to place, oriented to situation Psychiatric exam: PRESENT: flat affect Skin exam: PRESENT: other - She still has some trace erythema of the dorsum of both feet with improvement in the erythema of both forearms. She has packing left arm from an abscess that was surgically drained. There is an area of induration around a scab on her left forearm that has reduced in intensity. Results Laboratory Results: 11/02/19 09:30 11/02/19 09:30 11/02/19 11/02/19 09:30 09:30 WBC 14.2 H RBC 2.93 L Hgb 9.3 L Hct 27.5 L MCV 94 MCH 31.9 MCHC 33.9 RDW 20.6 H Plt Count 496 H Sodium 136.9 L Potassium 4.3 Chloride 105 Carbon Dioxide 22 Anion Gap 10 BUN 11 Creatinine 0.47 L Est GFR ( Amer) > 60 Glucose 143 H Calcium 8.6 Total Bilirubin 0.6 AST 46 H Alkaline Phosphatase 57 Total Protein 6.5 Albumin 3.2 L Impressions: Chest X-Ray 10/28/19 11:38 IMPRESSION: Peripheral linear opacities that are perpendicular to the pleural surface in the inferolateral aspect of the right hemithorax could represent Caleb B lines - clinical correlation for mild CHF / interstitial edema is recommended. Finger X-Ray 10/28/19 11:52 IMPRESSION: Soft tissue swelling. No osseous abnormality. Assessment and Plan - Diagnosis (1) Septic arterial embolism Is this a current diagnosis for this admission?: Yes Plan: Broad-spectrum antibiotics have been started. Cultures obtained from blood and intraoperative cultures. She has had improvement in her liver and kidney function, and she is going to be on antibiotics for some time, so will defer further imaging at this time because it should not change our treatment. (2) Cellulitis of multiple sites Is this a current diagnosis for this admission?: Yes Plan: Broad-spectrum antibiotics initially, cultures from blood showing group a streptococcus, wound cultures showing Streptococcus and MSSA. After discussion with pharmacy we change it to Ancef to cover everything she has on right now. (3) Severe sepsis Is this a current diagnosis for this admission?: Yes Plan: In addition to IV antibiotics and source control, hemodynamic support and monitoring of organ function will be done. Kidney function is improved. Coagulation studies and liver enzymes have improved. (4) Hypokalemia Is this a current diagnosis for this admission?: Yes Plan: Resolved (5) History of acute bacterial endocarditis Is this a current diagnosis for this admission?: Yes Plan: She will need a repeat SYD (6) Polysubstance abuse Is this a current diagnosis for this admission?: Yes Plan: She has a long relapsing history of IV substance abuse, particularly heroin. We have encouraged cessation and abstinence the past, and will do so again. (7) Abnormal chest x-ray Is this a current diagnosis for this admission?: Yes Plan: There was some concern for pulmonary edema, given her history my concern would be for recurrence of septic pulmonary emboli. However, given her overall hemodynamic stability and improvement with the current treatment, will defer imaging for now, because it would not be likely to change our current treatment plan. (8) Acute liver failure Qualifiers: Hepatic coma status: without hepatic coma Qualified Code(s): K72.00 - Acute and subacute hepatic failure without coma Is this a current diagnosis for this admission?: Yes Plan: Resolved (9) Abscess of left upper arm and forearm Is this a current diagnosis for this admission?: Yes Plan: Status post incision and drainage, on empiric antibiotics, cultures showed group A Streptococcus and MSSA, on Ancef now as previously noted. There is another area on the left forearm shows induration surrounding a scab that is reducing in intensity. (10) Gangrene of finger of both hands Is this a current diagnosis for this admission?: Yes Plan: Left thumb was removed, gangrenous portion of the tip of the left index finger was removed (11) Bacteremia due to Streptococcus Is this a current diagnosis for this admission?: Yes Plan: She has been changed over to Ancef. She will need another SYD. Repeat blood cultures have been obtained and are negative, so PICC line order has been placed. - Time Time Spent with patient: 25-34 minutes
[2019-11-02] MEDS: OLANZAPINE INJ/PF 10 MG SDV IM SCH (22:28)
[2019-11-02] MEDS: MELATONIN 5 MG TABLET PO SCH (22:29)
[2019-11-03] MEDS: SODIUM HYPOCHLORITE 0.25% SOLN 473 ML BOTTLE TP PRN ×2 (00:30→22:53)
[2019-11-03] MEDS: FENTANYL CITRATE INJ/PF 100 MCG/2 ML AMPUL IV PRN ×6 (00:31→22:51)
[2019-11-03] MEDS: CEFAZOLIN SODIUM 2 GM in DEXTROSE 5%-WATER 100 ML IV SCH ×5 (00:35→23:44)
[2019-11-03] MEDS: POTASSIUM CHLORIDE 10 MEQ TABLET.ER PO SCH ×3 (05:22→22:50)
[2019-11-03] MEDS: HEPARIN SOD (PORCINE) 5,000 UNIT/ML 1 ML VIAL SUBCUT SCH ×3 (05:23→22:52)
[2019-11-03] MEDS: RINGERS SOLUTION,LACTATED 1,000 ML IV PRN ×2 (05:24→22:52)
[2019-11-03 06:43] LABS: HEMATOCRIT 30.1 % (36.0-47.0); HEMOGLOBIN 10.1 g/dL (12.0-15.5); MEAN CORPUSCULAR HEMOGLOBIN 31.6 pg (27.0-33.4); MEAN CORPUSCULAR HGB CONC 33.5 g/dL (32.0-36.0); MEAN CORPUSCULAR VOLUME 94 fl (80-97); PLATELET COUNT 558 10^3/uL (150-450); RED BLOOD COUNT 3.19 10^6/uL (3.72-5.28); RED CELL DISTRIBUTION WIDTH 21.2 % (11.5-14.0); WHITE BLOOD COUNT 14.1 10^3/uL (4.0-10.5)
[2019-11-03] MEDS: NYSTATIN/DEXAMETH/DIPHEN SUSP 120 ML PO SCH ×4 (09:10→22:52)
--- NOTE | 2019-11-03 14:31 | PDOC PROGRESS REPORT ---
Subjective Progress Note for:: 11/03/19 Subjective:: No adverse events overnight. No new complaints. Vital signs been stable. She is due to get a PICC line today. She has been sleeping all morning. Reason For Visit: SEPSIS,SEPTIC EMBOI,LEFT HAND ABSCESS Physical Exam Vital Signs: Temp Pulse Resp BP Pulse Ox 98.2 F 99 18 130/67 H 99 11/03/19 12:14 11/03/19 12:14 11/03/19 12:14 11/03/19 12:14 11/03/19 12:14 Intake & Output 11/02/19 11/03/19 11/04/19 06:59 06:59 06:59 Intake Total 3540 3503 Output Total 2900 3550 Balance 640 -47 Weight 53.6 kg 50.9 kg General appearance: PRESENT: no acute distress, disheveled, other - Somnolent Respiratory exam: PRESENT: clear to auscultation chelo, symmetrical, unlabored. ABSENT: accessory muscle use, chest wall tenderness, crackles, prolonged expiratory phas, rhonchi, tachypnea, wheezes Cardiovascular exam: PRESENT: RRR, +S1, +S2 Pulses: PRESENT: normal carotid pulses Vascular exam: PRESENT: normal capillary refill GI/Abdominal exam: PRESENT: normal bowel sounds, soft. ABSENT: distended, guarding, rebound, tenderness Extremities exam: PRESENT: Pedal edema, other - Right hand is wrapped in a heavy bandage, thumb surgically removed tip of the index finger of the left hand has been trimmed, improvement in the erythema in the fifth toe of the right foot. Left arm and hand remain swollen. ABSENT: clubbing Musculoskeletal exam: PRESENT: deformity - Right thumb surgically removed, tip of left index finger trimmed surgically Neurological exam: PRESENT: Awake, oriented to person, oriented to place, or iented to situation Psychiatric exam: PRESENT: flat affect Skin exam: PRESENT: other - She still has some trace erythema of the dorsum of both feet with improvement in the erythema of both forearms. She has packing left arm from an abscess that was surgically drained. There is an area of induration around a scab on her left forearm that has reduced in intensity. Results Laboratory Results: 11/03/19 06:01 11/02/19 09:30 11/03/19 06:01 WBC 14.1 H RBC 3.19 L Hgb 10.1 L Hct 30.1 L MCV 94 MCH 31.6 MCHC 33.5 RDW 21.2 H Plt Count 558 H Impressions: Chest X-Ray 10/28/19 11:38 IMPRESSION: Peripheral linear opacities that are perpendicular to the pleural surface in the inferolateral aspect of the right hemithorax could represent Caleb B lines - clinical correlation for mild CHF / interstitial edema is recommended. Finger X-Ray 10/28/19 11:52 IMPRESSION: Soft tissue swelling. No osseous abnormality. Assessment and Plan - Diagnosis (1) Septic arterial embolism Is this a current diagnosis for this admission?: Yes Plan: Broad-spectrum antibiotics have been started. Cultures obtained from blood and intraoperative cultures. She has had improvement in her liver and kidney function, and she is going to be on antibiotics for some time, so will defer further imaging at this time because it should not change our treatment. (2) Cellulitis of multiple sites Is this a current diagnosis for this admission?: Yes Plan: Broad-spectrum antibiotics initially, cultures from blood showing group a streptococcus, wound cultures showing Streptococcus and MSSA. After discussion with pharmacy we change it to Anc to cover everything she has on right now. (3) Severe sepsis Is this a current diagnosis for this admission?: Yes Plan: In addition to IV antibiotics and source control, hemodynamic support and monitoring of organ function will be done. Kidney function is improved. Coagulation studies and liver enzymes have improved. (4) Hypokalemia Is this a current diagnosis for this admission?: Yes Plan: Resolved (5) History of acute bacterial endocarditis Is this a current diagnosis for this admission?: Yes Plan: She will need a repeat SYD (6) Polysubstance abuse Is this a current diagnosis for this admission?: Yes Plan: She has a long relapsing history of IV substance abuse, particularly heroin. We have encouraged cessation and abstinence the past, and will do so again. (7) Abnormal chest x-ray Is this a current diagnosis for this admission?: Yes Plan: There was some concern for pulmonary edema, given her history my concern would be for recurrence of septic pulmonary emboli. However, given her overall hemodynamic stability and improvement with the current treatment, will defer imaging for now, because it would not be likely to change our current treatment plan. (8) Acute liver failure Qualifiers: Hepatic coma status: without hepatic coma Qualified Code(s): K72.00 - Acute and subacute hepatic failure without coma Is this a current diagnosis for this admission?: Yes Plan: Resolved (9) Abscess of left upper arm and forearm Is this a current diagnosis for this admission?: Yes Plan: Status post incision and drainage, on empiric antibiotics, cultures showed group A Streptococcus and MSSA, on Ancef now as previously noted. There is another area on the left forearm shows induration surrounding a scab that is reducing in intensity. (10) Gangrene of finger of both hands Is this a current diagnosis for this admission?: Yes Plan: Left thumb was removed, gangrenous portion of the tip of the left index finger was removed (11) Bacteremia due to Streptococcus Is this a current diagnosis for this admission?: Yes Plan: She has been changed over to Ancef. She will need another SYD. Repeat blood cultures have been obtained and are negative, so PICC line order has been placed. - Time Time Spent with patient: 25-34 minutes
--- NOTE | 2019-11-03 14:39 | RADIOLOGY REPORT (SQ) ---
EXAM DESCRIPTION: PICC INSERTION IMAGES COMPLETED DATE/TIME: 11/03/2019 2:11 pm REASON FOR STUDY: IV access COMPARISON: None. FLUOROSCOPY TIME: 24 seconds 1 images saved to PACS. TECHNIQUE: Fluoroscopic and ultrasound guided PICC placement. LIMITATIONS: None. PROCEDURE: After written consent and assessment were obtained, the patient was brought into the fluo roscopy room and placed supine on the table. Ultrasound evaluation of potential access sites were per formed. After successfully identifying a patent right brachiocephalic vein, the right upper arm was p repped and draped in a sterile fashion along with the ultrasound probe. The entry site was anesthetiz ed with 1% lidocaine. A 21 gauge 7 cm needle was advanced through the skin and into the brachiocephal ic vein under live ultrasound guidance. An ultrasound image was saved to PACS confirming access site . A .018 guide wire was then inserted through the needle and into the venous system. The needle was then removed and an 11 blade scalpel was used to make a 1cm skin incision. A 5 fr peel-away sheath w as advanced over the wire and into the venous system. A measurement was then made using the existing wire and live fluoroscopic guidance. The wire was then removed and trimmed. The PICC was advanced thr ough the peel-away sheath and into the venous system. The peel-away sheath was removed and the cathet er was adhered to the patients arm with a stat lock. The catheter was then aspirated and flushed and a sterile bandage was placed over the access site. A fluoroscopic spot image was saved to PACS confi rming the catheter tip within the SVC. IMPRESSION: SUCCESSFUL PLACEMENT OF A 5 FR DUAL LUMEN 30 CM PICC IN THE RIGHT BRACHIOCEPHALIC VEIN. COMMENT: Patient medication list reviewed: Yes- Quality ID# 130:Eligible professional attests to doc umenting in the medical record they obtained, updated, or reviewed the patient's current medications. . Quality ID 145: Final reports for procedures using fluoroscopy that document radiation exposure tarah stef, or exposure time and number of fluorographic images (if radiation exposure indices are not avail able) Quality ID #76: The patient was prepped and draped using maximum sterile barrier technique including cap, mask, sterile gown, sterile gloves, a large sterile sheet, hand hygiene, and 2% Chlorhexidine fo r cutaneous antisepsis. When ultrasound is used, sterile ultrasound techniques are followed requiring sterile gel and sterile probes. TECHNICAL DOCUMENTATION: JOB ID: [id number] 2010 [employer]- All Rights Reserved rev Reading location - IP/workstation name: [id number]
[2019-11-03] MEDS: MELATONIN 5 MG TABLET PO SCH (22:50)
[2019-11-03] MEDS: OLANZAPINE INJ/PF 10 MG SDV IM SCH (22:52)
[2019-11-04] MEDS: FENTANYL CITRATE INJ/PF 100 MCG/2 ML AMPUL IV PRN ×5 (04:11→20:28)
[2019-11-04] MEDS: POTASSIUM CHLORIDE 10 MEQ TABLET.ER PO SCH ×4 (05:25→22:42)
[2019-11-04] MEDS: HEPARIN SOD (PORCINE) 5,000 UNIT/ML 1 ML VIAL SUBCUT SCH ×3 (05:25→22:41)
[2019-11-04] MEDS: CEFAZOLIN SODIUM 2 GM in DEXTROSE 5%-WATER 100 ML IV SCH ×4 (05:25→23:24)
[2019-11-04 05:44] LABS: HEMOGLOBIN 9.1 g/dL (12.0-15.5); MEAN CORPUSCULAR HGB CONC 33.6 g/dL (32.0-36.0); MEAN CORPUSCULAR VOLUME 95 fl (80-97); PLATELET COUNT 613 10^3/uL (150-450); RED BLOOD COUNT 2.84 10^6/uL (3.72-5.28); RED CELL DISTRIBUTION WIDTH 20.9 % (11.5-14.0); WHITE BLOOD COUNT 13.4 10^3/uL (4.0-10.5)
[2019-11-04] MEDS: RINGERS SOLUTION,LACTATED 1,000 ML IV PRN ×2 (08:47→20:34)
[2019-11-04] MEDS: NYSTATIN/DEXAMETH/DIPHEN SUSP 120 ML PO SCH ×4 (09:17→22:39)
--- NOTE | 2019-11-04 15:51 | PDOC PROGRESS REPORT ---
Subjective Progress Note for:: 11/04/19 Subjective:: No adverse events overnight. No new complaints. Vital signs been stable. Her appetite is improving some. She still sleeping a lot during the day but she was more interactive today. She said overall she feels pretty good. Reason For Visit: SEPSIS,SEPTIC EMBOI,LEFT HAND ABSCESS Physical Exam Vital Signs: Temp Pulse Resp BP Pulse Ox 97.7 F 98 16 110/68 97 11/04/19 11:25 11/04/19 14:00 11/04/19 11:25 11/04/19 11:25 11/04/19 11:25 Intake & Output 11/03/19 11/04/19 11/05/19 06:59 06:59 06:59 Intake Total 3503 2605 1767 Output Total 3550 2300 650 Balance -47 305 1117 Weight 50.9 kg 50.9 kg General appearance: PRESENT: no acute distress, disheveled, other - Somnolent Respiratory exam: PRESENT: clear to auscultation chelo, symmetrical, unlabored. ABSENT: accessory muscle use, chest wall tenderness, crackles, prolonged expiratory phas, rhonchi, tachypnea, wheezes Cardiovascular exam: PRESENT: RRR, +S1, +S2 Pulses: PRESENT: normal carotid pulses Vascular exam: PRESENT: normal capillary refill GI/Abdominal exam: PRESENT: normal bowel sounds, soft. ABSENT: distended, guar ding, rebound, tenderness Extremities exam: PRESENT: Pedal edema, other - Right hand is wrapped in a heavy bandage, thumb surgically removed tip of the index finger of the left hand has been trimmed, improvement in the erythema in the fifth toe of the right foot. Left arm and hand remain swollen. ABSENT: clubbing Musculoskeletal exam: PRESENT: deformity - Right thumb surgically removed, tip of left index finger trimmed surgically Neurological exam: PRESENT: Awake, oriented to person, oriented to place, oriented to situation Psychiatric exam: PRESENT: flat affect Skin exam: PRESENT: other - She still has some trace erythema of the dorsum of both feet with improvement in the erythema of both forearms. She has packing left arm from an abscess that was surgically drained. There is an area of induration around a scab on her left forearm that has reduced in intensity. Results Laboratory Results: 11/04/19 05:20 11/02/19 09:30 11/04/19 05:20 WBC 13.4 H RBC 2.84 L Hgb 9.1 L Hct 27.0 L MCV 95 MCH 32.0 MCHC 33.6 RDW 20.9 H Plt Count 613 H Impressions: Chest X-Ray 10/28/19 11:38 IMPRESSION: Peripheral linear opacities that are perpendicular to the pleural surface in the inferolateral aspect of the right hemithorax could represent Caleb B lines - clinical correlation for mild CHF / interstitial edema is recommended. Finger X-Ray 10/28/19 11:52 IMPRESSION: Soft tissue swelling. No osseous abnormality. PICC Line Insertion 11/03/19 00:00 IMPRESSION: SUCCESSFUL PLACEMENT OF A 5 FR DUAL LUMEN 30 CM PICC IN THE RIGHT BRACHIOCEPHALIC VEIN. Assessment and Plan - Diagnosis (1) Septic arterial embolism Is this a current diagnosis for this admission?: Yes Plan: On Ancef. Cultures obtained from blood and intraoperative cultures showed group A strep. She has had improvement in her liver and kidney function, and she is going to be on antibiotics for some time, so will defer further imaging at this time because it should not change our treatment. (2) Cellulitis of multiple sites Is this a current diagnosis for this admission?: Yes Plan: Broad-spectrum antibiotics initially, cultures from blood showing group a streptococcus, wound cultures showing Streptococcus and MSSA. After discussion with pharmacy we changed it to Ancef to cover everything she has on right now. (3) Severe sepsis Is this a current diagnosis for this admission?: Yes Plan: In addition to IV antibiotics and source control, hemodynamic support and monitoring of organ function will be done. Kidney function is improved. Coagulation studies and liver enzymes have improved. (4) Hypokalemia Is this a current diagnosis for this admission?: Yes Plan: Resolved (5) History of acute bacterial endocarditis Is this a current diagnosis for this admission?: Yes Plan: She will need a repeat SYD (6) Polysubstance abuse Is this a current diagnosis for this admission?: Yes Plan: She has a long relapsing history of IV substance abuse, particularly heroin. We have encouraged cessation and abstinence the past, and will do so again. (7) Abnormal chest x-ray Is this a current diagnosis for this admission?: Yes Plan: There was some concern for pulmonary edema, given her history my concern would be for recurrence of septic pulmonary emboli. However, given her overall hemodynamic stability and improvement with the current treatment, will defer imaging for now, because it would not be likely to change our current treatment plan. (8) Acute liver failure Qualifiers: Hepatic coma status: without hepatic coma Qualified Code(s): K72.00 - Acute and subacute hepatic failure without coma Is this a current diagnosis for this admission?: Yes Plan: Resolved (9) Abscess of left upper arm and forearm Is this a current diagnosis for this admission?: Yes Plan: Status post incision and drainage, on empiric antibiotics, cultures showed group A Streptococcus and MSSA, on Ancef now as previously noted. There is another area on the left forearm shows induration surrounding a scab that is reducing in intensity. (10) Gangrene of finger of both hands Is this a current diagnosis for this admission?: Yes Plan: Left thumb was removed, gangrenous portion of the tip of the left index finger was removed (11) Bacteremia due to Streptococcus Is this a current diagnosis for this admission?: Yes Plan: She has been changed over to Ancef. She will need another SYD, which should happen on Thursday. Repeat blood cultures have been obtained and are negative, so PICC line has been placed. - Time Time Spent with patient: 25-34 minutes
[2019-11-04] MEDS: SODIUM HYPOCHLORITE 0.25% SOLN 473 ML BOTTLE TP PRN (17:21)
[2019-11-04] MEDS: OLANZAPINE INJ/PF 10 MG SDV IM SCH (22:41)
[2019-11-04] MEDS: MELATONIN 5 MG TABLET PO SCH (22:42)
[2019-11-05] MEDS: FENTANYL CITRATE INJ/PF 100 MCG/2 ML AMPUL IV PRN ×6 (00:02→20:59)
[2019-11-05] MEDS: SODIUM HYPOCHLORITE 0.25% SOLN 473 ML BOTTLE TP PRN (04:14)
[2019-11-05 04:55] LABS: HEMOGLOBIN 8.7 g/dL (12.0-15.5); MEAN CORPUSCULAR HEMOGLOBIN 31.6 pg (27.0-33.4); MEAN CORPUSCULAR HGB CONC 33.3 g/dL (32.0-36.0); MEAN CORPUSCULAR VOLUME 95 fl (80-97); PLATELET COUNT 620 10^3/uL (150-450); RED BLOOD COUNT 2.74 10^6/uL (3.72-5.28); RED CELL DISTRIBUTION WIDTH 20.8 % (11.5-14.0); WHITE BLOOD COUNT 14.1 10^3/uL (4.0-10.5)
[2019-11-05] MEDS: CEFAZOLIN SODIUM 2 GM in DEXTROSE 5%-WATER 100 ML IV SCH ×4 (06:09→23:59)
[2019-11-05] MEDS: POTASSIUM CHLORIDE 10 MEQ TABLET.ER PO SCH ×3 (06:09→21:38)
[2019-11-05] MEDS: HEPARIN SOD (PORCINE) 5,000 UNIT/ML 1 ML VIAL SUBCUT SCH ×3 (06:10→21:42)
[2019-11-05] MEDS: RINGERS SOLUTION,LACTATED 1,000 ML IV PRN ×2 (06:20→21:19)
[2019-11-05] MEDS: NYSTATIN/DEXAMETH/DIPHEN SUSP 120 ML PO SCH ×4 (09:10→21:39)
--- NOTE | 2019-11-05 12:13 | PDOC PROGRESS REPORT ---
Subjective Progress Note for:: 11/05/19 Subjective:: No adverse events overnight. No new complaints. Vital signs been stable. Her appetite is improving some. She is not getting out of bed very much. She said overall she feels pretty good. Reason For Visit: SEPSIS,SEPTIC EMBOI,LEFT HAND ABSCESS Physical Exam Vital Signs: Temp Pulse Resp BP Pulse Ox 97.4 F 104 H 16 97/68 L 99 11/05/19 09:10 11/05/19 09:10 11/05/19 09:10 11/05/19 09:10 11/05/19 09:10 Intake & Output 11/04/19 11/05/19 11/06/19 06:59 06:59 06:59 Intake Total 2605 4474 600 Output Total 2300 2250 600 Balance 305 2224 0 Weight 50.9 kg 48.1 kg General appearance: PRESENT: no acute distress, disheveled, other - Somnolent Respiratory exam: PRESENT: clear to auscultation chelo, symmetrical, unlabored. ABSENT: accessory muscle use, chest wall tenderness, crackles, prolonged expiratory phas, rhonchi, tachypnea, wheezes Cardiovascular exam: PRESENT: RRR, +S1, +S2 Pulses: PRESENT: normal carotid pulses Vascular exam: PRESENT: normal capillary refill GI/Abdominal exam: PRESENT: normal bowel sounds, soft. ABSENT: distended, guarding, rebound, tenderness Extremities exam: PRESENT: other - Right hand is wrapped in a heavy bandage, thumb surgically removed tip of the index finger of the left hand has been trimmed, improvement in the erythema in the fifth toe of the right foot. Left arm and hand now only trace swelling. ABSENT: clubbing Musculoskeletal exam: PRESENT: deformity - Right thumb surgically removed, tip of left index finger trimmed surgically Neurological exam: PRESENT: Awake, oriented to person, oriented to place, oriented to situation Psychiatric exam: PRESENT: flat affect Skin exam: PRESENT: other - improvement in the erythema of both forearms. She has packing left arm from an abscess that was surgically drained. There is an area of induration around a scab on her left forearm that has reduced in intensity Results Laboratory Results: 11/05/19 04:30 11/02/19 09:30 11/05/19 04:30 WBC 14.1 H RBC 2.74 L Hgb 8.7 L Hct 26.0 L MCV 95 MCH 31.6 MCHC 33.3 RDW 20.8 H Plt Count 620 H 10/31/19 10:10 Blood Blood Culture - Final NO GROWTH IN 5 DAYS 10/31/19 10:26 Blood Blood Culture - Final NO GROWTH IN 5 DAYS Impressions: Chest X-Ray 10/28/19 11:38 IMPRESSION: Peripheral linear opacities that are perpendicular to the pleural surface in the inferolateral aspect of the right hemithorax could represent Caleb B lines - clinical correlation for mild CHF / interstitial edema is recommended. Finger X-Ray 10/28/19 11:52 IMPRESSION: Soft tissue swelling. No osseous abnormality. PICC Line Insertion 11/03/19 00:00 IMPRESSION: SUCCESSFUL PLACEMENT OF A 5 FR DUAL LUMEN 30 CM PICC IN THE RIGHT BRACHIOCEPHALIC VEIN. Assessment and Plan - Diagnosis (1) Septic arterial embolism Is this a current diagnosis for this admission?: Yes Plan: On Ancef. Cultures obtained from blood and intraoperative cultures showed group A strep. She has had improvement in her liver and kidney function, and she is going to be on antibiotics for some time, so will defer further imaging at this time because it should not change our treatment. (2) Cellulitis of multiple sites Is this a current diagnosis for this admission?: Yes Plan: Broad-spectrum antibiotics initially, cultures from blood showing group a streptococcus, wound cultures showing Streptococcus and MSSA. After discussion with pharmacy we changed it to Ancef to cover everything she has on right now. (3) Severe sepsis Is this a current diagnosis for this admission?: Yes Plan: In addition to IV antibiotics and source control, hemodynamic support and monitoring of organ function will be done. Kidney function is improved. Coagulation studies and liver enzymes have improved. (4) Hypokalemia Is this a current diagnosis for this admission?: Yes Plan: Resolved (5) History of acute bacterial endocarditis Is this a current diagnosis for this admission?: Yes Plan: She will need a repeat SYD (6) Polysubstance abuse Is this a current diagnosis for this admission?: Yes Plan: She has a long relapsing history of IV substance abuse, particularly heroin. We have encouraged cessation and abstinence the past, and will do so again. (7) Abnormal chest x-ray Is this a current diagnosis for this admission?: Yes Plan: There was some concern for pulmonary edema, given her history my concern would be for recurrence of septic pulmonary emboli. However, given her overall hemodynamic stability and improvement with the current treatment, will defer imaging for now, because it would not be likely to change our current treatment plan. (8) Acute liver failure Qualifiers: Hepatic coma status: without hepatic coma Qualified Code(s): K72.00 - Acute and subacute hepatic failure without coma Is this a current diagnosis for this admission?: Yes Plan: Resolved (9) Abscess of left upper arm and forearm Is this a current diagnosis for this admission?: Yes Plan: Status post incision and drainage, on empiric antibiotics, cultures showed group A Streptococcus and MSSA, on Ancef now as previously noted. There is another area on the left forearm shows induration surrounding a scab that is reducing in intensity. (10) Gangrene of finger of both hands Is this a current diagnosis for this admission?: Yes Plan: Left thumb was removed, gangrenous portion of the tip of the left index finger was removed (11) Bacteremia due to Streptococcus Is this a current diagnosis for this admission?: Yes Plan: She has been changed over to Ancef. She will need another SYD, which should happen on Thursday. Repeat blood cultures have been obtained and are negative, so PICC line has been placed. - Time Time Spent with patient: 25-34 minutes
[2019-11-05] MEDS: OLANZAPINE INJ/PF 10 MG SDV IM SCH (21:41)
[2019-11-05] MEDS: MELATONIN 5 MG TABLET PO SCH (21:42)
[2019-11-06] MEDS: FENTANYL CITRATE INJ/PF 100 MCG/2 ML AMPUL IV PRN ×6 (00:59→21:45)
[2019-11-06] MEDS: HEPARIN SOD (PORCINE) 5,000 UNIT/ML 1 ML VIAL SUBCUT SCH ×3 (06:14→21:45)
[2019-11-06] MEDS: CEFAZOLIN SODIUM 2 GM in DEXTROSE 5%-WATER 100 ML IV SCH ×3 (06:14→17:43)
[2019-11-06] MEDS: POTASSIUM CHLORIDE 10 MEQ TABLET.ER PO SCH (06:14)
[2019-11-06] MEDS: NYSTATIN/DEXAMETH/DIPHEN SUSP 120 ML PO SCH ×4 (09:52→21:57)
[2019-11-06 12:11] LABS: HEMATOCRIT 29.3 % (36.0-47.0); MEAN CORPUSCULAR HEMOGLOBIN 32.3 pg (27.0-33.4); MEAN CORPUSCULAR VOLUME 95 fl (80-97); PLATELET COUNT 707 10^3/uL (150-450); RED BLOOD COUNT 3.08 10^6/uL (3.72-5.28); RED CELL DISTRIBUTION WIDTH 20.4 % (11.5-14.0); WHITE BLOOD COUNT 12.2 10^3/uL (4.0-10.5)
--- NOTE | 2019-11-06 13:35 | PDOC PROGRESS REPORT ---
Subjective Progress Note for:: 11/06/19 Subjective:: No adverse events overnight. No new complaints. Vital signs been stable. Her appetite is improving some. She is still not getting out of bed very much. She said overall she feels pretty good. Reason For Visit: SEPSIS,SEPTIC EMBOI,LEFT HAND ABSCESS Physical Exam Vital Signs: Temp Pulse Resp BP Pulse Ox 98.0 F 113 H 16 122/67 98 11/06/19 11:50 11/06/19 11:50 11/06/19 11:50 11/06/19 11:50 11/06/19 11:50 Intake & Output 11/05/19 11/06/19 11/07/19 06:59 06:59 06:59 Intake Total 4474 3775 1725 Output Total 2250 1700 300 Balance 2224 2075 1425 Weight 48.1 kg 49.7 kg General appearance: PRESENT: no acute distress, disheveled, other - Somnolent Respiratory exam: PRESENT: clear to auscultation chelo, symmetrical, unlabored. ABSENT: accessory muscle use, chest wall tenderness, crackles, prolonged expiratory phas, rhonchi, tachypnea, wheezes Cardiovascular exam: PRESENT: RRR, +S1, +S2 Pulses: PRESENT: normal carotid pulses Vascular exam: PRESENT: normal capillary refill GI/Abdominal exam: PRESENT: normal bowel sounds, soft. ABSENT: distended, guarding, rebound, tenderness Extremities exam: PRESENT: other - Right hand is wrapped in a heavy bandage, thumb surgically removed tip of the index finger of the left hand has been trimmed, improvement in the erythema in the fifth toe of the right foot. Left arm and hand now only trace swelling. ABSENT: clubbing Musculoskeletal exam: PRESENT: deformity - Right thumb surgically removed, tip of left index finger trimmed surgically Neurological exam: PRESENT: Awake, oriented to person, oriented to place, oriented to situation Psychiatric exam: PRESENT: flat affect Skin exam: PRESENT: other - improvement in the erythema of both forearms. She has packing left arm from an abscess that was surgically drained. There is an area of induration around a scab on her left forearm that has reduced in in tensity Results Laboratory Results: 11/06/19 12:00 11/02/19 09:30 11/06/19 12:00 WBC 12.2 H RBC 3.08 L Hgb 10.0 L Hct 29.3 L MCV 95 MCH 32.3 MCHC 34.0 RDW 20.4 H Plt Count 707 H 10/31/19 10:10 Blood Blood Culture - Final NO GROWTH IN 5 DAYS 10/31/19 10:26 Blood Blood Culture - Final NO GROWTH IN 5 DAYS Impressions: Chest X-Ray 10/28/19 11:38 IMPRESSION: Peripheral linear opacities that are perpendicular to the pleural surface in the inferolateral aspect of the right hemithorax could represent Caleb B lines - clinical correlation for mild CHF / interstitial edema is recommended. Finger X-Ray 10/28/19 11:52 IMPRESSION: Soft tissue swelling. No osseous abnormality. PICC Line Insertion 11/03/19 00:00 IMPRESSION: SUCCESSFUL PLACEMENT OF A 5 FR DUAL LUMEN 30 CM PICC IN THE RIGHT BRACHIOCEPHALIC VEIN. Assessment and Plan - Diagnosis (1) Septic arterial embolism Is this a current diagnosis for this admission?: Yes Plan: On Ancef. Cultures obtained from blood and intraoperative cultures showed group A strep. She has had improvement in her liver and kidney function, and she is going to be on antibiotics for some time, so will defer further imaging at this time because it should not change our treatment. (2) Cellulitis of multiple sites Is this a current diagnosis for this admission?: Yes Plan: Broad-spectrum antibiotics initially, cultures from blood showing group a streptococcus, wound cultures showing Streptococcus and MSSA. After discussion with pharmacy we changed it to Ancef to cover everything she has on right now. (3) Severe sepsis Is this a current diagnosis for this admission?: Yes Plan: In addition to IV antibiotics and source control, hemodynamic support and monitoring of organ function will be done. Kidney function is improved. Coagulation studies and liver enzymes have improved. (4) Hypokalemia Is this a current diagnosis for this admission?: Yes Plan: Resolved (5) History of acute bacterial endocarditis Is this a current diagnosis for this admission?: Yes Plan: She will need a repeat SYD (6) Polysubstance abuse Is this a current diagnosis for this admission?: Yes Plan: She has a long relapsing history of IV substance abuse, particularly heroin. We have encouraged cessation and abstinence the past, and will do so again. (7) Abnormal chest x-ray Is this a current diagnosis for this admission?: Yes Plan: There was some concern for pulmonary edema, given her history my concern would be for recurrence of septic pulmonary emboli. However, given her overall hemodynamic stability and improvement with the current treatment, will defer imaging for now, because it would not be likely to change our current treatment plan. (8) Acute liver failure Qualifiers: Hepatic coma status: without hepatic coma Qualified Code(s): K72.00 - Acute and subacute hepatic failure without coma Is this a current diagnosis for this admission?: Yes Plan: Resolved (9) Abscess of left upper arm and forearm Is this a current diagnosis for this admission?: Yes Plan: Status post incision and drainage, on empiric antibiotics, cultures showed group A Streptococcus and MSSA, on Ancef now as previously noted. There is another area on the left forearm shows induration surrounding a scab that is reducing in intensity. (10) Gangrene of finger of both hands Is this a current diagnosis for this admission?: Yes Plan: Left thumb was removed, gangrenous portion of the tip of the left index finger was removed (11) Bacteremia due to Streptococcus Is this a current diagnosis for this admission?: Yes Plan: She has been changed over to Ancef. She will need another SYD, which should happen on Thursday. Repeat blood cultures have been obtained and are negative, so PICC line has been placed. - Time Time Spent with patient: 25-34 minutes
[2019-11-06 13:55] LABS: ANION GAP 10 (5-19); BLOOD UREA NITROGEN 19 mg/dL (7-20); CALCIUM 9.7 mg/dL (8.4-10.2); CARBON DIOXIDE 25 mmol/L (22-30); CHLORIDE 102 mmol/L (98-107); GLUCOSE 112 mg/dL (75-110); POTASSIUM 4.9 mmol/L (3.6-5.0)
[2019-11-06] MEDS: MELATONIN 5 MG TABLET PO SCH (21:44)
[2019-11-06] MEDS: OLANZAPINE INJ/PF 10 MG SDV IM SCH (21:52)
[2019-11-07] MEDS: CEFAZOLIN SODIUM 2 GM in DEXTROSE 5%-WATER 100 ML IV SCH ×3 (01:48→12:40)
[2019-11-07] MEDS: FENTANYL CITRATE INJ/PF 100 MCG/2 ML AMPUL IV PRN ×4 (02:04→20:15)
[2019-11-07 05:51] LABS: HEMATOCRIT 28.2 % (36.0-47.0); HEMOGLOBIN 9.8 g/dL (12.0-15.5); MEAN CORPUSCULAR HEMOGLOBIN 32.6 pg (27.0-33.4); MEAN CORPUSCULAR HGB CONC 34.7 g/dL (32.0-36.0); MEAN CORPUSCULAR VOLUME 94 fl (80-97); PLATELET COUNT 684 10^3/uL (150-450); RED CELL DISTRIBUTION WIDTH 19.9 % (11.5-14.0); WHITE BLOOD COUNT 12.3 10^3/uL (4.0-10.5)
[2019-11-07 06:20] LABS: ANION GAP 10 (5-19); BLOOD UREA NITROGEN 33 mg/dL (7-20); CALCIUM 9.4 mg/dL (8.4-10.2); CARBON DIOXIDE 26 mmol/L (22-30); CHLORIDE 100 mmol/L (98-107); GLUCOSE 100 mg/dL (75-110); POTASSIUM 4.9 mmol/L (3.6-5.0)
[2019-11-07] MEDS: HEPARIN SOD (PORCINE) 5,000 UNIT/ML 1 ML VIAL SUBCUT SCH ×3 (06:36→22:30)
[2019-11-07] MEDS: NYSTATIN/DEXAMETH/DIPHEN SUSP 120 ML PO SCH ×4 (09:59→22:31)
--- NOTE | 2019-11-07 14:54 | PDOC PROGRESS REPORT ---
Subjective Progress Note for:: 11/07/19 Subjective:: No adverse events overnight. No new complaints. Vital signs been stable. Her appetite is improving some. She initally said she thought the spot on her left arm was getting worse, but then she said she thought it was getting better. She said overall she feels pretty good. Reason For Visit: SEPSIS,SEPTIC EMBOI,LEFT HAND ABSCESS Physical Exam Vital Signs: Temp Pulse Resp BP Pulse Ox 97.9 F 95 16 123/58 L 99 11/07/19 08:22 11/07/19 08:22 11/07/19 08:22 11/07/19 08:22 11/07/19 08:22 Intake & Output 11/06/19 11/07/19 11/08/19 06:59 06:59 06:59 Intake Total 3775 3200 100 Output Total 1700 1625 Balance 2075 1575 100 Weight 49.7 kg 50.5 kg General appearance: PRESENT: no acute distress, disheveled, other - Somnolent Respiratory exam: PRESENT: clear to auscultation chelo, symmetrical, unlabored. ABSENT: accessory muscle use, chest wall tenderness, crackles, prolonged expir atory phas, rhonchi, tachypnea, wheezes Cardiovascular exam: PRESENT: RRR, +S1, +S2 Pulses: PRESENT: normal carotid pulses Vascular exam: PRESENT: normal capillary refill GI/Abdominal exam: PRESENT: normal bowel sounds, soft. ABSENT: distended, guarding, rebound, tenderness Extremities exam: PRESENT: other - Right hand is wrapped in a heavy bandage, thumb surgically removed tip of the index finger of the left hand has been trimmed, improvement in the erythema in the fifth toe of the right foot. Left arm and hand now only trace swelling. ABSENT: clubbing Musculoskeletal exam: PRESENT: deformity - Right thumb surgically removed, tip of left index finger trimmed surgically Neurological exam: PRESENT: Awake, oriented to person, oriented to place, oriented to situation Psychiatric exam: PRESENT: flat affect Skin exam: PRESENT: other - improvement in the erythema of both forearms. She has packing left arm from an abscess that was surgically drained. There is an area of induration around a scab on her left forearm that has reduced in intensity Results Laboratory Results: 11/07/19 05:10 11/07/19 05:10 11/07/19 11/07/19 05:10 05:10 WBC 12.3 H RBC 3.00 L Hgb 9.8 L Hct 28.2 L MCV 94 MCH 32.6 MCHC 34.7 RDW 19.9 H Plt Count 684 H Sodium 135.6 L Potassium 4.9 Chloride 100 Carbon Dioxide 26 Anion Gap 10 BUN 33 H Creatinine 0.50 L Est GFR ( Amer) > 60 Glucose 100 Calcium 9.4 Impressions: Chest X-Ray 10/28/19 11:38 IMPRESSION: Peripheral linear opacities that are perpendicular to the pleural surface in the inferolateral aspect of the right hemithorax could represent Caleb B lines - clinical correlation for mild CHF / interstitial edema is recommended. Finger X-Ray 10/28/19 11:52 IMPRESSION: Soft tissue swelling. No osseous abnormality. PICC Line Insertion 11/03/19 00:00 IMPRESSION: SUCCESSFUL PLACEMENT OF A 5 FR DUAL LUMEN 30 CM PICC IN THE RIGHT BRACHIOCEPHALIC VEIN. Assessment and Plan - Diagnosis (1) Septic arterial embolism Is this a current diagnosis for this admission?: Yes Plan: On Ancef. Cultures obtained from blood and intraoperative cultures showed group A strep. She has had improvement in her liver and kidney function, and she is going to be on antibiotics for some time, so will defer further imaging at this time because it should not change our treatment. (2) Cellulitis of multiple sites Is this a current diagnosis for this admission?: Yes Plan: Broad-spectrum antibiotics initially, cultures from blood showing group a streptococcus, wound cultures showing Streptococcus and MSSA. After discussion with pharmacy we changed it to Ancef to cover everything she has on right now. (3) Severe sepsis Is this a current diagnosis for this admission?: Yes Plan: In addition to IV antibiotics and source control, hemodynamic support and mon itoring of organ function will be done. Kidney function is improved. Coagulation studies and liver enzymes have improved. (4) Hypokalemia Is this a current diagnosis for this admission?: Yes Plan: Resolved (5) History of acute bacterial endocarditis Is this a current diagnosis for this admission?: Yes Plan: She will need a repeat SYD, this should be done on Thursday. (6) Polysubstance abuse Is this a current diagnosis for this admission?: Yes Plan: She has a long relapsing history of IV substance abuse, particularly heroin. We have encouraged cessation and abstinence the past, and will do so again. (7) Abnormal chest x-ray Is this a current diagnosis for this admission?: Yes Plan: There was some concern for pulmonary edema, given her history my concern would be for recurrence of septic pulmonary emboli. However, given her overall hemodynamic stability and improvement with the current treatment, will defer im aging for now, because it would not be likely to change our current treatment plan. (8) Acute liver failure Qualifiers: Hepatic coma status: without hepatic coma Qualified Code(s): K72.00 - Acute and subacute hepatic failure without coma Is this a current diagnosis for this admission?: Yes Plan: Resolved (9) Abscess of left upper arm and forearm Is this a current diagnosis for this admission?: Yes Plan: Status post incision and drainage, on empiric antibiotics, cultures showed group A Streptococcus and MSSA, on Ancef now as previously noted. There is another area on the left forearm shows induration surrounding a scab that is reducing in intensity. It is very small, so I doubt as if it needs incision and drainage. I have recommended that she do hot moist compresses to the affected area to facilitate spontaneous drainage if any needs to happen. (10) Gangrene of finger of both hands Is this a current diagnosis for this admission?: Yes Plan: Left thumb was removed, gangrenous portion of the tip of the left index finger was removed (11) Bacteremia due to Streptococcus Is this a current diagnosis for this admission?: Yes Plan: She has been changed over to Ancef. She will need another SYD, which should happen on Thursday. Repeat blood cultures have been obtained and are negative, so PICC line has been placed. - Time Time Spent with patient: 25-34 minutes
[2019-11-07] MEDS: MELATONIN 5 MG TABLET PO SCH (22:31)
[2019-11-07] MEDS: QUETIAPINE FUMARATE 25 MG TABLET PO SCH (22:31)
[2019-11-08] MEDS: FENTANYL CITRATE INJ/PF 100 MCG/2 ML AMPUL IV PRN ×4 (03:43→22:25)
[2019-11-08 06:09] LABS: HEMATOCRIT 27.8 % (36.0-47.0); HEMOGLOBIN 9.4 g/dL (12.0-15.5); MEAN CORPUSCULAR HEMOGLOBIN 32.2 pg (27.0-33.4); MEAN CORPUSCULAR HGB CONC 33.9 g/dL (32.0-36.0); MEAN CORPUSCULAR VOLUME 95 fl (80-97); PLATELET COUNT 681 10^3/uL (150-450); RED BLOOD COUNT 2.94 10^6/uL (3.72-5.28); RED CELL DISTRIBUTION WIDTH 20.1 % (11.5-14.0); WHITE BLOOD COUNT 11.1 10^3/uL (4.0-10.5)
[2019-11-08] MEDS: HEPARIN SOD (PORCINE) 5,000 UNIT/ML 1 ML VIAL SUBCUT SCH ×3 (06:51→22:25)
[2019-11-08] MEDS: NYSTATIN/DEXAMETH/DIPHEN SUSP 120 ML PO SCH ×3 (09:31→22:00)
[2019-11-08] MEDS ORDERED: PROPOFOL INJ 200 MG/20 ML VIAL IV ONE (11:51)
[2019-11-08] MEDS ORDERED: MIDAZOLAM 2 MG/2 ML INJ ONE (11:51)
--- NOTE | 2019-11-08 14:46 | PDOC PROGRESS REPORT ---
Subjective Progress Note for:: 11/08/19 Subjective:: Patient is doing well. She denies any shortness of breath or chest pain. Reason For Visit: SEPSIS,SEPTIC EMBOI,LEFT HAND ABSCESS Physical Exam Vital Signs: Temp Pulse Resp BP Pulse Ox 97.4 F 98 16 114/67 97 11/08/19 13:45 11/08/19 13:45 11/08/19 13:45 11/08/19 13:45 11/08/19 13:45 Intake & Output 11/07/19 11/08/19 11/09/19 06:59 06:59 06:59 Intake Total 3200 1417 250 Output Total 1625 1200 Balance 1575 217 250 Weight 50.5 kg 51.1 kg General appearance: PRESENT: no acute distress, cooperative Head exam: PRESENT: normocephalic Neck exam: ABSENT: JVD Respiratory exam: PRESENT: symmetrical, unlabored. ABSENT: accessory muscle use, retraction, tachypnea Cardiovascular exam: ABSENT: tachycardia GI/Abdominal exam: ABSENT: ascites, distended Extremities exam: ABSENT: +2 edema Neurological exam: PRESENT: alert, awake, oriented to person, oriented to place, oriented to time, oriented to situation Psychiatric exam: ABSENT: agitated, anxious Focused psych exam: ABSENT: pressured speech Skin exam: ABSENT: jaundice Results Laboratory Results: 11/08/19 05:40 11/07/19 05:10 11/08/19 05:40 WBC 11.1 H RBC 2.94 L Hgb 9.4 L Hct 27.8 L MCV 95 MCH 32.2 MCHC 33.9 RDW 20.1 H Plt Count 681 H Impressions: Chest X-Ray 10/28/19 11:38 IMPRESSION: Peripheral linear opacities that are perpendicular to the pleural surface in the inferolateral aspect of the right hemithorax could represent Caleb B lines - clinical correlation for mild CHF / interstitial edema is recommended. Finger X-Ray 10/28/19 11:52 IMPRESSION: Soft tissue swelling. No osseous abnormality. PICC Line Insertion 11/03/19 00:00 IMPRESSION: SUCCESSFUL PLACEMENT OF A 5 FR DUAL LUMEN 30 CM PICC IN THE RIGHT BRACHIOCEPHALIC VEIN. Assessment and Plan - Diagnosis (1) Bacteremia due to Streptococcus Is this a current diagnosis for this admission?: Yes Plan: Secondary to transcutaneous inoculation from IV drug abuse. Patient has invasive bacteremia secondary to group A strep [strep pyogenes]. First negative blood culture on 10/31 2019. SYD performed 11/08/2019 was negative for any evidence of endocarditis/vegetation. Continue cefazolin until 11/14/2019. (2) Abscess of left upper arm and forearm Is this a current diagnosis for this admission?: Yes Plan: Status post incision and drainage, on empiric antibiotics, cultures showed group A Streptococcus and MSSA, on Ancef now as previously noted. (3) Cellulitis of multiple sites Is this a current diagnosis for this admission?: Yes Plan: Broad-spectrum antibiotics initially, cultures from blood showing group a streptococcus, wound cultures showing Streptococcus and MSSA. After discussion with pharmacy we changed it to Ancef to cover everything she has on right now. (4) Gangrene of finger of both hands Is this a current diagnosis for this admission?: Yes Plan: Left thumb was removed, gangrenous portion of the tip of the left index finger was removed. Her gangrene/necrosis was likely related to her invasive group A s trep bacteremia from IV drug abuse. (5) Septic arterial embolism Is this a current diagnosis for this admission?: Yes Plan: On Ancef. Cultures obtained from blood and intraoperative cultures showed group A strep. She has had improvement in her liver and kidney function, and she is going to be on antibiotics for some time, so will defer further imaging at this time because it should not change our treatment. (6) Severe sepsis Is this a current diagnosis for this admission?: Yes Plan: Resolved. - Time Time Spent with patient: Less than 15 minutes
[2019-11-08] MEDS: CEFAZOLIN SODIUM 2 GM in DEXTROSE 5%-WATER 100 ML IV SCH ×2 (15:42→22:00)
--- NOTE | 2019-11-08 15:56 | XCELERA REPORT ---
Study ID: [id number] [id number] Transesophageal Echocardiogram Report Name: ELVIN BALLESTEROS Age: 29 yrs Gender: Female : 1990 Patient Status: Inpatient Patient Location: [address] [place] [address] Study Date: 11/08/2019 11:31 AM History: IV Drug use TV repaair Ingfective endocarditis Bacteremia Height: 61 in Weight: 119 lb BSA: 1.5 m2 Reason For Study: streptococcal bacteremia Ordering Physician: RONAN RODGERS Performed By: Judie Graham Interpretation Summary There is no evidence of a mass or vegetation. This does not rule out endocarditis. Left ventricular systolic function is normal. Ejection Fraction = >55%. The right ventricular systolic function is normal. There is trace mitral regurgitation. There is moderate tricuspid regurgitation. No hemodynamically significant valvular aortic stenosis. There is no pericardial effusion. There is no evidence of a mass or vegetation. This does not rule out endocarditis. Procedure A complete two-dimensional transesophageal echocardiogram was performed (2D, spectral and color flow Doppler). Informed consent for Transesophageal Echocardiogram, and use of a contrast agent as needed, was obtained prior to the procedure. The patient was brought to the OR in a fasting state. IV conscious sedation was administered using Per Anesthesia team. An intravenous line was placed. A topical anesthetic agent was used for oropharangeal anesthesia. A bite block was inserted. The patient's vital signs, including blood pressure, heart rate, pulse oximetry and cardiac rhythm were monitored thoughout the procedure. The transesophageal probe was passed without difficulty. The usual views were obtained; basal, mid-esophageal, transgastric and aortic views. The patient tolerated the procedure well without evidence of orophangeal or esophageal trauma. Subsequent to all the images being obtained the probe was removed with out trauma. Left Ventricle The left ventricle is grossly normal size. There is normal left ventricular wall thickness. Left ventricular systolic function is normal. Ejection Fraction = >55%. Right Ventricle The right ventricle is mild to moderately dilated. The right ventricular systolic function is normal. Atria Post surgical changes noted with no evidence of shunt by color Doppler. No thrombus is detected in the left atrial appendage. Right atrial size is normal. Mitral Valve The mitral valve is normal in structure and function. There is no vegetation seen on the mitral valve. There is trace mitral regurgitation. Tricuspid Valve Post surgical changes suggestive of valve repair-increased echogenecity. There is no tricuspid valve vegetation. There is moderate tricuspid regurgitation. Very eccentric jet directed towards the inter-atrial septum. Aortic Valve The aortic valve is normal in structure and function. The aortic valve is trileaflet. The aortic valve opens well. No hemodynamically significant valvular aortic stenosis. No aortic regurgitation is present. Pulmonic Valve The pulmonic valve is normal in structure and function. There is no vegetation on the pulmonic valve. There is no pulmonic valvular regurgitation. Arteries The aortic root is not well visualized but is probably normal size. Not well visualized- Ascending aorta and arch of aorta. Pericardium There is no pericardial effusion. : RONAN RODGERS Anil
[2019-11-08] MEDS: QUETIAPINE FUMARATE 25 MG TABLET PO SCH (22:25)
[2019-11-08] MEDS: MELATONIN 5 MG TABLET PO SCH (22:25)
[2019-11-09] MEDS: NYSTATIN/DEXAMETH/DIPHEN SUSP 120 ML PO SCH ×5 (00:07→21:57)
[2019-11-09] MEDS: CEFAZOLIN SODIUM 2 GM in DEXTROSE 5%-WATER 100 ML IV SCH ×4 (03:25→21:53)
[2019-11-09] MEDS: FENTANYL CITRATE INJ/PF 100 MCG/2 ML AMPUL IV PRN ×3 (05:27→17:45)
[2019-11-09] MEDS: HEPARIN SOD (PORCINE) 5,000 UNIT/ML 1 ML VIAL SUBCUT SCH ×3 (05:27→21:54)
[2019-11-09 06:37] LABS: HEMATOCRIT 28.5 % (36.0-47.0); HEMOGLOBIN 9.6 g/dL (12.0-15.5); MEAN CORPUSCULAR HEMOGLOBIN 32.1 pg (27.0-33.4); MEAN CORPUSCULAR HGB CONC 33.7 g/dL (32.0-36.0); MEAN CORPUSCULAR VOLUME 95 fl (80-97); PLATELET COUNT 685 10^3/uL (150-450); RED BLOOD COUNT 2.99 10^6/uL (3.72-5.28); RED CELL DISTRIBUTION WIDTH 19.7 % (11.5-14.0); WHITE BLOOD COUNT 10.8 10^3/uL (4.0-10.5)
--- NOTE | 2019-11-09 09:42 | EKG REPORT ---
SEVERITY:- NORMAL ECG - SINUS RHYTHM : Confirmed by: Nolberto Gillespie MD 09-Nov-2019 09:42:04
--- NOTE | 2019-11-09 12:18 | PDOC PROGRESS REPORT ---
Subjective Reason For Visit: SEPSIS,SEPTIC EMBOI,LEFT HAND ABSCESS Physical Exam Vital Signs: Temp Pulse Resp BP Pulse Ox 97.5 F 108 H 16 110/50 L 98 11/09/19 11:30 11/09/19 11:30 11/09/19 11:30 11/09/19 11:30 11/09/19 11:30 Intake & Output 11/08/19 11/09/19 11/10/19 06:59 06:59 06:59 Intake Total 1417 907 336 Output Total 1200 1050 Balance 217 -143 336 Weight 51.1 kg 50.3 kg General appearance: PRESENT: no acute distress, cooperative Respiratory exam: PRESENT: symmetrical, unlabored. ABSENT: accessory muscle use, retraction, tachypnea Cardiovascular exam: PRESENT: tachycardia. ABSENT: irregular rhythm Extremities exam: ABSENT: pedal edema, tenderness Neurological exam: PRESENT: alert, awake Results Laboratory Results: 11/09/19 06:10 11/07/19 05:10 11/09/19 06:10 WBC 10.8 H RBC 2.99 L Hgb 9.6 L Hct 28.5 L MCV 95 MCH 32.1 MCHC 33.7 RDW 19.7 H Plt Count 685 H Impressions: Chest X-Ray 10/28/19 11:38 IMPRESSION: Peripheral linear opacities that are perpendicular to the pleural surface in the inferolateral aspect of the right hemithorax could represent Caleb B lines - clinical correlation for mild CHF / interstitial edema is recommended. Finger X-Ray 10/28/19 11:52 IMPRESSION: Soft tissue swelling. No osseous abnormality. PICC Line Insertion 11/03/19 00:00 IMPRESSION: SUCCESSFUL PLACEMENT OF A 5 FR DUAL LUMEN 30 CM PICC IN THE RIGHT BRACHIOCEPHALIC VEIN. Assessment and Plan - Diagnosis (1) Bacteremia due to Streptococcus Is this a current diagnosis for this admission?: Yes Plan: Secondary to transcutaneous inoculation from IV drug abuse. Patient has invasive bacteremia secondary to group A strep [strep pyogenes]. First negative blood culture on 10/31 2019. SYD performed 11/08/2019 was negative for any evidence of endocarditis/vegetation. Continue cefazolin until 11/14/2019. (2) Abscess of left upper arm and forearm Is this a current diagnosis for this admission?: Yes Plan: Status post incision and drainage, on empiric antibiotics, cultures showed group A Streptococcus and MSSA, on Ancef now as previously noted. (3) Cellulitis of multiple sites Is this a current diagnosis for this admission?: Yes Plan: Broad-spectrum antibiotics initially, cultures from blood showing group a streptococcus, wound cultures showing Streptococcus and MSSA. After discussion with pharmacy we changed it to Ancef to cover everything she has on right now. (4) Gangrene of finger of both hands Is this a current diagnosis for this admission?: Yes Plan: Left thumb was removed, gangrenous portion of the tip of the left index finger was removed. Her gangrene/necrosis was likely related to her invasive group A strep bacteremia from IV drug abuse. Occupational therapy. 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 Echo shows moderate TR which is likely contributing to her persistent sinus tachycardia. EKG performed today and reviewed. I will start patient on Lopressor 25 mg every 12 hours. (6) Septic arterial embolism Is this a current diagnosis for this admission?: Yes (7) Severe sepsis Is this a current diagnosis for this admission?: Yes Plan: Resolved. - Time Time Spent with patient: Less than 15 minutes
[2019-11-09] MEDS: METOPROLOL TARTRATE 25 MG TABLET PO SCH (21:42)
[2019-11-09] MEDS: QUETIAPINE FUMARATE 25 MG TABLET PO SCH (21:53)
[2019-11-09] MEDS: MELATONIN 5 MG TABLET PO SCH (21:53)
[2019-11-09] MEDS: NORMAL SALINE 10 ML SDV (SCHEDULED) IV SCH (21:54)
[2019-11-10] MEDS: FENTANYL CITRATE INJ/PF 100 MCG/2 ML AMPUL IV PRN ×4 (00:07→19:52)
[2019-11-10] MEDS: CEFAZOLIN SODIUM 2 GM in DEXTROSE 5%-WATER 100 ML IV SCH ×4 (03:03→21:23)
[2019-11-10] MEDS: HEPARIN SOD (PORCINE) 5,000 UNIT/ML 1 ML VIAL SUBCUT SCH ×3 (06:12→21:23)
[2019-11-10] MEDS: NYSTATIN/DEXAMETH/DIPHEN SUSP 120 ML PO SCH ×4 (11:25→21:24)
[2019-11-10] MEDS: METOPROLOL TARTRATE 25 MG TABLET PO SCH ×3 (11:29→21:22)
[2019-11-10] MEDS: NORMAL SALINE 10 ML SDV (AFTER EACH USE) IV PRN ×2 (13:08→18:54)
[2019-11-10] MEDS: NORMAL SALINE 10 ML SDV (SCHEDULED) IV SCH ×2 (13:09→21:24)
--- NOTE | 2019-11-10 16:58 | PDOC PROGRESS REPORT ---
Subjective Progress Note for:: 11/10/19 Subjective:: Complained of some drainage from her finger Reason For Visit: SEPSIS,SEPTIC EMBOI,LEFT HAND ABSCESS Physical Exam Vital Signs: Temp Pulse Resp BP Pulse Ox 98.7 F 105 H 16 122/59 L 99 11/10/19 15:08 11/10/19 15:08 11/10/19 15:08 11/10/19 15:08 11/10/19 15:08 Intake & Output 11/09/19 11/10/19 11/11/19 06:59 06:59 06:59 Intake Total 907 2186 Output Total 1050 Balance -143 2186 Weight 50.3 kg 52.3 kg 52.3 kg General appearance: PRESENT: no acute distress, cooperative Respiratory exam: PRESENT: unlabored Extremities exam: PRESENT: other - Finger tip without any purulence Neurological exam: PRESENT: alert, awake, oriented to person, oriented to place, oriented to time Psychiatric exam: ABSENT: agitated, anxious Focused psych exam: ABSENT: pressured speech Results Laboratory Results: 11/09/19 06:10 11/07/19 05:10 Impressions: Chest X-Ray 10/28/19 11:38 IMPRESSION: Peripheral linear opacities that are perpendicular to the pleural surface in the inferolateral aspect of the right hemithorax could represent Ker bennie B lines - clinical correlation for mild CHF / interstitial edema is recommended. Finger X-Ray 10/28/19 11:52 IMPRESSION: Soft tissue swelling. No osseous abnormality. PICC Line Insertion 11/03/19 00:00 IMPRESSION: SUCCESSFUL PLACEMENT OF A 5 FR DUAL LUMEN 30 CM PICC IN THE RIGHT BRACHIOCEPHALIC VEIN. Assessment and Plan - Diagnosis (1) Bacteremia due to Streptococcus Is this a current diagnosis for this admission?: Yes Plan: Secondary to transcutaneous inoculation from IV drug abuse. Patient has invasive bacteremia secondary to group A strep [strep pyogenes]. First negative blood culture on 10/31 2019. SYD performed 11/08/2019 was negative for any evidence of endocarditis/vegetation. Continue cefazolin until 11/14/2019. (2) Abscess of left upper arm and forearm Is this a current diagnosis for this admission?: Yes Plan: Status post incision and drainage, on empiric antibiotics, cultures showed group A Streptococcus and MSSA, on Ancef now as previously noted. (3) Cellulitis of multiple sites Is this a current diagnosis for this admission?: Yes Plan: Broad-spectrum antibiotics initially, cultures from blood showing group a streptococcus, wound cultures showing Streptococcus and MSSA. 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 Echo shows moderate TR which is likely contributing to her persistent sinus tachycardia. EKG performed today and reviewed. Continue Lopressor 25 mg every 12 hours. (6) Septic arterial embolism Is this a current diagnosis for this admission?: Yes (7) Severe sepsis Is this a current diagnosis for this admission?: Yes - Time Time Spent with patient: Less than 15 minutes
[2019-11-10] MEDS: SODIUM HYPOCHLORITE 0.25% SOLN 473 ML BOTTLE TP PRN (17:34)
[2019-11-10] MEDS: QUETIAPINE FUMARATE 25 MG TABLET PO SCH (21:22)
[2019-11-10] MEDS: MELATONIN 5 MG TABLET PO SCH (21:23)
[2019-11-11] MEDS: FENTANYL CITRATE INJ/PF 100 MCG/2 ML AMPUL IV PRN ×4 (01:52→20:50)
[2019-11-11] MEDS: CEFAZOLIN SODIUM 2 GM in DEXTROSE 5%-WATER 100 ML IV SCH ×4 (02:51→21:26)
[2019-11-11] MEDS: SODIUM HYPOCHLORITE 0.25% SOLN 473 ML BOTTLE TP PRN (02:51)
[2019-11-11] MEDS: HEPARIN SOD (PORCINE) 5,000 UNIT/ML 1 ML VIAL SUBCUT SCH ×3 (05:35→21:29)
[2019-11-11] MEDS: METOPROLOL TARTRATE 25 MG TABLET PO SCH ×2 (11:22→21:23)
[2019-11-11] MEDS: NORMAL SALINE 10 ML SDV (SCHEDULED) IV SCH ×2 (11:22→21:26)
[2019-11-11] MEDS: NYSTATIN/DEXAMETH/DIPHEN SUSP 120 ML PO SCH ×4 (11:29→21:23)
--- NOTE | 2019-11-11 16:19 | PDOC PROGRESS REPORT ---
Subjective Progress Note for:: 11/11/19 Subjective:: No new issues Reason For Visit: SEPSIS,SEPTIC EMBOI,LEFT HAND ABSCESS Physical Exam Vital Signs: Temp Pulse Resp BP Pulse Ox 97.7 F 102 H 18 121/80 100 11/11/19 08:00 11/11/19 08:00 11/11/19 08:00 11/11/19 08:00 11/11/19 08:00 Intake & Output 11/10/19 11/11/19 11/12/19 06:59 06:59 06:59 Intake Total 2186 1173 100 Balance 2186 1173 100 Weight 52.3 kg 52.3 kg General appearance: PRESENT: no acute distress Respiratory exam: ABSENT: tachypnea Cardiovascular exam: ABSENT: tachycardia Neurological exam: PRESENT: alert, awake Results Laboratory Results: 11/09/19 06:10 11/07/19 05:10 Impressions: Chest X-Ray 10/28/19 11:38 IMPRESSION: Peripheral linear opacities that are perpendicular to the pleural surface in the inferolateral aspect of the right hemithorax could represent Caleb B lines - clinical correlation for mild CHF / interstitial edema is recommended. Finger X-Ray 10/28/19 11:52 IMPRESSION: Soft tissue swelling. No osseous abnormality. PICC Line Insertion 11/03/19 00:00 IMPRESSION: SUCCESSFUL PLACEMENT OF A 5 FR DUAL LUMEN 30 CM PICC IN THE RIGHT BRACHIOCEPHALIC VEIN. Assessment and Plan - Diagnosis (1) Bacteremia due to Streptococcus Is this a current diagnosis for this admission?: Yes Plan: Secondary to transcutaneous inoculation from IV drug abuse. Patient has invasiv e bacteremia secondary to group A strep [strep pyogenes]. First negative blood culture on 10/31 2019. SYD performed 11/08/2019 was negative for any evidence of endocarditis/vegetation. Continue cefazolin until 11/14/2019. (2) Abscess of left upper arm and forearm Is this a current diagnosis for this admission?: Yes (3) Cellulitis of multiple sites Is this a current diagnosis for this admission?: Yes (4) Gangrene of finger of both hands Is this a current diagnosis for this admission?: Yes (5) Moderate tricuspid regurgitation Is this a current diagnosis for this admission?: Yes (6) Septic arterial embolism Is this a current diagnosis for this admission?: Yes (7) Severe sepsis Is this a current diagnosis for this admission?: Yes - Time Time Spent with patient: Less than 15 minutes
[2019-11-11] MEDS: QUETIAPINE FUMARATE 25 MG TABLET PO SCH (21:24)
[2019-11-11] MEDS: MELATONIN 5 MG TABLET PO SCH (21:24)
[2019-11-12] MEDS: FENTANYL CITRATE INJ/PF 100 MCG/2 ML AMPUL IV PRN ×4 (03:22→21:56)
[2019-11-12] MEDS: CEFAZOLIN SODIUM 2 GM in DEXTROSE 5%-WATER 100 ML IV SCH ×4 (03:22→21:34)
[2019-11-12] MEDS: SODIUM HYPOCHLORITE 0.25% SOLN 473 ML BOTTLE TP PRN (06:26)
[2019-11-12] MEDS: HEPARIN SOD (PORCINE) 5,000 UNIT/ML 1 ML VIAL SUBCUT SCH ×3 (06:46→21:55)
[2019-11-12] MEDS: NYSTATIN/DEXAMETH/DIPHEN SUSP 120 ML PO SCH ×4 (09:25→21:55)
[2019-11-12] MEDS: METOPROLOL TARTRATE 25 MG TABLET PO SCH ×2 (09:26→21:53)
[2019-11-12] MEDS: NORMAL SALINE 10 ML SDV (SCHEDULED) IV SCH ×2 (09:34→21:56)
--- NOTE | 2019-11-12 14:39 | PDOC PROGRESS REPORT ---
Subjective Progress Note for:: 11/12/19 Subjective:: Patient states that her finger wound seems to start to drain again.Otherwise feels well. Reason For Visit: SEPSIS,SEPTIC EMBOI,LEFT HAND ABSCESS Physical Exam Vital Signs: Temp Pulse Resp BP Pulse Ox 97.9 F 106 H 16 108/68 100 11/12/19 11:56 11/12/19 14:00 11/12/19 11:56 11/12/19 11:56 11/12/19 11:56 Intake & Output 11/11/19 11/12/19 11/13/19 06:59 06:59 06:59 Intake Total 1173 1825 380 Balance 1173 1825 380 Weight 52.3 kg 52.3 kg General appearance: PRESENT: no acute distress, cooperative Respiratory exam: PRESENT: unlabored GI/Abdominal exam: ABSENT: distended Neurological exam: PRESENT: alert, awake, oriented to person, oriented to place, oriented to time Results Laboratory Results: 11/09/19 06:10 11/07/19 05:10 Impressions: Chest X-Ray 10/28/19 11:38 IMPRESSION: Peripheral linear opacities that are perpendicular to the pleural surface in the inferolateral aspect of the right hemithorax could represent Caleb B lines - clinical correlation for mild CHF / interstitial edema is recommended. Finger X-Ray 10/28/19 11:52 IMPRESSION: Soft tissue swelling. No osseous abnormality. PICC Line Insertion 11/03/19 00:00 IMPRESSION: SUCCESSFUL PLACEMENT OF A 5 FR DUAL LUMEN 30 CM PICC IN THE RIGHT BRACHIOCEPHALIC VEIN. Assessment and Plan - Diagnosis (1) Bacteremia due to Streptococcus Is this a current diagnosis for this admission?: Yes Plan: Secondary to transcutaneous inoculation from IV drug abuse. Patient has invasive bacteremia secondary to group A strep [strep pyogenes]. First negative blood culture on 10/31 2019. SYD performed 11/08/2019 was negative for any evidence of endocarditis/vegetation. Continue cefazolin until 11/14/2019. (2) Abscess of left upper arm and forearm Is this a current diagnosis for this admission?: Yes Plan: Status post incision and drainage, on empiric antibiotics, cultures showed group A Streptococcus and MSSA, on Ancef now as previously noted. (3) Cellulitis of multiple sites Is this a current diagnosis for this admission?: Yes (4) Gangrene of finger of both hands Is this a current diagnosis for this admission?: Yes Plan: Left thumb was removed, gangrenous portion of the tip of the left index finger was removed. Her gangrene/necrosis was likely related to her invasive group A strep bacteremia from IV drug abuse. Occupational therapy. I will have orthopedics reassessment of wound. (5) Moderate tricuspid regurgitation Is this a current diagnosis for this admission?: Yes (6) Septic arterial embolism Is this a current diagnosis for this admission?: Yes (7) Severe sepsis Is this a current diagnosis for this admission?: Yes Plan: Resolved. - Time Time Spent with patient: Less than 15 minutes
[2019-11-12] MEDS: MELATONIN 5 MG TABLET PO SCH (21:54)
[2019-11-12] MEDS: QUETIAPINE FUMARATE 25 MG TABLET PO SCH (21:54)
[2019-11-12] MEDS: NORMAL SALINE 10 ML SDV (AFTER EACH USE) IV PRN (23:16)
[2019-11-13] MEDS: CEFAZOLIN SODIUM 2 GM in DEXTROSE 5%-WATER 100 ML IV SCH ×4 (03:42→21:22)
[2019-11-13] MEDS: NORMAL SALINE 10 ML SDV (AFTER EACH USE) IV PRN ×2 (03:43→22:47)
[2019-11-13] MEDS: FENTANYL CITRATE INJ/PF 100 MCG/2 ML AMPUL IV PRN ×4 (04:32→22:46)
[2019-11-13] MEDS: HEPARIN SOD (PORCINE) 5,000 UNIT/ML 1 ML VIAL SUBCUT SCH ×3 (06:31→21:22)
[2019-11-13] MEDS: NYSTATIN/DEXAMETH/DIPHEN SUSP 120 ML PO SCH ×4 (10:49→21:21)
[2019-11-13] MEDS: METOPROLOL TARTRATE 25 MG TABLET PO SCH ×2 (10:49→21:23)
[2019-11-13] MEDS: NORMAL SALINE 10 ML SDV (SCHEDULED) IV SCH ×2 (10:50→21:23)
--- NOTE | 2019-11-13 12:13 | PDOC PROGRESS REPORT ---
Subjective Progress Note for:: 11/13/19 Subjective:: Patient doing well. Reason For Visit: SEPSIS,SEPTIC EMBOI,LEFT HAND ABSCESS Physical Exam Vital Signs: Temp Pulse Resp BP Pulse Ox 98.2 F 93 18 114/66 100 11/13/19 12:00 11/13/19 12:00 11/13/19 12:00 11/13/19 12:00 11/13/19 12:00 Intake & Output 11/12/19 11/13/19 11/14/19 06:59 06:59 06:59 Intake Total 1825 1640 Balance 1825 1640 Weight 52.3 kg 52.1 kg General appearance: PRESENT: no acute distress, cooperative Neck exam: ABSENT: JVD Respiratory exam: PRESENT: clear to auscultation chelo, unlabored Cardiovascular exam: ABSENT: tachycardia GI/Abdominal exam: ABSENT: distended Neurological exam: PRESENT: alert, awake, oriented to person, oriented to place, oriented to time Psychiatric exam: ABSENT: agitated, anxious Results Laboratory Results: 11/09/19 06:10 11/07/19 05:10 Impressions: Chest X-Ray 10/28/19 11:38 IMPRESSION: Peripheral linear opacities that are perpendicular to the pleural surface in the inferolateral aspect of the right hemithorax could represent Caleb B lines - clinical correlation for mild CHF / interstitial edema is recommended. Finger X-Ray 10/28/19 11:52 IMPRESSION: Soft tissue swelling. No osseous abnormality. PICC Line Insertion 11/03/19 00:00 IMPRESSION: SUCCESSFUL PLACEMENT OF A 5 FR DUAL LUMEN 30 CM PICC IN THE RIGHT BRACHIOCEPHALIC VEIN. Assessment and Plan - Diagnosis (1) Bacteremia due to Streptococcus Is this a current diagnosis for this admission?: Yes Plan: Secondary to transcutaneous inoculation from IV drug abuse. Patient has invasive bacteremia secondary to group A strep [strep pyogenes]. First negative blood culture on 10/31 2019. SYD performed 11/08/2019 was negative for any evidence of endocarditis/vegetation. Continue cefazolin through 11/14/2019. (2) Abscess of left upper arm and forearm Is this a current diagnosis for this admission?: Yes Plan: Status post incision and drainage, on empiric antibiotics, cultures showed group A Streptococcus and MSSA, on Ancef now as previously noted. (3) Cellulitis of multiple sites Is this a current diagnosis for this admission?: Yes Plan: Broad-spectrum antibiotics initially, cultures from blood showing group a streptococcus, wound cultures showing Streptococcus and MSSA. Covered by [facility] (4) Gangrene of finger of both hands Is this a current diagnosis for this admission?: Yes Plan: Left thumb was removed, gangrenous portion of the tip of the left index finger was removed. Her gangrene/necrosis was likely related to her invasive group A strep bacteremia from IV drug abuse. Occupational therapy. I I have asked Dr. Tolentino to do a follow-up reassessment on surgical wounds. (5) Moderate tricuspid regurgitation Is this a current diagnosis for this admission?: Yes (6) Septic arterial embolism Is this a current diagnosis for this admission?: Yes (7) Severe sepsis Is this a current diagnosis for this admission?: Yes Plan: Resolved. - Time Time Spent with patient: Less than 15 minutes
[2019-11-13 13:22] LABS: HEMOGLOBIN 9.6 g/dL (12.0-15.5); MEAN CORPUSCULAR HEMOGLOBIN 32.9 pg (27.0-33.4); MEAN CORPUSCULAR HGB CONC 34.2 g/dL (32.0-36.0); MEAN CORPUSCULAR VOLUME 96 fl (80-97); PLATELET COUNT 578 10^3/uL (150-450); RED BLOOD COUNT 2.91 10^6/uL (3.72-5.28); RED CELL DISTRIBUTION WIDTH 19.6 % (11.5-14.0); WHITE BLOOD COUNT 7.4 10^3/uL (4.0-10.5)
[2019-11-13 13:31] LABS: ANION GAP 9 (5-19); BLOOD UREA NITROGEN 24 mg/dL (7-20); CALCIUM 9.4 mg/dL (8.4-10.2); CARBON DIOXIDE 25 mmol/L (22-30); CHLORIDE 103 mmol/L (98-107); GLUCOSE 97 mg/dL (75-110); POTASSIUM 4.2 mmol/L (3.6-5.0)
[2019-11-13] MEDS: MELATONIN 5 MG TABLET PO SCH (21:23)
[2019-11-13] MEDS: SODIUM HYPOCHLORITE 0.25% SOLN 473 ML BOTTLE TP PRN (21:24)
[2019-11-13] MEDS: QUETIAPINE FUMARATE 25 MG TABLET PO SCH (21:24)
[2019-11-14] MEDS: CEFAZOLIN SODIUM 2 GM in DEXTROSE 5%-WATER 100 ML IV SCH ×4 (03:55→21:02)
[2019-11-14] MEDS: SODIUM HYPOCHLORITE 0.25% SOLN 473 ML BOTTLE TP PRN ×2 (06:04→14:25)
[2019-11-14] MEDS: HEPARIN SOD (PORCINE) 5,000 UNIT/ML 1 ML VIAL SUBCUT SCH ×3 (06:04→21:09)
[2019-11-14] MEDS: FENTANYL CITRATE INJ/PF 100 MCG/2 ML AMPUL IV PRN (06:05)
[2019-11-14] MEDS: NORMAL SALINE 10 ML SDV (AFTER EACH USE) IV PRN (06:06)
--- NOTE | 2019-11-14 07:23 | PDOC CONSULTATION ---
Consultation Consult Date: 11/14/19 Provider Consulted: KJ ACOSTA JR History of Present Illness Admission Date/PCP: 10/28/19 13:28 Patient complains of: Right thumb, left index left forearm infection History of Present Illness: ELVIN BALLESTEROS is a 29 year old female who presented with sepsis. History of IV drug abuse. After admission was found to have gangrenous necrosis of right thumb and left index finger. As well as a abscess in the left forearm. Dr. Marroquni was consulted and performed operative intervention of the sites above including right thumb amputation. The patient has been in house since 10/28/2019. She has a history of infective endocarditis and septic shock. Also history of noncompliance and discharge AMA. Since surgery the time of surgery on 10/28/2019, the patient has been improving. Her wounds have been managed and remain clean dry and intact. I was consulted for follow-up evaluation of the wounds as the patient is prepared for discharge. Past Medical History Cardiac Medical History: Reports: Pulmonary Embolism - Septic pulmonary emboli secondary to endocarditis, Heart Murmur, Other - Endocarditis Denies: Coronary Artery Disease, Myocardial Infarction, Hypertension Pulmonary Medical History: Denies: Asthma, Bronchitis, Chronic Obstructive Pulmonary Disease (COPD), Pneumonia Neurological Medical History: Denies: Migraine, Seizures Endocrine Medical History: Denies: Diabetes Mellitus Type 1, Hyperthyroidism, Hypothyroidism GI Medical History: Denies: Cirrhosis, Gastroesophageal Reflux Disease, Hepatitis Musculoskeltal Medical History: Denies: Arthritis, Fibromyalgia Skin Medical History: Denies: Eczema, Psoriasis Psychiatric Medical History: Reports: Bipolar Disorder, Depression Hematology: Reports: Anemia Denies: Bleeding Tendencies Past Surgical History Past Surgical History: Reports: Orthopedic Surgery - left ankle, Other - Incision and drainage of lower back abscess, tricuspid valve repair Social History Smoking Status: Current Every Day Smoker Frequency of Alcohol Use: None Hx Recreational Drug Use: Yes Drugs: Cocaine, Heroin, Marijuana Hx Prescription Drug Abuse: No - Advance Directive Resuscitation Status: Full Code Family History Family History: denies: CAD, DM, Hypertension, Malignancy Parental Family History Reviewed: No Children Family History Reviewed: NA Sibling(s) Family History Reviewed.: NA Medication/Allergy Home Medications: Acetaminophen 650 mg PO Q4HP PRN 05/16/19 Famotidine [Pepcid 20 mg Tablet] 20 mg PO BID #60 tablet 06/16/19 Quetiapine Fumarate [Seroquel 25 mg Tablet] 25 mg PO QHS #30 tablet 06/16/19 Aspirin [Aspirin 325 mg Tablet] 325 mg PO DAILY 10/09/19 Ibuprofen [Motrin 400 mg Tablet] 400 mg PO Q6 PRN 10/09/19 L. Acidophilus/L.bulgaricus [Lactobacillus Tablet] 1 cap PO DAILY 10/09/19 Naltrexone 50 mg PO DAILY 10/09/19 Rifampin [Rifadin 300 mg Capsule] 300 mg PO Q8 10/28/19 Allergies/Adverse Reactions: No Known Allergies Allergy (Unverified 10/09/19 03:08) Physical Exam Vital Signs: Temp Pulse Resp BP Pulse Ox 97.9 F 90 17 97/49 L 99 11/13/19 23:32 11/14/19 02:00 11/13/19 23:32 11/13/19 23:32 11/13/19 23:32 Intake & Output 11/13/19 11/14/19 11/15/19 06:59 06:59 06:59 Intake Total 1640 966 Balance 1640 966 Weight 52.1 kg 52.1 kg Physical Exam: General appearance: PRESENT: no acute distress, cooperative, well-nourished Head exam: PRESENT: atraumatic, normocephalic Eye exam: PRESENT: EOMI Ear exam: PRESENT: normal external ear exam Mouth exam: PRESENT: neck supple Neck exam: ABSENT: tracheal deviation Respiratory exam: PRESENT: symmetrical, unlabored. ABSENT: accessory muscle use, wheezes Pulses: PRESENT: normal radial pulses, normal dorsalis pedis pulse Vascular exam: PRESENT: normal capillary refill GI/Abdominal exam: ABSENT: distended, firm Neurological exam: PRESENT: alert, awake, oriented to person, oriented to place, oriented to time Psychiatric exam: PRESENT: appropriate affect. ABSENT: agitated Focused psych exam: ABSENT: catatonic All as above aside from that noted in the HPI and the following: Left upper extremity Sensation and motor function grossly intact. The volar forearm wound appears clean and intact with no signs of purulence or recurrent infection. Right upper extremity Wound clean dry and intact, amputation site is clean without purulence or signs of recurrent infection. Otherwise right upper extremity is neurovascularly intact. Results Laboratory Results: 11/13/19 13:10 11/13/19 13:10 11/13/19 11/13/19 13:10 13:10 WBC 7.4 RBC 2.91 L Hgb 9.6 L Hct 28.0 L MCV 96 MCH 32.9 MCHC 34.2 RDW 19.6 H Plt Count 578 H Sodium 137.3 Potassium 4.2 Chloride 103 Carbon Dioxide 25 Anion Gap 9 BUN 24 H Creatinine 0.54 Est GFR ( Amer) > 60 Glucose 97 Calcium 9.4 Impressions: Chest X-Ray 10/28/19 11:38 IMPRESSION: Peripheral linear opacities that are perpendicular to the pleural surface in the inferolateral aspect of the right hemithorax could represent Caleb B lines - clinical correlation for mild CHF / interstitial edema is recommended. Finger X-Ray 10/28/19 11:52 IMPRESSION: Soft tissue swelling. No osseous abnormality. PICC Line Insertion 11/03/19 00:00 IMPRESSION: SUCCESSFUL PLACEMENT OF A 5 FR DUAL LUMEN 30 CM PICC IN THE RIGHT BRACHIOCEPHALIC VEIN. Assessment & Plan - Diagnosis (1) Abscess of left upper arm and forearm Is this a current diagnosis for this admission?: Yes Plan: At this time the patient's wounds appear clean dry and intact. They appear to be healing well with resolution of infection. Encourage completion of antibiotic therapy as prescribed by the hospitalist service. Definitive follow-up should be performed with Dr. Marroquin. I discussed with Dr. shankar that if there is any complication or developing concern that I would recommend consultation with Dr. Marroquin as he was the surgical provider for her initially. At this time the patient appears stable for non-emergent follow-up with Dr. Marroquin. If any emergent need presents I would be happy to provide care. Ultimately wound sites management should be dictated by Dr. Marroquin. The left forearm wound is clean dry and intact and may be left open to air at this point. Encourage continued wound care of left index finger. Further management of amputation site of right hand to be directed by Dr. Marroquin. (2) Gangrene of finger of both hands Is this a current diagnosis for this admission?: Yes
[2019-11-14] MEDS: METOPROLOL TARTRATE 25 MG TABLET PO SCH ×2 (09:35→21:09)
[2019-11-14] MEDS: NYSTATIN/DEXAMETH/DIPHEN SUSP 120 ML PO SCH ×4 (09:36→21:11)
[2019-11-14] MEDS: NORMAL SALINE 10 ML SDV (SCHEDULED) IV SCH ×2 (09:38→21:11)
--- NOTE | 2019-11-14 11:51 | PDOC PROGRESS REPORT ---
Subjective Progress Note for:: 11/14/19 Subjective:: Patient is doing well today and no complaints. Reason For Visit: SEPSIS,SEPTIC EMBOI,LEFT HAND ABSCESS Physical Exam Vital Signs: Temp Pulse Resp BP Pulse Ox 98.4 F 87 17 120/60 98 11/14/19 08:00 11/14/19 08:00 11/14/19 08:00 11/14/19 08:00 11/14/19 08:00 Intake & Output 11/13/19 11/14/19 11/15/19 06:59 06:59 06:59 Intake Total 1640 966 100 Balance 1640 966 100 Weight 52.1 kg 52.1 kg General appearance: PRESENT: no acute distress, cooperative Respiratory exam: PRESENT: unlabored. ABSENT: accessory muscle use, retraction, tachypnea Cardiovascular exam: ABSENT: tachycardia GI/Abdominal exam: ABSENT: distended Neurological exam: PRESENT: alert, awake Results Laboratory Results: 11/13/19 13:10 11/13/19 13:10 11/13/19 11/13/19 13:10 13:10 WBC 7.4 RBC 2.91 L Hgb 9.6 L Hct 28.0 L MCV 96 MCH 32.9 MCHC 34.2 RDW 19.6 H Plt Count 578 H Sodium 137.3 Potassium 4.2 Chloride 103 Carbon Dioxide 25 Anion Gap 9 BUN 24 H Creatinine 0.54 Est GFR ( Amer) > 60 Glucose 97 Calcium 9.4 Impressions: Chest X-Ray 10/28/19 11:38 IMPRESSION: Peripheral linear opacities that are perpendicular to the pleural surface in the inferolateral aspect of the right hemithorax could represent Caleb B lines - clinical correlation for mild CHF / interstitial edema is recommended. Finger X-Ray 10/28/19 11:52 IMPRESSION: Soft tissue swelling. No osseous abnormality. PICC Line Insertion 11/03/19 00:00 IMPRESSION: SUCCESSFUL PLACEMENT OF A 5 FR DUAL LUMEN 30 CM PICC IN THE RIGHT BRACHIOCEPHALIC VEIN. Assessment and Plan - Diagnosis (1) Bacteremia due to Streptococcus Is this a current diagnosis for this admission?: Yes Plan: Secondary to transcutaneous inoculation from IV drug abuse. Patient has invasive bacteremia secondary to group A strep [strep pyogenes]. First negative blood culture on 10/31 2019. SYD performed 11/08/2019 was negative for any evidence of endocarditis/vegetation. Patient will be completing her regimen of cefazolin tonight. Plan for discharge tomorrow. (2) Abscess of left upper arm and forearm Is this a current diagnosis for this admission?: Yes Plan: Status post incision and drainage, on empiric antibiotics, cultures showed group A Streptococcus and MSSA, on Ancef now as previously noted. Evaluated by orthopedics Dr. Tolentino yesterday for 2-week follow-up and wounds look good. Patient should follow-up with Dr. Marroquin in the office. (3) Gangrene of finger of both hands Is this a current diagnosis for this admission?: Yes Plan: Left thumb was removed, gangrenous portion of the tip of the left index finger was removed. Her gangrene/necrosis was likely related to her invasive group A strep bacteremia from IV drug abuse. Occupational therapy. (4) Cellulitis of multiple sites Is this a current diagnosis for this admission?: Yes Plan: Broad-spectrum antibiotics initially, cultures from blood showing group a streptococcus, wound cultures showing Streptococcus and MSSA. Covered by Ancef (5) Moderate tricuspid regurgitation Is this a current diagnosis for this admission?: Yes Plan: Status post tricuspid valve repair and PFO closure in 2019 following tricuspid infective endocarditis. Echo shows moderate TR which is likely contributing to her persistent sinus tachycardia. Continue Lopressor 25 mg every 12 hours. (6) Septic arterial embolism Is this a current diagnosis for this admission?: Yes Plan: On Ancef. (7) Severe sepsis Is this a current diagnosis for this admission?: Yes Plan: Resolved. - Time Time Spent with patient: Less than 15 minutes
[2019-11-14] MEDS ORDERED: IBUPROFEN 400 MG TABLET PO PRN (12:03)
[2019-11-14] MEDS: TRAMADOL HCL 50 MG TABLET PO PRN ×2 (12:28→21:10)
[2019-11-14] MEDS: QUETIAPINE FUMARATE 25 MG TABLET PO SCH (21:10)
[2019-11-14] MEDS: MELATONIN 5 MG TABLET PO SCH (21:10)
[2019-11-15] MEDS: CEFAZOLIN SODIUM 2 GM in DEXTROSE 5%-WATER 100 ML IV SCH ×2 (02:46→09:08)
[2019-11-15] MEDS: TRAMADOL HCL 50 MG TABLET PO PRN (06:19)
[2019-11-15] MEDS: HEPARIN SOD (PORCINE) 5,000 UNIT/ML 1 ML VIAL SUBCUT SCH (06:19)
[2019-11-15] MEDS: METOPROLOL TARTRATE 25 MG TABLET PO SCH (09:07)
[2019-11-15] MEDS: NORMAL SALINE 10 ML SDV (SCHEDULED) IV SCH (09:09)
[2019-11-15] MEDS: NYSTATIN/DEXAMETH/DIPHEN SUSP 120 ML PO SCH (09:09)
[2019-11-15 10:35] VITALS: BP 115/57
--- NOTE | 2019-11-15 14:57 | PDOC DISCHARGE SUMMARY ---
Impression - Admit/DC Date/PCP Admission Date/Primary Care Provider: 10/28/19 13:28 Discharge Date: 11/15/19 - Discharge Diagnosis (1) Septic arterial embolism Is this a current diagnosis for this admission?: Yes (2) Cellulitis of multiple sites Is this a current diagnosis for this admission?: Yes (3) Severe sepsis Is this a current diagnosis for this admission?: Yes (4) Hypokalemia Is this a current diagnosis for this admission?: Yes (5) History of acute bacterial endocarditis Is this a current diagnosis for this admission?: Yes (6) Polysubstance abuse Is this a current diagnosis for this admission?: Yes (7) Abnormal chest x-ray Is this a current diagnosis for this admission?: Yes (8) Acute liver failure Is this a current diagnosis for this admission?: Yes (9) Abscess of left upper arm and forearm Is this a current diagnosis for this admission?: Yes (10) Gangrene of finger of both hands Is this a current diagnosis for this admission?: Yes (11) Bacteremia due to Streptococcus Is this a current diagnosis for this admission?: Yes - Additional Information Resuscitation Status: Full Code Discharge Diet: Regular Discharge Activity: Activity As Tolerated, Balance Activity w/Rest, Other Referrals: SETH SHEFFIELD MD [ACTIVE PROVISIONAL STAFF] - 11/30/19 10:45 am () Prescriptions: Metoprolol Tartrate [Lopressor 25 mg Tablet] 25 mg PO Q12 #60 tablet Home Medications: Acetaminophen 650 mg PO Q4HP PRN 05/16/19 Famotidine [Pepcid 20 mg Tablet] 20 mg PO BID #60 tablet 06/16/19 Quetiapine Fumarate [Seroquel 25 mg Tablet] 25 mg PO QHS #30 tablet 06/16/19 Aspirin [Aspirin 325 mg Tablet] 325 mg PO DAILY 10/09/19 L. Acidophilus/L.bulgaricus [Lactobacillus Tablet] 1 cap PO DAILY 10/09/19 Naltrexone 50 mg PO DAILY 10/09/19 Ibuprofen [Motrin 400 mg Tablet] 600 mg PO Q6HP PRN tablet 11/15/19 Melatonin [Melatonin 5 mg Tablet] 10 mg PO QHS tablet 11/15/19 Metoprolol Tartrate [Lopressor 25 mg Tablet] 25 mg PO Q12 #60 tablet 11/15/19 History of Present Illiness History of Present Illness: EVLIN BALLESTEROS is a 29 year old female with a longstanding history of IV drug abuse who presented to this hospital on April 28, 2019 was diagnosed with infective endocarditis, Staphylococcus aureus bacteremia, and septic shock. She was transferred to [facility] where she had tricuspid valve repair and PFO closure. She was transferred back here on May 16, 2019 to finish up treatment with IV nafcillin and I believe also rifampin, and she was discharged on June 16, 2019. She came back to this ER September 11, 2019 with a similar presentation and was transferred from the ER here to the ER at [facility]. She was sent here on October 09, 2019 to complete a course of IV nafcillin for a recurrent bout of endocarditis and MSSA bacteremia. When she had 6 days of treatment left, she signed out AGAINST MEDICAL ADVICE. That was approximately a week and a half ago. She presents today via EMS. She apparently was staying in a hotel and the patient's mother called EMS to come check her out. She was not febrile here, but her temperature was mildly elevated, and there is a report somewhere that the patient had been febrile recently. The patient was too encephalopathic to give me any sort of reliable history. She was tachycardic, fortunately with a stable blood pressure. She was hypokalemic. She had multiple skin and extremity anomalies. There was concern for an acute infectious process. Hospital Course Hospital Course: She was very ill when she first arrived and had numerous organ system failures that responded after she got some fluids and some antibiotics. Her right thumb was gangrenous and had to be surgically amputated. She also had necrosis of the tip of her left index finger and this had to be debrided. She had multiple abscesses on her upper extremities that required incision and debridement. She grew out a group A streptococcus in the blood. Fortunately, this time her ech ocardiogram was negative for endocarditis. She is completed 2 weeks of IV antibiotics here. She was noted to have a little bit of tricuspid regurgitation and it was thought that this was the cause for her persistent and asymptomatic sinus tachycardia. She was put on a low-dose of a beta-marah and her heart rate came into the normal range without having substantial effect on her blood pressure. She was strongly encouraged once again to pursue a program of complete abstinence. She has follow-up with orthopedics in the outpatient setting. Her labs and examination were reassuring and she was discharged in stable condition. Physical Exam Vital Signs: Temp Pulse Resp BP Pulse Ox 98.4 F 90 16 115/57 L 98 11/15/19 10:34 11/15/19 10:34 11/15/19 10:34 11/15/19 10:34 11/15/19 10:34 Intake & Output 11/14/19 11/15/19 11/16/19 06:59 06:59 06:59 Intake Total 966 1296 100 Balance 966 1296 100 Weight 52.1 kg 52.1 kg General appearance: PRESENT: no acute distress, disheveled, other - Somnolent Respiratory exam: PRESENT: clear to auscultation chelo, symmetrical, unlabored. ABSENT: accessory muscle use, chest wall tenderness, crackles, prolonged expiratory phase, rhonchi, tachypnea, wheezes Cardiovascular exam: PRESENT: RRR, +S1, +S2 Pulses: PRESENT: normal carotid pulses Vascular exam: PRESENT: normal capillary refill GI/Abdominal exam: PRESENT: normal bowel sounds, soft. ABSENT: distended, guarding, rebound, tenderness Extremities exam: PRESENT: other - Right hand is wrapped in a bandage, thumb surgically removed, tip of the index finger of the left hand has been trimmed Musculoskeletal exam: PRESENT: deformity - Right thumb surgically removed, tip of left index finger trimmed surgically Neurological exam: PRESENT: Awake, oriented to person, oriented to place, oriented to situation Psychiatric exam: PRESENT: Appropriate affect, normal mood Skin exam: PRESENT: other -minimal scabbing on the forearms, left forearm wound cleanly dressed Results Laboratory Results: WBC 7.4 10^3/uL (4.0-10.5) 11/13/19 13:10 RBC 2.91 10^6/uL (3.72-5.28) L 11/13/19 13:10 Hgb 9.6 g/dL (12.0-15.5) L 11/13/19 13:10 Hct 28.0 % (36.0-47.0) L 11/13/19 13:10 MCV 96 fl (80-97) 11/13/19 13:10 MCH 32.9 pg (27.0-33.4) 11/13/19 13:10 MCHC 34.2 g/dL (32.0-36.0) 11/13/19 13:10 RDW 19.6 % (11.5-14.0) H 11/13/19 13:10 Plt Count 578 10^3/uL (150-450) H 11/13/19 13:10 Lymph % (Auto) Not Reportable 10/28/19 11:20 Lanier % (Auto) Not Reportable 10/28/19 11:20 Eos % (Auto) Not Reportable 10/28/19 11:20 Baso % (Auto) Not Reportable 10/28/19 11:20 Absolute Neuts (auto) Not Reportable 10/28/19 11:20 Absolute Lymphs (auto) Not Reportable 10/28/19 11:20 Absolute Monos (auto) Not Reportable 10/28/19 11:20 Absolute Eos (auto) Not Reportable 10/28/19 11:20 Absolute Basos (auto) Not Reportable 10/28/19 11:20 Total Counted 100 10/28/19 11:20 Seg Neutrophils % Not Reportable 10/28/19 11:20 Seg Neuts % (Manual) 89 % (42-78) H 10/28/19 11:20 Band Neutrophils % 1 % (3-5) L 10/28/19 11:20 Lymphocytes % (Manual) 7 % (13-45) L 10/28/19 11:20 Monocytes % (Manual) 3 % (3-13) 10/28/19 11:20 Eosinophils % (Manual) 0 % (0-6) 10/28/19 11:20 Basophils % (Manual) 0 % (0-2) 10/28/19 11:20 Abs Neuts (Manual) 16.7 10^3/uL (1.7-8.2) H 10/28/19 11:20 Abs Lymphs (Manual) 1.3 10^3/uL (0.5-4.7) 10/28/19 11:20 Abs Monocytes (Manual) 0.6 10^3/uL (0.1-1.4) 10/28/19 11:20 Absolute Eos (Manual) 0.0 10^3/uL (0.0-0.6) 10/28/19 11:20 Abs Basophils (Manual) 0.0 10^3/uL (0.0-0.2) 10/28/19 11:20 Toxic Granulation SLIGHT 10/28/19 11:20 Toxic Vacuolation PRESENT 10/28/19 11:20 Dohle Bodies PRESENT 10/28/19 11:20 Large Platelets PRESENT 10/28/19 11:20 Platelet Comment ADEQUATE 10/28/19 11:20 Polychromasia SLIGHT 10/28/19 11:20 Anisocytosis 2+ 10/28/19 11:20 PT 15.7 SEC (11.4-15.4) H 10/31/19 10:10 INR 1.24 10/31/19 10:10 APTT 38.3 SEC (23.5-35.8) H 10/28/19 11:20 VBG pH 7.51 (7.30-7.42) H 10/28/19 11:20 VBG pCO2 31.2 mmHg (35-63) L 10/28/19 11:20 VBG HCO3 24.6 mmol/L (20-32) 10/28/19 11:20 VBG Base Excess 2.2 mmol/L 10/28/19 11:20 Sodium 137.3 mmol/L (137-145) 11/13/19 13:10 Potassium 4.2 mmol/L (3.6-5.0) 11/13/19 13:10 Chloride 103 mmol/L (98-107) 11/13/19 13:10 Carbon Dioxide 25 mmol/L (22-30) 11/13/19 13:10 Anion Gap 9 (5-19) 11/13/19 13:10 BUN 24 mg/dL (7-20) H 11/13/19 13:10 Creatinine 0.54 mg/dL (0.52-1.25) 11/13/19 13:10 Est GFR ( Amer) > 60 (>60) 11/13/19 13:10 Est GFR (MDRD) Non-Af > 60 (>60) 11/13/19 13:10 Glucose 97 mg/dL (75-110) 11/13/19 13:10 POC Glucose 145 mg/dL (70-110) H 10/28/19 11:42 Lactic Acid 1.7 mmol/L (0.7-2.1) 10/28/19 18:00 Calcium 9.4 mg/dL (8.4-10.2) 11/13/19 13:10 Magnesium 2.0 mg/dL (1.6-2.3) 10/28/19 11:20 Total Bilirubin 0.6 mg/dL (0.2-1.3) 11/02/19 09:30 Direct Bilirubin 0.2 mg/dL (0.0-0.4) 11/02/19 09:30 Neonat Total Bilirubin Not Reportable 11/02/19 09:30 Neonat Direct Bilirubin Not Reportable 11/02/19 09:30 Neonat Indirect Bili Not Reportable 11/02/19 09:30 AST 46 U/L (14-36) H 11/02/19 09:30 ALT 46 U/L (<35) H 11/02/19 09:30 Alkaline Phosphatase 57 U/L (38-126) 11/02/19 09:30 Ammonia 20.6 umol/L (9-33) 10/28/19 18:00 Total Protein 6.5 g/dL (6.3-8.2) 11/02/19 09:30 Albumin 3.2 g/dL (3.5-5.0) L 11/02/19 09:30 Serum HCG, Qual NEGATIVE (NEGATIVE) 10/28/19 11:20 Urine Color ADAN 10/28/19 11:45 Urine Appearance SLIGHTLY-CLOUDY 10/28/19 11:45 Urine pH 6.0 (5.0-9.0) 10/28/19 11:45 Ur Specific Victor 1.015 10/28/19 11:45 Urine Protein 100 mg/dL (NEGATIVE) H 10/28/19 11:45 Urine Glucose (UA) NEGATIVE mg/dL (NEGATIVE) 10/28/19 11:45 Urine Ketones 20 mg/dL (NEGATIVE) H 10/28/19 11:45 Urine Blood MODERATE (NEGATIVE) H 10/28/19 11:45 Urine Nitrite (Reflex) NEGATIVE (NEGATIVE) 10/28/19 11:45 Urine Bilirubin NEGATIVE (NEGATIVE) 10/28/19 11:45 Urine Urobilinogen 4.0 mg/dL (<2.0) H 10/28/19 11:45 Leukocyte Esterase Rfl TRACE (NEGATIVE) H 10/28/19 11:45 Urine RBC (Auto) 4 /HPF 10/28/19 11:45 U Hyaline Cast (Auto) 3 /LPF 10/28/19 11:45 Urine Bacteria (Auto) 3+ /HPF 10/28/19 11:45 Urine WBC (Reflex) 18 /HPF 10/28/19 11:45 Urine WBC Clumps FEW /HPF 10/28/19 11:45 Squamous Epi Cells Auto 3 /HPF 10/28/19 11:45 Urine Mucus (Auto) RARE /LPF 10/28/19 11:45 Urine Yeast (Budding) PRESENT /HPF 10/28/19 11:45 Urine Ascorbic Acid NEGATIVE (NEGATIVE) 10/28/19 11:45 Time Trough Drawn 45 10/31/19 09:45 Vancomycin Trough 8.4 ug/mL (5.0-20.0) 10/31/19 09:45 Urine Opiates Screen UNCONFIRMED POSITIVE 10/28/19 11:45 Urine Methadone Screen NEGATIVE 10/28/19 11:45 Ur Barbiturates Screen NEGATIVE 10/28/19 11:45 Ur Phencyclidine Scrn NEGATIVE 10/28/19 11:45 Ur Amphetamines Screen 10/28/19 11:45 U Benzodiazepines Scrn NEGATIVE 10/28/19 11:45 Urine Cocaine Screen NEGATIVE 10/28/19 11:45 U Marijuana (THC) Screen UNCONFIRMED POSITIVE 10/28/19 11:45 COVID-19 Source NASOPHARYNGEAL 10/30/19 13:10 COVID-19 (KENRICK) NOT DETECTED 10/30/19 13:10 Impressions: Chest X-Ray 10/28/19 11:38 IMPRESSION: Peripheral linear opacities that are perpendicular to the pleural surface in the inferolateral aspect of the right hemithorax could represent Caleb B lines - clinical correlation for mild CHF / interstitial edema is recommended. Finger X-Ray 10/28/19 11:52 IMPRESSION: Soft tissue swelling. No osseous abnormality. PICC Line Insertion 11/03/19 00:00 IMPRESSION: SUCCESSFUL PLACEMENT OF A 5 FR DUAL LUMEN 30 CM PICC IN THE RIGHT BRACHIOCEPHALIC VEIN. Plan Time Spent: Greater than 30 Minutes Stroke Is this a Stroke Patient?: No Acute Heart Failure - Is this a Heart Failure Patient?: No
== END 2019-11-15 12:05 | disposition home or self-care (01) | DRG 853 ==
LOC: OROUT 11:00 → INOR 13:28 → 3S 16:42 → 5 10-30 16:41 → 3W 11-02 01:28 → 4W 11-09 14:15
PROVIDERS: ADMIT Family Medicine; ATTEND Family Medicine
PROC: 0H9EXZZ Drainage of Left Lower Arm Skin, External Approach (ICD-10-PCS; 2019-10-28)
PROC: 0HBGXZZ Excision of Left Hand Skin, External Approach (ICD-10-PCS; 2019-10-28)
PROC: 0X6L0Z1 Detachment at Right Thumb, High, Open Approach (ICD-10-PCS; principal; 2019-10-28 13:30)
PROC: 02HV33Z Insertion of Infusion Device into Superior Vena Cava, Percutaneous Approach (ICD-10-PCS; 2019-11-03)
PROC: B518ZZA Fluoroscopy of Superior Vena Cava, Guidance (ICD-10-PCS; 2019-11-03)
PROC: B548ZZA Ultrasonography of Superior Vena Cava, Guidance (ICD-10-PCS; 2019-11-03)
DX: A41.9 Sepsis, unspecified organism (principal); K72.00 Acute and subacute hepatic failure without coma; R65.21 Severe sepsis with septic shock; L03.114 Cellulitis of left upper limb; I96 Gangrene, not elsewhere classified; I76 Septic arterial embolism; I74.9 Embolism and thrombosis of unspecified artery; B95.0 Streptococcus, group A, as the cause of diseases classified elsewhere; B96.20 Unspecified Escherichia coli [E. coli] as the cause of diseases classified elsewhere; B95.61 Methicillin susceptible Staphylococcus aureus infection as the cause of diseases classified elsewhere; E87.6 Hypokalemia; L89.899 Pressure ulcer of other site, unspecified stage; R23.8 Other skin changes; L53.9 Erythematous condition, unspecified; I34.0 Nonrheumatic mitral (valve) insufficiency; F19.10 Other psychoactive substance abuse, uncomplicated; F12.10 Cannabis abuse, uncomplicated; F11.10 Opioid abuse, uncomplicated; R00.0 Tachycardia, unspecified; F41.8 Other specified anxiety disorders; F31.9 Bipolar disorder, unspecified; F17.210 Nicotine dependence, cigarettes, uncomplicated; Z03.818 Encounter for observation for suspected exposure to other biological agents ruled out
CPT/HCPCS: 01810; 01922; 36415; 36573; 71045; 80048; 80053; 80202; 80307; 81001; 82140; 82803; 82962; 83605; 83735; 84703; 85025; 85027; 85610; 85730; 87040; 87070; 87075; 87077; 87086; 87088; 87150; 87186; 87205; 87635; 88305; 88311; 93005; 93010; 93312; 93325; 96361; 96365; 96368; 96375; 99140; 99291; C9803; J0330; J0690; J1100; J1642; J1644; J2250; J2270; J2405; J2543; J2704; J3010; J3370; J3480; J3490; J7050; J7060; J7120